=== PATIENT | male | born 1960 | race Caucasian/White ===

== ENCOUNTER 2020-10-09 00:42 | Emergency (ER) | payer OTHER, MEDICAID, SELFPAY ==
--- NOTE | 2020-10-09 00:43 | PC.NURSE ---
Pt to CT upon arrival
[2020-10-09 00:44] VITALS: BP 144/82; PULSE 107; RESP 24; TEMP 36.8; O2SAT 100
--- NOTE | 2020-10-09 00:44 | DI.CT.S_ITS ---
PROCEDURE: CT STROKE INDICATIONS: aphasia TECHNIQUE: Noncontrast 4.5 mm thick angled axial sections acquired from the foramen magnum to the vertex, with coronal reformats. For radiation dose reduction, the following was used: automated exposure control, adjustment of mA and/or kV according to patient size. COMPARISON: None. FINDINGS: Image quality: Excellent. CSF spaces: Basal cisterns are patent. No extra-axial fluid collections. The ventricles are symmetric in size and shape. Brain: No intracranial bleeds or masses. There is cerebral volume loss for age, with resultant ventricular and sulcal prominence. There are periventricular and deep white matter chronic small vessel ischemic changes. There is intracranial internal carotid artery atherosclerosis. Skull and face: Calvarium and visualized facial bones appear intact, without suspicious lesions. Sinuses: Mucosal thickening noted in the visualized maxillary sinuses. The mastoids are clear. IMPRESSION: No acute intracranial disease process. Findings telephoned to Dr. Shaikh on October 09, 2020 at 12:56 a.m.. This study fulfills neurological imaging criteria for inclusion or exclusion of acute stroke therapies based on available published neurological guidelines. Dictated by: Cata Hayward MD, PhD on 10/09/2020 at 0:54 Approved by: Cata Hayward MD, PhD on 10/09/2020 at 0:58
--- NOTE | 2020-10-09 00:45 | DI.CT.S_ITS ---
PROCEDURE: CT ANGIO HEAD AND NECK INDICATIONS: stroke TECHNIQUE: After the administration of intravenous contrast, 1 mm thick sections acquired from the aortic arch through the [place] of [place]. Post-contrast 4.5 mm thick sections then re-acquired from the foramen magnum to the vertex. 3-dimensional jrgzphx-ugdtwncmh-udmvdernhe (MIP) and/or volume rendering reformats were acquired of the central intracranial vasculature and neck separately. COMPARISON: None. FINDINGS: Image quality: Excellent. BRAIN: CSF spaces: Ventricles are normal in size and shape. Basal cisterns are patent. No extra-axial fluid collections. Brain: No midline shift. No intracranial bleeds or masses. Miranda-white matter interface appears intact. Skull and face: Calvarium and facial bones appear intact, without suspicious lesions. Orbits appear normal. Sinuses: Mucosal thickening noted in the maxillary sinuses bilaterally. The mastoids are clear. HEAD CT ANGIOGRAPHY: Anterior circulation: Intracranial internal carotid arteries are normal in size and flow. The flow within the paired anterior cerebral arteries is normal and symmetric. The flow within the middle cerebral arteries is normal and symmetric. The anterior communicating artery is seen. No aneurysms are seen. Posterior circulation: Normal flow noted in the right vertebral artery. Patient is right vertebral artery dominant. Atherosclerotic calcification noted in the proximal V4 segment of the right vertebral artery which causes mild narrowing of the vessel. Left vertebral artery is occluded distal to the origin left posterior inferior cerebral artery. Normal flow noted in the basilar artery. Flow within the posterior cerebral arteries is normal and symmetric. No aneurysms are seen. Dural sinuses demonstrate normal postcontrast enhancement. NECK CT ANGIOGRAPHY: Carotid system: The great vessels demonstrate a conventional anatomy as they arise from the aortic arch. The origins of the common carotid arteries appear patent. The common carotid arteries demonstrate normal caliber and courses. Atherosclerotic calcifications noted in the origins of the internal carotid arteries bilaterally which causes less than 50% stenosis of the vessels. Posterior circulation: Atherosclerotic calcification noted in the origin of the right vertebral artery which causes mild narrowing of the vessel. Patient is right vertebral artery dominant. Congenitally hypoplastic left vertebral artery noted. Origin left vertebral artery is fully patent. The more superior extracranial portions of both vertebral arteries also demonstrate normal courses and calibers. They join to form a normal appearing basilar artery. Soft tissues: Visualized neck soft tissues demonstrate no suspicious abnormalities. Bones: No suspicious bony lesions. Spine degenerative disc disease and facet arthropathy. Visualized cervical spine appears normally aligned. IMPRESSION: 1. No acute intracranial disease process. 2. Less than 50% stenosis of the origins of the internal carotid arteries. 3. Mild stenosis of the origin of the right vertebral artery in the V4 segment of the right vertebral artery. Patient is right vertebral artery dominant. 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 Any quantitative measurements of stenosis were performed using NASCET criteria. Dictated by: Cata Hayward MD, PhD on 10/09/2020 at 1:08 Approved by: Cata Hayward MD, PhD on 10/09/2020 at 1:16
[2020-10-09 00:56] VITALS: BP 146/91; PULSE 119; O2SAT 99
[2020-10-09 01:00] VITALS: BP 144/82; PULSE 110; RESP 16; O2SAT 100
--- NOTE | 2020-10-09 01:10 | ED.WEAKNESS ---
HPI - Weakness General Chief complaint: Neuro Symptoms/Deficit Stated complaint: Code stroke Time Seen by Provider: 10/09/20 00:44 Source: patient and EMS Mode of arrival: EMS Limitations: other (aphasia) History of Present Illness HPI Narrative: This is a 59-year-old male who comes emergency department with complaint of altered speech. Patient was last seen normal at 11:40 p.m. by staff at the motel that he is staying at he had normal speech at that time. Patient was then noted to not be able to really speak and was stuttering and unable to express himself. Patient is otherwise moving normally. His speech is so difficult it is very difficult to even get any history. 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 And that he was on clobetasol. Patient is unable to clearly enunciate or share if he is on any other medications. He states he had 2 alcoholic drinks tonight. He denies sounds like other drugs besides possibly THC. Related Data Previous Rx's Medication Instructions Recorded clobetasol 0.05 % topical ointment 1 applic TOPICAL BID PRN 14 Days 08/11/20 #60 g Allergies Allergy/AdvReac Type Severity Reaction Status Date / Time No Known Drug Allergies Allergy Unverified 06/29/20 13:37 Review of Systems Review of Systems ROS Unobtainable: Unobtainable due to medical condition Patient History Medical History Chicken pox (~1989) Partial blindness Psoriasis Family History (Updated 07/05/20 @ 14:04 by Cassie Orourke) Father Stroke Mother Cancer Brother Alcohol abuse Sister Murder Grandfather Stroke Grandmother Stroke Grandfather Stroke Grandmother Stroke Social History Smoking Status: Former smoker Smoking Status: Former smoker Exam Narrative Exam Narrative: GEN: well nourished, well appearing male, alert and oriented x 3, patient appears to be in moderate distress. HEENT: Atraumatic, pupils are equal round reactive to light, extraocular movements are intact, nares are clear, TMs are clear with no fluid, there is no conjunctival pallor. Throat is clear without any exudates, erythema, tonsillar enlargement or uvular deviation, no facial droop. HEART: Regular rate and rhythm without murmur, clicks, rubs. Pulses are equal in upper and lower extremities LUNGS:Lungs clear to auscultation, no wheezes, rales, crackles, chest moves symmetrically ABD:bowel sounds normal, soft, non-tender, no guarding, rebound, rigidity, no masses noted, no hepatosplenomegaly :No CVA tenderness MSCL: Non-tender, no muscle atrophy, muscles strength 5/5 upper and lower extremities, full range of motion NEURO:CN 2-12 intact, sensation normal, reflexes 2/4 upper and lower extremities. finger nose finger test normal, heel lombardi test normal, patient has significant expressive aphasia SKIN: No rash or skin changes. Initial Vital Signs Initial Vital Signs: Vital Signs Temperature 98.2 F 10/09/20 00:44 Pulse Rate 107 H 10/09/20 00:44 Respiratory Rate 24 10/09/20 00:44 Blood Pressure 144/82 H 10/09/20 00:44 Pulse Oximetry 100 10/09/20 00:44 Scores NIH Stroke Scale Level of Conciousness: Alert, keenly responsive Ask month/age: Answers one question correctly, intubated follow commands Open/close eyes, close hand: Performs both tasks correctly Best gaze horizontal: Normal Visual nguyen: No visual loss Facial palsy: Normal symetrical movement Left arm drift: No drift for full 10 sec Right arm drift: No drift for full 10 sec Left leg drift: No drift for full 5 sec Right leg drift: No drift for full 5 sec Limb ataxia: Absent Sensory on face/arms/legs: Normal, no sensory loss Best language: Severe aphasia, not much is understood, fragmented Dysarthria: Severe, unintelligible Extinction or inattention: No abnormality Total NIH Stroke scale score: 5 Course Orders Ordered: Discontinued Medications Aspirin (Aspirin 81 Mg Chew Tab) 324 mg PO NOW ONE Stop: 10/09/20 01:00 Last Admin: 10/09/20 01:48 Dose: Not Given Documented by: KADENOTEM Aspirin (Aspirin Supp 600 Mg Supp.Rect) 600 mg GA NOW ONE Stop: 10/09/20 01:25 Last Admin: 10/09/20 01:47 Dose: Not Given Documented by: KBROTEM Aspirin (Aspirin 300 Mg Supp) 300 mg GA NOW ONE Stop: 10/09/20 01:33 Last Admin: 10/09/20 01:47 Dose: Not Given Documented by: ASHLEY Aspirin (Aspirin 81 Mg Chew Tab) 324 mg PO NOW ONE Stop: 10/09/20 01:40 Last Admin: 10/09/20 01:46 Dose: 324 mg Documented by: ASHLEY Clopidogrel Bisulfate (Clopidogrel 75 Mg Tablet) 300 mg PO NOW ONE Stop: 10/09/20 01:40 Last Admin: 10/09/20 01:47 Dose: 300 mg Documented by: ASHLEY Sodium Chloride (Normal Saline 0.9%) 1,000 mls @ 150 mls/hr IV CONT COURTNEY Last Infusion: 10/09/20 02:23 Dose: 0 mls/hr Documented by: Admin: 10/09/20 01:29 Dose: 150 mls/hr Documented by: ASHLEY Reevaluation(s) Reevaluation #1: Patient has been quite insistent that he does not wish to stay. His mentation has significantly improved. He is able to hold a conversation he knows where he is. He does not recall exactly what happened today but no that he was unable to express himself adequately. Patient states that he is planning return tomorrow he has an appointment to be evaluated for hernia. He does not wish to miss this. He is aware that he has a low sodium level and that I am concerned about seizure or stroke I am concerned he could have recurrent episodes and potentially or have permanent brain damage. Patient states he was not eating for quite some time will he was fishing. He is happy to increases sodium level. He has seen Dr. Rivas in the past but does not claim him as his primary care. He is willing to get his sodium level rechecked. He is encouraged to return here at any time. He has also been having our director of social work reach out to him to contact him. He has a friend who is picking him up this evening his in the department and states that they are willing to stay with him tonight to keep an eye on him. Time: 02:01 Consultations Consultation #1: Telestroke, Dr. Arora. CT and CTA do not show clear cause. Patient was unable to give history does appear is a sodium of 124. We did discuss that may be seizure would be on the differential specially with his sort of expressive aphasia that is quite dense. He is willing to evaluate the patient with Telestroke video. By the time the neurologist was on the Telestroke within 20 minutes patient's speech had significantly improved he still is confused but he is able to speak with fairly clear speech and answer questions somewhat appropriately. They did evaluate the patient on video. They do request that we should give aspirin 324 mg as well as loading dose of 300 mg of Plavix get MRI in the morning. Discussed that this is potentially related hyponatremia, versus seizure versus stroke and continue workup. Vital Signs Vital signs: Vital Signs - 8 hr 10/09/20 00:44 10/09/20 00:56 10/09/20 01:00 Temperature 98.2 F Pulse Rate 107 H 119 H 110 H Respiratory Rate 24 16 Blood Pressure 144/82 H 146/91 H 144/82 H Pulse Oximetry 100 99 100 10/09/20 01:30 10/09/20 02:00 Temperature Pulse Rate 101 H 96 H Respiratory Rate 18 15 Blood Pressure 157/99 H 157/94 H Pulse Oximetry 99 100 MDM - Weakness Lab Data Result diagrams: 10/09/20 00:55 10/09/20 00:55 Labs: Lab Results 10/09/20 10/09/20 10/09/20 Range/Units 00:55 00:55 00:55 WBC 6.5 (4.5-11.0) X10^3/uL RBC 4.57 (4.5-5.9) X10^6/uL Hgb 13.9 (13.5-17.5) g/dL Hct 39.1 L (41-53) % MCV 85.5 (80-100) fL MCH 30.4 (26-34) PG MCHC 35.5 (30-36) % RDW 12.4 (11.6-14.8) % Plt Count 223 (150-400) X10^3/uL Neut % (Auto) 71.0 (50-75) % Lymph % (Auto) 11.1 L (25-40) % [place] % (Auto) 15.9 H (3-14) % Eos % (Auto) 1.4 L (2-4) % Baso % (Auto) 0.6 (0-2) % Neut # (Auto) 4600 (7430-6625) /uL Lymph # (Auto) 700 L (3893-0760) /uL [place] # (Auto) 1000 H (0-900) /uL Eos # (Auto) 100 (0-450) /uL Baso # (Auto) 0 (0-100) /uL PT 13.1 H (10.1-12.7) SECONDS INR 1.2 (0.9-1.3) APTT 28 (26.4-36.2) SECONDS Sodium 124 L (137-145) mmol/L Potassium 3.4 (3.4-5.1) mmol/L Chloride 86 L (98-107) mmol/L Carbon Dioxide 27 (22-32) mmol/L BUN 13 (9-20) mg/dL Creatinine 0.64 L (0.66-1.25) mg/dL Estimated GFR > 60.0 (>60) mL/min BUN/Creatinine Ratio 20.3 (6-22) Glucose 216 H (80-110) mg/dL Calcium 9.4 (8.4-10.2) mg/dL Total Creatine Kinase 32 L (55-170) U/L CK-MB (CK-2) TNP CK-MB (CK-2) Rel Index TNP Troponin I < 0.012 (0.01-0.034) ng/mL Ethyl Alcohol ( - 10) mg/dL 10/09/20 Range/Units 00:55 WBC (4.5-11.0) X10^3/uL RBC (4.5-5.9) X10^6/uL Hgb (13.5-17.5) g/dL Hct (41-53) % MCV (80-100) fL MCH (26-34) PG MCHC (30-36) % RDW (11.6-14.8) % Plt Count (150-400) X10^3/uL Neut % (Auto) (50-75) % Lymph % (Auto) (25-40) % [place] % (Auto) (3-14) % Eos % (Auto) (2-4) % Baso % (Auto) (0-2) % Neut # (Auto) (9665-6664) /uL Lymph # (Auto) (1019-0407) /uL [place] # (Auto) (0-900) /uL Eos # (Auto) (0-450) /uL Baso # (Auto) (0-100) /uL PT (10.1-12.7) SECONDS INR (0.9-1.3) APTT (26.4-36.2) SECONDS Sodium (137-145) mmol/L Potassium (3.4-5.1) mmol/L Chloride (98-107) mmol/L Carbon Dioxide (22-32) mmol/L BUN (9-20) mg/dL Creatinine (0.66-1.25) mg/dL Estimated GFR (>60) mL/min BUN/Creatinine Ratio (6-22) Glucose (80-110) mg/dL Calcium (8.4-10.2) mg/dL Total Creatine Kinase (55-170) U/L CK-MB (CK-2) CK-MB (CK-2) Rel Index Troponin I (0.01-0.034) ng/mL Ethyl Alcohol 12 H ( - 10) mg/dL Point of Care Testing Glucose POC [address] scan - head: Radiologist Impression: [address] [id number] Scan ReportSigned Patient: Leighton Shanks AMR#: [id number]: 9Acct:[id number]/Sex: 59 / MDate of Service: 10/09/20Loc: EDAccession Number: [id number] Procedure: CT Stroke Ordering Provider: Kenna Shaikh D.O. PROCEDURE: CT STROKE INDICATIONS: aphasia TECHNIQUE: Noncontrast 4.5 mm thick angled axial sections acquired from the foramen magnum to the vertex, with coronal reformats. For radiation dose reduction, the following was used: automated exposure control, adjustment of mA and/or kV according to patient size. COMPARISON: None. FINDINGS: Image quality: Excellent. CSF spaces: Basal cisterns are patent. No extra-axial fluid collections. The ventricles are symmetric in size and shape. Brain: No intracranial bleeds or masses. There is cerebral volume loss for age, with resultant ventricular and sulcal prominence. There are periventricular and deep white matter chronic small vessel ischemic changes. There is intracranial internal carotid artery atherosclerosis. Skull and face: Calvarium and visualized facial bones appear intact, without suspicious lesions. Sinuses: Mucosal thickening noted in the visualized maxillary sinuses. The mastoids are clear. IMPRESSION: No acute intracranial disease process. Findings telephoned to Dr. Shaikh on October 09, 2020 at 12:56 a.m.. This study fulfills neurological imaging criteria for inclusion or exclusion of acute stroke therapies based on available published neurological guidelines. Dictated by: Cata Hayward MD, PhD on 10/09/2020 at 0:54 Approved by: Cata Hayward MD, PhD on 10/09/2020 at 0:58 CTA - brain/neck: Radiologist Impression: [address] [id number] Scan ReportSigned Patient: Leighton Shanks AMR#: [id number]: [id number]:[id number]/Sex: 59 / MDate of Service: 10/09/20Loc: EDAccession Number: [id number] Procedure: CT angio head and neck Ordering Provider: Kenna Shaikh D.O. PROCEDURE: CT ANGIO HEAD AND NECK INDICATIONS: stroke TECHNIQUE: After the administration of intravenous contrast, 1 mm thick sections acquired from the aortic arch through the [place]. Post-contrast 4.5 mm thick sections then re-acquired from the foramen magnum to the vertex. 3-dimensional ogfgrod-kdyquunrl-uklmggltpq (MIP) and/or volume rendering reformats were acquired of the central intracranial vasculature and neck separately. COMPARISON: None. FINDINGS: Image quality: Excellent. BRAIN: CSF spaces: Ventricles are normal in size and shape. Basal cisterns are patent. No extra-axial fluid collections. Brain: No midline shift. No intracranial bleeds or masses. Miranda-white matter interface appears intact. Skull and face: Calvarium and facial bones appear intact, without suspicious lesions. Orbits appear normal. Sinuses: Mucosal thickening noted in the maxillary sinuses bilaterally. The mastoids are clear. HEAD CT ANGIOGRAPHY: Anterior circulation: Intracranial internal carotid arteries are normal in size and flow. The flow within the paired anterior cerebral arteries is normal and symmetric. The flow within the middle cerebral arteries is normal and symmetric. The anterior communicating artery is seen. No aneurysms are seen. Posterior circulation: Normal flow noted in the right vertebral artery. Patient is right vertebral artery dominant. Atherosclerotic calcification noted in the proximal V4 segment of the right vertebral artery which causes mild narrowing of the vessel. Left vertebral artery is occluded distal to the origin left posterior inferior cerebral artery. Normal flow noted in the basilar artery. Flow within the posterior cerebral arteries is normal and symmetric. No aneurysms are seen. Dural sinuses demonstrate normal postcontrast enhancement. NECK CT ANGIOGRAPHY: Carotid system: The great vessels demonstrate a conventional anatomy as they arise from the aortic arch. The origins of the common carotid arteries appear patent. The common carotid arteries demonstrate normal caliber and courses. Atherosclerotic calcifications noted in the origins of the internal carotid arteries bilaterally which causes less than 50% stenosis of the vessels. Posterior circulation: Atherosclerotic calcification noted in the origin of the right vertebral artery which causes mild narrowing of the vessel. Patient is right vertebral artery dominant. Congenitally hypoplastic left vertebral artery noted. Origin left vertebral artery is fully patent. The more superior extracranial portions of both vertebral arteries also demonstrate normal courses and calibers. They join to form a normal appearing basilar artery. Soft tissues: Visualized neck soft tissues demonstrate no suspicious abnormalities. Bones: No suspicious bony lesions. Spine degenerative disc disease and facet arthropathy. Visualized cervical spine appears normally aligned. IMPRESSION: 1. No acute intracranial disease process. 2. Less than 50% stenosis of the origins of the internal carotid arteries. 3. Mild stenosis of the origin of the right vertebral artery in the V4 segment of the right vertebral artery. Patient is right vertebral artery dominant. 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 Any quantitative measurements of stenosis were performed using NASCET criteria. Dictated by: Cata Hayward MD, PhD on 10/09/2020 at 1:08 Approved by: Cata Hayward MD, PhD on 10/09/2020 at 1:16 ECG Data Attestation: I personally reviewed and interpreted this ECG as follows: Interpretation: Sinus tachycardia rate of 112 GA 170 QRS 88 QTC of 458. No acute ST elevation depression noted. MDM Narrative Medical decision making narrative: This is a 59-year-old male who came with dense expressive aphasia. Patient had last been seen normal at 11:40 p.m. and had arrived within appropriate time to give tPA. Patient's head CT is negative, CT is pending, patient's tachycardia but only mildly hypertensive with a blood pressure in the 140s. Patient is able to follow commands and otherwise his NIH is positive because he had difficulty answering his age and patient changes to speech. Patient does have to be continually redirected back to the questions so unclear if this is truly a stroke versus possibly seizure or other cause. Glucose is an appropriate range. Sodium is noted to be 124 and hyponatremic and etoh is 12 without any other signs of alcohol withdrawal except for mild tachycardia. Patient is not restless, inappropriate, he does not have any tremor. Telestroke was consulted, they began video Telestroke and patient speech significantly improved by the time they were able to interview them. Patient has been somewhat confused but also cleared throughout his stay until he appears to be back at baseline. Patient is quite reluctant to stay. He is able to express that he understands the risks versus benefits that would very much like to keep him overnight get an MRI in the morning continue to watch his sodium that he has high potential for recurrent possible seizure or on negative outcome including . Patient is actually supposed to return this morning for follow-up office visit with general surgery he does not wish to miss this. He has a friend who has arrived and is also willing to help keep an eye on the patient. Patient was signed out Against Medical Advice after period of observation and he is found to be competent to do so at this time. Critical Care Time Critical Care Time Critical Care Time: Yes Total Critical Care Time: 45 Attestation: The high probability of a clinically significant, sudden or life threatening deterioration of the [neurologic] system(s) required my full and direct attention, intervention and personal management. The aggregate critical care time was [] minutes. This time is in addition to time spent performing reported procedures but includes the following: [x] Data Review and interpretation [x] Patient assessment and monitoring of vital signs [x] Documentation x[] Medication orders and management Discharge Plan Departure Patient Disposition: Left Against Medical Advice Clinical Impression: Hyponatremia Instructions: DI for Hyponatremia Activity Restrictions/Additional Instructions: Follow-up with Dr. Rivas to have your sodium rechecked. Here level today your sodium level is 124, this is quite low and could be causing your symptoms today. I would certainly recommend increasing your sodium level in your food. I am concerned the either had a seizure today or possibly a stroke. It is recommended that we keep you overnight for monitoring, evaluation and following her sodium as well as MRI in the morning. I would recommend that you have someone stay with you if there available tonight as we discussed. Your welcome to return at any time. I do not recommend that you leave tonight. Please return if you have headaches, he seemed altered, have difficulty with speech again, have seizure-like activity, loss of bowel or bladder control, new numbness, tingling or weakness or difficulty with movement or other new or concerning symptoms. Prescriptions: No Action clobetasol 0.05 % ointment 1 applic topical BID PRN (Reason: psoriasis) 14 Days Qty: 60 RF: 3 Referrals: Froilan Rivas MD [Primary Care Provider] - Stand Alone Forms: Against Medical Advice
[2020-10-09 01:15] LABS: Add Manual Diff / Slide Review NO; Basophils Absolute Auto 0 /uL (0-100); Basophils Percent Auto 0.6 % (0-2); Eosinophils Absolute Auto 100 /uL (0-450); Eosinophils Percent Auto 1.4 % (2-4); Hematocrit 39.1 % (41-53); Hemoglobin 13.9 g/dL (13.5-17.5); INR 1.2 (0.9-1.3); Lymphocytes Absolute Auto 700 /uL (1100-4500); Lymphocytes Percent Auto 11.1 % (25-40); Mean Corpuscular HGB Conc 35.5 % (30-36); Mean Corpuscular Hemoglobin 30.4 PG (26-34); Mean Corpuscular Volume 85.5 fL (80-100); Monocytes Absolute Auto 1000 /uL (0-900); Monocytes Percent Auto 15.9 % (3-14); Neutrophils Absolute Auto 4600 /uL (1500-7000); Platelet Count 223 X10^3/uL (150-400); Prothrombin Time 13.1 SECONDS (10.1-12.7); Red Blood Cell Count 4.57 X10^6/uL (4.5-5.9); Red Cell Distribution Width 12.4 % (11.6-14.8); White Blood Cell Count 6.5 X10^3/uL (4.5-11.0)
[2020-10-09 01:18] LABS: PTT Partial Thromboplastin Tim 28 SECONDS (26.4-36.2)
[2020-10-09 01:19] LABS: Ethanol (ETOH) 12 mg/dL
[2020-10-09 01:20] LABS: BUN Creatinine Ratio 20.3 (6-22); Blood Urea Nitrogen 13 mg/dL (9-20); Calcium 9.4 mg/dL (8.4-10.2); Carbon Dioxide 27 mmol/L (22-32); Chloride 86 mmol/L (98-107); Creatine Kinase 32 U/L (55-170); Estimated Glomerular Filt Rate > 60.0 mL/min (>60); Glucose 216 mg/dL (80-110); HEMOLYSIS < 15 (0-50); Potassium 3.4 mmol/L (3.4-5.1); Sodium 124 mmol/L (137-145)
[2020-10-09] MEDS: SODIUM CHLORIDE 0.9% 1,000 ML 150 ML IV (01:29)
[2020-10-09 01:30] VITALS: BP 157/99; PULSE 101; RESP 18; O2SAT 99
[2020-10-09 01:32] LABS: Troponin I < 0.012 ng/mL (0.01-0.034)
--- NOTE | 2020-10-09 01:41 | PC.NURSE ---
Pts sx improved,he still seems confused. he is no longer slurring his words.
[2020-10-09] MEDS: ASPIRIN 81 MG CHEW TAB 324 MG PO (01:46)
[2020-10-09] MEDS: CLOPIDOGREL 75 MG TABLET 300 MG PO (01:47)
[2020-10-09 02:00] VITALS: BP 157/94; PULSE 96; RESP 15; O2SAT 100
--- NOTE | 2020-10-09 12:50 | CM.SWNOTE ---
Addendum entered by Noelle Thomas 10/10/20 15:42: HOROLOGIST APPRENTICE Note HOROLOGIST APPRENTICE calls patient several times and is unable to leave VM. HOROLOGIST APPRENTICE receives calls from patient and patient is inaudiable and hangs up phone. HOROLOGIST APPRENTICE calls patient's person to notify, employer [employer]. [employer] endorses that patient is not in good health and things have escalated in the last 10 days and patient often becomes inaudiable. HOROLOGIST APPRENTICE informs [employer] of patient's PCP appt with Dr. Rivas at 8:15 AM on 10/20/20, Taco endorses he will inform patient. Taoc endorses that patient has upcoming hernia operation soon as well. HOROLOGIST APPRENTICE encourages [employer] to have patient return to the ER if symptoms increase and patient is in need of emergent medical attention. ADAM Lindsey Addendum entered by Noelle Thomas 10/09/20 13:31: HOROLOGIST APPRENTICE Follow Up Note HOROLOGIST APPRENTICE calls PCP Dr. Rivas office and schedules PCP ED f/u appt for patient on 10/20/20 at 8:30 AM with check in time of 8:15 AM HOROLOGIST APPRENTICE calls patient's number and it goes to but patient's VM box is full. HOROLOGIST APPRENTICE calls patient's person to notify [employer] (Ph. # [phone]) [employer] reports that he was just with patient 30 minutes ago and patient was doing fine (after HOROLOGIST APPRENTICE called 911). [employer] endorses that patient was not doing well when he came here from [place] and was struggling with GLFs and a hernia. Taco endorses that patient is staying at the [facility] in room 257. HOROLOGIST APPRENTICE calls [facility], to speak with patient and patient hangs up the phone. Plan: HOROLOGIST APPRENTICE will call patient tomorrow to inform patient of scheduled PCP appt and for f/u ADAM Lindsey Original Note: HOROLOGIST APPRENTICE Follow Up Note HOROLOGIST APPRENTICE receives consult for follow call to patient and for continuation of care. Patient is 59 y/o male who presented to this ED for concern of stroke. Patient left ED AMA and it is recommended that PCP f/u with PCP for further lab work. HOROLOGIST APPRENTICE calls patient, patient endorses he is feeling better, trying to calm him self and relax to avoid fits. Patient denies pain. Patient states that he has a friend that can drive him and he cannot legally drive until he has an eye appt. Patient endorses he has friends that can support him but all of his family has . Patient presents as somewhat coherent, circumstantial in his communication and asks if today is Friday. HOROLOGIST APPRENTICE endorses that HOROLOGIST APPRENTICE would like to call PCP Dr. Rivas's office for f/u PCP appt and for further lab work. Patient agrees to have HOROLOGIST APPRENTICE call PCP to schedule appt. Patient endorses he prefers prior to lunch appts. Patient asks for HOROLOGIST APPRENTICE's number and begins to studder, mumble and present as not coherent, alert or oriented. HOROLOGIST APPRENTICE has SQUIRT MACHINE OPERATOR listen to patient and reports possible concern for stroke. HOROLOGIST APPRENTICE calls 911 as patient is not responding to HOROLOGIST APPRENTICE and patient then hangs up the phone. Plan: HOROLOGIST APPRENTICE calls 911 for further EMS intervention at home. HOROLOGIST APPRENTICE to call patient back and schedule f/u PCP appt, HOROLOGIST APPRENTICE will wait to see if patient presents to ED. ADAM Lindsey
== END 2020-10-09 02:25 | disposition left against medical advice (07) ==
PROVIDERS: Emergency Provider Emergency Medicine; PCP Family Medicine
DX: E87.1 Hypo-osmolality and hyponatremia (principal); R00.0 Tachycardia, unspecified; R47.01 Aphasia
CPT/HCPCS: 36415; 70450; 70496; 70498; 80048; 80320; 82550; 82962; 84484; 85025; 85610; 85730; 93005; 96360; 99285; 99291; Q9967

== ENCOUNTER 2020-10-13 18:45 | Emergency (ER) | payer OTHER, MEDICAID, SELFPAY ==
[2020-10-13 18:49] VITALS: BP 117/74; PULSE 102; RESP 15; TEMP 36.3; O2SAT 97; BMI 17.6
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
[2020-10-13 19:19] LABS: Add Manual Diff / Slide Review NO; Basophils Absolute Auto 100 /uL (0-100); Basophils Percent Auto 0.8 % (0-2); Eosinophils Absolute Auto 100 /uL (0-450); Eosinophils Percent Auto 0.7 % (2-4); Hematocrit 41.4 % (41-53); Hemoglobin 14.4 g/dL (13.5-17.5); Lymphocytes Absolute Auto 1000 /uL (1100-4500); Lymphocytes Percent Auto 13.8 % (25-40); Mean Corpuscular HGB Conc 34.7 % (30-36); Mean Corpuscular Hemoglobin 29.9 PG (26-34); Mean Corpuscular Volume 86.1 fL (80-100); Monocytes Absolute Auto 1300 /uL (0-900); Neutrophils Absolute Auto 4800 /uL (1500-7000); Neutrophils Percent Auto 66.7 % (50-75); Platelet Count 240 X10^3/uL (150-400); Red Blood Cell Count 4.81 X10^6/uL (4.5-5.9); Red Cell Distribution Width 12.3 % (11.6-14.8); White Blood Cell Count 7.3 X10^3/uL (4.5-11.0)
[2020-10-13 19:40] LABS: Alanine Aminotransferase 48 IU/L (<50); Albumin 4.5 g/dL (3.5-5.0); Albumin Globulin Ratio 1.3 (1.0-2.8); Alkaline Phosphatase 128 U/L (38-126); Aspartate Aminotransferase 65 IU/L (17-59); BUN Creatinine Ratio 15.1 (6-22); Bilirubin Total 1.9 mg/dL (0.2-1.3); Blood Urea Nitrogen 11 mg/dL (9-20); Calcium 9.9 mg/dL (8.4-10.2); Carbon Dioxide 23 mmol/L (22-32); Chloride 87 mmol/L (98-107); Creatine Kinase 57 U/L (55-170); Estimated Glomerular Filt Rate > 60.0 mL/min (>60); Ethanol (ETOH) < 10 mg/dL; Globulin 3.6 g/dL (1.7-4.1); Glucose 204 mg/dL (80-110); HEMOLYSIS < 15 (0-50); Potassium 3.1 mmol/L (3.4-5.1); Sodium 125 mmol/L (137-145); Total Protein 8.1 g/dL (6.3-8.2)
[2020-10-13 19:51] LABS: Troponin I < 0.012 ng/mL (0.01-0.034)
[2020-10-13 21:18] LABS: Bacteria Urine None Seen; RBC Urine None Seen (0-5/HPF)
[2020-10-13 21:22] LABS: Ur Creatinine 20 (Normal); Ur Specific Gravity 1.025 (Normal); Urine Cocaine Negative (Negative); Urine Tetrahydrocannabinol Positive (Negative); Urine pH 5 (Normal)
[2020-10-13 21:23] LABS: UR Morphine/Opiate cutoff 300 Negative (Negative); Urine Amphetamines Positive (Negative); Urine Barbiturates Negative (Negative); Urine Benzodiazepines Positive (Negative); Urine MDMA Negative (Negative); Urine Methadone Negative (Negative); Urine Methamphetamines Positive (Negative); Urine Oxycodone Positive (Negative); Urine Phencyclidine Negative (Negative); Urine Tricyclic Antidepressant Negative (Negative)
[2020-10-13 21:26] LABS: Culture Indicated Urine Cult Not Indicated; Hyaline Casts Urine 0-1/LPF; WBC Urine 0-1/HPF (0-5/HPF)
[2020-10-13 22:42] VITALS: BP 126/75; PULSE 88; RESP 20; O2SAT 99
[2020-10-13] MEDS: ASPIRIN 81 MG CHEW TAB 324 MG PO (22:42)
== END 2020-10-13 22:43 | disposition home or self-care (01) ==
PROVIDERS: Emergency Provider Emergency Medicine; PCP Family Medicine
DX: E87.1 Hypo-osmolality and hyponatremia (principal); F19.10 Other psychoactive substance abuse, uncomplicated; R41.0 Disorientation, unspecified
CPT/HCPCS: 36415; 70450; 80053; 80305; 80320; 81003; 81015; 82550; 84146; 84484; 85025; 99284

== ENCOUNTER 2020-10-14 05:00 | Emergency (ER) | payer OTHER, MEDICAID, SELFPAY ==
[2020-10-14 05:05] VITALS: BP 133/84; PULSE 98; RESP 20; TEMP 36.6; O2SAT 100
--- NOTE | 2020-10-14 05:21 | PC.NURSE ---
He said he has no where to go,is tired from walking,is hungry and thirsty,denies pain.He has small abrasion on left knee.I cleaned it with soap and water.
--- NOTE | 2020-10-14 05:35 | ED.RECABL ---
HPI - Recheck/Abnormal Lab/Rx General Chief Complaint: Recheck/Abnormal Lab/Rx Stated Complaint: dizzy, short of breath Time Seen by Provider: 10/14/20 05:28 Source: patient Mode of arrival: Ambulatory History of Present Illness HPI narrative: Patient is a 59-year-old male who is a history of alcoholism and polysubstance of was presenting for the 2nd time this evening. He was released after being worked up for TIA and stroke, found to have hyponatremia which was improving. Patient's baseline mental status seems to wax and wane according to both my exam earlier this evening and no prior evaluation on october 09 2020. Patient states after his release from the emergency department he wondered around the street trying to find his friend's house. He thought she knew where she lived but unfortunately he he knocked on mini unknown doors and tried to go into someone else's house. He then tried to get into a hotel the all the hotels are booked, he tried sleeping in the lobby of 1 of them but was quickly kicked out. During all of this he did fall in has a left knee abrasion. Currently he seems much more with it than he did previously he does have a stutter. But he is moving all of his extremities. He basically states that he has nowhere to go so he return to the emergency department. Related Data Previous Rx's Medication Instructions Recorded clobetasol 0.05 % topical ointment 1 applic TOPICAL BID PRN 14 Days 08/11/20 #60 g Allergies Allergy/AdvReac Type Severity Reaction Status Date / Time No Known Drug Allergies Allergy Verified 10/13/20 18:49 Review of Systems Review of Systems Narrative: GENERAL: Denies chills, fatigue, malaise, fever, sweats, travel HEENT: Denies sinus pain, ear pain, sore throat, difficulty swallowing, neck pain RESPIRATORY: Denies dyspnea, cough, wheezing, hemoptysis, sputum. CARDIOVASCULAR: Denies chest pain, palpitations, orthopnea, edema GASTROINTESTINAL: Denies nausea, vomiting, abdominal pain, diarrhea, constipation, melena. : Denies dysuria, frequency, incontinence, hematuria, urinary retention, flank pain. MUSCULOSKELETAL: Denies weakness, joint pain, or bony pain SKIN: No rash, no erythema, no pruritus NEUROLOGIC: Denies weakness, dizziness, headache, numbness, change in speech, confusion PSYCHIATRIC: No concerning psychosocial issues. 12 point review of systems is negative except for those stated above and HPI Patient History Medical History Chicken pox (~1989) Partial blindness Psoriasis Family History (Updated 07/05/20 @ 14:04 by Cassie Orourke) Father Stroke Mother Cancer Brother Alcohol abuse Sister Murder Grandfather Stroke Grandmother Stroke Grandfather Stroke Grandmother Stroke Social History Smoking Status: Current every day smoker Smoking Status: Current every day smoker alcohol intake frequency: 3 or more drinks per day Substance Use Type: does not use Exam Initial Vital Signs Initial Vital Signs: Vital Signs Temperature 98 F 10/14/20 05:05 Pulse Rate 98 H 10/14/20 05:05 Respiratory Rate 20 10/14/20 05:05 Blood Pressure 133/84 10/14/20 05:05 Pulse Oximetry 100 10/14/20 05:05 GENERAL: Thin 59-year-old male very talkative this time HEENT: Head atraumatic,EOMI, pupils reactive, face symmetric, moist mucous membrane CARDIOVASCULAR: Regular rate and rhythm without murmurs, rubs or gallops. RESPIRATORY: Breath sounds equal bilaterally, no wheezes rales or rhonchi. ABDOMEN: Soft, nontender. Normoactive bowel sounds all 4 quadrants. No guarding or rebound. EXTREMITIES: Normal range of motion, no clubbing or edema. Neurovascularly intact NEUROLOGICAL: Alert and oriented x4.Normal gait and speech. He does have a stutter noted which remains unchanged SKIN: Warm, dry, no laceration, no petechiae, no rashes or lesions. Superficial left knee abrasion Course Vital Signs Vital signs: Vital Signs - 8 hr 10/14/20 05:05 10/14/20 06:26 Temperature 98 F Pulse Rate 98 H 80 Respiratory Rate 20 18 Blood Pressure 133/84 139/79 Pulse Oximetry 100 99 [facility] - Recheck/Abnormal Lab/Rx ECG Data Interpretation: Normal sinus rhythm rate 92 VT interval 162 QRS [address] changes or T-wave inversions [facility] Narrative Medical decision making narrative: EKG his was done because it was not done at his previous visit. Patient overall soon back to his baseline pain. Discussion of why he is here which really seems to be that he has nowhere else to go. At this time no indication to do any further testing. TONO was helping him dial phone to find his friend and her address and perhaps she could pick him up this time, TONO reports helping him and I will however as soon as it started ringing he dropped the phone and had no idea what was going on or why he was making a phone call. However he quickly recovers and is back to his baseline. He states that if he gets a ride in a taxi cab he will be able to direct him to the correct house. Discharge Plan Departure Patient Disposition: Home Clinical Impression: Abrasion of knee, left Qualifiers: Encounter type: initial encounter Qualified Code(s): S80.212A - Abrasion, left knee, initial encounter Instructions: DI for Minor Laceration Activity Restrictions/Additional Instructions: *You have been diagnosed with minor knee abrasion *Continue to take medications as directed *Follow up with your primary care provider in 2-3 days *Return to ER if you should have any new, worsening or concerning symptoms Prescriptions: No Action clobetasol 0.05 % ointment 1 applic topical BID PRN (Reason: psoriasis) 14 Days Qty: 60 RF: 3 Referrals: Froilan Rivas MD [Primary Care Provider] -
[2020-10-14 06:26] VITALS: BP 139/79; PULSE 80; RESP 18; O2SAT 99
--- NOTE | 2020-10-14 06:28 | PC.NURSE ---
dressing applied to left knee abrasion,telfa and 4by 4.
== END 2020-10-14 06:28 | disposition home or self-care (01) ==
PROVIDERS: Emergency Provider Emergency Medicine; PCP Family Medicine
DX: S80.212A Abrasion, left knee, initial encounter (principal); R41.82 Altered mental status, unspecified; R00.0 Tachycardia, unspecified; W19.XXXA Unspecified fall, initial encounter
CPT/HCPCS: 93005; 99282

== ENCOUNTER 2020-10-18 20:17 | Emergency (ER) | payer OTHER, MEDICAID, SELFPAY ==
[2020-10-18 20:25] VITALS: BP 142/89; PULSE 101; RESP 16; TEMP 36.8; O2SAT 98
[2020-10-18 21:07] LABS: BUN Creatinine Ratio 15.9 (6-22); Blood Urea Nitrogen 10 mg/dL (9-20); Calcium 9.3 mg/dL (8.4-10.2); Carbon Dioxide 24 mmol/L (22-32); Chloride 86 mmol/L (98-107); Estimated Glomerular Filt Rate > 60.0 mL/min (>60); Glucose 305 mg/dL (80-110); HEMOLYSIS < 15 (0-50); Sodium 125 mmol/L (137-145)
[2020-10-18 21:11] LABS: Potassium 2.7 mmol/L (3.4-5.1)
--- NOTE | 2020-10-18 21:16 | PC.NURSE ---
2114 informed pt of critical lab value, he now states he no longer wants to remain in the ED despite risks states I'll see a doctor in the morning and I'm fine now notified
== END 2020-10-18 21:30 | disposition left against medical advice (07) ==
PROVIDERS: Emergency Provider Emergency Medicine; PCP Family Medicine
DX: E87.6 Hypokalemia (principal)
CPT/HCPCS: 36415; 80048; 99281

== ENCOUNTER 2020-10-19 11:27 | Emergency (ER) | payer OTHER, MEDICAID, SELFPAY ==
[2020-10-19 11:30] VITALS: BP 153/105; PULSE 113; RESP 16; TEMP 36.9; O2SAT 97; BMI 16.9
--- NOTE | 2020-10-19 11:46 | PC.NURSE ---
EKG done and shows normal sinus tach
== END 2020-10-19 11:48 | disposition left against medical advice (07) ==
PROVIDERS: Emergency Provider Emergency Medicine; PCP Family Medicine
DX: R79.89 Other specified abnormal findings of blood chemistry (principal)
CPT/HCPCS: 93005; 93010; 99282

== ENCOUNTER 2020-10-24 08:13 | Emergency (ER) | payer OTHER, MEDICAID, SELFPAY ==
[2020-10-24 08:23] VITALS: BP 132/92; PULSE 100; RESP 18; TEMP 36.4; O2SAT 100; BMI 17.4
--- NOTE | 2020-10-24 08:26 | ED_ITS ---
HPI - General Adult General Chief complaint: Extremity Problem,Nontraumatic Stated complaint: 'aches from head to toe' Time Seen by Provider: 10/24/20 08:17 History of Present Illness HPI narrative: 59-year-old male who has been to the emergency department several times in the past week. Has been evaluated and also has left without being seen who arrives emergency department today with complaints of having aches from head to toe. He also states that he feels like he is on the verge of having a stroke. He states that his feet hurt although this is not new. He states he has not been eating although he does state that he has been having clam chowder for the past couple days. He has not seen his primary doctor recently. Unsure if he has an appointment with his primary doctor. Has multiple symptoms and is somewhat difficult to obtain a accurate HPI as to why he is here today other than having body aches. Related Data Previous Rx's Medication Instructions Recorded clobetasol 0.05 % topical ointment 1 applic TOPICAL BID PRN 14 Days 08/11/20 #60 g Allergies Allergy/AdvReac Type Severity Reaction Status Date / Time No Known Drug Allergies Allergy Verified 10/19/20 11:38 Review of Systems Constitutional Comments: Denies fever but does have fatigue and body aches Cardiovascular Comments: Denies chest pain Respiratory Comments: Denies shortness of breath Gastrointestinal Comments: Decreased appetite Musculoskeletal Comments: Feet pain Integumentary/Breasts Comments: No rashes Neurologic Comments: Feels like he is on the verge of having a stroke Hematologic/Lymphatic On Anticoagulants: No Patient History Medical History Chicken pox (~1989) Partial blindness Psoriasis Family History (Updated 07/05/20 @ 14:04 by Cassie Orourke) Father Stroke Mother Cancer Brother Alcohol abuse Sister Murder Grandfather Stroke Grandmother Stroke Grandfather Stroke Grandmother Stroke Social History Smoking Status: Current every day smoker Smoking Status: Current every day smoker alcohol intake frequency: 3 or more drinks per day Substance Use Type: does not use and methamphetamine Exam Initial Vital Signs Initial Vital Signs: Vital Signs Temperature 97.6 F 10/24/20 08:23 Pulse Rate 100 H 10/24/20 08:23 Respiratory Rate 18 10/24/20 08:23 Blood Pressure 132/92 H 10/24/20 08:23 Pulse Oximetry 100 10/24/20 08:23 Const General: cooperative and disheveled HENMT Head: normal to inspection and normocephalic Resp Effort & Inspection: normal respiratory effort Auscultation: clear to auscultation bilaterally Cardio Rate: regular rate Rhythm: regular rhythm Pulses: dorsalis pedis present bilaterally GI Inspection: normal to inspection Skin General: no rashes or lesions noted Neuro General: patient alert, patient awake and moves all extremities Extrem General: normal to inspection and capillary refill normal Other: Bilateral feet appears normal. Psych Appearance: grossly normal Course Orders Ordered: ED Orders 10/24/20 08:25 Basic Metabolic Panel Stat Complete Blood Count AUTO DIFF Stat Ethanol (ETOH) Stat 10/24/20 08:27 COVID19 -Nasal swab/Pre-Proc Stat Discontinued Medications Sodium Chloride (Normal Saline 0.9%) 1,000 mls @ 1,000 mls/hr IV BOLUS ONE Stop: 10/24/20 09:20 Last Infusion: 10/24/20 09:35 Dose: 0 mls/hr Documented by: Admin: 10/24/20 08:33 Dose: 1,000 mls/hr Documented by: URIEL Vital Signs Vital signs: Vital Signs - 8 hr 10/24/20 08:23 Temperature 97.6 F Pulse Rate 100 H Respiratory Rate 18 Blood Pressure 132/92 H Pulse Oximetry 100 Medical Decision Making Medical Records Medical records reviewed: Yes I reviewed the patient's medical records. Lab Data Lab results reviewed: Yes I reviewed the patient's lab results. Result diagrams: 10/24/20 08:25 10/24/20 08:25 Labs: Lab Results 10/24/20 10/24/20 10/24/20 Range/Units 08:25 08:25 08:27 WBC 7.2 (4.5-11.0) X10^3/uL RBC 5.48 (4.5-5.9) X10^6/uL Hgb 16.7 (13.5-17.5) g/dL Hct 47.9 (41-53) % MCV 87.4 (80-100) fL MCH 30.5 (26-34) PG MCHC 34.8 (30-36) % RDW 13.5 (11.6-14.8) % Plt Count 424 H (150-400) X10^3/uL Neut % (Auto) 69.6 (50-75) % Lymph % (Auto) 13.2 L (25-40) % [place] % (Auto) 15.5 H (3-14) % Eos % (Auto) 0.9 L (2-4) % Baso % (Auto) 0.8 (0-2) % Neut # (Auto) 5000 (1357-9658) /uL Lymph # (Auto) 1000 L (2515-5995) /uL [place] # (Auto) 1100 H (0-900) /uL Eos # (Auto) 100 (0-450) /uL Baso # (Auto) 100 (0-100) /uL Sodium 124 L (137-145) mmol/L Potassium 3.2 L (3.4-5.1) mmol/L Chloride 85 L (98-107) mmol/L Carbon Dioxide 25 (22-32) mmol/L BUN 6 L (9-20) mg/dL Creatinine 0.61 L (0.66-1.25) mg/dL Estimated GFR > 60.0 (>60) mL/min BUN/Creatinine Ratio 9.8 (6-22) Glucose 257 H (80-110) mg/dL Calcium 10.0 (8.4-10.2) mg/dL Ethyl Alcohol < 10 ( - 10) mg/dL SARS-CoV-2 (PCR) Negative (Negative) MDM Narrative Medical decision making narrative: Patient is hyponatremic that this is baseline for him. The rest of his labs are either baseline are unremarkable. He does feel better after IV fluids. No further workup needed in the emergency depa rtment. Informed him that he needed to contact his primary doctor for a follow- up. He expressed understanding and agreement. Discharge Plan Departure Patient Disposition: Home Clinical Impression: Fatigue, Foot pain, bilateral Instructions: DI for Fatigue Activity Restrictions/Additional Instructions: You do need to follow-up with your primary doctor. Your labs here in the emergency department or either baseline for you or are unremarkable. Continue all of your medications as directed. Prescriptions: No Action clobetasol 0.05 % ointment 1 applic topical BID PRN (Reason: psoriasis) 14 Days Qty: 60 RF: 3 Referrals: Froilan Rivas MD [Primary Care Provider] -
[2020-10-24] MEDS: SODIUM CHLORIDE 0.9% 1,000 ML 1000 ML IV (08:33)
[2020-10-24 08:34] LABS: Add Manual Diff / Slide Review NO; Basophils Absolute Auto 100 /uL (0-100); Basophils Percent Auto 0.8 % (0-2); Eosinophils Absolute Auto 100 /uL (0-450); Eosinophils Percent Auto 0.9 % (2-4); Hematocrit 47.9 % (41-53); Hemoglobin 16.7 g/dL (13.5-17.5); Lymphocytes Absolute Auto 1000 /uL (1100-4500); Lymphocytes Percent Auto 13.2 % (25-40); Mean Corpuscular HGB Conc 34.8 % (30-36); Mean Corpuscular Hemoglobin 30.5 PG (26-34); Mean Corpuscular Volume 87.4 fL (80-100); Monocytes Absolute Auto 1100 /uL (0-900); Monocytes Percent Auto 15.5 % (3-14); Neutrophils Absolute Auto 5000 /uL (1500-7000); Neutrophils Percent Auto 69.6 % (50-75); Platelet Count 424 X10^3/uL (150-400); Red Blood Cell Count 5.48 X10^6/uL (4.5-5.9); Red Cell Distribution Width 13.5 % (11.6-14.8); White Blood Cell Count 7.2 X10^3/uL (4.5-11.0)
[2020-10-24 09:04] LABS: BUN Creatinine Ratio 9.8 (6-22); Blood Urea Nitrogen 6 mg/dL (9-20); Carbon Dioxide 25 mmol/L (22-32); Chloride 85 mmol/L (98-107); Estimated Glomerular Filt Rate > 60.0 mL/min (>60); Ethanol (ETOH) < 10 mg/dL; Glucose 257 mg/dL (80-110); HEMOLYSIS < 15 (0-50); Potassium 3.2 mmol/L (3.4-5.1); Sodium 124 mmol/L (137-145)
[2020-10-24 09:31] LABS: COVID19 -Nasal RAPID Negative (Negative)
--- NOTE | 2020-10-24 09:40 | PC.NURSE ---
Pt states that his feet hurt very much after walking from [facility]. He continues to report that his whole body has been hurting and he has been weak and unable to take care of himself properly which includes eating a proper amount. He states that he has been eating clam chowder BID for the past few days.
[2020-10-24 09:43] VITALS: PULSE 87; O2SAT 95
[2020-10-24 10:03] VITALS: PULSE 26; O2SAT 81
[2020-10-24 10:07] VITALS: BP 145/100; PULSE 90; O2SAT 100
[2020-10-24 10:30] VITALS: BP 145/100; PULSE 87; O2SAT 100
== END 2020-10-24 10:31 | disposition home or self-care (01) ==
PROVIDERS: Emergency Provider Emergency Medicine; PCP Family Medicine
DX: R53.83 Other fatigue (principal); M79.672 Pain in left foot; M79.671 Pain in right foot; Z20.822 Contact with and (suspected) exposure to COVID-19
CPT/HCPCS: 36415; 80048; 80320; 85025; 87635; 96360; 99284; C9803

== ENCOUNTER 2020-10-26 06:29 | Inpatient (IN) | payer OTHER, MEDICAID, SELFPAY ==
[2020-10-26] VITALS (91 sets, daily range): BP systolic 72–171; BP diastolic 48–107; PULSE 82–143; RESP 5–20; TEMP 37–37.2; O2SAT 86–100; BMI 16.9
--- NOTE | 2020-10-26 06:29 | DI.CT.S_ITS ---
PROCEDURE: CT STROKE INDICATIONS: stroke TECHNIQUE: Noncontrast 4.5 mm thick angled axial sections acquired from the foramen magnum to the vertex, with coronal reformats. For radiation dose reduction, the following was used: automated exposure control, adjustment of mA and/or kV according to patient size. COMPARISON: [facility], CT, CT HEAD/BRAIN WO CON, 10/13/2020, 19:07. FINDINGS: Image quality: Excellent. CSF spaces: Basal cisterns are patent. No extra-axial fluid collections. The ventricles are symmetric in size and shape. Brain: No intracranial bleeds or masses. There is cerebral volume loss for age, with resultant ventricular and sulcal prominence. There are periventricular and deep white matter chronic small vessel ischemic changes. There is intracranial internal carotid artery and vertebral artery atherosclerosis. Skull and face: Calvarium and visualized facial bones appear intact, without suspicious lesions. Sinuses: Mild mucosal thickening noted in the maxillary sinuses. The mastoids are clear. IMPRESSION: No acute intracranial disease process. This study fulfills neurological imaging criteria for inclusion or exclusion of acute stroke therapies based on available published neurological guidelines. Dictated by: Cata Hayward MD, PhD on 10/26/2020 at 7:14 Approved by: Cata Hayward MD, PhD on 10/26/2020 at 7:16
--- NOTE | 2020-10-26 06:32 | DI.CT.S_ITS ---
PROCEDURE: CT ANGIO HEAD AND NECK INDICATIONS: stroke, unresponsive TECHNIQUE: After the administration of intravenous contrast, 1 mm thick sections acquired from the aortic arch through the [place] of [place]. Post-contrast 4.5 mm thick sections then re-acquired from the foramen magnum to the vertex. 3-dimensional [id number]-niwiacqpqx (MIP) and/or volume rendering reformats were acquired of the central intracranial vasculature and neck separately. COMPARISON: [facility], CT, CT HEAD/BRAIN WO CON, 10/13/2020, 19:07. [facility], CT, CT ANGIO HEAD AND NECK, 10/09/2020, 0:49. [facility], CT, CT STROKE, 10/26/2020, 6:31. FINDINGS: Image quality: Excellent. BRAIN: CSF spaces: Ventricles are normal in size and shape. Basal cisterns are patent. No extra-axial fluid collections. Brain: No midline shift. No intracranial bleeds or masses. Miranda-white matter interface appears intact. Skull and face: Calvarium and facial bones appear intact, without suspicious lesions. Orbits appear normal. Sinuses: Sinuses and mastoids are clear. HEAD CT ANGIOGRAPHY: Anterior circulation: Intracranial internal carotid arteries are normal in size and flow. The flow within the paired anterior cerebral arteries is normal and symmetric. The flow within the middle cerebral arteries is normal and symmetric. The anterior communicating artery is seen. No aneurysms are seen. Posterior circulation: Atherosclerotic calcification in the V4 segment of the right vertebral artery causes mild narrowing of the vessel. Left vertebral artery is occluded distal to the origin of the left posterior inferior cerebellar artery. Patient is right vertebral artery dominant. Normal flow noted in the basilar artery. Flow within the posterior cerebral arteries is normal and symmetric. No aneurysms are seen. Dural sinuses demonstrate normal postcontrast enhancement. NECK CT ANGIOGRAPHY: Carotid system: The great vessels demonstrate a conventional anatomy as they arise from the aortic arch. The origins of the common carotid arteries appear patent. The common carotid arteries demonstrate normal caliber and courses. Atherosclerotic calcifications noted in the origins of the internal carotid arteries bilaterally which causes less than 50% stenosis of the vessels. Posterior circulation: The origins of the vertebral arteries both appear widely patent. The more superior extracranial portions of both vertebral arteries also demonstrate normal courses and calibers. They join to form a normal appearing basilar artery. Soft tissues: Visualized neck soft tissues demonstrate no suspicious abnormalities. Bones: No suspicious bony lesions. Spine degenerative disc disease and facet arthropathy. Visualized cervical spine appears normally aligned. IMPRESSION: 1. No acute intracranial disease process. 2. No large vessel occlusion, hemodynamically significant vascular stenosis, vascular dissection or aneurysm. Any quantitative measurements of stenosis were performed using NASCET criteria. Dictated by: Cata Hayward MD, PhD on 10/26/2020 at 7:59 Approved by: Cata Hayward MD, PhD on 10/26/2020 at 8:06
[2020-10-26 06:39] LABS: Add Manual Diff / Slide Review NO; Basophils Absolute Auto 100 /uL (0-100); Basophils Percent Auto 0.8 % (0-2); Eosinophils Absolute Auto 100 /uL (0-450); Eosinophils Percent Auto 0.5 % (2-4); Hematocrit 45.1 % (41-53); Lymphocytes Absolute Auto 1400 /uL (1100-4500); Mean Corpuscular HGB Conc 33.3 % (30-36); Mean Corpuscular Hemoglobin 30.3 PG (26-34); Mean Corpuscular Volume 90.9 fL (80-100); Monocytes Absolute Auto 900 /uL (0-900); Neutrophils Absolute Auto 10400 /uL (1500-7000); Neutrophils Percent Auto 80.7 % (50-75); Platelet Count 480 X10^3/uL (150-400); Red Blood Cell Count 4.96 X10^6/uL (4.5-5.9); White Blood Cell Count 12.9 X10^3/uL (4.5-11.0)
[2020-10-26] MEDS: ETOMIDATE 2 MG/ML 10 ML VIAL 15 MG IV (06:45)
[2020-10-26] MEDS: SUCCINYLCHOLINE 200 MG/10 ML VIAL 75 MG IV (06:46)
--- NOTE | 2020-10-26 06:49 | DI.RAD.S_ITS ---
PROCEDURE: XR CHEST 1V INDICATIONS: intubation TECHNIQUE: One view of the chest was acquired. COMPARISON: None. FINDINGS: Surgical changes and devices: ETT tip is 2.6 cm above the дмитрий. Enteric tube tip is in the region of GE junction and should be advanced by 5-6 cm. Lungs and pleura: Lungs are clear. No pleural effusions or pneumothorax. Mediastinum: Mediastinal contours appear normal. Heart size is normal. Bones and chest wall: No suspicious bony lesions. Overlying soft tissues appear unremarkable. IMPRESSION: ET tube is in satisfactory position. Enteric tube tip is below the left hemidiaphragm and should be advanced by 5-6 cm. Dictated by: Jason De La Cruz M.D. on 10/26/2020 at 7:55 Approved by: Jason De La Cruz M.D. on 10/26/2020 at 7:56
[2020-10-26 06:50] LABS: Alanine Aminotransferase 72 IU/L (<50); Albumin 4.6 g/dL (3.5-5.0); Albumin Globulin Ratio 1.4 (1.0-2.8); Alkaline Phosphatase 179 U/L (38-126); Aspartate Aminotransferase 77 IU/L (17-59); BUN Creatinine Ratio 31.3 (6-22); Bilirubin Total 1.2 mg/dL (0.2-1.3); Blood Urea Nitrogen 20 mg/dL (9-20); Calcium 9.6 mg/dL (8.4-10.2); Carbon Dioxide 22 mmol/L (22-32); Chloride 91 mmol/L (98-107); Creatine Kinase 29 U/L (55-170); Estimated Glomerular Filt Rate > 60.0 mL/min (>60); Ethanol (ETOH) < 10 mg/dL; Globulin 3.4 g/dL (1.7-4.1); Glucose 439 mg/dL (80-110); HEMOLYSIS < 15 (0-50); Potassium 3.2 mmol/L (3.4-5.1); Sodium 128 mmol/L (137-145)
--- NOTE | 2020-10-26 06:56 | ED_ITS ---
HPI - Altered Mental Status <Lisa Kendall DO - Last Filed: 10/29/20 07:14> General Chief Complaint: Unresponsive Stated Complaint: Stroke - Unresponsive Time Seen by Provider: 10/26/20 06:32 History of Present Illness HPI narrative: Patient is a 59-year-old Male who is a known alcoholic with history of possible TIAs who presents unresponsive. [place] was [place] hotel courtyard. He has presented like this in the past with possible seizure activity electrolytes in the past have shown some hyponatremia. He then quickly returns to his baseline. However he is not returning to baseline. He is immediately brought to CT there is no intracranial hemorrhage found. Related Data Home Medications Medication Instructions Recorded Confirmed Unobtainable 10/26/20 10/26/20 Allergies Allergy/AdvReac Type Severity Reaction Status Date / Time No Known Drug Allergies Allergy Verified 10/19/20 11:38 Review of Systems <Lisa Kendall DO - Last Filed: 10/29/20 07:14> Review of Systems Narrative: Unresponsive Patient History <DO Chay Nguyễn Last Filed: 10/29/20 07:14> Medical History Chicken pox (~1989) Partial blindness Psoriasis Family History Father Stroke Mother Cancer Brother Alcohol abuse Sister Murder Grandfather Stroke Grandmother Stroke Grandfather Stroke Grandmother Stroke Social History household members: none Smoking Status: Current every day smoker Smoking Status: Current every day smoker alcohol intake frequency: 3 or more drinks per day Substance Use Type: does not use and methamphetamine Exam <DO Chay Nguyễn Last Filed: 10/29/20 07:14> Initial Vital Signs Initial Vital Signs: Vital Signs Temperature 98.9 F 10/26/20 06:35 Pulse Rate 112 H 10/26/20 06:35 Respiratory Rate 11 L 10/26/20 06:35 Blood Pressure 171/101 H 10/26/20 06:35 Pulse Oximetry 100 10/26/20 06:35 GENERAL: Unresponsive thin 59-year-old male HEENT: Head atraumatic,EOMI, pupils reactive, face symmetric, moist mucous membrane CARDIOVASCULAR: Regular rate and rhythm without murmurs, rubs or gallops. RESPIRATORY: Breath sounds equal bilaterally, no wheezes rales or rhonchi. ABDOMEN: Soft, nontender. Normoactive bowel sounds all 4 quadrants. No guarding or rebound. EXTREMITIES: Normal range of motion, no clubbing or edema. Neurovascularly intact NEUROLOGICAL: Random tremors no facial droop SKIN: Warm, dry, no laceration, no petechiae, no rashes or lesions. <Carlos Arce MD - Last Filed: 10/28/20 21:13> Initial Vital Signs Initial Vital Signs: Vital Signs Temperature 98.9 F 10/26/20 06:35 Pulse Rate 112 H 10/26/20 06:35 Respiratory Rate 11 L 10/26/20 06:35 Blood Pressure 171/101 H 10/26/20 06:35 Pulse Oximetry 100 10/26/20 06:35 Procedures <Lisa Kendall DO - Last Filed: 10/29/20 07:14> Intubation sedative: Etomidate Mg Given: 15 paralytic: Succinylcholine Mg Given: 60 Laryngoscope: other (Catron scope) ET Tube Size: 7.5 ET Tube Uncuffed: No Tube Secured Depth (cm): 28 Tube Secured Location: lips Tube Placement Confirmation: Visualized tube passing through cords, Equal breath sounds bilaterally, No breath sounds over epigastrium, Confirmation by capnometry and Chest Xray Patient Tolerated Procedure: Well Intubation Complications: none Course <Lisa Kendall DO - Last Filed: 10/29/20 07:14> Orders Ordered: Dextrose (Dextrose 50 % In Water 25 Gm/50 Ml Syringe) 25 gm IV PRN PRN PRN Reason: Hypoglycemia Enoxaparin Sodium (Enoxaparin 40 Mg/0.4 Ml Syringe) 40 mg SUBCUT DAILY [facility] Last Admin: 10/28/20 08:43 Dose: 40 mg Documented by: Admin: 10/27/20 08:25 Dose: 40 mg Documented by: BELLA Famotidine (Famotidine 20 Mg/2 Ml Vial) 20 mg IV BID [facility] Last Admin: 10/28/20 21:24 Dose: 20 mg Documented by: Admin: 10/28/20 08:43 Dose: 20 mg Documented by: Admin: 10/27/20 20:35 Dose: 20 mg Documented by: Admin: 10/27/20 08:28 Dose: 20 mg Documented by: Admin: 10/26/20 21:56 Dose: 20 mg Documented by: OLLIE Heparin Sodium (Porcine) (Heparin Flush (Cl/Picc/Mid-Line) 50 Unit/5 Ml Syringe) 50 unit IV BID [facility] Last Admin: 10/28/20 21:18 Dose: Not Given Documented by: Admin: 10/28/20 08:44 Dose: 50 unit Documented by: Admin: 10/27/20 20:37 Dose: Not Given Documented by: Admin: 10/27/20 08:54 Dose: 50 unit Documented by: Admin: 10/26/20 22:30 Dose: Not Given Documented by: OLLIE Levetiracetam 1,000 mg/ Sodium (Chloride) 110 mls @ 440 mls/hr IV Q12H [facility] Last Infusion: 10/28/20 21:25 Dose: 0 mls/hr Documented by: Admin: 10/28/20 19:44 Dose: 440 mls/hr Documented by: Infusion: 10/28/20 12:09 Dose: 0 mls/hr Documented by: Admin: 10/28/20 10:18 Dose: 440 mls/hr Documented by: Infusion: 10/27/20 23:32 Dose: 0 mls/hr Documented by: Admin: 10/27/20 20:17 Dose: 440 mls/hr Documented by: Infusion: 10/27/20 10:25 Dose: 0 mls/hr Documented by: Admin: 10/27/20 08:53 Dose: 440 mls/hr Documented by: Infusion: 10/26/20 21:57 Dose: 0 mls/hr Documented by: Admin: 10/26/20 21:21 Dose: 440 mls/hr Documented by: OLLIE Thiamine HCl 200 mg/ Sodium (Chloride) 102 mls @ 408 mls/hr IV DAILY [facility] Stop: 10/30/20 21:00 Last Infusion: 10/28/20 12:10 Dose: 0 mls/hr Documented by: Admin: 10/28/20 10:18 Dose: 408 mls/hr Documented by: Infusion: 10/27/20 13:22 Dose: 0 mls/hr Documented by: Admin: 10/27/20 10:22 Dose: 408 mls/hr Documented by: Infusion: 10/26/20 22:12 Dose: 0 mls/hr Documented by: Admin: 10/26/20 21:48 Dose: 408 mls/hr Documented by: OLLIE Sodium Chloride (Normal Saline 0.9%) 250 mls @ 21 mls/hr IV Q24H PRN PRN Reason: Flush Last Infusion: 10/29/20 04:00 Dose: 0 mls/hr Documented by: Admin: 10/28/20 08:46 Dose: 20 mls/hr Documented by: Infusion: 10/27/20 15:17 Dose: 0 mls/hr Documented by: Infusion: 10/27/20 13:22 Dose: 0 mls/hr Documented by: Admin: 10/26/20 21:21 Dose: 21 mls/hr Documented by: OLLIE Sodium Chloride (Normal Saline 0.9%) 1,000 mls @ 50 mls/hr IV CONT [facility] Last Infusion: 10/27/20 08:23 Dose: 50 mls/hr Documented by: Admin: 10/27/20 03:31 Dose: 150 mls/hr Documented by: JSELPH Piperacillin Sod/Tazobactam (Sod 3.375 gm/ Sodium Chloride) 100 mls @ 25 mls/hr IV Q8H [facility] Stop: 11/05/20 19:59 Last Infusion: 10/29/20 05:03 Dose: 0 mls/hr Documented by: Admin: 10/29/20 00:15 Dose: 25 mls/hr Documented by: Infusion: 10/28/20 20:48 Dose: 0 mls/hr Documented by: MSTEWSRINIVAS Admin: 10/28/20 16:29 Dose: 25 mls/hr Documented by: Infusion: 10/28/20 13:08 Dose: 0 mls/hr Documented by: Admin: 10/28/20 08:42 Dose: 25 mls/hr Documented by: Infusion: 10/28/20 05:31 Dose: 0 mls/hr Documented by: Admin: 10/28/20 00:34 Dose: 25 mls/hr Documented by: Infusion: 10/27/20 20:33 Dose: 0 mls/hr Documented by: Admin: 10/27/20 15:44 Dose: 25 mls/hr Documented by: Infusion: 10/27/20 12:41 Dose: 0 mls/hr Documented by: Admin: 10/27/20 08:26 Dose: 25 mls/hr Documented by: NCJOSE RAULIF Dexmedetomidine HCl 200 mcg/ (Sodium Chloride) 50 mls @ 3.15 mls/hr IV TITRATE [facility]; Protocol Last Admin: 10/29/20 05:21 Dose: 0.5 mcg/kg/hr, 7.875 mls/hr Documented by: Titration: 10/29/20 04:49 Dose: 0.6 mcg/kg/hr, 9.45 mls/hr Documented by: Titration: 10/29/20 03:45 Dose: 0.6 mcg/kg/hr, 9.45 mls/hr Documented by: Admin: 10/28/20 22:40 Dose: 0.5 mcg/kg/hr, 7.875 mls/hr Documented by: Titration: 10/28/20 22:40 Dose: 0.5 mcg/kg/hr, 7.875 mls/hr Documented by: Admin: 10/28/20 16:56 Dose: 0.5 mcg/kg/hr, 7.875 mls/hr Documented by: Titration: 10/28/20 16:56 Dose: 0.5 mcg/kg/hr, 7.875 mls/hr Documented by: Titration: 10/28/20 13:11 Dose: 0.5 mcg/kg/hr, 7.875 mls/hr Documented by: Admin: 10/28/20 10:21 Dose: 0.2 mcg/kg/hr, 3.15 mls/hr Documented by: TBLANTO Insulin Glargine (Insulin Glargine 100 Unit/Ml 3ml Pen) 12 unit SUBCUT BEDTIME [facility] Last Admin: 10/28/20 21:23 Dose: 12 unit Documented by: JORDAN Cosigned by: MILLY Insulin Human Lispro (Insulin Lispro 100 Unit/Ml 3ml Vial) 0 unit SUBCUT Q6H [facility]; Protocol Last Admin: 10/29/20 05:48 Dose: 1 unit Documented by: VEE Cosigned by: CARLOS Admin: 10/29/20 01:23 Dose: Not Given Documented by: Admin: 10/28/20 17:58 Dose: Not Given Documented by: Admin: 10/28/20 13:08 Dose: 1 unit Documented by: LORI Cosigned by: JONNATHAN Admin: 10/28/20 06:14 Dose: 1 unit Documented by: VEE Cosigned by: VAHID Admin: 10/28/20 00:34 Dose: Not Given Documented by: Admin: 10/27/20 18:29 Dose: 1 unit Documented by: OLLIE Cosigned by: MILLY Admin: 10/27/20 13:35 Dose: Not Given Documented by: Admin: 10/27/20 06:45 Dose: 1 unit Documented by: CHONG Cosigned by: AMISH Admin: 10/27/20 00:13 Dose: 5 unit Documented by: CHONG Cosigned by: AMISH Admin: 10/26/20 18:21 Dose: 1 unit Documented by: OLLIE Cosigned by: LVAZDENNIS Naloxone HCl (Naloxone 0.4 Mg/Ml Vial) 0.2 mg IV Q2MIN PRN PRN Reason: Opiate Reversal Sodium Chloride (Sodium Chloride 0.9% Flush) 10 ml IV PRN PRN PRN Reason: Flush Discontinued Medications Etomidate (Etomidate 2 Mg/Ml 10 Ml Vial) 15 mg IV NOW ONE Stop: 10/26/20 06:46 Last Admin: 10/26/20 06:45 Dose: 15 mg Documented by: GIACOMO Furosemide (Furosemide 20 Mg/2 Ml Vial) 20 mg IV NOW ONE Stop: 10/28/20 11:37 Last Admin: 10/28/20 12:20 Dose: 20 mg Documented by: TBLANTO Lorazepam 20 mg/ Sodium (Chloride) 100 mls @ 3 mls/hr IV TITRATE [facility]; Protocol Last Titration: 10/27/20 15:18 Dose: 0 mg/kg/hr, 0 mls/hr Documented by: Admin: 10/27/20 03:16 Dose: 0.1 mg/kg/hr, 30 mls/hr Documented by: Titration: 10/27/20 03:04 Dose: 0.1 mg/kg/hr, 30 mls/hr Documented by: Admin: 10/26/20 23:44 Dose: 0.1 mg/kg/hr, 30 mls/hr Documented by: Titration: 10/26/20 23:33 Dose: 0.09 mg/kg/hr, 26.8 mls/hr Documented by: Titration: 10/26/20 20:15 Dose: 0.09 mg/kg/hr, 26.8 mls/hr Documented by: Admin: 10/26/20 19:46 Dose: 0.08 mg/kg/hr, 24 mls/hr Documented by: Titration: 10/26/20 19:46 Dose: 0.08 mg/kg/hr, 24 mls/hr Documented by: Titration: 10/26/20 18:28 Dose: 0.08 mg/kg/hr, 24 mls/hr Documented by: Titration: 10/26/20 17:35 Dose: 0.03 mg/kg/hr, 9 mls/hr Documented by: Titration: 10/26/20 15:28 Dose: 0.01 mg/kg/hr, 2 mls/hr Documented by: Titration: 10/26/20 14:28 Dose: 0 mg/kg/hr, 1 mls/hr Documented by: Titration: 10/26/20 13:00 Dose: 0.01 mg/kg/hr, 3 mls/hr Documented by: Titration: 10/26/20 10:05 Dose: 0.02 mg/kg/hr, 6 mls/hr Documented by: Titration: 10/26/20 09:28 Dose: 0 mg/kg/hr, 0 mls/hr Documented by: Titration: 10/26/20 07:53 Dose: 0.02 mg/kg/hr, 6 mls/hr Documented by: Admin: 10/26/20 07:28 Dose: 0.01 mg/kg/hr, 3 mls/hr Documented by: GIACOMO Fentanyl 1,000 mcg/ Dextrose 250 mls @ 10.5 mls/hr IV TITRATE [facility]; Protocol Last Titration: 10/28/20 12:12 Dose: 0 mcg/kg/hr, 0 mls/hr Documented by: Titration: 10/28/20 10:27 Dose: 0 mcg/kg/hr, 0 mls/hr Documented by: Titration: 10/28/20 07:50 Dose: 0.5 mcg/kg/hr, 7.5 mls/hr Documented by: Titration: 10/28/20 05:32 Dose: 0.2 mcg/kg/hr, 3 mls/hr Documented by: Titration: 10/28/20 04:06 Dose: 0.3 mcg/kg/hr, 4.5 mls/hr Documented by: [email or web address] Titration: 10/27/20 15:17 Dose: 0.5 mcg/kg/hr, 7.5 mls/hr Documented by: Admin: 10/27/20 13:59 Dose: 0.4 mcg/kg/hr, 6 mls/hr Documented by: Titration: 10/27/20 13:23 Dose: 0.5 mcg/kg/hr, 7.5 mls/hr Documented by: Titration: 10/27/20 08:56 Dose: 0.4 mcg/kg/hr, 6 mls/hr Documented by: Titration: 10/26/20 15:27 Dose: 0.5 mcg/kg/hr, 7.5 mls/hr Documented by: Titration: 10/26/20 13:09 Dose: 0.67 mcg/kg/hr, 10 mls/hr Documented by: Titration: 10/26/20 13:00 Dose: 0.87 mcg/kg/hr, 13 mls/hr Documented by: Titration: 10/26/20 11:03 Dose: 1.2 mcg/kg/hr, 18 mls/hr Documented by: Titration: 10/26/20 10:05 Dose: 1 mcg/kg/hr, 15 mls/hr Documented by: Titration: 10/26/20 09:28 Dose: 0 mcg/kg/hr, 0 mls/hr Documented by: Titration: 10/26/20 07:50 Dose: 1 mcg/kg/hr, 15 mls/hr Documented by: Titration: 10/26/20 07:40 Dose: 0.87 mcg/kg/hr, 13 mls/hr Documented by: Admin: 10/26/20 07:27 Dose: 0.7 mcg/kg/hr, 10.5 mls/hr Documented by: GIACOMO Sodium Chloride (Normal Saline 0.9%) 1,000 mls @ 1,000 mls/hr IV BOLUS ONE Stop: 10/26/20 08:16 Last Infusion: 10/26/20 08:24 Dose: 0 mls/hr Documented by: Admin: 10/26/20 07:32 Dose: 1,000 mls/hr Documented by: GIACOMO Sodium Chloride (Normal Saline 0.9%) 1,000 mls @ 1,000 mls/hr IV BOLUS ONE Stop: 10/26/20 13:01 Last Infusion: 10/26/20 12:14 Dose: 0 mls/hr Documented by: Admin: 10/26/20 12:04 Dose: 1,000 mls/hr Documented by: URIEL Levetiracetam 1,000 mg/ Sodium (Chloride) 110 mls @ 440 mls/hr IV NOW ONE Stop: 10/26/20 13:45 Last Infusion: 10/26/20 15:29 Dose: 0 mls/hr Documented by: Admin: 10/26/20 14:22 Dose: 440 mls/hr Documented by: BELLA Sodium Chloride (Normal Saline 0.9%) 1,000 mls @ 100 mls/hr IV CONT [facility] Last Admin: 10/26/20 15:54 Dose: 100 mls/hr Documented by: Infusion: 10/26/20 15:54 Dose: 100 mls/hr Documented by: Admin: 10/26/20 14:23 Dose: 100 mls/hr Documented by: BELLA Sodium Chloride (Normal Saline 0.9%) 1,000 mls @ 1,000 mls/hr IV BOLUS ONE Stop: 10/26/20 15:35 Last Infusion: 10/26/20 20:45 Dose: 0 mls/hr Documented by: Admin: 10/26/20 15:00 Dose: 1,000 mls/hr Documented by: BELLA POTASSIUM CHLORIDE IN WATER (Potassium Cl 10 Meq/100 Ml Reva) 10 meq in 100 mls @ 100 mls/hr IV Q1H [facility] Stop: 10/26/20 21:44 Last Infusion: 10/26/20 22:08 Dose: 0 mls/hr Documented by: Admin: 10/26/20 20:45 Dose: 100 mls/hr Documented by: Infusion: 10/26/20 20:45 Dose: 100 mls/hr Documented by: Admin: 10/26/20 20:14 Dose: 100 mls/hr Documented by: Infusion: 10/26/20 20:14 Dose: 100 mls/hr Documented by: Admin: 10/26/20 19:24 Dose: 100 mls/hr Documented by: Infusion: 10/26/20 19:02 Dose: 100 mls/hr Documented by: Admin: 10/26/20 18:02 Dose: 100 mls/hr Documented by: OLLIE Magnesium Sulfate (Magnesium Sulfate) 4 gm in 100 mls @ 25 mls/hr IV NOW ONE Stop: 10/26/20 22:22 Last Infusion: 10/27/20 08:06 Dose: 0 mls/hr Documented by: BELLA Cosigned by: DAPHNEY Admin: 10/26/20 18:33 Dose: 25 mls/hr Documented by: OLLIE Cosigned by: FLORY Lactated Ringer's (Lactated Ringers) 1,000 mls @ 150 mls/hr IV CONT [facility] Last Admin: 10/26/20 20:44 Dose: 150 mls/hr Documented by: OLLIE Norepinephrine Bitartrate 4 mg (/ Dextrose) 254 mls @ 30.48 mls/hr IV TITRATE [facility]; Protocol Last Titration: 10/27/20 02:33 Dose: 0 mcg/min, 0 mls/hr Documented by: Titration: 10/27/20 00:23 Dose: 5 mcg/min, 19.05 mls/hr Documented by: Titration: 10/26/20 23:30 Dose: 10 mcg/min, 38.1 mls/hr Documented by: Titration: 10/26/20 22:33 Dose: 15 mcg/min, 57.15 mls/hr Documented by: Titration: 10/26/20 22:06 Dose: 20 mcg/min, 76.2 mls/hr Documented by: Admin: 10/26/20 21:33 Dose: 8 mcg/min, 30.48 mls/hr Documented by: OLLIE Vasopressin 40 unit/ Sodium (Chloride) 102 mls @ 4.5 mls/hr IV CONT [facility] Last Infusion: 10/27/20 08:56 Dose: 0 mls/hr Documented by: Admin: 10/26/20 23:31 Dose: 4.5 mls/hr Documented by: CHONG Lactated Ringer's (Lactated Ringers) 1,000 mls @ 1,000 mls/hr IV BOLUS ONE Stop: 10/26/20 23:28 Last Infusion: 10/26/20 23:28 Dose: 0 mls/hr Documented by: Admin: 10/26/20 22:43 Dose: 1,000 mls/hr Documented by: OLLIE Lactated Ringer's (Lactated Ringers) 1,000 mls @ 1,000 mls/hr IV BOLUS ONE Stop: 10/27/20 00:03 Last Infusion: 10/27/20 08:58 Dose: 0 mls/hr Documented by: Admin: 10/27/20 00:21 Dose: 1,000 mls/hr Documented by: CHONG Lactated Ringer's (Lactated Ringers) 1,000 mls @ 1,000 mls/hr IV BOLUS ONE Stop: 10/27/20 00:02 Last Infusion: 10/27/20 08:58 Dose: 0 mls/hr Documented by: Admin: 10/26/20 23:15 Dose: 1,000 mls/hr Documented by: CHONG Piperacillin Sod/Tazobactam (Sod 4.5 gm/ Sodium Chloride) 100 mls @ 200 mls/hr IV NOW ONE Stop: 10/27/20 01:22 Last Infusion: 10/27/20 04:28 Dose: 200 mls/hr Documented by: Admin: 10/27/20 03:29 Dose: 200 mls/hr Documented by: CHONG Azithromycin 500 mg/ Dextrose 250 mls @ 250 mls/hr IV Q24H [facility] Last Infusion: 10/28/20 03:58 Dose: 0 mls/hr Documented by: Admin: 10/28/20 01:43 Dose: 250 mls/hr Documented by: Infusion: 10/27/20 03:33 Dose: 0 mls/hr Documented by: Admin: 10/27/20 02:04 Dose: 250 mls/hr Documented by: CHONG Sodium Chloride (Normal Saline 0.9%) 1,000 mls @ 1,000 mls/hr IV BOLUS ONE Stop: 10/27/20 02:25 Last Infusion: 10/27/20 04:28 Dose: 1,000 mls/hr Documented by: Admin: 10/27/20 01:39 Dose: 1,000 mls/hr Documented by: CHONG POTASSIUM CHLORIDE IN WATER (Potassium Cl 10 Meq/100 Ml Reva) 10 meq in 100 mls @ 100 mls/hr IV Q1H [facility] Stop: 10/27/20 03:44 Last Infusion: 10/27/20 15:18 Dose: 0 mls/hr Documented by: Admin: 10/27/20 03:04 Dose: 100 mls/hr Documented by: Infusion: 10/27/20 03:00 Dose: 100 mls/hr Documented by: Admin: 10/27/20 02:00 Dose: 100 mls/hr Documented by: CHONG Midazolam HCl 50 mg/ Dextrose 260 mls @ 5.564 mls/hr IV TITRATE [facility]; Protocol Last Titration: 10/28/20 12:11 Dose: 0 mg/kg/hr, 0 mls/hr Documented by: Titration: 10/28/20 10:28 Dose: 0 mg/kg/hr, 0 mls/hr Documented by: Titration: 10/28/20 07:50 Dose: 0.05 mg/kg/hr, 13.91 mls/hr Documented by: Admin: 10/27/20 14:41 Dose: 0.04 mg/kg/hr, 11.128 mls/hr Documented by: Titration: 10/27/20 14:00 Dose: 0.08 mg/kg/hr, 22.256 mls/hr Documented by: Titration: 10/27/20 13:23 Dose: 0.04 mg/kg/hr, 11.128 mls/hr Documented by: Admin: 10/27/20 08:13 Dose: 0.02 mg/kg/hr, 5.564 mls/hr Documented by: BELLA POTASSIUM CHLORIDE IN WATER (Potassium Cl 10 Meq/100 Ml Reva) 10 meq in 100 mls @ 100 mls/hr IV Q1H [facility] Stop: 10/28/20 23:59 Last Infusion: 10/29/20 01:32 Dose: 0 mls/hr Documented by: Admin: 10/29/20 00:18 Dose: 100 mls/hr Documented by: Infusion: 10/29/20 00:18 Dose: 0 mls/hr Documented by: Admin: 10/28/20 22:42 Dose: 100 mls/hr Documented by: Infusion: 10/28/20 22:24 Dose: 100 mls/hr Documented by: Admin: 10/28/20 21:24 Dose: 100 mls/hr Documented by: Infusion: 10/28/20 21:24 Dose: 100 mls/hr Documented by: MELISSAEWSRINIVAS Admin: 10/28/20 20:30 Dose: 100 mls/hr Documented by: JORDAN Insulin Glargine (Insulin Glargine 100 Unit/Ml 3ml Pen) 10 unit SUBCUT DAILY [facility] Last Admin: 10/27/20 11:00 Dose: 10 unit Documented by: BELLA Cosigned by: DAPHNEY Insulin Glargine (Insulin Glargine 100 Unit/Ml 3ml Pen) 5 unit SUBCUT BEDTIME [facility] Last Admin: 10/27/20 21:11 Dose: 5 unit Documented by: OLLIE Cosigned by: DILEEP Insulin Human Lispro (Insulin Lispro 100 Unit/Ml 3ml Vial) 0 unit SUBCUT Q6H [facility]; Protocol Last Admin: 10/26/20 15:24 Dose: 3 unit Documented by: BELLA Cosigned by: DAPHNEY Pantoprazole Sodium (Pantoprazole 40 Mg Vial) 20 mg IV BID [facility] Last Admin: 10/27/20 08:34 Dose: 20 mg Documented by: Admin: 10/27/20 01:54 Dose: Not Given Documented by: CHONG Succinylcholine Chloride (Succinylcholine 200 Mg/10 Ml Vial) 75 mg IV NOW ONE Stop: 10/26/20 06:46 Last Admin: 10/26/20 06:46 Dose: 75 mg Documented by: GIACOMO Vital Signs Vital signs: Vital Signs - 8 hr 10/26/20 06:35 10/26/20 06:59 10/26/20 07:00 Temperature 98.9 F Pulse Rate 112 H 109 H 109 H Respiratory Rate 11 L 13 13 Blood Pressure 171/101 H 147/95 H 160/100 H Pulse Oximetry 100 100 97 10/26/20 07:10 10/26/20 07:20 10/26/20 07:30 Temperature Pulse Rate 109 H 107 H 104 H Respiratory Rate 12 12 12 Blood Pressure 161/103 H 160/106 H 157/107 H Pulse Oximetry 97 97 98 10/26/20 07:40 10/26/20 07:50 10/26/20 08:00 Temperature Pulse Rate 104 H 107 H 107 H Respiratory Rate 20 16 Blood Pressure 160/106 H 152/102 H 143/104 H Pulse Oximetry 96 98 98 10/26/20 08:10 10/26/20 08:20 10/26/20 08:30 Temperature Pulse Rate 111 H 110 H 109 H Respiratory Rate 16 16 16 Blood Pressure 147/103 H 146/98 H 153/99 H Pulse Oximetry 98 98 99 10/26/20 08:40 10/26/20 08:50 10/26/20 09:00 Temperature Pulse Rate 111 H 111 H 112 H Respiratory Rate 16 16 16 Blood Pressure 146/94 H 147/96 H 134/92 H Pulse Oximetry 99 99 99 10/26/20 09:10 10/26/20 09:20 10/26/20 09:57 Temperature Pulse Rate 110 H 113 H 121 H Respiratory Rate 16 16 Blood Pressure 137/94 H 140/95 H 133/88 Pulse Oximetry 99 99 97 10/26/20 10:00 10/26/20 10:01 10/26/20 10:18 Temperature Pulse Rate 120 H 120 H 82 Respiratory Rate 16 16 16 Blood Pressure 127/90 Pulse Oximetry 96 95 <Carlos Arce MD - Last Filed: 10/28/20 21:13> Course Course Narrative: 7:00 a.m.. Sign-out from Dr Kendall, awaiting results of imaging as well as laboratory studies. Patient has been intubated. May need transfer pending on results. Patient has been seen here in the past 3 weeks for variable complaints including fatigue hyponatremia knee abrasion. 9:21 a.m.. Spoke with director of operations for therapy regarding MRI being delayed, Ray. There are outpatient and inpatient MRs being done. I ordered the MRI at 7:30 a.m per request of tele stroke doctor [facility] Orders Ordered: Dextrose (Dextrose 50 % In Water 25 Gm/50 Ml Syringe) 25 gm IV PRN PRN PRN Reason: Hypoglycemia Enoxaparin Sodium (Enoxaparin 40 Mg/0.4 Ml Syringe) 40 mg SUBCUT DAILY [facility] Admin: 10/28/20 08:43 Dose: 40 mg Documented by: Admin: 10/27/20 08:25 Dose: 40 mg Documented by: BELLA Famotidine (Famotidine 20 Mg/2 Ml Vial) 20 mg IV BID [facility] Last Admin: 10/28/20 21:24 Dose: 20 mg Documented by: Admin: 10/28/20 08:43 Dose: 20 mg Documented by: Admin: 10/27/20 20:35 Dose: 20 mg Documented by: Admin: 10/27/20 08:28 Dose: 20 mg Documented by: Admin: 10/26/20 21:56 Dose: 20 mg Documented by: OLLIE Heparin Sodium (Porcine) (Heparin Flush (Cl/Picc/Mid-Line) 50 Unit/5 Ml Syringe) 50 unit IV BID [facility] Last Admin: 10/28/20 21:18 Dose: Not Given Documented by: Admin: 10/28/20 08:44 Dose: 50 unit Documented by: Admin: 10/27/20 20:37 Dose: Not Given Documented by: Admin: 10/27/20 08:54 Dose: 50 unit Documented by: Admin: 10/26/20 22:30 Dose: Not Given Documented by: OLLIE Levetiracetam 1,000 mg/ Sodium (Chloride) 110 mls @ 440 mls/hr IV Q12H [facility] Last Infusion: 10/28/20 21:25 Dose: 0 mls/hr Documented by: Admin: 10/28/20 19:44 Dose: 440 mls/hr Documented by: Infusion: 10/28/20 12:09 Dose: 0 mls/hr Documented by: Admin: 10/28/20 10:18 Dose: 440 mls/hr Documented by: Infusion: 10/27/20 23:32 Dose: 0 mls/hr Documented by: Admin: 10/27/20 20:17 Dose: 440 mls/hr Documented by: Infusion: 10/27/20 10:25 Dose: 0 mls/hr Documented by: Admin: 10/27/20 08:53 Dose: 440 mls/hr Documented by: Infusion: 10/26/20 21:57 Dose: 0 mls/hr Documented by: Admin: 10/26/20 21:21 Dose: 440 mls/hr Documented by: OLLIE Thiamine HCl 200 mg/ Sodium (Chloride) 102 mls @ 408 mls/hr IV DAILY [facility] Stop: 10/30/20 21:00 Last Infusion: 10/28/20 12:10 Dose: 0 mls/hr Documented by: Admin: 10/28/20 10:18 Dose: 408 mls/hr Documented by: Infusion: 10/27/20 13:22 Dose: 0 mls/hr Documented by: Admin: 10/27/20 10:22 Dose: 408 mls/hr Documented by: Infusion: 10/26/20 22:12 Dose: 0 mls/hr Documented by: Admin: 10/26/20 21:48 Dose: 408 mls/hr Documented by: CWHITE Sodium Chloride (Normal Saline 0.9%) 250 mls @ 21 mls/hr IV Q24H PRN PRN Reason: Flush Last Infusion: 10/29/20 04:00 Dose: 0 mls/hr Documented by: Admin: 10/28/20 08:46 Dose: 20 mls/hr Documented by: Infusion: 10/27/20 15:17 Dose: 0 mls/hr Documented by: NCJOSE RAULIF Infusion: 10/27/20 13:22 Dose: 0 mls/hr Documented by: NCJOSE RAULIF Admin: 10/26/20 21:21 Dose: 21 mls/hr Documented by: OLLIE Sodium Chloride (Normal Saline 0.9%) 1,000 mls @ 50 mls/hr IV CONT [facility]NEY Last Infusion: 10/27/20 08:23 Dose: 50 mls/hr Documented by: Admin: 10/27/20 03:31 Dose: 150 mls/hr Documented by: CHONG Piperacillin Sod/Tazobactam (Sod 3.375 gm/ Sodium Chloride) 100 mls @ 25 mls/hr IV Q8H [facility] Stop: 11/05/20 19:59 Last Infusion: 10/29/20 05:03 Dose: 0 mls/hr Documented by: Admin: 10/29/20 00:15 Dose: 25 mls/hr Documented by: Infusion: 10/28/20 20:48 Dose: 0 mls/hr Documented by: Admin: 10/28/20 16:29 Dose: 25 mls/hr Documented by: [email or web address] Infusion: 10/28/20 13:08 Dose: 0 mls/hr Documented by: Admin: 10/28/20 08:42 Dose: 25 mls/hr Documented by: Infusion: 10/28/20 05:31 Dose: 0 mls/hr Documented by: Admin: 10/28/20 00:34 Dose: 25 mls/hr Documented by: Infusion: 10/27/20 20:33 Dose: 0 mls/hr Documented by: Admin: 10/27/20 15:44 Dose: 25 mls/hr Documented by: Infusion: 10/27/20 12:41 Dose: 0 mls/hr Documented by: Admin: 10/27/20 08:26 Dose: 25 mls/hr Documented by: BELLA Dexmedetomidine HCl 200 mcg/ (Sodium Chloride) 50 mls @ 3.15 mls/hr IV TITRATE COURTNEY; Protocol Last Admin: 10/29/20 05:21 Dose: 0.5 mcg/kg/hr, 7.875 mls/hr Documented by: Titration: 10/29/20 04:49 Dose: 0.6 mcg/kg/hr, 9.45 mls/hr Documented by: Titration: 10/29/20 03:45 Dose: 0.6 mcg/kg/hr, 9.45 mls/hr Documented by: Admin: 10/28/20 22:40 Dose: 0.5 mcg/kg/hr, 7.875 mls/hr Documented by: Titration: 10/28/20 22:40 Dose: 0.5 mcg/kg/hr, 7.875 mls/hr Documented by: Admin: 10/28/20 16:56 Dose: 0.5 mcg/kg/hr, 7.875 mls/hr Documented by: Titration: 10/28/20 16:56 Dose: 0.5 mcg/kg/hr, 7.875 mls/hr Documented by: Titration: 10/28/20 13:11 Dose: 0.5 mcg/kg/hr, 7.875 mls/hr Documented by: Admin: 10/28/20 10:21 Dose: 0.2 mcg/kg/hr, 3.15 mls/hr Documented by: LORI Insulin Glargine (Insulin Glargine 100 Unit/Ml 3ml Pen) 12 unit SUBCUT BEDTIME [facility] Last Admin: 10/28/20 21:23 Dose: 12 unit Documented by: JORDAN Cosigned by: MILLY Insulin Human Lispro (Insulin Lispro 100 Unit/Ml 3ml Vial) 0 unit SUBCUT Q6H [facility]; Protocol Last Admin: 10/29/20 05:48 Dose: 1 unit Documented by: VEE Cosigned by: CARLOS Admin: 10/29/20 01:23 Dose: Not Given Documented by: Admin: 10/28/20 17:58 Dose: Not Given Documented by: Admin: 10/28/20 13:08 Dose: 1 unit Documented by: LORI Cosigned by: JONNATHAN Admin: 10/28/20 06:14 Dose: 1 unit Documented by: VEE Cosigned by: VAHID Admin: 10/28/20 00:34 Dose: Not Given Documented by: Admin: 10/27/20 18:29 Dose: 1 unit Documented by: OLLIE Cosigned by: MILLY Admin: 10/27/20 13:35 Dose: Not Given Documented by: Admin: 10/27/20 06:45 Dose: 1 unit Documented by: CHONG Cosigned by: AMISH Admin: 10/27/20 00:13 Dose: 5 unit Documented by: CHONG Cosigned by: AMISH Admin: 10/26/20 18:21 Dose: 1 unit Documented by: OLLIE Cosigned by: DILEEP Naloxone HCl (Naloxone 0.4 Mg/Ml Vial) 0.2 mg IV Q2MIN PRN PRN Reason: Opiate Reversal Sodium Chloride (Sodium Chloride 0.9% Flush) 10 ml IV PRN PRN PRN Reason: Flush Discontinued Medications Etomidate (Etomidate 2 Mg/Ml 10 Ml Vial) 15 mg IV NOW ONE Stop: 10/26/20 06:46 Last Admin: 10/26/20 06:45 Dose: 15 mg Documented by: HGAZEB Furosemide (Furosemide 20 Mg/2 Ml Vial) 20 mg IV NOW ONE Stop: 10/28/20 11:37 Last Admin: 10/28/20 12:20 Dose: 20 mg Documented by: LORI Lorazepam 20 mg/ Sodium (Chloride) 100 mls @ 3 mls/hr IV TITRATE [facility]; Protocol Last Titration: 10/27/20 15:18 Dose: 0 mg/kg/hr, 0 mls/hr Documented by: Admin: 10/27/20 03:16 Dose: 0.1 mg/kg/hr, 30 mls/hr Documented by: Titration: 10/27/20 03:04 Dose: 0.1 mg/kg/hr, 30 mls/hr Documented by: Admin: 10/26/20 23:44 Dose: 0.1 mg/kg/hr, 30 mls/hr Documented by: Titration: 10/26/20 23:33 Dose: 0.09 mg/kg/hr, 26.8 mls/hr Documented by: Titration: 10/26/20 20:15 Dose: 0.09 mg/kg/hr, 26.8 mls/hr Documented by: Admin: 10/26/20 19:46 Dose: 0.08 mg/kg/hr, 24 mls/hr Documented by: Titration: 10/26/20 19:46 Dose: 0.08 mg/kg/hr, 24 mls/hr Documented by: Titration: 10/26/20 18:28 Dose: 0.08 mg/kg/hr, 24 mls/hr Documented by: Titration: 10/26/20 17:35 Dose: 0.03 mg/kg/hr, 9 mls/hr Documented by: Titration: 10/26/20 15:28 Dose: 0.01 mg/kg/hr, 2 mls/hr Documented by: Titration: 10/26/20 14:28 Dose: 0 mg/kg/hr, 1 mls/hr Documented by: Titration: 10/26/20 13:00 Dose: 0.01 mg/kg/hr, 3 mls/hr Documented by: Titration: 10/26/20 10:05 Dose: 0.02 mg/kg/hr, 6 mls/hr Documented by: Titration: 10/26/20 09:28 Dose: 0 mg/kg/hr, 0 mls/hr Documented by: Titration: 10/26/20 07:53 Dose: 0.02 mg/kg/hr, 6 mls/hr Documented by: Admin: 10/26/20 07:28 Dose: 0.01 mg/kg/hr, 3 mls/hr Documented by: GIACOMO Fentanyl 1,000 mcg/ Dextrose 250 mls @ 10.5 mls/hr IV TITRATE [facility]; Protocol Last Titration: 10/28/20 12:12 Dose: 0 mcg/kg/hr, 0 mls/hr Documented by: Titration: 10/28/20 10:27 Dose: 0 mcg/kg/hr, 0 mls/hr Documented by: Titration: 10/28/20 07:50 Dose: 0.5 mcg/kg/hr, 7.5 mls/hr Documented by: Titration: 10/28/20 05:32 Dose: 0.2 mcg/kg/hr, 3 mls/hr Documented by: Titration: 10/28/20 04:06 Dose: 0.3 mcg/kg/hr, 4.5 mls/hr Documented by: [email or web address] Titration: 10/27/20 15:17 Dose: 0.5 mcg/kg/hr, 7.5 mls/hr Documented by: Admin: 10/27/20 13:59 Dose: 0.4 mcg/kg/hr, 6 mls/hr Documented by: Titration: 10/27/20 13:23 Dose: 0.5 mcg/kg/hr, 7.5 mls/hr Documented by: Titration: 10/27/20 08:56 Dose: 0.4 mcg/kg/hr, 6 mls/hr Documented by: Titration: 10/26/20 15:27 Dose: 0.5 mcg/kg/hr, 7.5 mls/hr Documented by: Titration: 10/26/20 13:09 Dose: 0.67 mcg/kg/hr, 10 mls/hr Documented by: Titration: 10/26/20 13:00 Dose: 0.87 mcg/kg/hr, 13 mls/hr Documented by: Titration: 10/26/20 11:03 Dose: 1.2 mcg/kg/hr, 18 mls/hr Documented by: Titration: 10/26/20 10:05 Dose: 1 mcg/kg/hr, 15 mls/hr Documented by: Titration: 10/26/20 09:28 Dose: 0 mcg/kg/hr, 0 mls/hr Documented by: Titration: 10/26/20 07:50 Dose: 1 mcg/kg/hr, 15 mls/hr Documented by: Titration: 10/26/20 07:40 Dose: 0.87 mcg/kg/hr, 13 mls/hr Documented by: Admin: 10/26/20 07:27 Dose: 0.7 mcg/kg/hr, 10.5 mls/hr Documented by: GIACOMO Sodium Chloride (Normal Saline 0.9%) 1,000 mls @ 1,000 mls/hr IV BOLUS ONE Stop: 10/26/20 08:16 Last Infusion: 10/26/20 08:24 Dose: 0 mls/hr Documented by: Admin: 10/26/20 07:32 Dose: 1,000 mls/hr Documented by: GIACOMO Sodium Chloride (Normal Saline 0.9%) 1,000 mls @ 1,000 mls/hr IV BOLUS ONE Stop: 10/26/20 13:01 Last Infusion: 10/26/20 12:14 Dose: 0 mls/hr Documented by: Admin: 10/26/20 12:04 Dose: 1,000 mls/hr Documented by: URIEL Levetiracetam 1,000 mg/ Sodium (Chloride) 110 mls @ 440 mls/hr IV NOW ONE Stop: 10/26/20 13:45 Last Infusion: 10/26/20 15:29 Dose: 0 mls/hr Documented by: Admin: 10/26/20 14:22 Dose: 440 mls/hr Documented by: BELLA Sodium Chloride (Normal Saline 0.9%) 1,000 mls @ 100 mls/hr IV CONT [facility] Last Admin: 10/26/20 15:54 Dose: 100 mls/hr Documented by: Infusion: 10/26/20 15:54 Dose: 100 mls/hr Documented by: Admin: 10/26/20 14:23 Dose: 100 mls/hr Documented by: BELLA Sodium Chloride (Normal Saline 0.9%) 1,000 mls @ 1,000 mls/hr IV BOLUS ONE Stop: 10/26/20 15:35 Last Infusion: 10/26/20 20:45 Dose: 0 mls/hr Documented by: Admin: 10/26/20 15:00 Dose: 1,000 mls/hr Documented by: BELLA POTASSIUM CHLORIDE IN WATER (Potassium Cl 10 Meq/100 Ml Reva) 10 meq in 100 mls @ 100 mls/hr IV Q1H [facility] Stop: 10/26/20 21:44 Last Infusion: 10/26/20 22:08 Dose: 0 mls/hr Documented by: Admin: 10/26/20 20:45 Dose: 100 mls/hr Documented by: Infusion: 10/26/20 20:45 Dose: 100 mls/hr Documented by: Admin: 10/26/20 20:14 Dose: 100 mls/hr Documented by: Infusion: 10/26/20 20:14 Dose: 100 mls/hr Documented by: Admin: 10/26/20 19:24 Dose: 100 mls/hr Documented by: Infusion: 10/26/20 19:02 Dose: 100 mls/hr Documented by: Admin: 10/26/20 18:02 Dose: 100 mls/hr Documented by: OLLIE Magnesium Sulfate (Magnesium Sulfate) 4 gm in 100 mls @ 25 mls/hr IV NOW ONE Stop: 10/26/20 22:22 Last Infusion: 10/27/20 08:06 Dose: 0 mls/hr Documented by: BELLA Cosigned by: DAPHENY Admin: 10/26/20 18:33 Dose: 25 mls/hr Documented by: OLLIE Cosigned by: FLORY Lactated Ringer's (Lactated Ringers) 1,000 mls @ 150 mls/hr IV CONT [facility] Last Admin: 10/26/20 20:44 Dose: 150 mls/hr Documented by: OLLIE Norepinephrine Bitartrate 4 mg (/ Dextrose) 254 mls @ 30.48 mls/hr IV TITRATE [facility]; Protocol Last Titration: 10/27/20 02:33 Dose: 0 mcg/min, 0 mls/hr Documented by: Titration: 10/27/20 00:23 Dose: 5 mcg/min, 19.05 mls/hr Documented by: Titration: 10/26/20 23:30 Dose: 10 mcg/min, 38.1 mls/hr Documented by: Titration: 10/26/20 22:33 Dose: 15 mcg/min, 57.15 mls/hr Documented by: Titration: 10/26/20 22:06 Dose: 20 mcg/min, 76.2 mls/hr Documented by: Admin: 10/26/20 21:33 Dose: 8 mcg/min, 30.48 mls/hr Documented by: OLLIE Vasopressin 40 unit/ Sodium (Chloride) 102 mls @ 4.5 mls/hr IV CONT [facility] Last Infusion: 10/27/20 08:56 Dose: 0 mls/hr Documented by: Admin: 10/26/20 23:31 Dose: 4.5 mls/hr Documented by: CHONG Lactated Ringer's (Lactated Ringers) 1,000 mls @ 1,000 mls/hr IV BOLUS ONE Stop: 10/26/20 23:28 Last Infusion: 10/26/20 23:28 Dose: 0 mls/hr Documented by: Admin: 10/26/20 22:43 Dose: 1,000 mls/hr Documented by: OLLIE Lactated Ringer's (Lactated Ringers) 1,000 mls @ 1,000 mls/hr IV BOLUS ONE Stop: 10/27/20 00:03 Last Infusion: 10/27/20 08:58 Dose: 0 mls/hr Documented by: Admin: 10/27/20 00:21 Dose: 1,000 mls/hr Documented by: CHONG Lactated Ringer's (Lactated Ringers) 1,000 mls @ 1,000 mls/hr IV BOLUS ONE Stop: 10/27/20 00:02 Last Infusion: 10/27/20 08:58 Dose: 0 mls/hr Documented by: Admin: 10/26/20 23:15 Dose: 1,000 mls/hr Documented by: CHONG Piperacillin Sod/Tazobactam (Sod 4.5 gm/ Sodium Chloride) 100 mls @ 200 mls/hr IV NOW ONE Stop: 10/27/20 01:22 Last Infusion: 10/27/20 04:28 Dose: 200 mls/hr Documented by: Admin: 10/27/20 03:29 Dose: 200 mls/hr Documented by: CHONG Azithromycin 500 mg/ Dextrose 250 mls @ 250 mls/hr IV Q24H [facility] Last Infusion: 10/28/20 03:58 Dose: 0 mls/hr Documented by: Admin: 10/28/20 01:43 Dose: 250 mls/hr Documented by: Infusion: 10/27/20 03:33 Dose: 0 mls/hr Documented by: Admin: 10/27/20 02:04 Dose: 250 mls/hr Documented by: CHONG Sodium Chloride (Normal Saline 0.9%) 1,000 mls @ 1,000 mls/hr IV BOLUS ONE Stop: 10/27/20 02:25 Last Infusion: 10/27/20 04:28 Dose: 1,000 mls/hr Documented by: Admin: 10/27/20 01:39 Dose: 1,000 mls/hr Documented by: CHONG POTASSIUM CHLORIDE IN WATER (Potassium Cl 10 Meq/100 Ml Reva) 10 meq in 100 mls @ 100 mls/hr IV Q1H [facility] Stop: 10/27/20 03:44 Last Infusion: 10/27/20 15:18 Dose: 0 mls/hr Documented by: Admin: 10/27/20 03:04 Dose: 100 mls/hr Documented by: Infusion: 10/27/20 03:00 Dose: 100 mls/hr Documented by: Admin: 10/27/20 02:00 Dose: 100 mls/hr Documented by: CHONG Midazolam HCl 50 mg/ Dextrose 260 mls @ 5.564 mls/hr IV TITRATE [facility]; Protocol Last Titration: 10/28/20 12:11 Dose: 0 mg/kg/hr, 0 mls/hr Documented by: Titration: 10/28/20 10:28 Dose: 0 mg/kg/hr, 0 mls/hr Documented by: Titration: 10/28/20 07:50 Dose: 0.05 mg/kg/hr, 13.91 mls/hr Documented by: Admin: 10/27/20 14:41 Dose: 0.04 mg/kg/hr, 11.128 mls/hr Documented by: Titration: 10/27/20 14:00 Dose: 0.08 mg/kg/hr, 22.256 mls/hr Documented by: Titration: 10/27/20 13:23 Dose: 0.04 mg/kg/hr, 11.128 mls/hr Documented by: Admin: 10/27/20 08:13 Dose: 0.02 mg/kg/hr, 5.564 mls/hr Documented by: BELLA POTASSIUM CHLORIDE IN WATER (Potassium Cl 10 Meq/100 Ml Reva) 10 meq in 100 mls @ 100 mls/hr IV Q1H [facility] Stop: 10/28/20 23:59 Last Infusion: 10/29/20 01:32 Dose: 0 mls/hr Documented by: Admin: 10/29/20 00:18 Dose: 100 mls/hr Documented by: Infusion: 10/29/20 00:18 Dose: 0 mls/hr Documented by: Admin: 10/28/20 22:42 Dose: 100 mls/hr Documented by: Infusion: 10/28/20 22:24 Dose: 100 mls/hr Documented by: Admin: 10/28/20 21:24 Dose: 100 mls/hr Documented by: Infusion: 10/28/20 21:24 Dose: 100 mls/hr Documented by: Admin: 10/28/20 20:30 Dose: 100 mls/hr Documented by: JORDAN Insulin Glargine (Insulin Glargine 100 Unit/Ml 3ml Pen) 10 unit SUBCUT DAILY [facility] Last Admin: 10/27/20 11:00 Dose: 10 unit Documented by: BELLA Cosigned by: DAPHNEY Insulin Glargine (Insulin Glargine 100 Unit/Ml 3ml Pen) 5 unit SUBCUT BEDTIME [facility] Last Admin: 10/27/20 21:11 Dose: 5 unit Documented by: OLLIE Cosigned by: DILEEP Insulin Human Lispro (Insulin Lispro 100 Unit/Ml 3ml Vial) 0 unit SUBCUT Q6H [facility]; Protocol Last Admin: 10/26/20 15:24 Dose: 3 unit Documented by: BELLA Cosigned by: DAPHNEY Pantoprazole Sodium (Pantoprazole 40 Mg Vial) 20 mg IV BID [facility] Last Admin: 10/27/20 08:34 Dose: 20 mg Documented by: Admin: 10/27/20 01:54 Dose: Not Given Documented by: CHONG Succinylcholine Chloride (Succinylcholine 200 Mg/10 Ml Vial) 75 mg IV NOW ONE Stop: 10/26/20 06:46 Last Admin: 10/26/20 06:46 Dose: 75 mg Documented by: GIACOMO Reevaluation(s) Reevaluation #1: No new issues regarding status of patient. I spoke with Nuvia, phone number [phone], she called us to give information about patient. Patient is known by her. He is staying at her hotel. She manages the hotel. She states another resident found him on the ground. Unknown down time. Patient has history of polysubstance abuse. Has been trying to wean off alcohol. Patient has had 50 lb weight loss in the last month due to depression, his father recently . Otherwise no SI or HI per Nuvia. No recent illness. Time: 09:00 Reevaluation #2: [id number] intervention. Patient requiring soft restraints for prevention of removal of ET tube and lines. Time: 10:23 Consultations Consultation #1: Spoke with stroke on-call, dr dunn, pt unknown down time, patient needs MRI now. He will review results of CT scan imaging and MRI as well. 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 It was seen on October 09, 2020 CT angiogram. Patient is not a candidate for tPA at this time. Consultation #2: Spoke with hospitalist, Dr. Cheek, will admit ICU Time: 10:50 Vital Signs Vital signs: Vital Signs - 8 hr 10/26/20 06:35 10/26/20 06:59 10/26/20 07:00 Temperature 98.9 F Pulse Rate 112 H 109 H 109 H Respiratory Rate 11 L 13 13 Blood Pressure 171/101 H 147/95 H 160/100 H Pulse Oximetry 100 100 97 10/26/20 07:10 10/26/20 07:20 10/26/20 07:30 Temperature Pulse Rate 109 H 107 H 104 H Respiratory Rate 12 12 12 Blood Pressure 161/103 H 160/106 H 157/107 H Pulse Oximetry 97 97 98 10/26/20 07:40 10/26/20 07:50 10/26/20 08:00 Temperature Pulse Rate 104 H 107 H 107 H Respiratory Rate 20 16 Blood Pressure 160/106 H 152/102 H 143/104 H Pulse Oximetry 96 98 98 10/26/20 08:10 10/26/20 08:20 10/26/20 08:30 Temperature Pulse Rate 111 H 110 H 109 H Respiratory Rate 16 16 16 Blood Pressure 147/103 H 146/98 H 153/99 H Pulse Oximetry 98 98 99 10/26/20 08:40 10/26/20 08:50 10/26/20 09:00 Temperature Pulse Rate 111 H 111 H 112 H Respiratory Rate 16 16 16 Blood Pressure 146/94 H 147/96 H 134/92 H Pulse Oximetry 99 99 99 10/26/20 09:10 10/26/20 09:20 10/26/20 09:57 Temperature Pulse Rate 110 H 113 H 121 H Respiratory Rate 16 16 Blood Pressure 137/94 H 140/95 H 133/88 Pulse Oximetry 99 99 97 10/26/20 10:00 10/26/20 10:01 10/26/20 10:18 Temperature Pulse Rate 120 H 120 H 82 Respiratory Rate 16 16 16 Blood Pressure 127/90 Pulse Oximetry 96 95 MDM - Altered Mental Status <Lisa Kendall, DO - Last Filed: 10/29/20 07:14> Lab Data Result diagrams: 10/29/20 05:48 10/29/20 05:48 Labs: Lab Results 10/26/20 10/26/20 10/26/20 Range/Units 06:20 06:20 06:20 WBC 12.9 H D (4.5-11.0) X10^3/uL RBC 4.96 (4.5-5.9) X10^6/uL Hgb 15.0 (13.5-17.5) g/dL Hct 45.1 (41-53) % MCV 90.9 D (80-100) fL MCH 30.3 (26-34) PG MCHC 33.3 (30-36) % RDW 13.0 (11.6-14.8) % Plt Count 480 H (150-400) X10^3/uL Neut % (Auto) 80.7 H (50-75) % Lymph % (Auto) 11.0 L (25-40) % Redwood % (Auto) 7.0 (3-14) % Eos % (Auto) 0.5 L (2-4) % Baso % (Auto) 0.8 (0-2) % Neut # (Auto) 93753 H (0013-8748) /uL Lymph # (Auto) 1400 (2826-9750) /uL Redwood # (Auto) 900 (0-900) /uL Eos # (Auto) 100 (0-450) /uL Baso # (Auto) 100 (0-100) /uL ABG pH (7.35-7.45) ABG pCO2 (35-45) mmHg ABG pO2 (80-100) mmHg ABG HCO3 (22-26) mmol/L ABG Total CO2 (21-31) mmol/L ABG O2 Saturation (95-100) % ABG Base Excess (-2-2) mmol/L FiO2 Sodium 128 L (137-145) mmol/L Potassium 3.2 L (3.4-5.1) mmol/L Chloride 91 L (98-107) mmol/L Carbon Dioxide 22 (22-32) mmol/L BUN 20 (9-20) mg/dL Creatinine 0.64 L (0.66-1.25) mg/dL Estimated GFR > 60.0 (>60) mL/min BUN/Creatinine Ratio 31.3 H (6-22) Glucose 439 H D (80-110) mg/dL Calcium 9.6 (8.4-10.2) mg/dL Total Bilirubin 1.2 (0.2-1.3) mg/dL AST 77 H (17-59) IU/L ALT 72 H (<50) IU/L Alkaline Phosphatase 179 H (38-126) U/L Total Creatine Kinase 29 L (55-170) U/L CK-MB (CK-2) TNP CK-MB (CK-2) Rel Index TNP Troponin I < 0.012 (0.01-0.034) ng/mL Total Protein 8.0 (6.3-8.2) g/dL Albumin 4.6 (3.5-5.0) g/dL Globulin 3.4 (1.7-4.1) g/dL Albumin/Globulin Ratio 1.4 (1.0-2.8) Procalcitonin (<0.5) ng/mL Prolactin (3.7-17.9) ng/mL U Opiates 300ng/mL cut (Negative) Ur Oxycodone Screen (Negative) Urine Methadone Screen (Negative) Ur Barbiturates Screen (Negative) U Tricyclic Antidepress (Negative) Ur Phencyclidine Scrn (Negative) Ur Amphetamines Screen (Negative) U Methamphetamines Scrn (Negative) Ur MDMA Scrn (Ecstasy) (Negative) U Benzodiazepines Scrn (Negative) Urine Cocaine Screen (Negative) U Marijuana (THC) Screen (Negative) Ethyl Alcohol < 10 ( - 10) mg/dL SARS-CoV-2 (PCR) (Negative) 10/26/20 10/26/20 10/26/20 Range/Units 06:35 07:05 07:26 WBC (4.5-11.0) X10^3/uL RBC (4.5-5.9) X10^6/uL Hgb (13.5-17.5) g/dL Hct (41-53) % MCV (80-100) fL MCH (26-34) PG MCHC (30-36) % RDW (11.6-14.8) % Plt Count (150-400) X10^3/uL Neut % (Auto) (50-75) % Lymph % (Auto) (25-40) % Redwood % (Auto) (3-14) % Eos % (Auto) (2-4) % Baso % (Auto) (0-2) % Neut # (Auto) (9480-6583) /uL Lymph # (Auto) (1157-0572) /uL Redwood # (Auto) (0-900) /uL Eos # (Auto) (0-450) /uL Baso # (Auto) (0-100) /uL ABG pH (7.35-7.45) ABG pCO2 (35-45) mmHg ABG pO2 (80-100) mmHg ABG HCO3 (22-26) mmol/L ABG Total CO2 (21-31) mmol/L ABG O2 Saturation (95-100) % ABG Base Excess (-2-2) mmol/L FiO2 Sodium (137-145) mmol/L Potassium (3.4-5.1) mmol/L Chloride (98-107) mmol/L Carbon Dioxide (22-32) mmol/L BUN (9-20) mg/dL Creatinine (0.66-1.25) mg/dL Estimated GFR (>60) mL/min BUN/Creatinine Ratio (6-22) Glucose (80-110) mg/dL Calcium (8.4-10.2) mg/dL Total Bilirubin (0.2-1.3) mg/dL AST (17-59) IU/L ALT (<50) IU/L Alkaline Phosphatase (38-126) U/L Total Creatine Kinase (55-170) U/L CK-MB (CK-2) CK-MB (CK-2) Rel Index Troponin I (0.01-0.034) ng/mL Total Protein (6.3-8.2) g/dL Albumin (3.5-5.0) g/dL Globulin (1.7-4.1) g/dL Albumin/Globulin Ratio (1.0-2.8) Procalcitonin 0.13 (<0.5) ng/mL Prolactin 16.8 (3.7-17.9) ng/mL U Opiates 300ng/mL cut Negative (Negative) Ur Oxycodone Screen Negative (Negative) Urine Methadone Screen Negative (Negative) Ur Barbiturates Screen Negative (Negative) U Tricyclic Antidepress Negative (Negative) Ur Phencyclidine Scrn Negative (Negative) Ur Amphetamines Screen Negative (Negative) U Methamphetamines Scrn Positive H (Negative) Ur MDMA Scrn (Ecstasy) Negative (Negative) U Benzodiazepines Scrn Positive H (Negative) Urine Cocaine Screen Negative (Negative) U Marijuana (THC) Screen Negative (Negative) Ethyl Alcohol ( - 10) mg/dL SARS-CoV-2 (PCR) Negative (Negative) 10/26/20 10/26/20 Range/Units 07:45 08:02 WBC (4.5-11.0) X10^3/uL RBC (4.5-5.9) X10^6/uL Hgb (13.5-17.5) g/dL Hct (41-53) % MCV (80-100) fL MCH (26-34) PG MCHC (30-36) % RDW (11.6-14.8) % Plt Count (150-400) X10^3/uL Neut % (Auto) (50-75) % Lymph % (Auto) (25-40) % Redwood % (Auto) (3-14) % Eos % (Auto) (2-4) % Baso % (Auto) (0-2) % Neut # (Auto) (0013-0443) /uL Lymph # (Auto) (3041-6692) /uL Redwood # (Auto) (0-900) /uL Eos # (Auto) (0-450) /uL Baso # (Auto) (0-100) /uL ABG pH 7.28 L* (7.35-7.45) ABG pCO2 57.0 H (35-45) mmHg ABG pO2 85 (80-100) mmHg ABG HCO3 27 H (22-26) mmol/L ABG Total CO2 29 (21-31) mmol/L ABG O2 Saturation 95 (95-100) % ABG Base Excess 1.0 (-2-2) mmol/L FiO2 50 Sodium (137-145) mmol/L Potassium (3.4-5.1) mmol/L Chloride (98-107) mmol/L Carbon Dioxide (22-32) mmol/L BUN (9-20) mg/dL Creatinine (0.66-1.25) mg/dL Estimated GFR (>60) mL/min BUN/Creatinine Ratio (6-22) Glucose (80-110) mg/dL Calcium (8.4-10.2) mg/dL Total Bilirubin (0.2-1.3) mg/dL AST (17-59) IU/L ALT (<50) IU/L Alkaline Phosphatase (38-126) U/L Total Creatine Kinase (55-170) U/L CK-MB (CK-2) CK-MB (CK-2) Rel Index Troponin I (0.01-0.034) ng/mL Total Protein (6.3-8.2) g/dL Albumin (3.5-5.0) g/dL Globulin (1.7-4.1) g/dL Albumin/Globulin Ratio (1.0-2.8) Procalcitonin (<0.5) ng/mL Prolactin (3.7-17.9) ng/mL U Opiates 300ng/mL cut (Negative) Ur Oxycodone Screen (Negative) Urine Methadone Screen (Negative) Ur Barbiturates Screen (Negative) U Tricyclic Antidepress (Negative) Ur Phencyclidine Scrn (Negative) Ur Amphetamines Screen (Negative) U Methamphetamines Scrn (Negative) Ur MDMA Scrn (Ecstasy) (Negative) U Benzodiazepines Scrn (Negative) Urine Cocaine Screen (Negative) U Marijuana (THC) Screen (Negative) Ethyl Alcohol ( - 10) mg/dL SARS-CoV-2 (PCR) Negative (Negative) Point of Care Testing Glucose POC 382 Urine Dip Bedside Urine Glucose 1000 mg/dl Bedside Urine Bilirubin - Negative Bedside Urine Ketone - Negative Urine Specific Pa[place] 1.010 Bedside Urine Occult Blood - Negative Bedside Urine pH 6 Bedside Urine Protein - Negative Bedside Urine Urobilinogen - Negative Bedside Urine Nitrite - Negative Bedside Urine Leukocytes - Negative Esterase Imaging Data CT scan - head: Radiologist's Impression: Focal area of small vessel ischemic change all versus small area indeterminate and to in right munoz radiata. Of eyes unremarkable study. MDM Narrative Medical decision making narrative: Patient came in unresponsive went straight to head CT no evidence of intracranial hemorrhage. He was quickly intubated for airway protection. He is sedated with Ativan and fentanyl drips with history of seizure and EMS reports possible shaking and seizure activity. Not a Tpa candidate unknown down time. Patient signed out to Dr. Arce for further management <Carlos Arce MD - Last Filed: 10/28/20 21:13> Differential Diagnosis Differential diagnosis: Likely alcoholic intoxication, altered mental status and subarachnoid hemorrhage Medical Records Medical records narrative: [address] [id number] Scan ReportSigned Patient: Leighton Shanks [facility]#: [id number]: 9Acct:[id number]/Sex: 59 / MDate of Service: 10/09/20Loc: EDAccession Number: [id number] Procedure: CT angio head and neck Ordering Provider: Kenna Shaikh D.O. PROCEDURE: CT ANGIO HEAD AND NECK INDICATIONS: stroke TECHNIQUE: After the administration of intravenous contrast, 1 mm thick sections acquired from the aortic arch through the [place] of [place]. Post-contrast 4.5 mm thick sections then re-acquired from the foramen magnum to the vertex. 3-dimensional hxvgjlh-jzptzowws-obmjkuohdy (MIP) and/or volume rendering reformats were acquired of the central intracranial vasculature and neck separately. COMPARISON: None. FINDINGS: Image quality: Excellent. BRAIN: CSF spaces: Ventricles are normal in size and shape. Basal cisterns are patent. No extra-axial fluid collections. Brain: No midline shift. No intracranial bleeds or masses. Miranda-white matter interface appears intact. Skull and face: Calvarium and facial bones appear intact, without suspicious lesions. Orbits appear normal. Sinuses: Mucosal thickening noted in the maxillary sinuses bilaterally. The mastoids are clear. HEAD CT ANGIOGRAPHY: Anterior circulation: Intracranial internal carotid arteries are normal in size and flow. The flow within the paired anterior cerebral arteries is normal and symmetric. The flow within the middle cerebral arteries is normal and symmetric. The anterior communicating artery is seen. No aneurysms are seen. Posterior circulation: Normal flow noted in the right vertebral artery. Patient is right vertebral artery dominant. Atherosclerotic calcification noted in the proximal V4 segment of the right vertebral artery which causes mild narrowing of the vessel. Left vertebral artery is occluded distal to the origin left posterior inferior cerebral artery. Normal flow noted in the basilar artery. Flow within the posterior cerebral arteries is normal and symmetric. No aneurysms are seen. Dural sinuses demonstrate normal postcontrast enhancement. NECK CT ANGIOGRAPHY: Carotid system: The great vessels demonstrate a conventional anatomy as they arise from the aortic arch. The origins of the common carotid arteries appear patent. The common carotid arteries demonstrate normal caliber and courses. Atherosclerotic calcifications noted in the origins of the internal carotid arteries bilaterally which causes less than 50% stenosis of the vessels. Posterior circulation: Atherosclerotic calcification noted in the origin of the right vertebral artery which causes mild narrowing of the vessel. Patient is right vertebral artery dominant. Congenitally hypoplastic left vertebral artery noted. Origin left vertebral artery is fully patent. The more superior extracranial portions of both vertebral arteries also demonstrate normal courses and calibers. They join to form a normal appearing basilar artery. Soft tissues: Visualized neck soft tissues demonstrate no suspicious abnormalities. Bones: No suspicious bony lesions. Spine degenerative disc disease and facet arthropathy. Visualized cervical spine appears normally aligned. IMPRESSION: 1. No acute intracranial disease process. 2. Less than 50% stenosis of the origins of the internal carotid arteries. 3. Mild stenosis of the origin of the right vertebral artery in the V4 segment of the right vertebral artery. Patient is right vertebral artery dominant. 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 Any quantitative measurements of stenosis were performed using NASCET criteria. Dictated by: Cata Hayward MD, PhD on 10/09/2020 at 1:08 Approved by: Cata Hayward MD, PhD on 10/09/2020 at 1:16 Lab Data Labs: Lab Results 10/26/20 10/26/20 10/26/20 Range/Units 06:20 06:20 06:20 WBC 12.9 H D (4.5-11.0) X10^3/uL RBC 4.96 (4.5-5.9) X10^6/uL Hgb 15.0 (13.5-17.5) g/dL Hct 45.1 (41-53) % MCV 90.9 D (80-100) fL MCH 30.3 (26-34) PG MCHC 33.3 (30-36) % RDW 13.0 (11.6-14.8) % Plt Count 480 H (150-400) X10^3/uL Neut % (Auto) 80.7 H (50-75) % Lymph % (Auto) 11.0 L (25-40) % Redwood % (Auto) 7.0 (3-14) % Eos % (Auto) 0.5 L (2-4) % Baso % (Auto) 0.8 (0-2) % Neut # (Auto) 17902 H (0006-7873) /uL Lymph # (Auto) 1400 (9861-0358) /uL Redwood # (Auto) 900 (0-900) /uL Eos # (Auto) 100 (0-450) /uL Baso # (Auto) 100 (0-100) /uL ABG pH (7.35-7.45) ABG pCO2 (35-45) mmHg ABG pO2 (80-100) mmHg ABG HCO3 (22-26) mmol/L ABG Total CO2 (21-31) mmol/L ABG O2 Saturation (95-100) % ABG Base Excess (-2-2) mmol/L FiO2 Sodium 128 L (137-145) mmol/L Potassium 3.2 L (3.4-5.1) mmol/L Chloride 91 L (98-107) mmol/L Carbon Dioxide 22 (22-32) mmol/L BUN 20 (9-20) mg/dL Creatinine 0.64 L (0.66-1.25) mg/dL Estimated GFR > 60.0 (>60) mL/min BUN/Creatinine Ratio 31.3 H (6-22) Glucose 439 H D (80-110) mg/dL Calcium 9.6 (8.4-10.2) mg/dL Total Bilirubin 1.2 (0.2-1.3) mg/dL AST 77 H (17-59) IU/L ALT 72 H (<50) IU/L Alkaline Phosphatase 179 H (38-126) U/L Total Creatine Kinase 29 L (55-170) U/L CK-MB (CK-2) TNP CK-MB (CK-2) Rel Index TNP Troponin I < 0.012 (0.01-0.034) ng/mL Total Protein 8.0 (6.3-8.2) g/dL Albumin 4.6 (3.5-5.0) g/dL Globulin 3.4 (1.7-4.1) g/dL Albumin/Globulin Ratio 1.4 (1.0-2.8) Procalcitonin (<0.5) ng/mL Prolactin (3.7-17.9) ng/mL U Opiates 300ng/mL cut (Negative) Ur Oxycodone Screen (Negative) Urine Methadone Screen (Negative) Ur Barbiturates Screen (Negative) U Tricyclic Antidepress (Negative) Ur Phencyclidine Scrn (Negative) Ur Amphetamines Screen (Negative) U Methamphetamines Scrn (Negative) Ur MDMA Scrn (Ecstasy) (Negative) U Benzodiazepines Scrn (Negative) Urine Cocaine Screen (Negative) U Marijuana (THC) Screen (Negative) Ethyl Alcohol < 10 ( - 10) mg/dL SARS-CoV-2 (PCR) (Negative) 10/26/20 10/26/20 10/26/20 Range/Units 06:35 07:05 07:26 WBC (4.5-11.0) X10^3/uL RBC (4.5-5.9) X10^6/uL Hgb (13.5-17.5) g/dL Hct (41-53) % MCV (80-100) fL MCH (26-34) PG MCHC (30-36) % RDW (11.6-14.8) % Plt Count (150-400) X10^3/uL Neut % (Auto) (50-75) % Lymph % (Auto) (25-40) % Redwood % (Auto) (3-14) % Eos % (Auto) (2-4) % Baso % (Auto) (0-2) % Neut # (Auto) (4183-0979) /uL Lymph # (Auto) (8216-3663) /uL Redwood # (Auto) (0-900) /uL Eos # (Auto) (0-450) /uL Baso # (Auto) (0-100) /uL ABG pH (7.35-7.45) ABG pCO2 (35-45) mmHg ABG pO2 (80-100) mmHg ABG HCO3 (22-26) mmol/L ABG Total CO2 (21-31) mmol/L ABG O2 Saturation (95-100) % ABG Base Excess (-2-2) mmol/L FiO2 Sodium (137-145) mmol/L Potassium (3.4-5.1) mmol/L Chloride (98-107) mmol/L Carbon Dioxide (22-32) mmol/L BUN (9-20) mg/dL Creatinine (0.66-1.25) mg/dL Estimated GFR (>60) mL/min BUN/Creatinine Ratio (6-22) Glucose (80-110) mg/dL Calcium (8.4-10.2) mg/dL Total Bilirubin (0.2-1.3) mg/dL AST (17-59) IU/L ALT (<50) IU/L Alkaline Phosphatase (38-126) U/L Total Creatine Kinase (55-170) U/L CK-MB (CK-2) CK-MB (CK-2) Rel Index Troponin I (0.01-0.034) ng/mL Total Protein (6.3-8.2) g/dL Albumin (3.5-5.0) g/dL Globulin (1.7-4.1) g/dL Albumin/Globulin Ratio (1.0-2.8) Procalcitonin 0.13 (<0.5) ng/mL Prolactin 16.8 (3.7-17.9) ng/mL U Opiates 300ng/mL cut Negative (Negative) Ur Oxycodone Screen Negative (Negative) Urine Methadone Screen Negative (Negative) Ur Barbiturates Screen Negative (Negative) U Tricyclic Antidepress Negative (Negative) Ur Phencyclidine Scrn Negative (Negative) Ur Amphetamines Screen Negative (Negative) U Methamphetamines Scrn Positive H (Negative) Ur MDMA Scrn (Ecstasy) Negative (Negative) U Benzodiazepines Scrn Positive H (Negative) Urine Cocaine Screen Negative (Negative) U Marijuana (THC) Screen Negative (Negative) Ethyl Alcohol ( - 10) mg/dL SARS-CoV-2 (PCR) Negative (Negative) 10/26/20 10/26/20 Range/Units 07:45 08:02 WBC (4.5-11.0) X10^3/uL RBC (4.5-5.9) X10^6/uL Hgb (13.5-17.5) g/dL Hct (41-53) % MCV (80-100) fL MCH (26-34) PG MCHC (30-36) % RDW (11.6-14.8) % Plt Count (150-400) X10^3/uL Neut % (Auto) (50-75) % Lymph % (Auto) (25-40) % Redwood % (Auto) (3-14) % Eos % (Auto) (2-4) % Baso % (Auto) (0-2) % Neut # (Auto) (0759-6039) /uL Lymph # (Auto) (5995-0418) /uL Redwood # (Auto) (0-900) /uL Eos # (Auto) (0-450) /uL Baso # (Auto) (0-100) /uL ABG pH 7.28 L* (7.35-7.45) ABG pCO2 57.0 H (35-45) mmHg ABG pO2 85 (80-100) mmHg ABG HCO3 27 H (22-26) mmol/L ABG Total CO2 29 (21-31) mmol/L ABG O2 Saturation 95 (95-100) % ABG Base Excess 1.0 (-2-2) mmol/L FiO2 50 Sodium (137-145) mmol/L Potassium (3.4-5.1) mmol/L Chloride (98-107) mmol/L Carbon Dioxide (22-32) mmol/L BUN (9-20) mg/dL Creatinine (0.66-1.25) mg/dL Estimated GFR (>60) mL/min BUN/Creatinine Ratio (6-22) Glucose (80-110) mg/dL Calcium (8.4-10.2) mg/dL Total Bilirubin (0.2-1.3) mg/dL AST (17-59) IU/L ALT (<50) IU/L Alkaline Phosphatase (38-126) U/L Total Creatine Kinase (55-170) U/L CK-MB (CK-2) CK-MB (CK-2) Rel Index Troponin I (0.01-0.034) ng/mL Total Protein (6.3-8.2) g/dL Albumin (3.5-5.0) g/dL Globulin (1.7-4.1) g/dL Albumin/Globulin Ratio (1.0-2.8) Procalcitonin (<0.5) ng/mL Prolactin (3.7-17.9) ng/mL U Opiates 300ng/mL cut (Negative) Ur Oxycodone Screen (Negative) Urine Methadone Screen (Negative) Ur Barbiturates Screen (Negative) U Tricyclic Antidepress (Negative) Ur Phencyclidine Scrn (Negative) Ur Amphetamines Screen (Negative) U Methamphetamines Scrn (Negative) Ur MDMA Scrn (Ecstasy) (Negative) U Benzodiazepines Scrn (Negative) Urine Cocaine Screen (Negative) U Marijuana (THC) Screen (Negative) Ethyl Alcohol ( - 10) mg/dL SARS-CoV-2 (PCR) Negative (Negative) Point of Care Testing Glucose POC 382 Urine Dip Bedside Urine Glucose 1000 mg/dl Bedside Urine Bilirubin - Negative Bedside Urine Ketone - Negative Urine Specific Paxton 1.010 Bedside Urine Occult Blood - Negative Bedside Urine pH 6 Bedside Urine Protein - Negative Bedside Urine Urobilinogen - Negative Bedside Urine Nitrite - Negative Bedside Urine Leukocytes - Negative Esterase Imaging Data CT scan - head: Radiologist's Impression: Focal area of small vessel ischemic change all versus small area indeterminate and to in right munoz radiata. Of eyes unremarkable study. [address] [id number] Scan ReportSigned Patient: Leighton Shanks AMR#: [id number]: 9Acct:[id number]/Sex: 59 / MDate of Service: 10/26/20Loc: EDAccession Number: [id number] Procedure: CT Stroke Ordering Provider: Lisa Kendall D.O. PROCEDURE: CT STROKE INDICATIONS: stroke TECHNIQUE: Noncontrast 4.5 mm thick angled axial sections acquired from the foramen magnum to the vertex, with coronal reformats. For radiation dose reduction, the following was used: automated exposure control, adjustment of mA and/or kV according to patient size. COMPARISON: [facility], CT, CT HEAD/BRAIN WO CON, 10/13/2020, 19:07. FINDINGS: Image quality: Excellent. CSF spaces: Basal cisterns are patent. No extra-axial fluid collections. The ventricles are symmetric in size and shape. Brain: No intracranial bleeds or masses. There is cerebral volume loss for age, with resultant ventricular and sulcal prominence. There are periventricular and deep white matter chronic small vessel ischemic changes. There is intracranial internal carotid artery and vertebral artery atherosclerosis. Skull and face: Calvarium and visualized facial bones appear intact, without suspicious lesions. Sinuses: Mild mucosal thickening noted in the maxillary sinuses. The mastoids are clear. IMPRESSION: No acute intracranial disease process. This study fulfills neurological imaging criteria for inclusion or exclusion of acute stroke therapies based on available published neurological guidelines. Dictated by: Cata Hayward MD, PhD on 10/26/2020 at 7:14 Approved by: Cata Hayward MD, PhD on 10/26/2020 at 7:16 CTA - brain/neck: Radiologist's Impression: CT angiogram head with contrast impression occlusion of the left vertebral artery. No significant stenosis or vascular occlusion the neck. [address] [id number] Scan ReportSigned Patient: Leighton Shanks [facility]#: [id number]: 9Acct:[id number]/Sex: 59 / MDate of Service: 10/26/20Loc: EDAccession Number: [id number] Procedure: CT angio head and neck Ordering Provider: Lisa Kendall D.O. PROCEDURE: CT ANGIO HEAD AND NECK INDICATIONS: stroke, unresponsive TECHNIQUE: After the administration of intravenous contrast, 1 mm thick sections acquired from the aortic arch through the [place] of [place]. Post-contrast 4.5 mm thick sections then re-acquired from the foramen magnum to the vertex. 3-dimensional tybldin-wtxsosivz-xlpkfdwwnb (MIP) and/or volume rendering reformats were acquired of the central intracranial vasculature and neck separately. COMPARISON: [facility], CT, CT HEAD/BRAIN WO CON, 10/13/2020, 19:07. [facility], CT, CT ANGIO HEAD AND NECK, 10/09/2020, 0:49. [facility], CT, CT STROKE, 10/26/2020, 6:31. FINDINGS: Image quality: Excellent. BRAIN: CSF spaces: Ventricles are normal in size and shape. Basal cisterns are patent. No extra-axial fluid collections. Brain: No midline shift. No intracranial bleeds or masses. Miranda-white matter interface appears intact. Skull and face: Calvarium and facial bones appear intact, without suspicious lesions. Orbits appear normal. Sinuses: Sinuses and mastoids are clear. HEAD CT ANGIOGRAPHY: Anterior circulation: Intracranial internal carotid arteries are normal in size and flow. The flow within the paired anterior cerebral arteries is normal and symmetric. The flow within the middle cerebral arteries is normal and symmetric. The anterior communicating artery is seen. No aneurysms are seen. Posterior circulation: Atherosclerotic calcification in the V4 segment of the right vertebral artery causes mild narrowing of the vessel. Left vertebral artery is occluded distal to the origin of the left posterior inferior cerebellar artery. Patient is right vertebral artery dominant. Normal flow noted in the basilar artery. Flow within the posterior cerebral arteries is normal and symmetric. No aneurysms are seen. Dural sinuses demonstrate normal postcontrast enhancement. NECK CT ANGIOGRAPHY: Carotid system: The great vessels demonstrate a conventional anatomy as they arise from the aortic arch. The origins of the common carotid arteries appear patent. The common carotid arteries demonstrate normal caliber and courses. Atherosclerotic calcifications noted in the origins of the internal carotid arteries bilaterally which causes less than 50% stenosis of the vessels. Posterior circulation: The origins of the vertebral arteries both appear widely patent. The more superior extracranial portions of both vertebral arteries also demonstrate normal courses and calibers. They join to form a normal appearing basilar artery. Soft tissues: Visualized neck soft tissues demonstrate no suspicious abnormalities. Bones: No suspicious bony lesions. Spine degenerative disc disease and facet arthropathy. Visualized cervical spine appears normally aligned. IMPRESSION: 1. No acute intracranial disease process. 2. No large vessel occlusion, hemodynamically significant vascular stenosis, vascular dissection or aneurysm. Any quantitative measurements of stenosis were performed using NASCET criteria. Dictated by: Cata Hayward MD, PhD on 10/26/2020 at 7:59 Approved by: Cata Hayward MD, PhD on 10/26/2020 at 8:06 Chest x-ray: Radiologist's Impression: [address] [id number] ReportSigned Patient: Leighton Shanks AMR#: [id number]: 1960cct:[id number]/Sex: 59 / MDate of Service: 10/26/20Lo: EDAccession Number: [id number] Procedure: XR chest 1V Ordering Provider: Lisa Kendall D.O. PROCEDURE: XR CHEST 1V INDICATIONS: intubation TECHNIQUE: One view of the chest was acquired. COMPARISON: None. FINDINGS: Surgical changes and devices: ETT tip is 2.6 cm above the дмитрий. Enteric tube tip is in the region of GE junction and should be advanced by 5-6 cm. Lungs and pleura: Lungs are clear. No pleural effusions or pneumothorax. Mediastinum: Mediastinal contours appear normal. Heart size is normal. Bones and chest wall: No suspicious bony lesions. Overlying soft tissues appear unremarkable. IMPRESSION: ET tube is in satisfactory position. Enteric tube tip is below the left hemidiaphragm and should be advanced by 5-6 cm. Dictated by: Jason De La Cruz M.D. on 10/26/2020 at 7:55 Approved by: Jason De La Cruz M.D. on 10/26/2020 at 7:56 MRI brain: Radiologist's Impression: [address] [id number] Resonance ReportSigned Patient: Leighton Shanks AMR#: [id number]: 1960cct:[id number]/Sex: 59 / MDate of Service: 10/26/20Loc: EDAccession Number: [id number] Procedure: MR head/brain wo con Ordering Provider: Carlos Arce MD PROCEDURE: MR HEAD/BRAIN WO CON INDICATIONS: Altered mental status TECHNIQUE: Non-contrast axial T1 spin echo, axial T2 fast spin echo, sagittal and axial FLAIR, coronal T2 fast spin echo, axial gradient echo, axial diffusion and ADC through the brain. COMPARISON: [facility], CT, CT ANGIO HEAD AND NECK, 10/26/2020, 6:35. [facility], CT, CT STROKE, 10/26/2020, 6:31. FINDINGS: Image quality: Excellent. CSF spaces: Ventricles appear symmetric in size and shape. Basal cisterns are patent. No extra-axial fluid collections. Brain: No intracranial bleeds or mass effects. There is mild cerebral volume loss for age. There are mild periventricular and deep white matter chronic small vessel ischemic changes. Brainstem appears normal. Diffusion-weighted images show no acute ischemic insults. No chronic ischemic insults. Normal intravascular flow voids are present. Skull and face: Calvarial bone marrow is normal in signal. Orbits are normal. Sinuses: Mild mucosal thickening noted in the maxillary sinuses bilaterally. The mastoids are clear. IMPRESSION: 1. No acute intracranial disease process. 2. No areas of acute or chronic infarction. 3. No abnormal intracranial mass or mass effect. 4. Mild, diffuse cerebral volume loss. 5. Mild periventricular and subcortical white matter chronic microvascular ischemic change. Dictated by: Cata Hayward MD, PhD on 10/26/2020 at 9:53 Approved by: Cata Hayward MD, PhD on 10/26/2020 at 9:59 X-ray abdomen: Radiologist's Impression: [address] [id number] ReportSigned Patient: Leighton Shanks AMR#: [id number]: 9Acct:[id number]/Sex: 59 / MDate of Service: 10/26/20Loc: EDAccession Number: [id number] Procedure: XR abdomen 1V Ordering Provider: Carlos Arce MD PROCEDURE: XR ABDOMEN 1V INDICATIONS: ngt placement TECHNIQUE: Two views of the abdomen acquired. COMPARISON: [facility], , XR CHEST 1V, 10/26/2020, 6:57. FINDINGS: Surgical changes and devices: NG tube tip is now below the left hemidiaphragm and is in lateral periphery of left upper quadrant . Bowel: Bowel gas pattern is normal. No gross free air. Soft tissues: No suspicious abdominal calcifications. Visualized solid organ contours appear normal in size. Bones: No suspicious bony lesions. IMPRESSION: NG tube is now in satisfactory position. No evidence of bowel obstruction or gross free air Dictated by: Jason De La Cruz M.D. on 10/26/2020 at 8:52 Approved by: Jason De La Cruz M.D. on 10/26/2020 at 8:53 ECG Data Interpretation: Sinus tachycardia with premature atrial complexes. Rate 108 <Carlos Arce MD - Last Filed: 10/28/20 21:13> Critical Care Time Attestation: Critical Care Time [35minutes: Critical care time is separate from other billable procedures. This critical care time includes consultation with family and other consulting doctors, review of records, and interpretation of data from labs, EKGs, imaging, etc. Discharge Plan Departure Patient Disposition: Admitted As Inpatient Clinical Impression: Acute alteration in mental status, Polysubstance abuse Admit Date/Time: 10/26/20 10:50 Admit Provider: Alex Bobby
[2020-10-26 07:00] LABS: Troponin I < 0.012 ng/mL (0.01-0.034)
[2020-10-26 07:07] LABS: Procalcitonin 0.13 ng/mL (<0.5); Prolactin 16.8 ng/mL (3.7-17.9)
--- NOTE | 2020-10-26 07:21 | RT ---
Pt intubated without incident, at bedside, ET secured 25 with a 7.5 tube at the teeth. Pt bagged with 100% FiO2 suction on at bedside, EtCo2 placed at 40, bilateral B/S. Pt placed on ventilator
[2020-10-26] MEDS: fentaNYL 1,000 MCG in DEXTROSE 5% IN WATER 230 ML 10.5 ML IV (07:27)
[2020-10-26] MEDS: LORazepam 20 MG in SODIUM CHLORIDE 0.9% 90 ML IV (07:28)
[2020-10-26 07:29] LABS: COVID19 -Nasal RAPID Negative (Negative)
[2020-10-26] MEDS: SODIUM CHLORIDE 0.9% 1,000 ML 1000 ML IV ×3 (07:32→15:00)
[2020-10-26 07:37] LABS: UR Morphine/Opiate cutoff 300 Negative (Negative); Ur Creatinine Normal (Normal); Ur Specific Gravity Normal (Normal); Urine Amphetamines Negative (Negative); Urine Barbiturates Negative (Negative); Urine Benzodiazepines Positive (Negative); Urine Cocaine Negative (Negative); Urine MDMA Negative (Negative); Urine Methadone Negative (Negative); Urine Methamphetamines Positive (Negative); Urine Oxycodone Negative (Negative); Urine Phencyclidine Negative (Negative); Urine Tetrahydrocannabinol Negative (Negative); Urine Tricyclic Antidepressant Negative (Negative); Urine pH Normal (Normal)
--- NOTE | 2020-10-26 07:49 | DI.MRI.S_ITS ---
PROCEDURE: MR HEAD/BRAIN WO CON INDICATIONS: Altered mental status TECHNIQUE: Non-contrast axial T1 spin echo, axial T2 fast spin echo, sagittal and axial FLAIR, coronal T2 fast spin echo, axial gradient echo, axial diffusion and ADC through the brain. COMPARISON: [facility], CT, CT ANGIO HEAD AND NECK, 10/26/2020, 6:35. [facility], CT, CT STROKE, 10/26/2020, 6:31. FINDINGS: Image quality: Excellent. CSF spaces: Ventricles appear symmetric in size and shape. Basal cisterns are patent. No extra-axial fluid collections. Brain: No intracranial bleeds or mass effects. There is mild cerebral volume loss for age. There are mild periventricular and deep white matter chronic small vessel ischemic changes. Brainstem appears normal. Diffusion-weighted images show no acute ischemic insults. No chronic ischemic insults. Normal intravascular flow voids are present. Skull and face: Calvarial bone marrow is normal in signal. Orbits are normal. Sinuses: Mild mucosal thickening noted in the maxillary sinuses bilaterally. The mastoids are clear. IMPRESSION: 1. No acute intracranial disease process. 2. No areas of acute or chronic infarction. 3. No abnormal intracranial mass or mass effect. 4. Mild, diffuse cerebral volume loss. 5. Mild periventricular and subcortical white matter chronic microvascular ischemic change. Dictated by: Cata Hayward MD, PhD on 10/26/2020 at 9:53 Approved by: Cata Hayward MD, PhD on 10/26/2020 at 9:59
--- NOTE | 2020-10-26 08:17 | DI.RAD.S_ITS ---
PROCEDURE: XR ABDOMEN 1V INDICATIONS: ngt placement TECHNIQUE: Two views of the abdomen acquired. COMPARISON: [facility], CR, XR CHEST 1V, 10/26/2020, 6:57. FINDINGS: Surgical changes and devices: NG tube tip is now below the left hemidiaphragm and is in lateral periphery of left upper quadrant . Bowel: Bowel gas pattern is normal. No gross free air. Soft tissues: No suspicious abdominal calcifications. Visualized solid organ contours appear normal in size. Bones: No suspicious bony lesions. IMPRESSION: NG tube is now in satisfactory position. No evidence of bowel obstruction or gross free air Dictated by: Jason De La Cruz M.D. on 10/26/2020 at 8:52 Approved by: Jason De La Cruz M.D. on 10/26/2020 at 8:53
[2020-10-26 08:18] LABS: Fractionated Inspired Oxygen 50; HCO3 ABG 27 mmol/L (22-26); Oxygen Saturation ABG 95 % (95-100); PO2 ABG 85 mmHg (80-100); TCO2 ABG 29 mmol/L (21-31)
[2020-10-26 08:41] LABS: COVID19 - ADMIT (NP swab/PCR) Negative (Negative)
[2020-10-26] MEDS: MIDAZOLAM 5 MG/ML VIAL 10 MG (09:32)
[2020-10-26] MEDS: fentaNYL 100 MCG/2 ML INJ 200 MCG (09:32)
--- NOTE | 2020-10-26 10:09 | PC.NURSE ---
Pt did well in MRI. All VS WNL when put back on the monitor and IV drips restarted. RT at bedside getting vent going again.
--- NOTE | 2020-10-26 10:20 | RT ---
Pt transported to MRI bagged at 100% ET tube secure throughout, tolerated well, RN at bedside. Pt transported back to room and placed on vent with current settings
[2020-10-26 11:20] LABS: Lactate (Lactic Acid) 1.3 mmol/L (0.7-2.1)
--- NOTE | 2020-10-26 11:46 | PC.NURSE ---
Pt's aunt and cousin are here at bedside. Cousin, Aby pearson: [phone]
--- NOTE | 2020-10-26 12:00 | PC.NURSE ---
Pt's baseline HR is gradually increasing. Temp is 98.6f rectally. ordered additional L of NS
--- NOTE | 2020-10-26 13:01 | PC.NURSE ---
Pts BP trending downward. Re titrated both drips. See MAR
--- NOTE | 2020-10-26 13:44 | P.HP_ITS ---
History of Present Illness History of Present Illness Date Patient Seen: 10/26/20 Time Patient Seen: 13:51 Chief complaint: Stroke - Unresponsive Narrative: 59 year old male with PMH of psoriasis, ? substance use, ? 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 History is largely obtained from the patient's chart and ER report as he is unable to participate in subjective exam. He presented to the emergency room unresponsive. He was found down in a local hotel courtyard. He has been in and out of the emergency room with vague neurological complaints but nothing had been found and he was sent home each time. In the emergency room today, the patient remained unresponsive and was intubated for airway protection. The ER was able to to contact the hotel supplies salesperson and he has been trying to cut down on alcohol and he also has been suffering from a 50 lb weight loss due to depression due to the recent his father. The ER provider spoke with the [facility] and recommended an MRI. 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 There was no intracranial hemorrhage. MRI was performed which also showed no acute abnormalities. Patient was admitted to Medicine in the ICU for further evaluation and management. Unable to further review patient's history other than documented chart given mental status. Patient History Medical History Chicken pox (~1989) Partial blindness Psoriasis Family & Social History Family History Father Stroke Mother Cancer Brother Alcohol abuse Sister Murder Grandfather Stroke Grandmother Stroke Grandfather Stroke Grandmother Stroke Tobacco & Substance use: Smoking Status Current every day smoker alcohol intake frequency 3 or more drinks per day Substance Use Type does not use,methamphetamine Meds Home Medications and Allergies Home Medications Medication Instructions Recorded Confirmed Type Unobtainable 10/26/20 10/26/20 History Allergies Allergy/AdvReac Type Severity Reaction Status Date / Time No Known Drug Allergies Allergy Verified 10/19/20 11:38 Review of Systems Review of Systems Narrative: Unable to obtain due to patient's sedation/intubation. Exam Vital Signs (past 8 hours): - 10/26/20 06:35 10/26/20 06:59 10/26/20 07:00 Temperature 98.9 F Pulse Rate 112 H 109 H 109 H Respiratory Rate 11 L 13 13 Blood Pressure 171/101 H 147/95 H 160/100 H Pulse Oximetry 100 100 97 10/26/20 07:10 10/26/20 07:20 10/26/20 07:30 Temperature Pulse Rate 109 H 107 H 104 H Respiratory Rate 12 12 12 Blood Pressure 161/103 H 160/106 H 157/107 H Pulse Oximetry 97 97 98 10/26/20 07:40 10/26/20 07:50 10/26/20 08:00 Temperature Pulse Rate 104 H 107 H 107 H Respiratory Rate 20 16 Blood Pressure 160/106 H 152/102 H 143/104 H Pulse Oximetry 96 98 98 10/26/20 08:10 10/26/20 08:20 10/26/20 08:30 Temperature Pulse Rate 111 H 110 H 109 H Respiratory Rate 16 16 16 Blood Pressure 147/103 H 146/98 H 153/99 H Pulse Oximetry 98 98 99 10/26/20 08:40 10/26/20 08:50 10/26/20 09:00 Temperature Pulse Rate 111 H 111 H 112 H Respiratory Rate 16 16 16 Blood Pressure 146/94 H 147/96 H 134/92 H Pulse Oximetry 99 99 99 10/26/20 09:10 10/26/20 09:20 10/26/20 09:57 Temperature Pulse Rate 110 H 113 H 121 H Respiratory Rate 16 16 Blood Pressure 137/94 H 140/95 H 133/88 Pulse Oximetry 99 99 97 10/26/20 10:00 10/26/20 10:01 10/26/20 10:10 Temperature Pulse Rate 120 H 120 H 118 H Respiratory Rate 16 16 16 Blood Pressure 127/90 128/89 Pulse Oximetry 96 95 94 10/26/20 10:18 10/26/20 10:20 10/26/20 10:30 Temperature Pulse Rate 82 117 H 117 H Respiratory Rate 16 16 16 Blood Pressure 131/87 124/85 Pulse Oximetry 94 93 10/26/20 10:40 10/26/20 10:50 10/26/20 11:00 Temperature Pulse Rate 118 H 121 H 121 H Respiratory Rate 13 11 L 16 Blood Pressure 127/86 115/83 147/89 H Pulse Oximetry 93 92 10/26/20 11:10 10/26/20 11:20 08/26/21 11:30 Temperature Pulse Rate 123 H 126 H 127 H Respiratory Rate 16 14 Blood Pressure 128/91 H 121/89 120/85 Pulse Oximetry 97 97 97 10/26/20 11:40 10/26/20 11:50 10/26/20 12:00 Temperature 98.6 F Pulse Rate 127 H 129 H 132 H Respiratory Rate 12 16 16 Blood Pressure 125/88 119/85 121/84 Pulse Oximetry 98 97 97 10/26/20 12:10 10/26/20 12:20 10/26/20 12:30 Temperature Pulse Rate 133 H 136 H 140 H Respiratory Rate 13 16 8 L Blood Pressure 124/84 118/80 111/75 Pulse Oximetry 97 97 97 10/26/20 12:40 10/26/20 12:51 Temperature Pulse Rate 141 H 143 H Respiratory Rate 16 14 Blood Pressure 101/71 97/66 Pulse Oximetry 97 96 Oxygen Delivery Method Mechanical Ventilation Oxygen Flow Rate 15 Narrative Exam Narrative: GENERAL APPEARANCE: Chronically ill-appearing, intubated male. Intermittently followed commands off of ativan. SKIN: Inspection of the skin shows bilateral livedo reticularis appearing purple rash in his lower extremities. His lower extremities are cool to touch. HEENT: Normocephalic atraumatic, extraocular muscles are intact, oropharynx is clear and mucous membranes are moist, neck is supple without adenopathy NECK: Supple and symmetric. There was no thyroid enlargement, and no tenderness, or masses were felt. CHEST: Normal AP diameter and normal contour without any kyphoscoliosis. LUNGS: Auscultation of the lungs revealed no wheezes, rhonchi, or rales. CARDIOVASCULAR: There was a regular rate and rhythm without any murmurs, gallops, rubs. Peripheral pulses were 2+ and symmetric. ABDOMEN: Soft and nontender with normal bowel sounds. No ascites was noted. MUSCULOSKELETAL: There was no tenderness or effusions noted. Muscle strength and tone were normal. EXTREMITIES: No cyanosis, clubbing or edema. Cool to touch but good capillary refill. NEUROLOGIC: intermittent nystagmus noted, head predominantly turned to the left. When off sedation was able to move toes bilaterally on command. Objective Labs Result Diagrams: 10/26/20 06:20 10/26/20 06:20 Labs: Laboratory Results - last 24 hr 08/10/26/20 10/26/20 06:20 06:20 06:20 WBC 12.9 H D RBC 4.96 Hgb 15.0 Hct 45.1 MCV 90.9 D MCH 30.3 MCHC 33.3 RDW 13.0 Plt Count 480 H Neut % (Auto) 80.7 H Lymph % (Auto) 11.0 L [place] % (Auto) 7.0 Eos % (Auto) 0.5 L Baso % (Auto) 0.8 Neut # (Auto) 03932 H Lymph # (Auto) 1400 [place] # (Auto) 900 Eos # (Auto) 100 Baso # (Auto) 100 ABG pH ABG pCO2 ABG pO2 ABG HCO3 ABG Total CO2 ABG O2 Saturation ABG Base Excess FiO2 Sodium 128 L Potassium 3.2 L Chloride 91 L Carbon Dioxide 22 BUN 20 Creatinine 0.64 L Estimated GFR > 60.0 BUN/Creatinine Ratio 31.3 H Glucose 439 H D Lactate Calcium 9.6 Total Bilirubin 1.2 AST 77 H ALT 72 H Alkaline Phosphatase 179 H Total Creatine Kinase 29 L CK-MB (CK-2) TNP CK-MB (CK-2) Rel Index TNP Troponin I < 0.012 Total Protein 8.0 Albumin 4.6 Globulin 3.4 Albumin/Globulin Ratio 1.4 Procalcitonin Prolactin U Opiates 300ng/mL cut Ur Oxycodone Screen Urine Methadone Screen Ur Barbiturates Screen U Tricyclic Antidepress Ur Phencyclidine Scrn Ur Amphetamines Screen U Methamphetamines Scrn Ur MDMA Scrn (Ecstasy) U Benzodiazepines Scrn Urine Cocaine Screen U Marijuana (THC) Screen Ethyl Alcohol < 10 SARS-CoV-2 (PCR) 10/26/20 10/26/20 10/26/20 06:35 07:05 07:26 WBC RBC Hgb Hct MCV MCH MCHC RDW Plt Count Neut % (Auto) Lymph % (Auto) [place] % (Auto) Eos % (Auto) Baso % (Auto) Neut # (Auto) Lymph # (Auto) [place] # (Auto) Eos # (Auto) Baso # (Auto) ABG pH ABG pCO2 ABG pO2 ABG HCO3 ABG Total CO2 ABG O2 Saturation ABG Base Excess FiO2 Sodium Potassium Chloride Carbon Dioxide BUN Creatinine Estimated GFR BUN/Creatinine Ratio Glucose Lactate Calcium Total Bilirubin AST ALT Alkaline Phosphatase Total Creatine Kinase CK-MB (CK-2) CK-MB (CK-2) Rel Index Troponin I Total Protein Albumin Globulin Albumin/Globulin Ratio Procalcitonin 0.13 Prolactin 16.8 U Opiates 300ng/mL cut Negative Ur Oxycodone Screen Negative Urine Methadone Screen Negative Ur Barbiturates Screen Negative U Tricyclic Antidepress Negative Ur Phencyclidine Scrn Negative Ur Amphetamines Screen Negative U Methamphetamines Scrn Positive H Ur MDMA Scrn (Ecstasy) Negative U Benzodiazepines Scrn Positive H Urine Cocaine Screen Negative U Marijuana (THC) Screen Negative Ethyl Alcohol SARS-CoV-2 (PCR) Negative 10/26/20 10/26/20 10/26/20 07:45 08:02 10:53 WBC RBC Hgb Hct MCV MCH MCHC RDW Plt Count Neut % (Auto) Lymph % (Auto) [place] % (Auto) Eos % (Auto) Baso % (Auto) Neut # (Auto) Lymph # (Auto) [place] # (Auto) Eos # (Auto) Baso # (Auto) ABG pH 7.28 L* ABG pCO2 57.0 H ABG pO2 85 ABG HCO3 27 H ABG Total CO2 29 ABG O2 Saturation 95 ABG Base Excess 1.0 FiO2 50 Sodium Potassium Chloride Carbon Dioxide BUN Creatinine Estimated GFR BUN/Creatinine Ratio Glucose Lactate 1.3 Calcium Total Bilirubin AST ALT Alkaline Phosphatase Total Creatine Kinase CK-MB (CK-2) CK-MB (CK-2) Rel Index Troponin I Total Protein Albumin Globulin Albumin/Globulin Ratio Procalcitonin Prolactin U Opiates 300ng/mL cut Ur Oxycodone Screen Urine Methadone Screen Ur Barbiturates Screen U Tricyclic Antidepress Ur Phencyclidine Scrn Ur Amphetamines Screen U Methamphetamines Scrn Ur MDMA Scrn (Ecstasy) U Benzodiazepines Scrn Urine Cocaine Screen U Marijuana (THC) Screen Ethyl Alcohol SARS-CoV-2 (PCR) Negative Assessment & Plan Assessment & Plan narrative: 59 year old male with PMH of psoriasis, ? substance use, ? seizure disorder. He was found down in a local hotel courtyard. In the emergency room today, the patient remained unresponsive and was intubated for airway protection. Patient was admitted to Medicine in the ICU for further evaluation and management. 1. possible toxic and/or metabolic encephalopathy, possible seizure - unclear if currently his mental status is due to a metabolic issue, though no apparent sepsis currently other than mild leukocytosis. UA is negative and CXR is clear. May represent alcohol withdrawal, AG only 15 but glucose of 400 on admission but DKA seems less likely as Glucose improved to 200 on [address] floor and ABG with respiratory acidosis. bicarb 27. May also be toxic in nature. - may also represent seizure activity, give 1g Keppra. consider neurology or transfer for EEG if no improvement. - continue fentanyl and ativan infusions. UDS positive for benzos and methamphetamines. Per outside history with recent weight loss. - ideally increase ativan for sedation preferentially as seizure activity may be related to possible alcohol withdrawal and to see if improvement in tachycard ia. - head imaging thus far has not revealed any acute infarcts or mass lesions to explain mental status. - PICC line placed given hypotension, though this is likely related to sedating medications. may need levophed. - initial troponin negative, will repeat to rule out acs though cardiac cause seems less likely other than cool extremities. Consider TTE. - keep intubated this evening, sedation vacation in AM. 2. alcohol use and probable withdrawal. - currently on ativan infusion, tachycardia likely related. - MOLD REPAIR TECHNICIAN consultation when appropriate. 3. elevated glucose, present on admission. - check an A1c, currently on sliding scale insulin. Depending on glucose trends consider long acting insulin. 4. hypokalemia - replete with IV 5. Hyponatremia, - mild with Na of 128 on admission. Continue NS and follow. Will repeat BMP this evening. Code: FULL, unable to discuss surrogate or confirm code status given mental status. DVT: Lovenox daily Dispo: Admit to ICU. I spent 50 minutes providing critical care management this patient. This excludes time spent in performing separately billed procedures I have utilized all available immediate resources to obtain, update, or review the patient's current medications. COVID-19 COVID-19 status: Negative Time Spent With Patient Time with patient: Greater than 35 minutes Quality MIPS - Admit I confirm the patient?s Advance Care Plan is present, Code status is documented, Surrogate decision maker is in patient?s record [If Yes, STOP here]: No The patient?s Advance Care plan is not present because I confirmed today that the patient does not wish or was not able to name a surrogate decision maker or provide an Advance Care Plan.: No The patient?s Advance Care plan is not present because Hospice care is currently being provided or has been provided this calendar year.: No The patient?s Advance Care plan is not present because I did NOT confirm today the presence of an Advance Care Plan or surrogate decision maker documented within the patient's medical record.: No
--- NOTE | 2020-10-26 14:07 | PC.ADMIT ---
Addendum entered by Anitha Hunter R.N. 10/26/20 15:48: Report given at bedside to Felisa for PM shift. Gtt's checked. Seizure pads placed. PIV x2, PICC line awaits placement . No purposeful movement when instructed. Moving all extremeties. Addendum entered by Anitha Hunter R.N. 10/26/20 14:45: Vent settings @ 70% Fio2 RR 16 TV 500ml and PEEP of 5. Update to Dr Bobby on continued low BP MAP @ 60 currently. 80/51. IV bolus started. Keppra infusing. Order for PICC line Angulo is patent. Patient has little response to stimuli, but movement to all 4 ext. Soft wrist restraints for tube safety. Bony prominences protected with allyvn. Pupils noted with rotary nystagmus, pupils are not appropriate to light reactivity. 2mm. 7.5 ETT 28 at teeth. NG tube to LIS with scant dark gastric contents. Angulo patent with good output. Original Note: homeless Admission Note: Patient arrived from Er vented and sedated, Fentanyl and Ativan gtt infusing. Pt with no purposeful movement. Able to tranfer via slideboard. Multiple abraisions to knees and hands. HR tachy 130's since arrival. Dr Bobby aware, Per report Pt with prior seizure Hx. Has been in the ER 3 x this week reporting that he was feeling like he was going to have a stroke with a negative exam in ER. Found down today in motel. Unsure how long he was down or when last normal was. PIV x2. Unable to comkplete admission d/t sedation, skin check completed with Bar[facility] HERNANDES. Patient's smoking status: Current every day smoker. Vital Signs - 8 hr 10/26/20 06:35 10/26/20 06:59 10/26/20 07:00 Temperature 98.9 F Pulse Rate 112 H 109 H 109 H Respiratory Rate 11 L 13 13 Blood Pressure 171/101 H 147/95 H 160/100 H Pulse Oximetry 100 100 97 10/26/20 07:10 10/26/20 07:20 10/26/20 07:30 Temperature Pulse Rate 109 H 107 H 104 H Respiratory Rate 12 12 12 Blood Pressure 161/103 H 160/106 H 157/107 H Pulse Oximetry 97 97 98 10/26/20 07:40 10/26/20 07:50 10/26/20 08:00 Temperature Pulse Rate 104 H 107 H 107 H Respiratory Rate 20 16 Blood Pressure 160/106 H 152/102 H 143/104 H Pulse Oximetry 96 98 98 10/26/20 08:10 10/26/20 08:20 10/26/20 08:30 Temperature Pulse Rate 111 H 110 H 109 H Respiratory Rate 16 16 16 Blood Pressure 147/103 H 146/98 H 153/99 H Pulse Oximetry 98 98 99 10/26/20 08:40 10/26/20 08:50 10/26/20 09:00 Temperature Pulse Rate 111 H 111 H 112 H Respiratory Rate 16 16 16 Blood Pressure 146/94 H 147/96 H 134/92 H Pulse Oximetry 99 99 99 10/26/20 09:10 10/26/20 09:20 10/26/20 09:57 Temperature Pulse Rate 110 H 113 H 121 H Respiratory Rate 16 16 Blood Pressure 137/94 H 140/95 H 133/88 Pulse Oximetry 99 99 97 10/26/20 10:00 10/26/20 10:01 10/26/20 10:10 Temperature Pulse Rate 120 H 120 H 118 H Respiratory Rate 16 16 16 Blood Pressure 127/90 128/89 Pulse Oximetry 96 95 94 10/26/20 10:18 10/26/20 10:20 10/26/20 10:30 Temperature Pulse Rate 82 117 H 117 H Respiratory Rate 16 16 16 Blood Pressure 131/87 124/85 Pulse Oximetry 94 93 10/26/20 10:40 10/26/20 10:50 10/26/20 11:00 Temperature Pulse Rate 118 H 121 H 121 H Respiratory Rate 13 11 L 16 Blood Pressure 127/86 115/83 147/89 H Pulse Oximetry 93 92 10/26/20 11:10 10/26/20 11:20 10/26/20 11:30 Temperature Pulse Rate 123 H 126 H 127 H Respiratory Rate 16 14 Blood Pressure 128/91 H 121/89 120/85 Pulse Oximetry 97 97 97 10/26/20 11:40 10/26/20 11:50 10/26/20 12:00 Temperature 98.6 F Pulse Rate 127 H 129 H 132 H Respiratory Rate 12 16 16 Blood Pressure 125/88 119/85 121/84 Pulse Oximetry 98 97 97 10/26/20 12:10 10/26/20 12:20 10/26/20 12:30 Temperature Pulse Rate 133 H 136 H 140 H Respiratory Rate 13 16 8 L Blood Pressure 124/84 118/80 111/75 Pulse Oximetry 97 97 97 10/26/20 12:40 10/26/20 12:51 Temperature Pulse Rate 141 H 143 H Respiratory Rate 16 14 Blood Pressure 101/71 97/66 Pulse Oximetry 97 96
[2020-10-26] MEDS: levETIRAcetam 1,000 MG in SODIUM CHLORIDE 0.9% 100 ML 440 ML IV ×2 (14:22→21:21)
[2020-10-26] MEDS: SODIUM CHLORIDE 0.9% 1,000 ML 100 ML IV ×2 (14:23→15:54)
[2020-10-26] MEDS: INSULIN LISPRO 100 UNIT/ML 3ML VIAL SUBCUT ×2 (15:24→18:21)
[2020-10-26 15:54] LABS: Bacteria Urine None Seen
[2020-10-26 15:55] LABS: Appearance Urine UA CLEAR; Bilirubin Urine UA 1+ (NEGATIVE); Color Urine UA YELLOW; Glucose Urine UA 2+ g/dL (Negative); Ketones Urine UA TRACE (NEGATIVE); Leukocyte Esterase Urine UA NEGATIVE (NEGATIVE); Nitrite Urine UA NEGATIVE (Negative); Occult Blood Urine UA NEGATIVE (Negative); Protein Urine UA TRACE (Negative); Specific Gravity Urine UA <=1.005 (1.000-1.035); Urobilinogen Urine UA 0.2 E.U./dL (0.2)
[2020-10-26 15:59] LABS: Ictotest Urine Negative (Negative)
[2020-10-26 16:01] LABS: Culture Indicated Urine Cult Not Indicated; RBC Urine 0-1/HPF (0-5/HPF); Squamous Epithelial Cell Urine 0-1 /HPF (0-5/HPF); WBC Urine 1-5/HPF (0-5/HPF)
--- NOTE | 2020-10-26 17:05 | DI.RAD.S_ITS ---
PROCEDURE: XR CHEST FOR PICC 1V INDICATIONS: line placement COMPARISON: Merged With [facility], CR, XR CHEST 1V, 10/26/2020, 6:57. FINDINGS: PICC was placed by the intravenous therapy team from the right side. Fluoroscopic spot film demonstrates the tip of PICC projecting to the area of mid superior vena cava. Endotracheal tube and nasogastric tube are in place. IMPRESSION: Tip of PICC projects to the area of mid superior vena cava. Dictated by: Geetha Nava M.D. on 10/26/2020 at 17:36 Approved by: Geetha Nava M.D. on 10/26/2020 at 17:38
[2020-10-26] MEDS: POTASSIUM CHLORIDE IN WATER 10 MEQ/100 ML PIGGYBACK 100 MEQ IV ×4 (18:02→20:45)
[2020-10-26 18:17] LABS: BUN Creatinine Ratio 33.9 (6-22); Blood Urea Nitrogen 19 mg/dL (9-20); Calcium 8.5 mg/dL (8.4-10.2); Carbon Dioxide 24 mmol/L (22-32); Chloride 101 mmol/L (98-107); Estimated Glomerular Filt Rate > 60.0 mL/min (>60); Glucose 174 mg/dL (80-110); HEMOLYSIS < 15 (0-50); Magnesium 1.3 mg/dL (1.6-2.3); Sodium 134 mmol/L (137-145)
[2020-10-26 18:29] LABS: Troponin I 0.065 ng/mL (0.01-0.034)
[2020-10-26] MEDS: MAGNESIUM SULFATE 4 GM/100 ML PIGGYBACK IV (18:33)
[2020-10-26] MEDS: LORazepam 20 MG in SODIUM CHLORIDE 0.9% 90 ML 24 ML IV (19:46)
--- NOTE | 2020-10-26 20:29 | P.TELICUIN_ITS ---
Teleintensivist Intervention Date/Time Was camera activated?: Yes Date Patient Seen: 10/26/20 Time Patient Seen: 20:10 Issue(s) Addressed Issue(s): Resp. Distress/Ventilator management Other:: Multidisciplinary Rounds Conducted. 59 y.o. male admitted during day shift with acute neuromuscular respiratory failure due to polysubstance abuse (EtOH, methamphetamine and benzodiazepines.) Patient had witnessed seizure activity and received Keppra 1 g IV; Keppra was not continued. Patient is sedated with lorazepam and fentanyl infusions. RN reports some fasciculations which I did appreciate during audiovisual assessment; these were transient. Labs are significant for mild hyponatremia which is improving on a NS infusion. RN reports oliguria. Despite being found down and having been so for an ind eterminate amount of time, CK and admission creatinine were normal. Head CT and brain MRI (-) for any acute pathology. INTERVENTIONS 1) Keppra 1 g IV q12 H reinitiated 2) Follow up Mg+2 and PO4- levels ordered (currently receiving or just received K+, Mg+2, PO4- repletion) 3) NS infusion changed to LR and rate increased to 150 mL/hr 4) Thiamine initiated Intervention(s) Plan discussed with: Nurse
[2020-10-26] MEDS: LACTATED RINGERS 1,000 ML 150 ML IV (20:44)
[2020-10-26] MEDS: SODIUM CHLORIDE 0.9% 250 ML 21 ML IV (21:21)
[2020-10-26] MEDS: NOREPINEPHRINE 4 MG in DEXTROSE 5% IN WATER 250 ML 30.48 ML IV (21:33)
[2020-10-26] MEDS: THIAMINE 200 MG in SODIUM CHLORIDE 0.9% 100 ML 408 ML IV (21:48)
[2020-10-26] MEDS: FAMOTIDINE 20 MG/2 ML VIAL IV (21:56)
[2020-10-26] MEDS: LACTATED RINGERS 1,000 ML 1000 ML IV ×2 (22:43→23:15)
[2020-10-26] MEDS: VASOPRESSIN 40 UNIT in SODIUM CHLORIDE 0.9% 100 ML IV (23:31)
[2020-10-26 23:44] LABS: Alanine Aminotransferase 37 IU/L (<50); Albumin 2.5 g/dL (3.5-5.0); Alkaline Phosphatase 95 U/L (38-126); Aspartate Aminotransferase 33 IU/L (17-59); BUN Creatinine Ratio 35.3 (6-22); Bilirubin Total 1.3 mg/dL (0.2-1.3); Blood Urea Nitrogen 18 mg/dL (9-20); Calcium 7.6 mg/dL (8.4-10.2); Carbon Dioxide 21 mmol/L (22-32); Chloride 99 mmol/L (98-107); Estimated Glomerular Filt Rate > 60.0 mL/min (>60); Globulin 2.5 g/dL (1.7-4.1); Glucose 326 mg/dL (80-110); HEMOLYSIS < 15 (0-50); Potassium 3.2 mmol/L (3.4-5.1); Sodium 126 mmol/L (137-145)
[2020-10-26] MEDS: LORazepam 20 MG in SODIUM CHLORIDE 0.9% 90 ML 30 ML IV (23:44)
[2020-10-26 23:45] LABS: Add Manual Diff / Slide Review YES; Hematocrit 36.4 % (41-53); Hemoglobin 12.2 g/dL (13.5-17.5); Mean Corpuscular HGB Conc 33.5 % (30-36); Mean Corpuscular Hemoglobin 30.1 PG (26-34); Mean Corpuscular Volume 89.9 fL (80-100); Platelet Count 317 X10^3/uL (150-400); Red Blood Cell Count 4.05 X10^6/uL (4.5-5.9); Red Cell Distribution Width 13.7 % (11.6-14.8); White Blood Cell Count 25.8 X10^3/uL (4.5-11.0)
[2020-10-26 23:55] LABS: Troponin I 0.051 ng/mL (0.01-0.034)
[2020-10-27] VITALS (95 sets, daily range): BP systolic 100–133; BP diastolic 66–89; PULSE 85–101; RESP 14–26; TEMP 36.2–36.7; O2SAT 86–100
[2020-10-27] MEDS: INSULIN LISPRO 100 UNIT/ML 3ML VIAL SUBCUT ×3 (00:13→18:29)
[2020-10-27] MEDS: LACTATED RINGERS 1,000 ML 1000 ML IV (00:21)
--- NOTE | 2020-10-27 00:41 | RT ---
An ABG was ordered stat and done at 2337. ABG showed a Po2 of 71 so it was discussed with the RN in regards to increasing the pt's FIO2 to 60%. RN advised me to turn up the FIO2 and she would inform Dr. Rg on her call with him.
--- NOTE | 2020-10-27 00:49 | PC.NURSE ---
Addendum entered by Nilda Portillo R.N. 10/27/20 06:22: 0620- Dr. Ascencio beamed in to check on ventilator settings and desaturations. Vent settings adjusted to Peep of 8 and Fi02 of 80%. Will decrease Fi02 if saturations hold with a goal of greater or equal to 90%. Respiratory Besty at bedside during this consultation. Will monitor. Addendum entered by Nilda Portillo R.N. 10/27/20 06:13: 0600- Patient desaturating to 88%. Respiratory suctioned for creamy secretions moderate amount. Gas obtained early P02 65% Fi02 increased to 80%. EMIR Amor informed no order rec. Addendum entered by Nilda Portillo R.N. 10/27/20 05:09: 0500- CXR result reviewed with EMIR Amor, Ett advanced per order by Astrid MENJIVAR. Patient remains a RASS -4, only responding to deep pain stimulation, no spontaneous movement appreciated and patient does not follow commands. Addendum entered by Nilda Portillo R.N. 10/27/20 03:35: 0300-CXR done, Levophed titrated to off, BP WNL now. RASS is -4. Cultures sent per order. ABX started per orders. Will monitor closely. Original Note: 0030- Discussed Lab results and orders rec. Updated gtts with EMIR Amor. Titrating pressors. Uop is improved. NGT appears to be kwadwo bloody output now. EMIR Amor aware. Some isolated movement to right foot, not following commands but did try to open his eyes. HR and Temp WNL. Will monitor closely.
--- NOTE | 2020-10-27 01:24 | DI.RAD.S_ITS ---
PROCEDURE: XR CHEST 1V INDICATIONS: possible aspiration TECHNIQUE: One view of the chest was acquired. COMPARISON: [facility], CR, XR CHEST 1V, 10/26/2020, 6:57. FINDINGS: Surgical changes and devices: ET tube is approximately 7.4 centimeters superior to the дмитрий. NG tube crosses the GE junction with side port projection of the proximal stomach and nonvisualization of the distal tip.. Lungs and pleura: Increased opacification noted in the left lower lobe compatible with pneumonia versus aspiration. No pleural effusions or pneumothorax. Mediastinum: Mediastinal contours appear normal. Heart size is normal. Bones and chest wall: No suspicious bony lesions. Overlying soft tissues appear unremarkable. IMPRESSION: Left lower lobe pneumonia versus aspiration. Dictated by: Cata Hayward MD, PhD on 10/27/2020 at 7:16 Approved by: Cata Hayward MD, PhD on 10/27/2020 at 7:18
[2020-10-27] MEDS: SODIUM CHLORIDE 0.9% 1,000 ML 1000 ML IV (01:39)
[2020-10-27 01:46] LABS: Magnesium 2.1 mg/dL (1.6-2.3)
[2020-10-27 01:47] LABS: Lactate (Lactic Acid) 3.4 mmol/L (0.7-2.1)
[2020-10-27] MEDS: POTASSIUM CHLORIDE IN WATER 10 MEQ/100 ML PIGGYBACK 100 MEQ IV ×2 (02:00→03:04)
[2020-10-27 02:04] LABS: Procalcitonin 5.67 ng/mL (<0.5)
[2020-10-27] MEDS: AZITHROMYCIN 500 MG in DEXTROSE 5% IN WATER 250 ML IV (02:04)
[2020-10-27 02:31] LABS: HIV 1 & 2 Ab/Ag 4th Gen Combo NEGATIVE (NEGATIVE)
[2020-10-27] MEDS: LORazepam 20 MG in SODIUM CHLORIDE 0.9% 90 ML 30 ML IV (03:16)
[2020-10-27 03:27] LABS: Reflexed Lactate in 2 Hours Y
[2020-10-27] MEDS: PIPERACILLIN/TAZO 4.5 GM in SODIUM CHLORIDE 0.9% 100 ML 200 ML IV (03:29)
[2020-10-27 03:31] LABS: Neutrophils Absolute Manual 24510 /uL (3000-5900); RBC Morphology Normal Morphology; Total Cells Counted 100
[2020-10-27] MEDS: SODIUM CHLORIDE 0.9% 1,000 ML 150 ML IV (03:31)
[2020-10-27 03:35] LABS: Urine N gonorrhoeae NOT DETECTED
[2020-10-27 03:37] LABS: Adenovirus Not Detected (Not Detect); Urine Chlamydia NOT DETECTED
[2020-10-27 03:38] LABS: B. parapertussis Not Detected (Not Detecte); Bordetella pertussis Not Detected (Not Detecte); Chlamydophila pneumoniae Not Detected (Not Detect); Coronavirus 229E Not Detected (Not Detect); Coronavirus HKU1 Not Detected (Not Detect); Coronavirus NL 63 Not Detected (Not Detect); Coronavirus OC43 Not Detected (Not Detect); Human Metapneumovirus Not Detected (Not Detect); Human Rhinovirus/Enterovirus Not Detected (Not Detect); Influenza A Not Detected (Not Detect); Influenza B Not Detected (Not Detect); Mycoplasma pneumoniae Not Detected (Not Detect); Parainfluenza Virus 1 Not Detected (Not Detect); Parainfluenza Virus 2 Not Detected (Not Detect); Parainfluenza Virus 3 Not Detected (Not Detect); Parainfluenza Virus 4 Not Detected (Not Detect); Respiratory Syncytial Virus Not Detected (Not Detect)
[2020-10-27 04:10] LABS: Add Manual Diff / Slide Review NO; Basophils Absolute Auto 0 /uL (0-100); Basophils Percent Auto 0.2 % (0-2); Eosinophils Absolute Auto 0 /uL (0-450); Hematocrit 32.7 % (41-53); Hemoglobin 11.2 g/dL (13.5-17.5); Lymphocytes Absolute Auto 400 /uL (1100-4500); Lymphocytes Percent Auto 2.1 % (25-40); Mean Corpuscular HGB Conc 34.2 % (30-36); Mean Corpuscular Hemoglobin 30.6 PG (26-34); Mean Corpuscular Volume 89.5 fL (80-100); Monocytes Absolute Auto 1400 /uL (0-900); Monocytes Percent Auto 7.9 % (3-14); Neutrophils Absolute Auto 16200 /uL (1500-7000); Neutrophils Percent Auto 89.8 % (50-75); Platelet Count 219 X10^3/uL (150-400); Red Blood Cell Count 3.66 X10^6/uL (4.5-5.9); Red Cell Distribution Width 14.1 % (11.6-14.8)
[2020-10-27 04:19] LABS: Magnesium 2.1 mg/dL (1.6-2.3); Phosphorous 2.6 mg/dL (2.3-3.7)
[2020-10-27 04:20] LABS: BUN Creatinine Ratio 36.2 (6-22); Blood Urea Nitrogen 17 mg/dL (9-20); Carbon Dioxide 22 mmol/L (22-32); Chloride 104 mmol/L (98-107); Estimated Glomerular Filt Rate > 60.0 mL/min (>60); Glucose 170 mg/dL (80-110); HEMOLYSIS < 15 (0-50); Sodium 131 mmol/L (137-145)
[2020-10-27 04:28] LABS: Hemoglobin A1C% w Est Avg Glu 9.6 % (4.0-6.0)
[2020-10-27 04:31] LABS: Troponin I 0.036 ng/mL (0.01-0.034)
[2020-10-27 05:13] LABS: Vitamin B12 Reflex MMA if <400 515 pg/mL (239-931)
[2020-10-27 07:03] LABS: Fractionated Inspired Oxygen 50; HCO3 ABG 21 mmol/L (22-26); Oxygen Saturation ABG 94 % (95-100); PCO2 ABG 35.5 mmHg (35-45); PO2 ABG 71 mmHg (80-100); TCO2 ABG 22 mmol/L (21-31); pH ABG 7.38 (7.35-7.45)
[2020-10-27 07:10] LABS: HCO3 ABG 21 mmol/L (22-26); PCO2 ABG 35.7 mmHg (35-45); PO2 ABG 65 mmHg (80-100); TCO2 ABG 22 mmol/L (21-31); pH ABG 7.38 (7.35-7.45)
[2020-10-27 07:11] LABS: Fractionated Inspired Oxygen 60; Oxygen Saturation ABG 92 % (95-100)
[2020-10-27] MEDS: MIDAZOLAM 50 MG in DEXTROSE 5% IN WATER 250 ML 5.564 ML IV (08:13)
[2020-10-27] MEDS: ENOXAPARIN 40 MG/0.4 ML SYRINGE SUBCUT (08:25)
[2020-10-27] MEDS: PIPERACILLIN/TAZO 3.375 GM in SODIUM CHLORIDE 0.9% 100 ML 25 ML IV ×2 (08:26→15:44)
[2020-10-27] MEDS: FAMOTIDINE 20 MG/2 ML VIAL IV ×2 (08:28→20:35)
[2020-10-27] MEDS: PANTOPRAZOLE 40 MG VIAL 20 MG IV (08:34)
[2020-10-27] MEDS: levETIRAcetam 1,000 MG in SODIUM CHLORIDE 0.9% 100 ML 440 ML IV ×2 (08:53→20:17)
--- NOTE | 2020-10-27 08:54 | RT ---
Vent checked, pt nick well. no distress noted and et tube moved to center with no breakdown and secure. Vent plugged into red outletwith peep valve on ambu bag.
--- NOTE | 2020-10-27 09:45 | PC.NURSE ---
Addendum entered by Anitha Hunter R.N. 10/27/20 15:05: Albert into visit patient. Lengthy discusion about POC and trial of sedation vacation tomorrow. NG to LIS and destaticizer feeder to be up shortly for recommendation about TF. NS @ 50mls/hr. Per Albert, patient had declined substantially over the last 6 months or so, since the passing of his father. Per albert, Nuvia and Albert and Shahida and Aunagnieszka are ok to get information about Pt. Per Nuvia, at [facility], Patient had also been receiving care of malt house supervisor at [facility], this was re:his cold turkey plan to quit drinking, and the RN did see Pt face to face on Friday, the day prior to his admission. Pt able to smile this afternoon when this RN noted his upcoming bday. Report to Felisa for Pm shift. Addendum entered by Anitha Hunter R.N. 10/27/20 14:30: Add Fentanyl infusing @ 0.5mcg/kg/hr with minimal titration required this shift. This afternoon, Pt is notably more alert and able to follow commands and attempt to hold a gaze with this RN. After talking with Nuvia, friend from [facility] o[facility] owner operator, and Albert Shanks, and able to put together that patoient was seen on video going outside of critical [facility] hospital ~5am, and was found down @ ~615 am. Arrived at ER by 0645. Pt had quit drinking vodka/hard alcohol on Friday this week, and was still consuming beer, likely up to 12 a day. Pt is showing no CIWA signs at this time, but continues on both gtts. Vent is down to 60% Fio2 by end of shift. Addendum entered by Anitha Hunter R.N. 10/27/20 10:48: Am shift Pt is tolerating vent at current settings, Fio2 80% PEEP 8, RR 16 and TV @ 500. Spo2 has been above 95% since start of shift, per RT taper down to 60% Fio2 if tolerated. Turning patient q2. Inline suction with milky secretions. Pt appears comfortable at this time. Ativan gtt switched over to Versed @ 0800. Started @ 0.02mg/kg/hr. Fentanyl currently infusing Original Note: Call from Aunt Aunagnieszka requesting update about patient, unclear about POA next of Kin, and caller may have some memory issues, as she is unable to repeat back to me the Next of kin or the other listed contact on the account. I Requested call from Shahida, regarding clarification on POA ect. Will attempt to call back for update
[2020-10-27] MEDS: THIAMINE 200 MG in SODIUM CHLORIDE 0.9% 100 ML 408 ML IV (10:22)
[2020-10-27] MEDS: INSULIN GLARGINE 100 UNIT/ML 3ML PEN 10 UNIT SUBCUT (11:00)
--- NOTE | 2020-10-27 11:06 | PM.PN.1 ---
Subjective Subjective Date Patient Seen: 10/27/20 Time Patient Seen: 11:06 Interval history: Remains intubated and sedated this morning. Overnight patient hypotensive requiring 2 pressors. Repeat CXR with L pneumonia. Started on zosyn. WBC increased but improved this AM. current vent settings 80%/PEEP 8, vasopressin on this AM now off, levophed now off as well. sedation changed to fentanyl and versed per tele-gas booster engineer recommendations. Will try and start tube feeds today. Decreased IVF to 50 given some upper extremity edema developing and improved BP this AM. Will stop fluids once tube feeds are in. Exam Vital Signs (past 8 hours): - 10/27/20 03:10 10/27/20 03:15 10/27/20 03:20 Temperature Pulse Rate 91 H 91 H 91 H Respiratory Rate 16 16 16 Blood Pressure 114/80 118/83 Pulse Oximetry 98 97 98 10/27/20 03:30 10/27/20 03:39 10/27/20 06:55 Temperature 97.2 F L Pulse Rate 91 H 87 Respiratory Rate 16 18 Blood Pressure 118/84 Pulse Oximetry 98 94 10/27/20 07:00 10/27/20 07:55 10/27/20 08:00 Temperature Pulse Rate 87 85 87 Respiratory Rate 16 17 16 Blood Pressure 118/81 118/85 Pulse Oximetry 93 98 97 10/27/20 08:55 10/27/20 08:59 10/27/20 09:00 Temperature Pulse Rate 87 87 87 Respiratory Rate 16 16 16 Blood Pressure 114/78 118/78 Pulse Oximetry 98 98 97 10/27/20 09:55 10/27/20 10:00 Temperature Pulse Rate 97 H Respiratory Rate 16 Blood Pressure 113/76 Pulse Oximetry 97 97 Oxygen Delivery Method Mechanical Ventilation Oxygen Flow Rate 15 Narrative Exam Narrative: GENERAL APPEARANCE: Chronically ill-appearing, intubated male. Intermittently followed commands off of ativan. SKIN: Inspection of the skin shows much improved bilateral livedo reticularis appearing purple rash in his lower extremities. HEENT: Normocephalic atraumatic, extraocular muscles are intact, oropharynx is clear and mucous membranes are moist, neck is supple without adenopathy NECK: Supple and symmetric. There was no thyroid enlargement, and no tenderness, or masses were felt. CHEST: Normal AP diameter and normal contour without any kyphoscoliosis. LUNGS: Auscultation of the lungs revealed no wheezes, rhonchi, or rales. CARDIOVASCULAR: There was a regular rate and rhythm without any murmurs, gallops, rubs. Peripheral pulses were 2+ and symmetric. ABDOMEN: Soft and nontender with normal bowel sounds. No ascites was noted. MUSCULOSKELETAL: There was no tenderness or effusions noted. Muscle strength and tone were normal. EXTREMITIES: No cyanosis, clubbing or edema. improved color today and warmer. NEUROLOGIC: intubated and sedated. does not follow commands this AM. Objective Labs Result Diagrams: 10/27/20 04:00 10/27/20 04:00 Labs: Laboratory Results - last 24 hr 10/26/20 10/26/20 10/26/20 10:53 14:09 15:45 WBC RBC Hgb Hct MCV MCH MCHC RDW Plt Count Neut % (Auto) Lymph % (Auto) [place] % (Auto) Eos % (Auto) Baso % (Auto) Neut # (Auto) Lymph # (Auto) [place] # (Auto) Eos # (Auto) Baso # (Auto) Total Counted Seg Neutrophils % Band Neutrophils % Monocytes % (Manual) Metamyelocytes % Neutrophils # (Manual) RBC Morphology ABG pH ABG pCO2 ABG pO2 ABG HCO3 ABG Total CO2 ABG O2 Saturation ABG Base Excess FiO2 Sodium Potassium Chloride Carbon Dioxide BUN Creatinine Estimated GFR BUN/Creatinine Ratio Glucose Hemoglobin A1c Lactate 1.3 Calcium Phosphorus Magnesium Total Bilirubin AST ALT Alkaline Phosphatase Troponin I Total Protein Albumin Globulin Albumin/Globulin Ratio Vitamin B12 Procalcitonin TSH Urine Color Yellow Urine Appearance Clear Urine pH 6.0 Ur Specific [place] <=1.005 Urine Protein Trace H Urine Glucose (UA) 2+ H Urine Ketones Trace H Urine Occult Blood Negative Urine Nitrate Negative Urine Bilirubin 1+ H Ur Bilirubin Confirm Negative Urine Urobilinogen 0.2 Ur Leukocyte Esterase Negative Urine RBC 0-1/hpf Urine WBC 1-5/hpf Ur Squamous Epith Cells 0-1 /hpf Urine Bacteria None seen Ur Culture Indicated? Cult not indicated Nasal Screen MRSA (PCR) Positive for mrsa H Chlamy pneumoniae PCR Adenovirus (PCR) B. pertussis DNA (PCR) B.parapertussis DNA PCR Ur Chlamydia DNA (PCR) Coronavirus OC43 (PCR) Coronavirus HKU1 (PCR) Coronavirus 229E (PCR) SARS-CoV-2 (PCR) Coronavirus NL63 (PCR) HIV 1&2 Ab/P24 Ag 4thGn Human Metapneumovir PCR Influenza Type A (PCR) Influenza Type B (PCR) M. pneumoniae (PCR) Parainfluenza 1 (PCR) Parainfluenza 2 (PCR) Parainfluenza 3 (PCR) Parainfluenza 4 (PCR) RSV (PCR) Entero/Rhino (PCR) N gonorrhoeae DNA (PCR) 10/26/20 10/26/20 10/26/20 17:55 17:55 23:15 WBC RBC Hgb Hct MCV MCH MCHC RDW Plt Count Neut % (Auto) Lymph % (Auto) [place] % (Auto) Eos % (Auto) Baso % (Auto) Neut # (Auto) Lymph # (Auto) [place] # (Auto) Eos # (Auto) Baso # (Auto) Total Counted Seg Neutrophils % Band Neutrophils % Monocytes % (Manual) Metamyelocytes % Neutrophils # (Manual) RBC Morphology ABG pH ABG pCO2 ABG pO2 ABG HCO3 ABG Total CO2 ABG O2 Saturation ABG Base Excess FiO2 Sodium 134 L Potassium 3.0 L Chloride 101 Carbon Dioxide 24 BUN 19 Creatinine 0.56 L Estimated GFR > 60.0 BUN/Creatinine Ratio 33.9 H Glucose 174 H D Hemoglobin A1c Lactate Calcium 8.5 Phosphorus Magnesium 1.3 L Total Bilirubin AST ALT Alkaline Phosphatase Troponin I 0.065 H 0.051 H Total Protein Albumin Globulin Albumin/Globulin Ratio Vitamin B12 Procalcitonin TSH Urine Color Urine Appearance Urine pH Ur Specific [place] Urine Protein Urine Glucose (UA) Urine Ketones Urine Occult Blood Urine Nitrate Urine Bilirubin Ur Bilirubin Confirm Urine Urobilinogen Ur Leukocyte Esterase Urine RBC Urine WBC Ur Squamous Epith Cells Urine Bacteria Ur Culture Indicated? Nasal Screen MRSA (PCR) Chlamy pneumoniae PCR Adenovirus (PCR) B. pertussis DNA (PCR) B.parapertussis DNA PCR Ur Chlamydia DNA (PCR) Coronavirus OC43 (PCR) Coronavirus HKU1 (PCR) Coronavirus 229E (PCR) SARS-CoV-2 (PCR) Coronavirus NL63 (PCR) HIV 1&2 Ab/P24 Ag 4thGn Human Metapneumovir PCR Influenza Type A (PCR) Influenza Type B (PCR) M. pneumoniae (PCR) Parainfluenza 1 (PCR) Parainfluenza 2 (PCR) Parainfluenza 3 (PCR) Parainfluenza 4 (PCR) RSV (PCR) Entero/Rhino (PCR) N gonorrhoeae DNA (PCR) 10/26/20 10/26/20 10/26/20 23:15 23:15 23:37 WBC 25.8 H D RBC 4.05 L Hgb 12.2 L Hct 36.4 L MCV 89.9 MCH 30.1 MCHC 33.5 RDW 13.7 Plt Count 317 Neut % (Auto) Not Reportable Lymph % (Auto) Not Reportable [place] % (Auto) Not Reportable Eos % (Auto) Not Reportable Baso % (Auto) Not Reportable Neut # (Auto) Lymph # (Auto) Not Reportable [place] # (Auto) Not Reportable Eos # (Auto) Baso # (Auto) Not Reportable Total Counted 100 Seg Neutrophils % 70.0 Band Neutrophils % 25.0 H Monocytes % (Manual) 4.0 Metamyelocytes % 1.0 H Neutrophils # (Manual) 45763 H RBC Morphology Normal morphology ABG pH 7.38 ABG pCO2 35.5 ABG pO2 71 L ABG HCO3 21 L ABG Total CO2 22 ABG O2 Saturation 94 L ABG Base Excess -4.0 L FiO2 50 Sodium 126 L Potassium 3.2 L Chloride 99 Carbon Dioxide 21 L BUN 18 Creatinine 0.51 L Estimated GFR > 60.0 BUN/Creatinine Ratio 35.3 H Glucose 326 H D Hemoglobin A1c Lactate Calcium 7.6 L Phosphorus Magnesium Total Bilirubin 1.3 AST 33 ALT 37 Alkaline Phosphatase 95 D Troponin I Total Protein 5.0 L Albumin 2.5 L Globulin 2.5 Albumin/Globulin Ratio 1.0 Vitamin B12 Procalcitonin TSH Urine Color Urine Appearance Urine pH Ur Specific [place] Urine Protein Urine Glucose (UA) Urine Ketones Urine Occult Blood Urine Nitrate Urine Bilirubin Ur Bilirubin Confirm Urine Urobilinogen Ur Leukocyte Esterase Urine RBC Urine WBC Ur Squamous Epith Cells Urine Bacteria Ur Culture Indicated? Nasal Screen MRSA (PCR) Chlamy pneumoniae PCR Adenovirus (PCR) B. pertussis DNA (PCR) B.parapertussis DNA PCR Ur Chlamydia DNA (PCR) Coronavirus OC43 (PCR) Coronavirus HKU1 (PCR) Coronavirus 229E (PCR) SARS-CoV-2 (PCR) Coronavirus NL63 (PCR) HIV 1&2 Ab/P24 Ag 4thGn Human Metapneumovir PCR Influenza Type A (PCR) Influenza Type B (PCR) M. pneumoniae (PCR) Parainfluenza 1 (PCR) Parainfluenza 2 (PCR) Parainfluenza 3 (PCR) Parainfluenza 4 (PCR) RSV (PCR) Entero/Rhino (PCR) N gonorrhoeae DNA (PCR) 10/27/20 10/27/20 10/27/20 01:25 01:25 01:25 WBC RBC Hgb Hct MCV MCH MCHC RDW Plt Count Neut % (Auto) Lymph % (Auto) [place] % (Auto) Eos % (Auto) Baso % (Auto) Neut # (Auto) Lymph # (Auto) [place] # (Auto) Eos # (Auto) Baso # (Auto) Total Counted Seg Neutrophils % Band Neutrophils % Monocytes % (Manual) Metamyelocytes % Neutrophils # (Manual) RBC Morphology ABG pH ABG pCO2 ABG pO2 ABG HCO3 ABG Total CO2 ABG O2 Saturation ABG Base Excess FiO2 Sodium Potassium Chloride Carbon Dioxide BUN Creatinine Estimated GFR BUN/Creatinine Ratio Glucose Hemoglobin A1c Lactate 3.4 H Calcium Phosphorus Magnesium 2.1 Total Bilirubin AST ALT Alkaline Phosphatase Troponin I Total Protein Albumin Globulin Albumin/Globulin Ratio Vitamin B12 Procalcitonin 5.67 H TSH Urine Color Urine Appearance Urine pH Ur Specific [place] Urine Protein Urine Glucose (UA) Urine Ketones Urine Occult Blood Urine Nitrate Urine Bilirubin Ur Bilirubin Confirm Urine Urobilinogen Ur Leukocyte Esterase Urine RBC Urine WBC Ur Squamous Epith Cells Urine Bacteria Ur Culture Indicated? Nasal Screen MRSA (PCR) Chlamy pneumoniae PCR Adenovirus (PCR) B. pertussis DNA (PCR) B.parapertussis DNA PCR Ur Chlamydia DNA (PCR) Coronavirus OC43 (PCR) Coronavirus HKU1 (PCR) Coronavirus 229E (PCR) SARS-CoV-2 (PCR) Coronavirus NL63 (PCR) HIV 1&2 Ab/P24 Ag 4thGn Human Metapneumovir PCR Influenza Type A (PCR) Influenza Type B (PCR) M. pneumoniae (PCR) Parainfluenza 1 (PCR) Parainfluenza 2 (PCR) Parainfluenza 3 (PCR) Parainfluenza 4 (PCR) RSV (PCR) Entero/Rhino (PCR) N gonorrhoeae DNA (PCR) 10/27/20 10/27/20 10/27/20 01:25 01:30 01:30 WBC RBC Hgb Hct MCV MCH MCHC RDW Plt Count Neut % (Auto) Lymph % (Auto) [place] % (Auto) Eos % (Auto) Baso % (Auto) Neut # (Auto) Lymph # (Auto) [place] # (Auto) Eos # (Auto) Baso # (Auto) Total Counted Seg Neutrophils % Band Neutrophils % Monocytes % (Manual) Metamyelocytes % Neutrophils # (Manual) RBC Morphology ABG pH ABG pCO2 ABG pO2 ABG HCO3 ABG Total CO2 ABG O2 Saturation ABG Base Excess FiO2 Sodium Potassium Chloride Carbon Dioxide BUN Creatinine Estimated GFR BUN/Creatinine Ratio Glucose Hemoglobin A1c Lactate Calcium Phosphorus Magnesium Total Bilirubin AST ALT Alkaline Phosphatase Troponin I Total Protein Albumin Globulin Albumin/Globulin Ratio Vitamin B12 Procalcitonin TSH Urine Color Urine Appearance Urine pH Ur Specific [place] Urine Protein Urine Glucose (UA) Urine Ketones Urine Occult Blood Urine Nitrate Urine Bilirubin Ur Bilirubin Confirm Urine Urobilinogen Ur Leukocyte Esterase Urine RBC Urine WBC Ur Squamous Epith Cells Urine Bacteria Ur Culture Indicated? Nasal Screen MRSA (PCR) Chlamy pneumoniae PCR Not detected Adenovirus (PCR) Not detected B. pertussis DNA (PCR) Not detected B.parapertussis DNA PCR Not detected Ur Chlamydia DNA (PCR) Not detected Coronavirus OC43 (PCR) Not detected Coronavirus HKU1 (PCR) Not detected Coronavirus 229E (PCR) Not detected SARS-CoV-2 (PCR) Not Reportable Coronavirus NL63 (PCR) Not detected HIV 1&2 Ab/P24 Ag 4thGn Negative Human Metapneumovir PCR Not detected Influenza Type A (PCR) Not detected Influenza Type B (PCR) Not detected M. pneumoniae (PCR) Not detected Parainfluenza 1 (PCR) Not detected Parainfluenza 2 (PCR) Not detected Parainfluenza 3 (PCR) Not detected Parainfluenza 4 (PCR) Not detected RSV (PCR) Not detected Entero/Rhino (PCR) Not detected N gonorrhoeae DNA (PCR) Not detected 10/27/20 10/27/20 10/27/20 04:00 04:00 04:00 WBC 18.0 H RBC 3.66 L Hgb 11.2 L Hct 32.7 L MCV 89.5 MCH 30.6 MCHC 34.2 RDW 14.1 Plt Count 219 Neut % (Auto) 89.8 H Lymph % (Auto) 2.1 L [place] % (Auto) 7.9 Eos % (Auto) 0.0 L Baso % (Auto) 0.2 Neut # (Auto) 81679 H Lymph # (Auto) 400 L [place] # (Auto) 1400 H Eos # (Auto) 0 Baso # (Auto) 0 Total Counted Seg Neutrophils % Band Neutrophils % Monocytes % (Manual) Metamyelocytes % Neutrophils # (Manual) RBC Morphology ABG pH ABG pCO2 ABG pO2 ABG HCO3 ABG Total CO2 ABG O2 Saturation ABG Base Excess FiO2 Sodium 131 L Potassium 4.0 Chloride 104 Carbon Dioxide 22 BUN 17 Creatinine 0.47 L Estimated GFR > 60.0 BUN/Creatinine Ratio 36.2 H Glucose 170 H D Hemoglobin A1c 9.6 H Lactate Calcium 7.0 L Phosphorus Magnesium Total Bilirubin AST ALT Alkaline Phosphatase Troponin I Total Protein Albumin Globulin Albumin/Globulin Ratio Vitamin B12 Procalcitonin TSH Urine Color Urine Appearance Urine pH Ur Specific [place] Urine Protein Urine Glucose (UA) Urine Ketones Urine Occult Blood Urine Nitrate Urine Bilirubin Ur Bilirubin Confirm Urine Urobilinogen Ur Leukocyte Esterase Urine RBC Urine WBC Ur Squamous Epith Cells Urine Bacteria Ur Culture Indicated? Nasal Screen MRSA (PCR) Chlamy pneumoniae PCR Adenovirus (PCR) B. pertussis DNA (PCR) B.parapertussis DNA PCR Ur Chlamydia DNA (PCR) Coronavirus OC43 (PCR) Coronavirus HKU1 (PCR) Coronavirus 229E (PCR) SARS-CoV-2 (PCR) Coronavirus NL63 (PCR) HIV 1&2 Ab/P24 Ag 4thGn Human Metapneumovir PCR Influenza Type A (PCR) Influenza Type B (PCR) M. pneumoniae (PCR) Parainfluenza 1 (PCR) Parainfluenza 2 (PCR) Parainfluenza 3 (PCR) Parainfluenza 4 (PCR) RSV (PCR) Entero/Rhino (PCR) N gonorrhoeae DNA (PCR) 10/27/20 10/27/20 10/27/20 04:00 04:00 04:00 WBC RBC Hgb Hct MCV MCH MCHC RDW Plt Count Neut % (Auto) Lymph % (Auto) [place] % (Auto) Eos % (Auto) Baso % (Auto) Neut # (Auto) Lymph # (Auto) [place] # (Auto) Eos # (Auto) Baso # (Auto) Total Counted Seg Neutrophils % Band Neutrophils % Monocytes % (Manual) Metamyelocytes % Neutrophils # (Manual) RBC Morphology ABG pH ABG pCO2 ABG pO2 ABG HCO3 ABG Total CO2 ABG O2 Saturation ABG Base Excess FiO2 Sodium Potassium Chloride Carbon Dioxide BUN Creatinine Estimated GFR BUN/Creatinine Ratio Glucose Hemoglobin A1c Lactate Calcium Phosphorus 2.6 Magnesium 2.1 Total Bilirubin AST ALT Alkaline Phosphatase Troponin I Total Protein Albumin Globulin Albumin/Globulin Ratio Vitamin B12 515 Procalcitonin TSH 2.10 Urine Color Urine Appearance Urine pH Ur Specific [place] Urine Protein Urine Glucose (UA) Urine Ketones Urine Occult Blood Urine Nitrate Urine Bilirubin Ur Bilirubin Confirm Urine Urobilinogen Ur Leukocyte Esterase Urine RBC Urine WBC Ur Squamous Epith Cells Urine Bacteria Ur Culture Indicated? Nasal Screen MRSA (PCR) Chlamy pneumoniae PCR Adenovirus (PCR) B. pertussis DNA (PCR) B.parapertussis DNA PCR Ur Chlamydia DNA (PCR) Coronavirus OC43 (PCR) Coronavirus HKU1 (PCR) Coronavirus 229E (PCR) SARS-CoV-2 (PCR) Coronavirus NL63 (PCR) HIV 1&2 Ab/P24 Ag 4thGn Human Metapneumovir PCR Influenza Type A (PCR) Influenza Type B (PCR) M. pneumoniae (PCR) Parainfluenza 1 (PCR) Parainfluenza 2 (PCR) Parainfluenza 3 (PCR) Parainfluenza 4 (PCR) RSV (PCR) Entero/Rhino (PCR) N gonorrhoeae DNA (PCR) 10/27/20 10/27/20 10/27/20 04:00 04:00 06:08 WBC RBC Hgb Hct MCV MCH MCHC RDW Plt Count Neut % (Auto) Lymph % (Auto) [place] % (Auto) Eos % (Auto) Baso % (Auto) Neut # (Auto) Lymph # (Auto) [place] # (Auto) Eos # (Auto) Baso # (Auto) Total Counted Seg Neutrophils % Band Neutrophils % Monocytes % (Manual) Metamyelocytes % Neutrophils # (Manual) RBC Morphology ABG pH 7.38 ABG pCO2 35.7 ABG pO2 65 L ABG HCO3 21 L ABG Total CO2 22 ABG O2 Saturation 92 L ABG Base Excess -4.0 L FiO2 60 Sodium Potassium Chloride Carbon Dioxide BUN Creatinine Estimated GFR BUN/Creatinine Ratio Glucose Hemoglobin A1c Lactate 2.0 Calcium Phosphorus Magnesium Total Bilirubin AST ALT Alkaline Phosphatase Troponin I 0.036 H Total Protein Albumin Globulin Albumin/Globulin Ratio Vitamin B12 Procalcitonin TSH Urine Color Urine Appearance Urine pH Ur Specific [place] Urine Protein Urine Glucose (UA) Urine Ketones Urine Occult Blood Urine Nitrate Urine Bilirubin Ur Bilirubin Confirm Urine Urobilinogen Ur Leukocyte Esterase Urine RBC Urine WBC Ur Squamous Epith Cells Urine Bacteria Ur Culture Indicated? Nasal Screen MRSA (PCR) Chlamy pneumoniae PCR Adenovirus (PCR) B. pertussis DNA (PCR) B.parapertussis DNA PCR Ur Chlamydia DNA (PCR) Coronavirus OC43 (PCR) Coronavirus HKU1 (PCR) Coronavirus 229E (PCR) SARS-CoV-2 (PCR) Coronavirus NL63 (PCR) HIV 1&2 Ab/P24 Ag 4thGn Human Metapneumovir PCR Influenza Type A (PCR) Influenza Type B (PCR) M. pneumoniae (PCR) Parainfluenza 1 (PCR) Parainfluenza 2 (PCR) Parainfluenza 3 (PCR) Parainfluenza 4 (PCR) RSV (PCR) Entero/Rhino (PCR) N gonorrhoeae DNA (PCR) PFSH Medical History Chicken pox (~1989) Partial blindness Psoriasis Family History Father Stroke Mother Cancer Brother Alcohol abuse Sister Murder Grandfather Stroke Grandmother Stroke Grandfather Stroke Grandmother Stroke Social History Smoking Status: Current every day smoker Assessment & Plan Assessment & Plan narrative: 59 year old male with PMH of psoriasis, ? substance use, ? seizure disorder. He was found down in a local hotel courtyard. In the emergency room today, the patient remained unresponsive and was intubated for airway protection. Patient was admitted to Medicine in the ICU for further evaluation and management. Overnight required 2 pressors, now improved, found to have new diagnosis of DM and antibiotics added for high WBC count likely due to aspiration pneumonia. 1. possible toxic and/or metabolic encephalopathy, possible seizure - unclear if presentation was due to EtOH withdrawal seizure, ingestion of unknown substance or may also represent non-alcoholic seizure activity, given 1g Keppra. Continue 1g BID, consider neurology or transfer for EEG if no improvement. - UDS positive for benzos and methamphetamines. Per outside history with recent weight loss. - ativan infusion initially provided, changed to versed and continue fentanyl today. Start sedation and breathing trials tomorrow if improved vent settings improved and leukocytosis improving. - head imaging thus far has not revealed any acute infarcts or mass lesions to explain mental status. - initial troponin negative, repeat to 0.065 then downtrended. Consider TTE. - keep intubated, sedation vacation in AM tomorrow if remains stable and off pressors still. 2. Septic shock secondary to aspiration pneumonia probably with some component of hypovolemic shock - Repeat CXR with LLL pneumonia. Likely due to either seizure or intubation. - continue to wean from pressor requirements, was on both levophed and vasopressin - UA negative. minimal secretions with suctioning thus far todaay. 3. alcohol use and probable withdrawal. - currently on versed infusion. Most probable etiology based on history remains alcohol withdrawal seizure. - DOCUMENT PROCESSOR consultation when appropriate. 4. Diabetes, presumed new diagnosis - A1c 10.6%, currently on sliding scale insulin. Intermittent hyperglycemia. Will start lantus 5 U tonight. Will need to continually adjust. - AM glucose 170. Presume this is the reason for patient's 50 lb weight loss recently per hotel staff, though will likely need outpatient age appropriate screening as well. 5. hypokalemia - replete with IV for now 6. Hyponatremia, - mild with Na of 128 on admission. Now to 131. Continue NS and follow. 7. Elevated troponin, improved - likely in the setting of sepsis. As above consider TTE. No known cardiac history at this time. No evidence of ischemia on EKGs. 8. acute respiratory failure with hypoxia secondary to presumed aspiration pneumonia - continue zosyn, wean vent settings as able. Code: FULL, unable to discuss surrogate or confirm code status given mental status. outside hotel staff reports patient's father recently. Niece and sister reportedly estranged though not confirmed. DVT: Lovenox daily Dispo: ICU. I spent 35 minutes providing critical care management this patient. This excludes time spent in performing separately billed procedures I have utilized all available immediate resources to obtain, update, or review the patient's current medications. COVID-19 COVID-19 status: Negative Time Spent With Patient Time with patient: Greater than 35 minutes Quality VTE Deep Vein Thrombosis/Pulmonary Embolism Present on Admission: No
--- NOTE | 2020-10-27 13:23 | CM.IDA ---
Initial Discharge Planning Note ADAM Drake reviews case with DCP ADAM Neves and conducts initial DCP assessment. Patient is 59 y/o male who presented to ED unresponsive and was found at his place of residence [facility] in the courtyard. Patient has hx of ETOH, polysubstance use, and hx of seizures. Patient has [place] and Medicaid insurance. It was reported that patient has resided at [facility] for a few years. wireless manager Nuvia (Ph. # [phone]) has been consistent in patient's life, it was reported that she referred patient to a caregiver, Daily (Ph. # [phone]). Patient is not currently established with PCP. LABOR OPERATOR scheduled PCP ED f/u appt for patient with Dr. Froilan Rivas for 10/20/20 but patient did not show to the appt. LABOR OPERATOR calls patient's caregiver Daily. It is reported that she saw patient on Friday10/25/20 before he went to the ED and he presented in good health and was A/Ox4. Daily endorses she is a retired PUBLIC INFORMATION SPECIALIST and she was hired to be patient's caregiver but she has only met with him once. Daily endorses she will be about of POC and d/c planning upon patient's d/c as she plans to care for patient's needs. Daily indicates that patient did not appear to have any limitations with ADLs. Daily reports concern for his substance use. It was reported that patient has lost a lot of weight recently. Daily indicates that she will ensure patient establishes care with PCP and ensures his attendance to any needed medical appts. Anitha HERNANDES reports that patient has a nephew Zakihernan Shanks (Ph. # [phone]) that lives locally and he plans to visit patient in the ICU. Plan: Patient is currently intubated and sedation trial will be conducted tomorrow, DCP to f/u with POC Discharge Planning/Care Management CM Discharge Assessment Start: 10/27/20 13:09 Freq: Status: Active Protocol: Document 10/27/20 13:09 LN (Rec: 10/27/20 13:23 LN [id number]) Discharge Planning Assessment Assigned Bath Attendant ADAM Lei / ADAM Lindsey DPOA/Assigned Designee Name Unknown Advance Directives? No History Provided By Family Member,Friend,Medical Record Has Patient been admitted in last 30 No days? Prior Living Arrangements Homeless Comment Patient resides at the [facility] Household Members none Type of transporation used prior to Relies on Others admit Independent with ADL's No Is patient alert and oriented? 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
[2020-10-27] MEDS: fentaNYL 1,000 MCG in DEXTROSE 5% IN WATER 230 ML 6 ML IV (13:59)
[2020-10-27] MEDS: MIDAZOLAM 50 MG in DEXTROSE 5% IN WATER 250 ML 11.128 ML IV (14:41)
--- NOTE | 2020-10-27 15:27 | DIET.CONS ---
Addendum entered by Kate German 10/27/20 16:32: Nutrition Diagnosis: Severe PCM r/t inadequate protein energy intake, possibly ETOH abuse aeb BMI 16.9 and records indicating significant weight loss over the last four months. Nutrition related altered lab value r/t DM diagnosis aeb HgA1c of 9.6% and POC glucose hyperglycemia. Original Note: Dietary Consultation Note Admission Date: 10/26/2020 10:50 Assessment: 59 y/o M admitted after presenting to ED unresponsive, was intubated. Possibly h/o ETOH abuse. Per EMR h/o 24% weight loss since June indicating severe protein calorie malnutrition. Low BMI of 16.9. HgA1c of 9.6% indicating diabetes diagnosis. Recent BG above target. Currently on Glargine 10u in am and 5 u HS. Lispro SSI. Ht: 177.8 cm Wt: 53.5 kg BMI: 16.9 MNA: Jenaro Score: 9 Diet: 10/26/20 06:29 NPO Diet Diet Modifications: NPO Type: Strict 10/27/20 Dinner Tube Feeding Diet Diet Modifications: Safety Tray needed?: No TF Supplement type: Glucerna 1.5 steven TF mode of delivery: Continuous Starting flow rate mL/hr: 10 Flow rate goal mL/hr: 45 Titration Schedule to reach Goal Rate: 10mL q6h as tolerated Max total daily volume in mL: 1,870 Free fluid: 175 Free Water Frequency: Q4H Comment: HOB elevated 30 degrees at all times. High risk for refeeding. Labs: Blood glucose (mg/dL) 170, 326, 174, 439 RBC 3.66 X10^6/uL (4.5-5.9) L 10/27/20 04:00 Hgb 11.2 g/dL (13.5-17.5) L 10/27/20 04:00 Hct 32.7 % (41-53) L 10/27/20 04:00 Creatinine 0.47 mg/dL (0.66-1.25) L 10/27/20 04:00 Hemoglobin A1c 9.6 % (4.0-6.0) H 10/27/20 04:00 Lactate 2.0 mmol/L (0.7-2.1) 10/27/20 04:00 Nutrition Diagnosis: Malnutrition r/t inadequate protein energy intake, possibly ETOH abuse aeb BMI 16.9 and records indicating significant weight loss over the last four months. Nutrition related altered lab value r/t DM diagnosis aeb HgA1c of 9.6% and POC glucose hyperglycemia. Interventions: 1. Recc NG feeding continuous Glucerna 1.5 starting at 10mL/h titrating up by 10mL q 6h as tolerated until reaching goal rate of 45mL/h. Recc 175mL free water flushes q 4h. Feed plus formula provides 90% kcals, 110% PRO, and 100% fluids 2. HOB elevated at least 30 degrees at all time to reduce risk of aspiration. 3. Daily weights 4. Pt at risk for refeeding, check refeeding labs BID EER: 1620 kcals, 90g protein, 1870 mL fluids Monitoring/Evaluations: TF tolerance, refeeding labs, weights, POC BG
[2020-10-27] MEDS: INSULIN GLARGINE 100 UNIT/ML 3ML PEN SUBCUT (21:11)
--- NOTE | 2020-10-27 21:18 | DI.RAD.S_ITS ---
PROCEDURE: XR CHEST 1V INDICATIONS: check position of ET tube TECHNIQUE: One view of the chest was acquired. COMPARISON: [facility], CR, XR CHEST 1V, 10/27/2020, 3:05. FINDINGS: Surgical changes and devices: ET tube approximately 4.5 centimeters superior to the дмитрий. PICC line projects to the mid SVC via a right-sided approach. NG tube projects across the GE junction with nonvisualization of the distal tip and side-port. Lungs and pleura: Patchy airspace opacity noted in the left lower lobe compatible with pneumonia. New airspace opacification in the medial aspect of the right lower lobe suspicious for pneumonia. No pleural effusions or pneumothorax. Mediastinum: Mediastinal contours appear normal. Heart size is normal. Bones and chest wall: No suspicious bony lesions. Overlying soft tissues appear unremarkable. IMPRESSION: ET tube 4.5 centimeters superior to the дмитрий. Dictated by: Cata Hayward MD, PhD on 10/27/2020 at 21:46 Approved by: Cata Hayward MD, PhD on 10/27/2020 at 21:47
--- NOTE | 2020-10-27 21:18 | PM.PN.EICU ---
Subjective Subjective :: This patient was seen via real time interactive two-way audiovisual telecommunication. Multidisciplinary rounds conducted. 59 y.o. male with acute hypoxic respiratory failure due to a LLL pneumonia (presumably aspiration), polysubstance abuse, and seizure. INTERIM EVENTS -Septic shock has resolved; off norepinephrine and vasopressin -Urine output improved -Ventilator requirements improved -Feeds initiated -Diagnosed w/ T2DM Current Medications Current Medications Medications: Home Medications Unobtainable 10/26/20 [History Confirmed 10/26/20] Visit Medications (administered) Generic Name Dose Route Start Last Admin Trade Name Freq PRN Reason Stop Dose Admin Enoxaparin Sodium 40 mg 10/27/20 09:00 10/27/20 08:25 Enoxaparin 40 Mg/0.4 Ml Syringe SUBCUT 40 mg DAILY COURTNEY Administration Famotidine 20 mg 10/26/20 21:00 10/27/20 20:35 Famotidine 20 Mg/2 Ml Vial IV 20 mg BID COURTNEY Administration Heparin Sodium (Porcine) 50 unit 10/26/20 21:00 10/27/20 20:37 Heparin Flush (Cl/Picc/Mid-Line) 50 Unit/5 Ml Syringe IV Not Given BID COURTNEY Fentanyl 1,000 mcg/ Dextrose 250 mls @ 10.5 mls/hr 10/26/20 07:00 10/27/20 15:17 IV 0.5 mcg/kg/hr TITRATE COURTNEY 7.5 mls/hr Titration Protocol 0.7 MCG/KG/HR Levetiracetam 1,000 mg/ Sodium 110 mls @ 440 mls/hr 10/26/20 20:30 10/27/20 20:17 Chloride IV 440 mls/hr Q12H COURTNEY Administration Thiamine HCl 200 mg/ Sodium 102 mls @ 408 mls/hr 10/26/20 20:20 10/27/20 13:22 Chloride IV 10/30/20 21:00 Infused DAILY COURTNEY Infusion Sodium Chloride 250 mls @ 21 mls/hr 10/26/20 20:53 10/27/20 15:17 Normal Saline 0.9% IV Infused Q24H PRN Infusion Flush Norepinephrine Bitartrate 4 mg 254 mls @ 30.48 mls/hr 10/26/20 21:30 10/27/20 02:33 / Dextrose IV 0 mcg/min TITRATE COURTNEY 0 mls/hr Titration Protocol 8 MCG/MIN Vasopressin 40 unit/ Sodium 102 mls @ 4.5 mls/hr 10/26/20 22:30 10/27/20 08:56 Chloride IV 0 mls/hr CONT COURTNEY Infusion Azithromycin 500 mg/ Dextrose 250 mls @ 250 mls/hr 10/27/20 01:30 10/27/20 03:33 IV Infused Q24H COURTNEY Infusion Sodium Chloride 1,000 mls @ 50 mls/hr 10/27/20 03:30 10/27/20 08:23 Normal Saline 0.9% IV 50 mls/hr CONT COURTNEY Infusion Piperacillin Sod/Tazobactam 100 mls @ 25 mls/hr 10/27/20 08:00 10/27/20 20:33 Sod 3.375 gm/ Sodium Chloride IV Infused Q8H COURTNEY Infusion Midazolam HCl 50 mg/ Dextrose 260 mls @ 5.564 mls/hr 10/27/20 07:30 10/27/20 14:41 IV 0.04 mg/kg/hr TITRATE COURTNEY 11.128 mls/hr Administration Protocol 0.02 MG/KG/HR Insulin Glargine 10 unit 10/27/20 09:00 10/27/20 11:00 Insulin Glargine 100 Unit/Ml 3ml Pen SUBCUT 10 unit DAILY COURTNEY Administration Insulin Glargine 5 unit 10/27/20 21:00 10/27/20 21:11 Insulin Glargine 100 Unit/Ml 3ml Pen SUBCUT 5 unit BEDTIME COURTNEY Administration Insulin Human Lispro 0 unit 10/26/20 18:16 10/27/20 18:29 Insulin Lispro 100 Unit/Ml 3ml Vial SUBCUT 1 unit Q6H COURTNEY Administration Protocol Objective Ventilator Parameters: Ventilator Settings FiO2 30 RT Vent Frequency 16 Ventilator Tidal Volume 500 Exhaled Positive End Expiratory 8 Pressure Inspiratory Phase Time 0.9 I:E Ratio 1:3.1 Patient Position HOB >= 30 degrees Labs Result Diagrams: 10/27/20 04:00 10/27/20 04:00 Labs: Laboratory Results - last 24 hr 10/26/20 10/26/20 10/26/20 23:15 23:15 23:15 WBC 25.8 H D RBC 4.05 L Hgb 12.2 L Hct 36.4 L MCV 89.9 MCH 30.1 MCHC 33.5 RDW 13.7 Plt Count 317 Neut % (Auto) Not Reportable Lymph % (Auto) Not Reportable [place] % (Auto) Not Reportable Eos % (Auto) Not Reportable Baso % (Auto) Not Reportable Neut # (Auto) Lymph # (Auto) Not Reportable [place] # (Auto) Not Reportable Eos # (Auto) Baso # (Auto) Not Reportable Total Counted 100 Seg Neutrophils % 70.0 Band Neutrophils % 25.0 H Monocytes % (Manual) 4.0 Metamyelocytes % 1.0 H Neutrophils # (Manual) 19278 H RBC Morphology Normal morphology ABG pH ABG pCO2 ABG pO2 ABG HCO3 ABG Total CO2 ABG O2 Saturation ABG Base Excess FiO2 Sodium 126 L Potassium 3.2 L Chloride 99 Carbon Dioxide 21 L BUN 18 Creatinine 0.51 L Estimated GFR > 60.0 BUN/Creatinine Ratio 35.3 H Glucose 326 H D Hemoglobin A1c Lactate Calcium 7.6 L Phosphorus Magnesium Total Bilirubin 1.3 AST 33 ALT 37 Alkaline Phosphatase 95 D Troponin I 0.051 H Total Protein 5.0 L Albumin 2.5 L Globulin 2.5 Albumin/Globulin Ratio 1.0 Vitamin B12 Procalcitonin TSH Chlamy pneumoniae PCR Adenovirus (PCR) B. pertussis DNA (PCR) B.parapertussis DNA PCR Ur Chlamydia DNA (PCR) Coronavirus OC43 (PCR) Coronavirus HKU1 (PCR) Coronavirus 229E (PCR) SARS-CoV-2 (PCR) Coronavirus NL63 (PCR) HIV 1&2 Ab/P24 Ag 4thGn Human Metapneumovir PCR Influenza Type A (PCR) Influenza Type B (PCR) M. pneumoniae (PCR) Parainfluenza 1 (PCR) Parainfluenza 2 (PCR) Parainfluenza 3 (PCR) Parainfluenza 4 (PCR) RSV (PCR) Entero/Rhino (PCR) N gonorrhoeae DNA (PCR) 10/26/20 10/27/20 10/27/20 23:37 01:25 01:25 WBC RBC Hgb Hct MCV MCH MCHC RDW Plt Count Neut % (Auto) Lymph % (Auto) [place] % (Auto) Eos % (Auto) Baso % (Auto) Neut # (Auto) Lymph # (Auto) [place] # (Auto) Eos # (Auto) Baso # (Auto) Total Counted Seg Neutrophils % Band Neutrophils % Monocytes % (Manual) Metamyelocytes % Neutrophils # (Manual) RBC Morphology ABG pH 7.38 ABG pCO2 35.5 ABG pO2 71 L ABG HCO3 21 L ABG Total CO2 22 ABG O2 Saturation 94 L ABG Base Excess -4.0 L FiO2 50 Sodium Potassium Chloride Carbon Dioxide BUN Creatinine Estimated GFR BUN/Creatinine Ratio Glucose Hemoglobin A1c Lactate 3.4 H Calcium Phosphorus Magnesium 2.1 Total Bilirubin AST ALT Alkaline Phosphatase Troponin I Total Protein Albumin Globulin Albumin/Globulin Ratio Vitamin B12 Procalcitonin TSH Chlamy pneumoniae PCR Adenovirus (PCR) B. pertussis DNA (PCR) B.parapertussis DNA PCR Ur Chlamydia DNA (PCR) Coronavirus OC43 (PCR) Coronavirus HKU1 (PCR) Coronavirus 229E (PCR) SARS-CoV-2 (PCR) Coronavirus NL63 (PCR) HIV 1&2 Ab/P24 Ag 4thGn Human Metapneumovir PCR Influenza Type A (PCR) Influenza Type B (PCR) M. pneumoniae (PCR) Parainfluenza 1 (PCR) Parainfluenza 2 (PCR) Parainfluenza 3 (PCR) Parainfluenza 4 (PCR) RSV (PCR) Entero/Rhino (PCR) N gonorrhoeae DNA (PCR) 10/27/20 10/27/20 10/27/20 01:25 01:25 01:30 WBC RBC Hgb Hct MCV MCH MCHC RDW Plt Count Neut % (Auto) Lymph % (Auto) [place] % (Auto) Eos % (Auto) Baso % (Auto) Neut # (Auto) Lymph # (Auto) [place] # (Auto) Eos # (Auto) Baso # (Auto) Total Counted Seg Neutrophils % Band Neutrophils % Monocytes % (Manual) Metamyelocytes % Neutrophils # (Manual) RBC Morphology ABG pH ABG pCO2 ABG pO2 ABG HCO3 ABG Total CO2 ABG O2 Saturation ABG Base Excess FiO2 Sodium Potassium Chloride Carbon Dioxide BUN Creatinine Estimated GFR BUN/Creatinine Ratio Glucose Hemoglobin A1c Lactate Calcium Phosphorus Magnesium Total Bilirubin AST ALT Alkaline Phosphatase Troponin I Total Protein Albumin Globulin Albumin/Globulin Ratio Vitamin B12 Procalcitonin 5.67 H TSH Chlamy pneumoniae PCR Not detected Adenovirus (PCR) Not detected B. pertussis DNA (PCR) Not detected B.parapertussis DNA PCR Not detected Ur Chlamydia DNA (PCR) Coronavirus OC43 (PCR) Not detected Coronavirus HKU1 (PCR) Not detected Coronavirus 229E (PCR) Not detected SARS-CoV-2 (PCR) Not Reportable Coronavirus NL63 (PCR) Not detected HIV 1&2 Ab/P24 Ag 4thGn Negative Human Metapneumovir PCR Not detected Influenza Type A (PCR) Not detected Influenza Type B (PCR) Not detected M. pneumoniae (PCR) Not detected Parainfluenza 1 (PCR) Not detected Parainfluenza 2 (PCR) Not detected Parainfluenza 3 (PCR) Not detected Parainfluenza 4 (PCR) Not detected RSV (PCR) Not detected Entero/Rhino (PCR) Not detected N gonorrhoeae DNA (PCR) 10/27/20 10/27/20 10/27/20 01:30 04:00 04:00 WBC 18.0 H RBC 3.66 L Hgb 11.2 L Hct 32.7 L MCV 89.5 MCH 30.6 MCHC 34.2 RDW 14.1 Plt Count 219 Neut % (Auto) 89.8 H Lymph % (Auto) 2.1 L [place] % (Auto) 7.9 Eos % (Auto) 0.0 L Baso % (Auto) 0.2 Neut # (Auto) 68878 H Lymph # (Auto) 400 L [place] # (Auto) 1400 H Eos # (Auto) 0 Baso # (Auto) 0 Total Counted Seg Neutrophils % Band Neutrophils % Monocytes % (Manual) Metamyelocytes % Neutrophils # (Manual) RBC Morphology ABG pH ABG pCO2 ABG pO2 ABG HCO3 ABG Total CO2 ABG O2 Saturation ABG Base Excess FiO2 Sodium 131 L Potassium 4.0 Chloride 104 Carbon Dioxide 22 BUN 17 Creatinine 0.47 L Estimated GFR > 60.0 BUN/Creatinine Ratio 36.2 H Glucose 170 H D Hemoglobin A1c Lactate Calcium 7.0 L Phosphorus Magnesium Total Bilirubin AST ALT Alkaline Phosphatase Troponin I Total Protein Albumin Globulin Albumin/Globulin Ratio Vitamin B12 Procalcitonin TSH Chlamy pneumoniae PCR Adenovirus (PCR) B. pertussis DNA (PCR) B.parapertussis DNA PCR Ur Chlamydia DNA (PCR) Not detected Coronavirus OC43 (PCR) Coronavirus HKU1 (PCR) Coronavirus 229E (PCR) SARS-CoV-2 (PCR) Coronavirus NL63 (PCR) HIV 1&2 Ab/P24 Ag 4thGn Human Metapneumovir PCR Influenza Type A (PCR) Influenza Type B (PCR) M. pneumoniae (PCR) Parainfluenza 1 (PCR) Parainfluenza 2 (PCR) Parainfluenza 3 (PCR) Parainfluenza 4 (PCR) RSV (PCR) Entero/Rhino (PCR) N gonorrhoeae DNA (PCR) Not detected 10/27/20 10/27/20 10/27/20 04:00 04:00 04:00 WBC RBC Hgb Hct MCV MCH MCHC RDW Plt Count Neut % (Auto) Lymph % (Auto) [place] % (Auto) Eos % (Auto) Baso % (Auto) Neut # (Auto) Lymph # (Auto) [place] # (Auto) Eos # (Auto) Baso # (Auto) Total Counted Seg Neutrophils % Band Neutrophils % Monocytes % (Manual) Metamyelocytes % Neutrophils # (Manual) RBC Morphology ABG pH ABG pCO2 ABG pO2 ABG HCO3 ABG Total CO2 ABG O2 Saturation ABG Base Excess FiO2 Sodium Potassium Chloride Carbon Dioxide BUN Creatinine Estimated GFR BUN/Creatinine Ratio Glucose Hemoglobin A1c 9.6 H Lactate Calcium Phosphorus Magnesium Total Bilirubin AST ALT Alkaline Phosphatase Troponin I Total Protein Albumin Globulin Albumin/Globulin Ratio Vitamin B12 515 Procalcitonin TSH 2.10 Chlamy pneumoniae PCR Adenovirus (PCR) B. pertussis DNA (PCR) B.parapertussis DNA PCR Ur Chlamydia DNA (PCR) Coronavirus OC43 (PCR) Coronavirus HKU1 (PCR) Coronavirus 229E (PCR) SARS-CoV-2 (PCR) Coronavirus NL63 (PCR) HIV 1&2 Ab/P24 Ag 4thGn Human Metapneumovir PCR Influenza Type A (PCR) Influenza Type B (PCR) M. pneumoniae (PCR) Parainfluenza 1 (PCR) Parainfluenza 2 (PCR) Parainfluenza 3 (PCR) Parainfluenza 4 (PCR) RSV (PCR) Entero/Rhino (PCR) N gonorrhoeae DNA (PCR) 10/27/20 10/27/20 10/27/20 04:00 04:00 04:00 WBC RBC Hgb Hct MCV MCH MCHC RDW Plt Count Neut % (Auto) Lymph % (Auto) [place] % (Auto) Eos % (Auto) Baso % (Auto) Neut # (Auto) Lymph # (Auto) [place] # (Auto) Eos # (Auto) Baso # (Auto) Total Counted Seg Neutrophils % Band Neutrophils % Monocytes % (Manual) Metamyelocytes % Neutrophils # (Manual) RBC Morphology ABG pH ABG pCO2 ABG pO2 ABG HCO3 ABG Total CO2 ABG O2 Saturation ABG Base Excess FiO2 Sodium Potassium Chloride Carbon Dioxide BUN Creatinine Estimated GFR BUN/Creatinine Ratio Glucose Hemoglobin A1c Lactate 2.0 Calcium Phosphorus 2.6 Magnesium 2.1 Total Bilirubin AST ALT Alkaline Phosphatase Troponin I 0.036 H Total Protein Albumin Globulin Albumin/Globulin Ratio Vitamin B12 Procalcitonin TSH Chlamy pneumoniae PCR Adenovirus (PCR) B. pertussis DNA (PCR) B.parapertussis DNA PCR Ur Chlamydia DNA (PCR) Coronavirus OC43 (PCR) Coronavirus HKU1 (PCR) Coronavirus 229E (PCR) SARS-CoV-2 (PCR) Coronavirus NL63 (PCR) HIV 1&2 Ab/P24 Ag 4thGn Human Metapneumovir PCR Influenza Type A (PCR) Influenza Type B (PCR) M. pneumoniae (PCR) Parainfluenza 1 (PCR) Parainfluenza 2 (PCR) Parainfluenza 3 (PCR) Parainfluenza 4 (PCR) RSV (PCR) Entero/Rhino (PCR) N gonorrhoeae DNA (PCR) 10/27/20 06:08 WBC RBC Hgb Hct MCV MCH MCHC RDW Plt Count Neut % (Auto) Lymph % (Auto) [place] % (Auto) Eos % (Auto) Baso % (Auto) Neut # (Auto) Lymph # (Auto) [place] # (Auto) Eos # (Auto) Baso # (Auto) Total Counted Seg Neutrophils % Band Neutrophils % Monocytes % (Manual) Metamyelocytes % Neutrophils # (Manual) RBC Morphology ABG pH 7.38 ABG pCO2 35.7 ABG pO2 65 L ABG HCO3 21 L ABG Total CO2 22 ABG O2 Saturation 92 L ABG Base Excess -4.0 L FiO2 60 Sodium Potassium Chloride Carbon Dioxide BUN Creatinine Estimated GFR BUN/Creatinine Ratio Glucose Hemoglobin A1c Lactate Calcium Phosphorus Magnesium Total Bilirubin AST ALT Alkaline Phosphatase Troponin I Total Protein Albumin Globulin Albumin/Globulin Ratio Vitamin B12 Procalcitonin TSH Chlamy pneumoniae PCR Adenovirus (PCR) B. pertussis DNA (PCR) B.parapertussis DNA PCR Ur Chlamydia DNA (PCR) Coronavirus OC43 (PCR) Coronavirus HKU1 (PCR) Coronavirus 229E (PCR) SARS-CoV-2 (PCR) Coronavirus NL63 (PCR) HIV 1&2 Ab/P24 Ag 4thGn Human Metapneumovir PCR Influenza Type A (PCR) Influenza Type B (PCR) M. pneumoniae (PCR) Parainfluenza 1 (PCR) Parainfluenza 2 (PCR) Parainfluenza 3 (PCR) Parainfluenza 4 (PCR) RSV (PCR) Entero/Rhino (PCR) N gonorrhoeae DNA (PCR) Exam Vital Signs (past 8 hours): - 10/27/20 13:55 10/27/20 14:00 10/27/20 14:15 Pulse Rate 92 H 93 H 93 H Respiratory Rate 16 16 16 Blood Pressure 128/87 Pulse Oximetry 99 99 99 10/27/20 14:30 10/27/20 14:45 10/27/20 15:00 Pulse Rate 91 H 92 H 93 H Respiratory Rate 16 16 16 Blood Pressure Pulse Oximetry 99 99 99 10/27/20 15:15 10/27/20 15:30 10/27/20 15:45 Pulse Rate 93 H 94 H 94 H Respiratory Rate 16 16 16 Blood Pressure Pulse Oximetry 99 99 99 10/27/20 16:00 10/27/20 16:15 10/27/20 16:30 Pulse Rate 96 H 97 H 100 H Respiratory Rate 16 16 16 Blood Pressure 125/83 Pulse Oximetry 98 96 97 10/27/20 16:45 10/27/20 17:00 10/27/20 17:15 Pulse Rate 100 H 101 H 100 H Respiratory Rate 16 16 16 Blood Pressure 118/83 Pulse Oximetry 97 97 96 10/27/20 17:30 10/27/20 17:45 10/27/20 18:00 Pulse Rate 100 H 99 H 98 H Respiratory Rate 14 16 16 Blood Pressure 122/85 Pulse Oximetry 98 95 95 10/27/20 18:15 10/27/20 18:30 10/27/20 18:45 Pulse Rate 98 H 96 H 97 H Respiratory Rate 14 16 16 Blood Pressure Pulse Oximetry 97 95 96 10/27/20 19:00 Pulse Rate 98 H Respiratory Rate 16 Blood Pressure 133/89 Pulse Oximetry 96 Oxygen Delivery Method Mechanical Ventilation Oxygen Flow Rate 15 Const General: other (intubated, sedated) Quality TeleICU VTE Deep Vein Thrombosis/Pulmonary Embolism Present on Admission: No Assessment & Plan Assessment and plan (1) Insulin dependent type 2 diabetes mellitus: Status: Acute Plan: -Continue SUBQ regimen (2) Acute hyponatremia: Status: Acute Plan: -Improving; follow (3) Polysubstance abuse: Problem details: EtOH/methamphetamine/benzodiazepines Status: Acute Plan: -Continue thiamine -Cessationn counseling when/if patient improved and/if patient amenable (4) Acute respiratory failure with hypoxia: Problem details: due to suspected LLL aspiration pneumonia Status: Acute Plan: -Daily SAT/SBT -Would change to fentanyl analgosedation strategy in AM. If additional analgosedation is necessary, fsvor Precedex first then propofol. Target RASS 0 to -1 (5) Left lower lobe pneumonia: Qualifiers: Pneumonia type: aspiration pneumonia Status: Acute Plan: -Contiinue Zosyn (6) Aspiration pneumonia: Status: Acute Plan: -see above (7) Seizure: Status: Acute Plan: -Continue Keppra Time Spent With Patient Critical Care time: I spent a total of 35 minutes of critical care time on this patient's care today; this time is exclusive of procedural time.
--- NOTE | 2020-10-27 21:33 | PC.NURSE ---
2100, pt desat down to the mid 80's after ET tube repositioned. Breath sounds ascultated bilaterally coarse crackles noted not present earlier. , FIO2 increased and stat CXR requested. ET suctioning done with minimal results. Hospitalist notified.
--- NOTE | 2020-10-27 21:52 | RT ---
Checked pt at 2053. Suctioned large amount of yellow, thick secretions with possible mucous plugs. Changed ETT albrecht due to concern of albrecht integrity. Pt had multiple desat episodes to 85%-87%, improved with suction and 100% FiO2 bolus momentarily and continued to desat. Pulled ETT back to 25 at the lip due to concern of possible R mainstem. Recommended CXR. Pending results. At 2123, increased FiO2 to 50% due to multiple desat episodes to 85%-87%. RN aware and [employer]IOLOG[employer] EQUIPMENT SERVICER [place] aware. At 2149, pt continued to have desat episodes despite recent vent changes. Increased PEEP to 10 cm H2O and FiO2 to 60%. RN aware.
--- NOTE | 2020-10-27 22:40 | PC.NURSE ---
Vent setting changed to 60% FIO2, Peep 10,rate 16 TV 500. Sats 95%.
[2020-10-28] VITALS (82 sets, daily range): BP systolic 100–156; BP diastolic 70–99; PULSE 71–97; RESP 14–24; TEMP 36.2–37; O2SAT 87–100
[2020-10-28] MEDS: PIPERACILLIN/TAZO 3.375 GM in SODIUM CHLORIDE 0.9% 100 ML 25 ML IV ×3 (00:34→16:29)
[2020-10-28] MEDS: AZITHROMYCIN 500 MG in DEXTROSE 5% IN WATER 250 ML IV (01:43)
--- NOTE | 2020-10-28 02:38 | PC.NURSE ---
Addendum entered by Rosa Sewell R.N. 10/28/20 05:20: Patient is now more responsive to stimuli, backing brief eye contact, is calm, moving head to simple yes no questions, nodded yes to understanding he is on breathing machine in hospital SpO2 have been 100% on FIO2 35%, RT decreased PEEP to 8. Addendum entered by Rosa Sewell R.N. 10/28/20 03:03: 0130-SpO2 has been 100%, RT decreased FIO2 to 35%, sats remaining > 92%. Zosyn and Azithromycin infusing per Emar. UOP 100ml clear yellow so far. Original Note: Airplane Electrician Notes-Initial assessment at 0000-Patient attempting to open eyes to voice, turns head, and has small purposeful movements to hands and feet, but not to command. RASS -3 with Fentanyl infusing at 0.2mcg/kg/hr and Versed at 0.02mg/kg/hr. Plan is to attempt sedation vacation in am. RR 16 with the vent, FIO2 60% TV 500 PEEP 10, SpO2 >92%, lung sounds exp wheezes throughout, L>R, small thick white sputum sx. SR rate 90s, BP stable, see vital trends. Tube feed residual 5ml, feed rate increased to 20ml/hr.
[2020-10-28 05:14] LABS: Add Manual Diff / Slide Review NO; Basophils Absolute Auto 100 /uL (0-100); Basophils Percent Auto 0.5 % (0-2); Eosinophils Absolute Auto 0 /uL (0-450); Eosinophils Percent Auto 0.2 % (2-4); Hematocrit 34.2 % (41-53); Hemoglobin 11.7 g/dL (13.5-17.5); Lymphocytes Absolute Auto 800 /uL (1100-4500); Lymphocytes Percent Auto 4.5 % (25-40); Mean Corpuscular HGB Conc 34.1 % (30-36); Mean Corpuscular Hemoglobin 30.5 PG (26-34); Mean Corpuscular Volume 89.5 fL (80-100); Monocytes Absolute Auto 1400 /uL (0-900); Monocytes Percent Auto 7.8 % (3-14); Neutrophils Absolute Auto 15600 /uL (1500-7000); Platelet Count 243 X10^3/uL (150-400); Red Blood Cell Count 3.82 X10^6/uL (4.5-5.9); Red Cell Distribution Width 14.1 % (11.6-14.8); White Blood Cell Count 17.9 X10^3/uL (4.5-11.0)
[2020-10-28 05:20] LABS: BUN Creatinine Ratio 32.7 (6-22); Blood Urea Nitrogen 17 mg/dL (9-20); Calcium 8.1 mg/dL (8.4-10.2); Carbon Dioxide 25 mmol/L (22-32); Chloride 103 mmol/L (98-107); Estimated Glomerular Filt Rate > 60.0 mL/min (>60); Glucose 142 mg/dL (80-110); HEMOLYSIS < 15 (0-50); Potassium 3.5 mmol/L (3.4-5.1); Sodium 131 mmol/L (137-145)
[2020-10-28] MEDS: INSULIN LISPRO 100 UNIT/ML 3ML VIAL SUBCUT ×2 (06:14→13:08)
--- NOTE | 2020-10-28 07:56 | PM.PN.1 ---
Subjective Subjective Date Patient Seen: 10/28/20 Interval history: He is seen today to follow-up his ventilator management, alcohol withdrawal, tube feeding, encephalopathy, septic shock, aspiration pneumonia and type 2 diabetes mellitus. He remains stable on the endotracheal tube ventilator with an FiO2 currently at 40%, now being titrated. He lives at the [facility] so is without a permanent domicile. He is on a fentanyl and Versed drip which will be changed to Precedex to account for the alcohol withdrawal component. Per the aquatics group fitness instructor recommendations last night he will be tapered on his sedation and will plan to extubate likely tomorrow instead of today. His white blood count has dropped from 25, down to 18 and then down to 17.9 today. The hemoglobin is 11.7 the platelets are 243. The sodium is 131 with a potassium of 3.5. The BUN and creatinine are normal. The glucose is high at 142. Exam Vital Signs (past 8 hours): - 10/28/20 00:00 10/28/20 00:15 10/28/20 00:30 Temperature 97.6 F Pulse Rate 95 H 94 H 94 H Respiratory Rate 16 16 16 Blood Pressure 127/91 H 100/70 Pulse Oximetry 97 100 100 10/28/20 00:45 10/28/20 01:00 10/28/20 01:15 Temperature Pulse Rate 96 H 92 H 94 H Respiratory Rate 19 16 16 Blood Pressure 125/81 125/81 Pulse Oximetry 99 98 97 10/28/20 01:30 10/28/20 01:45 10/28/20 02:00 Temperature Pulse Rate 92 H 92 H 93 H Respiratory Rate 16 16 16 Blood Pressure 124/82 Pulse Oximetry 94 95 95 10/28/20 02:15 10/28/20 02:30 10/28/20 02:45 Temperature Pulse Rate 92 H 92 H 89 Respiratory Rate 16 16 16 Blood Pressure 124/82 Pulse Oximetry 96 97 96 10/28/20 03:00 10/28/20 03:01 10/28/20 03:15 Temperature 97.6 F Pulse Rate 94 H 94 H 93 H Respiratory Rate 16 16 16 Blood Pressure 140/93 H 140/93 H Pulse Oximetry 96 98 98 10/28/20 03:30 10/28/20 03:45 10/28/20 04:00 Temperature Pulse Rate 93 H 93 H 92 H Respiratory Rate 16 16 16 Blood Pressure 139/91 H Pulse Oximetry 98 99 99 10/28/20 04:15 10/28/20 04:30 10/28/20 04:45 Temperature Pulse Rate 92 H 91 H 92 H Respiratory Rate 16 16 16 Blood Pressure 139/91 H Pulse Oximetry 99 99 98 10/28/20 05:00 10/28/20 05:15 10/28/20 05:30 Temperature Pulse Rate 93 H 93 H 92 H Respiratory Rate 19 16 16 Blood Pressure 130/82 Pulse Oximetry 98 100 100 10/28/20 05:45 10/28/20 06:00 10/28/20 06:15 Temperature Pulse Rate 91 H 89 88 Respiratory Rate 16 16 16 Blood Pressure 153/99 H Pulse Oximetry 100 100 100 Oxygen Delivery Method Mechanical Ventilation Oxygen Flow Rate 15 Narrative Exam Narrative: He remains sedated with fentanyl and Versed on the ventilator today. He is minimally responsive, especially when the drips are held briefly. Heart is regular rate and rhythm without murmur Lungs are clear to auscultation bilaterally Abdomen is soft, bowel sounds positive, nontender, no organomegaly Extremities have no ankle edema Objective Labs Result Diagrams: 10/28/20 04:45 10/28/20 04:45 Labs: Laboratory Results - last 24 hr 10/26/20 10/28/20 10/28/20 23:37 04:45 04:45 WBC 17.9 H RBC 3.82 L Hgb 11.7 L Hct 34.2 L MCV 89.5 MCH 30.5 MCHC 34.1 RDW 14.1 Plt Count 243 Neut % (Auto) 87.0 H Lymph % (Auto) 4.5 L [place] % (Auto) 7.8 Eos % (Auto) 0.2 L Baso % (Auto) 0.5 Neut # (Auto) 46340 H Lymph # (Auto) 800 L [place] # (Auto) 1400 H Eos # (Auto) 0 Baso # (Auto) 100 ABG pH 7.38 ABG pCO2 35.5 ABG pO2 71 L ABG HCO3 21 L ABG Total CO2 22 ABG O2 Saturation 94 L ABG Base Excess -4.0 L FiO2 50 Sodium 131 L Potassium 3.5 Chloride 103 Carbon Dioxide 25 BUN 17 Creatinine 0.52 L Estimated GFR > 60.0 BUN/Creatinine Ratio 32.7 H Glucose 142 H Calcium 8.1 L PFSH Medical History Chicken pox (~1989) Partial blindness Psoriasis Family History Father Stroke Mother Cancer Brother Alcohol abuse Sister Murder Grandfather Stroke Grandmother Stroke Grandfather Stroke Grandmother Stroke Social History household members: none Smoking Status: Current every day smoker Assessment & Plan Assessment & Plan narrative: This is a 59 year old male with a PMH of psoriasis, ? substance use, ? seizure disorder. He was found down in a local hotel courtyard. In the emergency room today, the patient remained unresponsive and was intubated for airway protection. Patient was admitted to Medicine in the ICU for further evaluation and management. On the first night he required 2 pressors, now improved, found to have a new diagnosis of DM and antibiotics were started for a high WBC and CXR showing aspiration pneumonia. 1. possible toxic and/or metabolic encephalopathy, possible seizure - unclear if presentation was due to EtOH withdrawal seizure, ingestion of unknown substance or may also represent non-alcoholic seizure activity, so was given 1g Keppra IV. Continue 1g BID, consider neurology or transfer for EEG if no improvement. - UDS positive for benzos and methamphetamines. Per outside history with recent weight loss. - ativan infusion initially provided, changed to versed and fentanyl and then will try on Precedex today. Start sedation and breathing trials tomorrow if vent settings improved and leukocytosis improving. - head imaging thus far has not revealed any acute infarcts or mass lesions to explain mental status. - initial troponin negative, repeat to 0.065 then downtrended. Consider TTE. - keep intubated, sedation vacation in AM tomorrow if remains stable and overnight aquatics group fitness instructor agrees 2. Septic shock secondary to aspiration pneumonia probably with some component of hypovolemic shock - CXR with LLL pneumonia. Likely due to either seizure or intubation. - Weaned pressor requirements, was on both levophed and vasopressin - UA negative. . 3. alcohol use and probable withdrawal. - currently on versed infusion and will try to change to Precedex. Most probable etiology based on history remains alcohol withdrawal seizure. - CORRECTIONAL MEDICINE PHYSICIAN consultation when appropriate. 4. Diabetes, presumed new diagnosis - A1c 10.6%, currently on sliding scale insulin. Intermittent hyperglycemia. Started on lantus 5 U HS. Will need to continually adjust. - AM glucose 142. Presume this is the reason for patient's 50 lb weight loss recently per hotel staff, though will likely need outpatient age appropriate screening as well. - Not in DKA 5. hypokalemia - replete with IV and follow - 3.5 on 10/28 6. Hyponatremia, - mild with Na of 128 on admission. Now to 131. Continue NS and follow. 7. Elevated troponin, improved - likely in the setting of sepsis. As above consider TTE. No known cardiac history at this time. No evidence of ischemia on EKGs. 8. acute respiratory failure with hypoxia secondary to presumed aspiration pneumonia - continue zosyn, wean vent settings as able. Code: FULL, unable to discuss surrogate or confirm code status given mental status. outside hotel staff reports patient's father recently. Niece and sister reportedly estranged though not confirmed. DVT: Lovenox daily Dispo: ICU. I spent 35 minutes providing critical care management this patient. This excludes time spent in performing separately billed procedures I have utilized all available immediate resources to obtain, update, or review the patient's current medications. COVID-19 COVID-19 status: Negative Time Spent With Patient Time with patient: Greater than 35 minutes Quality VTE Deep Vein Thrombosis/Pulmonary Embolism Present on Admission: No
[2020-10-28] MEDS: FAMOTIDINE 20 MG/2 ML VIAL IV ×2 (08:43→21:24)
[2020-10-28] MEDS: ENOXAPARIN 40 MG/0.4 ML SYRINGE SUBCUT (08:43)
[2020-10-28] MEDS: SODIUM CHLORIDE 0.9% 250 ML 20 ML IV (08:46)
[2020-10-28] MEDS: THIAMINE 200 MG in SODIUM CHLORIDE 0.9% 100 ML 408 ML IV (10:18)
[2020-10-28] MEDS: levETIRAcetam 1,000 MG in SODIUM CHLORIDE 0.9% 100 ML 440 ML IV ×2 (10:18→19:44)
[2020-10-28] MEDS: DEXMEDETOMIDINE HCL 200 MCG in SODIUM CHLORIDE 0.9% 48 ML IV (10:21)
--- NOTE | 2020-10-28 12:13 | CM.DPC ---
DCP Cont: Per MD, pt remains intubated but may attempt extubation today or tomorrow. Per RN, pt more alert and responsive today and have turned down pt's sedation and levels and pt still receiving tube feeding while vented and due to his ETOH he could begin more withdrawals today or tomorrow pending his progress. Pt has local nephew and atul BERNARDO CG Daily who plans to continue working with pt at d/c. D/C planning needs unclear at this time pending pt's progress. Plan: SW to follow closely once pt successfully extubated towards determining d/c planning needs and if reasonable for pt to d/c back to [facility] with Daily QUEVEDO involved. ADAM Garibay
[2020-10-28] MEDS: FUROSEMIDE 20 MG/2 ML VIAL IV (12:20)
[2020-10-28] MEDS: DEXMEDETOMIDINE HCL 200 MCG in SODIUM CHLORIDE 0.9% 48 ML 7.875 ML IV ×2 (16:56→22:40)
--- NOTE | 2020-10-28 17:46 | PC.NURSE ---
Addendum entered by Anais Terrell R.N. 10/28/20 22:49: FiO2 changed from 40%-35% SpO2 at 96%, End tidal CO2 monitoring d/c'd by provider due to equipment malfunction Addendum entered by Anais Terrell R.N. 10/28/20 19:29: FiO2 changed from 45%-40% SpO2 at 98% Original Note: Evening shift note: Pt is tolerating vent at current settings, Fio2 45% PEEP 8, RR 16 and TV @ 500. Spo2 has been above 95% since start of shift, but does have intermittent desaturations dropping as low as 86%, RT at bedside endotrachial suctioning completed. Turning patient q2. Inline suction performed with milky secretions. Pt appears comfortable at this time, rouses to voice, opens eyes and quickly falls back to sleep. Precedex currently infusing at 0.5 mcg/kg/hr per emar. Nephjerry Price came in for update, concerned that his Uncle is doing worse, updated on current pt status. Will continue to monitor closely.
[2020-10-28 19:01] LABS: BUN Creatinine Ratio 30.5 (6-22); Blood Urea Nitrogen 18 mg/dL (9-20); Calcium 8.3 mg/dL (8.4-10.2); Carbon Dioxide 26 mmol/L (22-32); Chloride 105 mmol/L (98-107); Estimated Glomerular Filt Rate > 60.0 mL/min (>60); Glucose 101 mg/dL (80-110); HEMOLYSIS < 15 (0-50); Potassium 3.4 mmol/L (3.4-5.1); Sodium 134 mmol/L (137-145)
[2020-10-28] MEDS: POTASSIUM CHLORIDE IN WATER 10 MEQ/100 ML PIGGYBACK 100 MEQ IV ×3 (20:30→22:42)
[2020-10-28] MEDS: INSULIN GLARGINE 100 UNIT/ML 3ML PEN 12 UNIT SUBCUT (21:23)
[2020-10-29] VITALS (73 sets, daily range): BP systolic 120–176; BP diastolic 59–112; PULSE 54–99; RESP 16–83; TEMP 36.3–36.9; O2SAT 91–100
[2020-10-29] MEDS: PIPERACILLIN/TAZO 3.375 GM in SODIUM CHLORIDE 0.9% 100 ML 25 ML IV ×3 (00:15→16:42)
[2020-10-29] MEDS: POTASSIUM CHLORIDE IN WATER 10 MEQ/100 ML PIGGYBACK 100 MEQ IV (00:18)
[2020-10-29] MEDS: DEXMEDETOMIDINE HCL 200 MCG in SODIUM CHLORIDE 0.9% 48 ML 7.875 ML IV (05:21)
[2020-10-29] MEDS: INSULIN LISPRO 100 UNIT/ML 3ML VIAL SUBCUT (05:48)
[2020-10-29 05:55] LABS: Add Manual Diff / Slide Review NO; Basophils Absolute Auto 100 /uL (0-100); Basophils Percent Auto 0.9 % (0-2); Eosinophils Absolute Auto 0 /uL (0-450); Eosinophils Percent Auto 0.3 % (2-4); Hematocrit 33.2 % (41-53); Hemoglobin 11.5 g/dL (13.5-17.5); Lymphocytes Absolute Auto 900 /uL (1100-4500); Lymphocytes Percent Auto 6.6 % (25-40); Mean Corpuscular HGB Conc 34.6 % (30-36); Mean Corpuscular Hemoglobin 31.2 PG (26-34); Mean Corpuscular Volume 90.2 fL (80-100); Monocytes Absolute Auto 1200 /uL (0-900); Monocytes Percent Auto 8.8 % (3-14); Neutrophils Absolute Auto 11700 /uL (1500-7000); Neutrophils Percent Auto 83.4 % (50-75); Platelet Count 251 X10^3/uL (150-400); Red Blood Cell Count 3.69 X10^6/uL (4.5-5.9); Red Cell Distribution Width 14.4 % (11.6-14.8); White Blood Cell Count 14.1 X10^3/uL (4.5-11.0)
[2020-10-29 06:05] LABS: BUN Creatinine Ratio 30.8 (6-22); Blood Urea Nitrogen 20 mg/dL (9-20); Calcium 8.3 mg/dL (8.4-10.2); Carbon Dioxide 26 mmol/L (22-32); Chloride 104 mmol/L (98-107); Estimated Glomerular Filt Rate > 60.0 mL/min (>60); Glucose 170 mg/dL (80-110); HEMOLYSIS < 15 (0-50); Sodium 134 mmol/L (137-145)
--- NOTE | 2020-10-29 06:09 | PC.NURSE ---
Headliner Installer Note-Patient remains on ventilator FIO2 .30 PEEP 8 TV 500 RR 16, patient is breathing with vent at 16, occasionally will override to 20, lung sounds are coarse, but clear some after coughing and suctioning. Sedated with Precedex at 0.5mcg/kg/hr, rouses with stimulation, sx, attempted to get OOB once, RASS -2 to -3, FLACC 1-4. HR SR to SB trending downward, BP 140s/90s to 170s/100s trending upward. Dr Solis notified via [facility] camera about about vital trends, stated it is a common side affect of Precedex, no new orders at this time. Will continue to monitor. Tolerating tube feeding at 45ml/hr, residuals 5-10ml, bowel sounds active.
[2020-10-29] MEDS: ENOXAPARIN 40 MG/0.4 ML SYRINGE SUBCUT (08:40)
[2020-10-29] MEDS: levETIRAcetam 1,000 MG in SODIUM CHLORIDE 0.9% 100 ML 440 ML IV ×2 (08:41→21:14)
[2020-10-29] MEDS: FAMOTIDINE 20 MG/2 ML VIAL IV (08:41)
--- NOTE | 2020-10-29 09:36 | PC.NURSE ---
Addendum entered by Marta Keller R.N. 10/29/20 13:55: pt extubated 1225; pt awake, following directions. O2 to 3L/NC, ET 20. pt having periods of unresponsiveness to sternal rub; RR 8, ET 18. Just prior to giving Narcan, pt woke up, RR [address] Durán notified. BP 136/86. restraints off. Bath done. Addendum entered by Marta Keller R.N. 10/29/20 11:25: Dr. Durán in to see pt after 2hrs of breathing trial. attempted to extubate but pt unresponsive to sternal rub. Precedex off; Dr. Durán notified. Original Note: BP 160-170's/110's whether pt resting or awake and restless. precedex at 0.5mcg/kg/hr. Tube feeding off for potential extubation. Dr. Durán notified of BP. Weaning trial in progress with precedex infusing per Dr. Durán; pt calm, restrained
[2020-10-29] MEDS: THIAMINE 200 MG in SODIUM CHLORIDE 0.9% 100 ML 408 ML IV (09:50)
[2020-10-29] MEDS: SODIUM CHLORIDE 0.9% 250 ML 50 ML IV (13:27)
[2020-10-29] MEDS: VANCOMYCIN 1,500 MG/300 ML PIGGYBACK 200 MG IV (14:27)
--- NOTE | 2020-10-29 16:14 | P.PN_ITS ---
Subjective Subjective Interval history: Patient was extubated today. He vaccillates between agitation and lethargy. He is awake and responsive now. Patient would like to have some Ice Tea. His voice is very soft and it is hard to understand what he is saying patient has a history of smoking, with likely COPD, he desaturates quickly Exam Vital Signs (past 8 hours): - 10/29/20 08:55 10/29/20 09:00 10/29/20 09:55 Temperature Pulse Rate 64 61 Respiratory Rate 21 18 Blood Pressure 172/106 H Pulse Oximetry 99 99 100 10/29/20 10:00 10/29/20 10:01 10/29/20 10:55 Temperature Pulse Rate 71 67 61 Respiratory Rate 24 Blood Pressure 161/106 H Pulse Oximetry 99 100 100 10/29/20 11:00 10/29/20 11:01 10/29/20 11:05 Temperature Pulse Rate 66 69 62 Respiratory Rate 24 27 H Blood Pressure 164/112 H 163/102 H Pulse Oximetry 99 99 99 10/29/20 11:55 10/29/20 12:00 10/29/20 12:30 Temperature 98.3 F Pulse Rate 66 66 Respiratory Rate 20 20 Blood Pressure 170/95 H Pulse Oximetry 98 98 92 10/29/20 12:55 10/29/20 13:00 10/29/20 13:55 Temperature Pulse Rate 64 63 57 L Respiratory Rate 26 H 22 18 Blood Pressure Pulse Oximetry 93 94 98 10/29/20 14:00 10/29/20 14:18 10/29/20 14:55 Temperature Pulse Rate 63 58 L 62 Respiratory Rate 22 Blood Pressure 166/107 H 136/86 Pulse Oximetry 98 95 10/29/20 15:00 10/29/20 16:00 10/29/20 16:01 Temperature 97.3 F L Pulse Rate 70 70 Respiratory Rate 21 22 Blood Pressure 157/95 H 154/97 H Pulse Oximetry 91 97 92 Fraction of Inspired Oxygen 35 Oxygen Delivery Method Humidification,Aerosol Mask Oxygen Flow Rate 10 Narrative Exam Narrative: Ill appearing male lying in bed Const Other: thick secretions noteded Resp Other: Decreased breath sounds Cardio Other: RRR [id number] GI Other: abdomen soft/ non tender/ non distended Extrem Other: hands puffy Objective Labs Result Diagrams: 10/29/20 05:48 10/29/20 05:48 Labs: Laboratory Results - last 24 hr 10/28/20 10/29/20 10/29/20 18:39 05:48 05:48 WBC 14.1 H RBC 3.69 L Hgb 11.5 L Hct 33.2 L MCV 90.2 MCH 31.2 MCHC 34.6 RDW 14.4 Plt Count 251 Neut % (Auto) 83.4 H Lymph % (Auto) 6.6 L [place] % (Auto) 8.8 Eos % (Auto) 0.3 L Baso % (Auto) 0.9 Neut # (Auto) 86570 H Lymph # (Auto) 900 L [place] # (Auto) 1200 H Eos # (Auto) 0 Baso # (Auto) 100 Sodium 134 L 134 L Potassium 3.4 4.0 Chloride 105 104 Carbon Dioxide 26 26 BUN 18 20 Creatinine 0.59 L 0.65 L Estimated GFR > 60.0 > 60.0 BUN/Creatinine Ratio 30.5 H 30.8 H Glucose 101 170 H Calcium 8.3 L 8.3 L PFSH Medical History Chicken pox (~1989) Partial blindness Psoriasis Family History Father Stroke Mother Cancer Brother Alcohol abuse Sister Murder Grandfather Stroke Grandmother Stroke Grandfather Stroke Grandmother Stroke Social History household members: none Smoking Status: Current every day smoker Assessment & Plan Assessment & Plan narrative: This is a 59 year old male with a PMH of psoriasis, ? substance use, ? seizure disorder. He was found down in a local hotel courtyard. In the emergency room today, the patient remained unresponsive and was intubated for airway protection. Patient was admitted to Medicine in the ICU for further evaluation and management. On the first night he required 2 pressors, now improved, found to have a new diagnosis of DM and antibiotics were started for a high WBC and CXR showing aspiration pneumonia. 1. possible toxic and/or metabolic encephalopathy, possible seizure - unclear if presentation was due to EtOH withdrawal seizure, ingestion of unknown substance or may also represent non-alcoholic seizure activity, so was given 1g Keppra IV. Continue 1g BID, consider neurology or transfer for EEG if no improvement. - UDS positive for benzos and methamphetamines. Per outside history with recent weight loss. - ativan infusion initially provided, changed to versed and fentanyl and then will try on Precedex today. Start sedation and breathing trials tomorrow if vent settings improved and leukocytosis improving. - head imaging thus far has not revealed any acute infarcts or mass lesions to explain mental status. - initial troponin negative, repeat to 0.065 then downtrended. Consider TTE. - extubated today -still hypoxic, suspect underlying COPD -Goal oxygen sat 88-92%, will start nebulizers 2. Septic shock secondary to aspiration pneumonia probably with some component of hypovolemic shock - CXR with LLL pneumonia. Likely due to either seizure or intubation. - Weaned pressor requirements, was on both levophed and vasopressin - UA negative. . -sputum growing MRSA -Vanco started today 3. alcohol use and probable withdrawal. - currently on versed infusion and will try to change to Precedex. Most probable etiology based on history remains alcohol withdrawal seizure. - SHIP PILOT DISPATCHER consultation when appropriate. -precedex off now 4. Diabetes, presumed new diagnosis - A1c 10.6%, currently on sliding scale insulin. Intermittent hyperglycemia. Started on lantus 5 U HS. Will need to continually adjust. - AM glucose 142. Presume this is the reason for patient's 50 lb weight loss recently per hotel staff, though will likely need outpatient age appropriate screening as well. - Not in DKA 5. hypokalemia - replete with IV and follow - 6. Hyponatremia, - mild with Na of 128 on admission. Now to 131. Continue NS and follow. 7. Elevated troponin, improved - likely in the setting of sepsis. As above consider TTE. No known cardiac history at this time. No evidence of ischemia on EKGs. 8. acute respiratory failure with hypoxia secondary to presumed aspiration pneumonia - continue zosyn, wean vent settings as able. 7. Probable Severe Protein Calorie Malnutrition -will start diet -may need speech evaluation PT/OT consult, D/C tess d/C IVF Code: FULL, unable to discuss surrogate or confirm code status given mental status. outside hotel staff reports patient's father recently. Niece and sister reportedly estranged though not confirmed. DVT: Lovenox daily I have utilized all available resources to review, update, and monitor his current medications Quality VTE Deep Vein Thrombosis/Pulmonary Embolism Present on Admission: No
[2020-10-29] MEDS: HALOPERIDOL 5 MG/ML VIAL 2 MG IV ×2 (16:41→18:50)
[2020-10-29 17:55] LABS: Fractionated Inspired Oxygen 28; HCO3 ABG 26 mmol/L (22-26); Oxygen Saturation ABG 88 % (95-100); PCO2 ABG 34.9 mmHg (35-45); PO2 ABG 50 mmHg (80-100); TCO2 ABG 27 mmol/L (21-31); pH ABG 7.47 (7.35-7.45)
[2020-10-29] MEDS: ALBUTEROL/IPRATROPIUM 3 ML AMPUL INH (18:12)
[2020-10-29] MEDS: LORazepam 2 MG/ML INJ IV ×3 (20:46→23:02)
[2020-10-29] MEDS: INSULIN GLARGINE 100 UNIT/ML 3ML PEN 12 UNIT SUBCUT (21:13)
--- NOTE | 2020-10-29 21:49 | PC.NURSE ---
Evening shift note: Pt was extubated at 1230 today, has had several episodes of becoming unresponsive for dayshift but only one time for this nurse, currently on 3L of O2, SpO2 sats are between 88-97%, pulido catheter removed pt has urinated, pt is incontinent of both urine and stool. Pt has had 6 loose stools in brief requiring 2 person changing. CIWA scores have been between 12-7. Beside swallow completed and pt passed, but needs to be fully awake, sitting up and needs cues. Bed low and locked, alarm on for safety, will continue to monitor.
[2020-10-30] VITALS (15 sets, daily range): BP systolic 130–176; BP diastolic 75–101; PULSE 56–79; RESP 17–29; TEMP 36.1–36.8; O2SAT 91–99
[2020-10-30] MEDS: DEXTROSE 50 % IN WATER 25 GM/50 ML SYRINGE IV (00:10)
[2020-10-30] MEDS: PIPERACILLIN/TAZO 3.375 GM in SODIUM CHLORIDE 0.9% 100 ML 25 ML IV ×4 (01:06→23:40)
[2020-10-30] MEDS: VANCOMYCIN 1,250 MG/250 ML PIGGYBACK 250 MG IV ×2 (01:36→14:30)
[2020-10-30] MEDS: LORazepam 2 MG/ML INJ IV (03:02)
[2020-10-30 04:22] LABS: Add Manual Diff / Slide Review NO; Basophils Absolute Auto 100 /uL (0-100); Basophils Percent Auto 1.3 % (0-2); Eosinophils Absolute Auto 100 /uL (0-450); Eosinophils Percent Auto 0.8 % (2-4); Hematocrit 32.6 % (41-53); Hemoglobin 11.2 g/dL (13.5-17.5); Lymphocytes Absolute Auto 1000 /uL (1100-4500); Lymphocytes Percent Auto 9.2 % (25-40); Mean Corpuscular HGB Conc 34.4 % (30-36); Mean Corpuscular Hemoglobin 30.7 PG (26-34); Mean Corpuscular Volume 89.1 fL (80-100); Monocytes Absolute Auto 1300 /uL (0-900); Monocytes Percent Auto 11.4 % (3-14); Neutrophils Absolute Auto 8600 /uL (1500-7000); Neutrophils Percent Auto 77.3 % (50-75); Platelet Count 269 X10^3/uL (150-400); Red Blood Cell Count 3.66 X10^6/uL (4.5-5.9); White Blood Cell Count 11.1 X10^3/uL (4.5-11.0)
[2020-10-30 04:26] LABS: Alanine Aminotransferase 29 IU/L (<50); Albumin 2.6 g/dL (3.5-5.0); Albumin Globulin Ratio 0.9 (1.0-2.8); Alkaline Phosphatase 116 U/L (38-126); Aspartate Aminotransferase 35 IU/L (17-59); BUN Creatinine Ratio 23.8 (6-22); Bilirubin Total 1.2 mg/dL (0.2-1.3); Blood Urea Nitrogen 10 mg/dL (9-20); Calcium 8.3 mg/dL (8.4-10.2); Carbon Dioxide 27 mmol/L (22-32); Chloride 103 mmol/L (98-107); Estimated Glomerular Filt Rate > 60.0 mL/min (>60); Globulin 2.8 g/dL (1.7-4.1); Glucose 60 mg/dL (80-110); HEMOLYSIS < 15 (0-50); Potassium 2.9 mmol/L (3.4-5.1); Sodium 134 mmol/L (137-145); Total Protein 5.4 g/dL (6.3-8.2)
[2020-10-30] MEDS: POTASSIUM CHLORIDE IN WATER 10 MEQ/100 ML PIGGYBACK 100 MEQ IV ×4 (05:11→08:06)
[2020-10-30] MEDS: ENOXAPARIN 40 MG/0.4 ML SYRINGE SUBCUT (08:05)
[2020-10-30] MEDS: levETIRAcetam 250 MG TABLET 1000 MG PO ×2 (08:06→20:12)
[2020-10-30] MEDS: FAMOTIDINE 20 MG TABLET PO ×2 (08:06→20:12)
[2020-10-30] MEDS: METOPROLOL ER 50 MG TABLET PO ×2 (08:06→20:12)
[2020-10-30] MEDS: MULTIVITAMIN 1 TABLET 1 TAB PO (08:08)
[2020-10-30] MEDS: THIAMINE 100 MG TABLET PO (08:08)
--- NOTE | 2020-10-30 08:35 | PM.PN.1 ---
Subjective Subjective Interval history: Patient was successfully extubated yesterday. He continues to be confused but is oxygenating well. He is now on room air. Exam Vital Signs (past 8 hours): - 10/30/20 03:28 10/30/20 04:00 10/30/20 07:25 Temperature 98.2 F 97.6 F Pulse Rate 72 66 56 L Respiratory Rate 28 H 24 18 Blood Pressure 136/75 159/93 H Pulse Oximetry 96 98 10/30/20 08:01 10/30/20 08:06 Temperature Pulse Rate 60 61 Respiratory Rate 20 Blood Pressure 176/94 H Pulse Oximetry 96 Fraction of Inspired Oxygen 35 Oxygen Delivery Method Room Air Oxygen Flow Rate 1 Narrative Exam Narrative: Ill appearing male lying in bed, very hoarse voice Resp Other: Decreased breath sounds with scattered crackles bilaterally Cardio Other: RRR nl Sl S2 GI Other: Abdomen soft/ non tender Extrem Other: hands puffy Psych Other: no hallucinations, slow to respond but awake and alert Objective Labs Result Diagrams: 10/30/20 04:10 10/30/20 04:10 Labs: Laboratory Results - last 24 hr 10/29/20 10/30/20 10/30/20 17:39 04:10 04:10 WBC 11.1 H RBC 3.66 L Hgb 11.2 L Hct 32.6 L MCV 89.1 MCH 30.7 MCHC 34.4 RDW 14.0 Plt Count 269 Neut % (Auto) 77.3 H Lymph % (Auto) 9.2 L [place] % (Auto) 11.4 Eos % (Auto) 0.8 L Baso % (Auto) 1.3 Neut # (Auto) 8600 H Lymph # (Auto) 1000 L [place] # (Auto) 1300 H Eos # (Auto) 100 Baso # (Auto) 100 ABG pH 7.47 H ABG pCO2 34.9 L ABG pO2 50 L ABG HCO3 26 ABG Total CO2 27 ABG O2 Saturation 88 L ABG Base Excess 2.0 FiO2 28 Sodium 134 L Potassium 2.9 L Chloride 103 Carbon Dioxide 27 BUN 10 Creatinine 0.42 L Estimated GFR > 60.0 BUN/Creatinine Ratio 23.8 H Glucose 60 L D Calcium 8.3 L Total Bilirubin 1.2 AST 35 ALT 29 Alkaline Phosphatase 116 Total Protein 5.4 L Albumin 2.6 L Globulin 2.8 Albumin/Globulin Ratio 0.9 L PFSH Medical History Chicken pox (~1989) Partial blindness Psoriasis Family History Father Stroke Mother Cancer Brother Alcohol abuse Sister Murder Grandfather Stroke Grandmother Stroke Grandfather Stroke Grandmother Stroke Social History household members: none Smoking Status: Current every day smoker Assessment & Plan Assessment & Plan narrative: This is a 59 year old male with a PMH of psoriasis, ? substance use, ? seizure disorder. He was found down in a local hotel courtyard. In the emergency room , the patient remained unresponsive and was intubated for airway protection. Patient was admitted to Medicine in the ICU for further evaluation and management. On the first night he required 2 pressors, now improved, found to have a new diagnosis of DM and antibiotics were started for a high WBC and CXR showing aspiration pneumonia. 1. Metabolic Encephalopathy- Etiology unclear Alcohol Related vs. Seizure. vs other Head CT negative Awake and alert today, but slow to respond ?Wernicke's vs. other 2. Septic shock secondary to aspiration pneumonia probably with some component of hypovolemic shock - CXR with LLL pneumonia. Likely due to either seizure or intubation. - -sputum growing MRSA -Vanco started today -continue Zosyn as well -Still with copious sputum, continue deep suctioning as needed 3. alcohol use and probable withdrawal. - No further evidence of withdrawal 4. Diabetes, presumed new diagnosis - A1c 10.6%, currently on sliding scale insulin. Intermittent hyperglycemia. Started on lantus 5 U HS. Will need to continually adjust. - AM glucose 142. Presume this is the reason for patient's 50 lb weight loss recently per hotel staff, though will likely need outpatient age appropriate screening as well. - Not in DKA -Start metformin as outpatient -insulin for now 5. hypokalemia - replete with IV and follow - 6. Hyponatremia, - mild with Na of 128 on admission. Now to 131. Continue NS and follow. 7. Elevated troponin, improved - likely in the setting of sepsis. As above consider TTE. No known cardiac history at this time. No evidence of ischemia on EKGs. 8. acute respiratory failure with hypoxia secondary to presumed aspiration pneumonia - continue zosyn, extubated, on room air 7. Probable Severe Protein Calorie Malnutrition -will start diet -may need speech evaluation PT/OT consult, D/C tess d/C IVF 8. Hypertension -will start norvasc today Transfer to Medical floor Quality VTE Deep Vein Thrombosis/Pulmonary Embolism Present on Admission: No
[2020-10-30] MEDS: lisinopriL 10 MG TABLET PO (10:05)
[2020-10-30] MEDS: POTASSIUM CHLORIDE 20 MEQ TAB 40 MEQ PO (10:07)
--- NOTE | 2020-10-30 12:43 | PT.IIE ---
Current Diagnoses Type 2 diabetes mellitus without complications (10/26/20) Hypo-osmolality and hyponatremia (10/26/20) Other psychoactive substance abuse, uncomplicated (10/26/20) Toxic encephalopathy (10/26/20) Pneumonia, unspecified organism (10/26/20) Pneumonitis due to inhalation of food and vomit (10/26/20) Acute respiratory failure with hypoxia (10/26/20) Unspecified convulsions (10/26/20) half-way (current) use of insulin (10/26/20) Medical History (Last Reviewed 10/26/20 @ 13:52 by Alex Bobby DO) Chicken pox (~1989) Partial blindness Psoriasis Physical Therapy Inpatient Evaluation/Re-Eval M1 PT/OT-IP Prior Functional Status Start: 10/30/20 08:56 Freq: NEEDED Status: Active Protocol: Document 10/30/20 12:43 AW (Rec: 10/30/20 13:29 AW [id number]) Medical Review Prior Functional Status Medical History Reviewed Yes Communication Unknown baseline communication . Mobility and Gait Unknown baseline mobility Activities of Daily Living and IADL's Pt has new [place] caregiver. Per DRY FINISHER notes, caregiver reports no limitation with ADL 's Prior Functional Level (Other details) Pt has history of polysubstance abuse and seizures per DRY FINISHER notes. Social History Household Members none Living Arrangements Homeless Additional Social History Comment Per DRY FINISHER notes, pt has resided at [facility] for a few years. access manager, Nuvia , is a source of support. He has a new [place] caregiver but she has only met the pt one time. M2 PT-IP Current Condition Start: 10/30/20 08:56 Freq: NEEDED Status: Active Protocol: Document 10/30/20 12:43 AW (Rec: 10/30/20 13:29 AW [id number]) Physical Therapy Current Condition Current Condition Evaluation Date 10/30/20 Treatment Diagnosis encephalopathy, seizures, impaired mobility and gait Onset Date 10/26/20 Precautions Other Precautions contact precautions, seizures, falls M3 PT-IP Subjective Start: 10/30/20 08:56 Freq: NEEDED Status: Active Protocol: Document 10/30/20 12:43 AW (Rec: 10/30/20 13:29 AW [id number]) Subjective Physical Therapy Visit Type Type Initial Evaluation Visit Start Time 12:21 Visit Stop Time 12:43 Total Visit Minutes 22 Notes Co-tx with OT Number of POWDER PRESS OPERATOR Visits 0 Physical Therapy Visit Comments Patient Comments Pt verbalizes consent to mobility. Speech is vaguely intelligible and pt speaks one -word responses. Therapy Pain Assessment Pain When Pain Assessed During Mobility Pain Present Pain Present Unable to Respond FLACC Pain Scale Face No particular expression Legs Uneasy, restless, tense Activity Arching, rigid, jerking Cry No cry (awake or asleep) Consolability Reassurable with touch FLACC Total 4 M4 PT-IP Mobility and Gait Start: 10/30/20 08:56 Freq: NEEDED Status: Active Protocol: Document 10/30/20 12:43 AW (Rec: 10/30/20 13:29 AW [id number]) PT-Bed Mobility Assessment Supine to Sit Supine to Sit Maximum Assistance,2 Person Assistance,Head of Bed Elevated Scooting Scooting to Edge of Bed Dependent PT-Transfer Assessment Equipment Transfer Assistive Device Gait Belt Orthotic/Prosthetic Devices or Brace: No Transfers Transfer Destination Chair Transfer Technique Squat Pivot Transfer Ability Level of Assist Maximum Assistance,2 Person Assistance,Use of Upper Extremities Comments Mobility Comments Pt was lying in bed as PT and OT arrived. BP was 140's/90's and SpO2 95% on room air. PT assisted with LE's toward right EOB as OT assisted from behind and pt completed max A x 2 supine to sit with HOB elevated. He needed [place] assist to place left hand on bed cane. Pt was instructed to pull forward with hand but he was unable. PT and OT used draw sheet to pull pt closer to EOB. Max to total assist was required for sitting as pt was unable to support himself . PT and OT provided max assist for squat pivot transfer. VS were stable. Pt was positioned on the chair with call light in reach. Curtain was left open for max visibility from nurse station. Gait Assessment Comments Gait Comments Unable at this time. PT-Balance Assessment Sitting Balance and Reactions Static Sitting Balance Ability Poor Dynamic Sitting Balance Ability Poor M5 PT-IP Objective Assessments Start: 10/30/20 08:56 Freq: NEEDED Status: Active Protocol: Document 10/30/20 12:43 AW (Rec: 10/30/20 13:29 AW [id number]) Orientation Orientation/Cognition Level of Alertness Lethargic Orientation Name Language Function Ability Garbled Speech Safety Awareness Decreased Safety Awareness Gross Range of Motion Lower Extremity ROM Assessment Within Functional Limits Strength Comments Strength Comments Unable to formally assess due to confusion, cognitive status . Pt unable to lift legs from the bed during bed mobility. Sensation Assessment Comments Sensation Comments Unable to assess M6 PT-IP Treatment Start: 10/30/20 08:56 Freq: NEEDED Status: Active Protocol: Document 10/30/20 12:43 AW (Rec: 10/30/20 13:29 AW [id number]) Physical Therapy Treatment Education Education Provided Safety M7 PT-IP Assessment and Plan Start: 10/30/20 08:56 Freq: NEEDED Status: Active Protocol: Document 10/30/20 12:43 AW (Rec: 10/30/20 13:29 AW [id number]) PT Summary Assessment and Plan Potential Rehabilitation Potential Fair Status of Condition at Evaluation Evolving Summary Impairments Pain,Strength,Balance, Cognition,Bed Mobility, Transfers,Gait,Activity Tolerance Assessment Summary Leighton is a 59 yo man with history of polysubstance abuse who was seen for PT evaluation four days after being found down in a motel courtyard. He was intubated initially and weaned yesterday . Per chart notes, pt has dealt with housing insecurity and has stayed at a local motel for ~2 years. He has a new [place] caregiver but it is unclear how many hours and what she will be able to do for him. Pt required max assist with bed mobility and transfers on evaluation. He would benefit from SNF rehab to improve strength and mobility independence. PT will continue to assess as pt progresses. Goals Bed Mobility Goal Standby Assistance Transfer Goal Standby Assistance,Front Wheeled Walker Gait Goal Standby Assistance,Front Wheel Walker Gait Distance 75 Other Goals LTG: Improve transfers and ambulation to SBA without AD Days to Meet Goals 10 Frequency of Treatment Frequency Of Treatment Once a Day Treatment Plan Physical Therapy Treatment Plan Bed Mobility Training,Transfer Training,Gait Training, Therapeutic Exercise,Balance Retraining,Discharge Planning, Neuromuscular Re-ed, Coordination Retraining Other Recommendations and Next Treatment bed mobility, transfers Focus Precautions Other Precautions contact precautions, seizures, falls Recommendations To Nursing Amount of Assist Needed Mechanical Lift Discharge Recommendations PT Discharge Recommendations SNF Rehab Transportation Needs at Discharge Wheelchair/Cabulance,Stretcher /Ambulance
--- NOTE | 2020-10-30 13:38 | OT.IP.EVAL ---
Current Diagnoses Type 2 diabetes mellitus without complications (10/26/20) Hypo-osmolality and hyponatremia (10/26/20) Other psychoactive substance abuse, uncomplicated (10/26/20) Toxic encephalopathy (10/26/20) Pneumonia, unspecified organism (10/26/20) Pneumonitis due to inhalation of food and vomit (10/26/20) Acute respiratory failure with hypoxia (10/26/20) Unspecified convulsions (10/26/20) alf (current) use of insulin (10/26/20) Past Medical History (Last Reviewed 10/26/20 @ 13:52 by Alex Bobby DO) Chicken pox (~1989) Partial blindness Psoriasis Occupational Therapy Inpatient Evaluation/Re-Eval M1 PT/OT-IP Prior Functional Status Start: 10/30/20 08:56 Freq: NEEDED Status: Active Protocol: Document 10/30/20 13:22 [facility] (Rec: 10/30/20 13:38 [facility] [id number]) Medical Review Prior Functional Status Communication Pt not able to say his history or prior status at this time. Social History Household Members none Living Arrangements Homeless M2 OT-IP Current Condition Start: 10/30/20 13:19 Freq: Status: Active Protocol: Document 10/30/20 13:22 [facility] (Rec: 10/30/20 13:38 [facility] [id number]) Occupational Therapy Current Condition Current Condition Evaluation Date 10/30/20 Treatment Diagnosis Metabolic encephalopathy, decreased mobility Diagnosis Onset Date 10/26/20 M3 OT- IP Subjective and Pain Start: 10/30/20 13:19 Freq: Status: Active Protocol: Document 10/30/20 13:22 [facility] (Rec: 10/30/20 13:38 [facility] [id number]) OT- Subjective Occupational Therapy Visit Type Type Initial Evaluation Visit Start Time 12:23 Visit Stop Time 12:45 Total Visit Minutes 22 Notes PT present during OT eval due to pt needing extensive assist for mobility needs. Occupational Therapy Visit Comments Patient Comments Pt agreed to get up to the recliner. OT Pain Assessment Pain When Pain Assessed At Rest Pain Present Pain Present Denied Pain M4 OT- IP ADL's Start: 10/30/20 13:19 Freq: Status: Active Protocol: Document 10/30/20 13:22 [facility] (Rec: 10/30/20 13:38 [facility] [id number]) OT [id number] Comments OT Self-Feeding Comments Not at meal time. OT ADL-Grooming Comments OT Grooming Comments Not performed. OT ADL-Oral Care Comments Oral Care Comments NOt performed. OT ADL-Dressing General Eval Lower Body Dressing Ability Total Assistance Areas Needing Assistance Socks OT ADL-Toileting Comments OT Toileting Comments NOt at this time. OT ADL-Bathing Comments OT Bathing Comments SPonge bath more appropriate at this time. M5 OT- IP IADL's Start: 10/30/20 13:19 Freq: Status: Active Protocol: Document 10/30/20 13:22 [facility] (Rec: 10/30/20 13:38 [facility] [id number]) OT-Instrumental Activities of Daily Living Deficits IADL Deficits Identified Deficits Home Safety Awareness Awareness of Need for Assistance at Home Decreased Awareness Home Safety Comments At this time pt only able to answer yes/no questions and follow simple concrete commands. M6 OT- IP Functional Cognition Start: 10/30/20 13:19 Freq: Status: Active Protocol: Document 10/30/20 13:22 [facility] (Rec: 10/30/20 13:38 [facility] [id number]) Cognitive Factors Limiting Selfcare Function Cognitive Ability Level of Alertness Alert,Drowsy Patient Orientation Name Ability to Follow Commands Able to Follow One Step Commands with Increased Time, Able to Follow One Step Commands with Repetition Cognitive Comments Cognitive Assessment Comments Unable to fully assess due to pt still not fully alert and awake. Pt able to respond to his name and answer yes/no questions at this time. OT- Vision and Hearing OT- Hearing Assessment OT- Hearing Assessment WFL OT- Vision Assessment Vision Assessment Comments Per medical chart states that pt is partially blind. M7 OT- IP Mobility and Balance Start: 10/30/20 13:19 Freq: Status: Active Protocol: Document 10/30/20 13:22 [facility] (Rec: 10/30/20 13:38 [facility] [id number]) OT- Bed Mobility Assessment Sit to Supine Sit to Supine Assist Maximum Assistance,2 Person Assistance Scooting Scooting to Edge of Bed Maximum Assistance,2 Person Assistance OT-Transfer Assessment Sit to and From Stand Sit to and from Stand Maximum Assistance,2 Person Assistance Transfers Transfer Ability Maximum Assistance,2 Person Assistance Technique Transfer Destination Bed,Chair Transfer Technique Squat Pivot Devices Transfer Assistive Devices None,Gait Belt Comments Mobility Comments Assist to get his legs to the edge of the bed and heavy use of green pad to get him to the edge of the bed. MAX AX2 to to squat pivot to the recliner and nursing there to assist with tubes and lines. OT- Gait Assessment Comments Gait Ability Comments Not at this time. OT- Balance Assessment Sitting Balance and Reactions Static Sitting Balance Ability Poor Dynamic Sitting Balance Ability Poor Standing Balance and Reactions Static Standing Balance Ability Poor Dynamic Standing Balance Ability Poor Comments Other Balance Tests/Deviations/Treatment MOD/MAX A x1 for sitting : balance at the edge of the bed , pt heavy posterior lean and lataral tilt to the left as well. M8 OT- IP Objective Assessments Start: 10/30/20 13:19 Freq: Status: Active Protocol: Document 10/30/20 13:22 [facility] (Rec: 10/30/20 13:38 [facility] [id number]) OT Gross Range of Motion Upper Extremity Range of Motion Assessment Bilaterally Impaired ROM Impairments Hard to assess, aspt having difficulty to follow commands. OT Strength Upper Extremity Strength Assessment Bilaterally Impaired OT Sensation Assessment Comments Summary Comments Pt states able to feel light touch when his arms were touched. M9 OT- IP Assessment and Plan Start: 10/30/20 13:19 Freq: Status: Active Protocol: Document 10/30/20 13:22 [facility] (Rec: 10/30/20 13:38 [facility] [id number]) OT Summary Assessment and Plan Potential Rehabilitation Potential Fair Analytic Complexity at Evaluation Moderate Summary OT Impairments Pain,Range of Motion,Strength, Balance,Coordination, Functional Cognition, Functional Mobility,Self- Feeding,Grooming,Dressing, Toileting,Bathing,Toilet Transfers,Shower Transfers, Activity Tolerance Progress Towards Goals Slow Progress due to Medical Issues,Slow Progress due to Activity Tolerance,Slow Progress due to Cognition Assessment Summary Pt MOD complexity and here due to metabolic encephalopathy and prior was MOD I for all needs and living in at [facility] and had a caregiver. At this time pt is MAX AX for all mobility needs and also extensive assist for ADl needs. Pending progress, pt may need to go to skilled rehab prior to going back home versus home with caregiver. Goals Self-Feeding Goal Independent Grooming Goal Independent Dressing Goal Independent Toileting Goal Independent Bathing Goal Independent Toilet Transfer Goal Independent Shower Transfer Goal Independent Patient/Caregiver Education Goal Caregiver Independent Assisting Patient Days to Meet Goals 25 Frequency of Treatment Frequency Of Treatment Once a Day Treatment Plan OT Treatment Plan ADL Training,Functional Cognition Training,Functional Mobility,Patient/Family Education,Discharge Planning Other Treatment Recommendations and Next Transfer [place] [facility] [place]WW MAX A Treatment Focus X2. Discharge Recommendations OT Discharge Recommendations SNF Rehab Transportation Needs at Discharge Wheelchair/Cabulance
--- NOTE | 2020-10-30 13:56 | DIET.PN1 ---
Dietary Progress Note RD Note: 59y M successfully extubated this morning and tolerating dysphagia diet consuming 100% with 1:1 assist [address] time[address] RD adjusted meal tray to follow CCD4 diet as pt is newly dx DM c A1c 9.6. RD unable to provide patient education secondary to pt still being a bit groggy. RD to attempt education tomorrow when pt more alert. Nutrition Dx: Severe Acute PCM r/t food insecurity, etoh use and undiagnosed DM2 aeb pt has 9% unintended weight loss in 4mo (severe), pt homeless living in hotel c hx etoh reliance, pt found down and unresponsive in parking lot, A1c 9.6 with no known prior hx of DM2.
[2020-10-30 15:07] LABS: Cholesterol 99 mg/dL (140-199); HDL Cholesterol 29 mg/dL (40-60); LDL Cholesterol Calculated 54 mg/dL (<100); Triglycerides 82 mg/dL (35-150)
[2020-10-30 15:08] LABS: Magnesium 1.4 mg/dL (1.6-2.3)
[2020-10-30] MEDS: MAGNESIUM CHLORIDE 64 MG TABLET 128 MG PO (16:40)
--- NOTE | 2020-10-30 18:27 | ST.IPCSEOM ---
Visit Care Team Role Provider Type Carlos Arce MD Emergency Provider Physician Referring Provider Specialty: Emergency Medicine Address: [address] [place] [address], [id number] Email: [email or web address] Alex Bobby DO Admit Provider Physician Attending Provider Specialty: Internal Medicine Address: [address] [place] [address], [id number] Email: [email or web address] Current Diagnoses Type 2 diabetes mellitus without complications (10/26/20) Hypo-osmolality and hyponatremia (10/26/20) Other psychoactive substance abuse, uncomplicated (10/26/20) Toxic encephalopathy (10/26/20) Pneumonia, unspecified organism (10/26/20) Pneumonitis due to inhalation of food and vomit (10/26/20) Acute respiratory failure with hypoxia (10/26/20) Unspecified convulsions (10/26/20) terminal gauger (current) use of insulin (10/26/20) Past Medical History (Last Reviewed 10/26/20 @ 13:52 by Alex Bobby DO) Chicken pox (Medical ~1989) Partial blindness (Medical) Psoriasis (Medical) Speech-Language Pathology Swallow Evaluation 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 Durán Reason for Referral Difficulty swallowing and low intelligibility Setting Assessment Location Acute Care Visit Type Note Type Initial evaluation Next Note Type Next Note Type Treatment Note Patient Information Identification Type Name,Date of ,Wristband History Leighton is a 59 year old male. He has a history of polysubstance abuse and seizures per medical chart. 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 Per past medical report, patient was down for 1 hour, reviewed video and appeared to have been given a pill of some sort. PMH of psoriasis, ? substance use, ? seizure disorder, partial blindness ( based on outpatient form). Once admitted, the patient remained unresponsive and was intubated for airway protection. 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 There was no intracranial hemorrhage. MRI was performed which also showed no acute abnormalities. Per results of chest x-ray, patient has patchy airspace opacity noted in the left lower lobe compatible with pneumonia. New airspace opacification in the medial aspect of the right lower lobe suspicious for pneumonia. No pleural effusions or pneumothorax. Subjective Observations Leighton was seated in a chair, alert and watching TV when the clinician arrived. He was soft-spoken with a flat affect . Leighton was unable to orient to place or time, but was able to orient to self (e.g., age, name, ). Responses to questions followed a somewhat coherent storyline, though were unrelated to the original question. Speech was characterized by reduced loudness, mild slurred speech, and voice was slightly hoarse . Reported by Patient Other Symptoms History of aspiration or pneumonia Current Diet Pureed,Thin liquids Baseline Feeding Method Dependent for feeding Patient Questionnaire No Objective Assessment Mental Status Alert,Responsive,Cooperative, Confused Dentition Missing teeth Lip Function Moderate impairment Observation of Lips at Rest Symmetrical Tongue Function Moderate impairment Observations of Tongue at Rest Within normal limits Tongue Protrusion Reduced range of motion, Reduced strength Tongue Lateralization Reduced range of motion, Reduced strength Observations of Jaw at Rest Within normal limits Phonation Hoarse,Reduced loudness Comment Unable to complete full oral mechanism exam due to confusion and limited ability to follow directions. Limited view of intraoral structures due to reduced ROM when asked to open mouth. Leighton presented with missing dentition (minimal lower teeth and no upper teeth), which did impact his ability to masticate. He was unable to pucker his lips, had reduced strength and ROM for tongue protrusion, elevation, and lateralization. Despite difficulty with strength and ROM of lips, Leighton maintained an oral seal when eating and had no anterior loss of bolus. He was able to maintain an oral seal around a straw, though effortful and slow sucking was observed. Food and Liquid Trials Position During Assessment Upright (90 degrees),In chair Liquids Trialed Ice chips,Thin Solids Trialed Puree,Dysphagia Mechanical Administration Type Tea spoon,Straw,Dependent feeding Oral Impairment Moderately impaired Oral Phase Comments Leighton presented with slow mastication, likely due to missing dentition, prolonged holding of food prior to swallowing, and difficulty using a straw. No anterior loss of bolus observed, though straw drinking appeared effortful and slow. Difficulty with straw drinking likely due to muscle weakness rather than coordination or cognition . When eating and drinking, Leighton required assistance to move food to his mouth and hold his cup while taking a drink. Difficulty with transporting food to his mouth likely due to reduced arm strength rather than cognitive difficulties or coordination. No oral residue or pocketing following swallow. Pharyngeal Impairment Within functional limits Pharyngeal Phase Comments Leighton presented with no signs/symptoms of aspiration ( e.g., coughing, choking, wet vocal quality) when eating, though a limited number of trials were completed. Palpation during trials indicate hyolaryngeal excursion and elevation within functional limits. Fatigue/Endurance Moderate fatigue Comment Leighton appeared to fatigue throughout the assessment. Completed 1 trial with ice chip, 3 sips of water through a straw, 2 trials of peaches ( single peach cube per trial), and 1 trial of pear (single pear cube). By the end of the trials, Leighton's eyes were beginning to close. Missing dentition may contribute to fatigue due to increased mastication time. Muscle weakness may contribute to fatigue due to effort required during straw drinking. Fatigue over limited trials is concerning as it may indicate decreased swallow safety due to fatigue over the course of a full meal. Strategies Attempted Chin tuck Response/Comments Patient naturally held head in chin tuck position throughout trials. Unable to assess if positioning aided in swallow safety as neutral position was not assessed. Findings Swallowing Function Oral phase dysphagia Severity of Swallow Impairment Mildly-moderately impaired Contributing Factors to Swallow Difficulty following Impairment directions,Reduced oral strength/coordination/ sensation,Mastication inefficiency,Delayed swallow initiation Prognosis Fair Based on Cognitive status,Age, Comorbidities Comment Leighton presents with mild- moderate oral phase dysphagia characterized by prolonged mastication and muscle weakness. Prolonged mastication likely due to poor dentition. Both poor dentition and muscle weakness contribute to increased fatigue when eating/drinking, even across limited trials, which may lead to reduced swallow safety over the course of a meal. Impact on Safety and Functioning Risk for inadequate nutrition/ hydration Recommendations Instrumental Assessment No Swallowing Treatment Yes Recommended Solids Dysphagia Mechanical Recommended Liquids Thin Other Recommendations Therapy is recommended at this time to increase Leighton's ability to increase swallow safety and maintain adequate nutrition and hydration while on a least restrictive diet and to continue assessments of his voice, cognition, and language during recovery. Safety Precautions/Swallowing Feed only when alert,Reduce Recommendations distractions,Remain upright ( 90 degrees) during all oral intake,Upright position at least 30 minutes after meals, Small bites and sips when eating,Slow rate; swallow between bites,1 to 1 feeding assistance,Strict oral care after intake Medication Recommendations Crushed in Carrier Discharge Recommendations residential facility Education Patient/Caregiver Education Patient requires further education/training Goals Short-term Goals 1. Leighton will engage in assessments of his voice, cognition, and language. 2. Leighton will complete oral motor exercises to increase strength and ROM of oral structures for the purposes of increasing swallow safety. Long-term Goals Leighton will show no overt signs or symptoms of aspiration and maintain adequate nutrition and hydration while on a least restrictive diet.
[2020-10-30] MEDS: INSULIN GLARGINE 100 UNIT/ML 3ML PEN 10 UNIT SUBCUT (21:12)
--- NOTE | 2020-10-30 21:57 | PC.NURSE ---
Incontinent of stool and urine X2; Allevyn drsg compromised X2; barrier cream to coccyx and open to air; repositioning; A&O X3; blaire lift from chair to bed; HOB at 30 degrees; bed alarm active
[2020-10-31] VITALS (12 sets, daily range): BP systolic 116–154; BP diastolic 70–98; PULSE 66–90; RESP 14–20; TEMP 36.1–36.9; O2SAT 92–98
[2020-10-31 02:35] LABS: Vancomycin Trough 8.9 ug/mL (10-20)
[2020-10-31] MEDS: VANCOMYCIN 1,250 MG/250 ML PIGGYBACK 250 MG IV (03:55)
[2020-10-31 06:38] LABS: Vancomycin Peak 23.1 ug/mL (20-40)
[2020-10-31] MEDS: PIPERACILLIN/TAZO 3.375 GM in SODIUM CHLORIDE 0.9% 100 ML 25 ML IV ×2 (08:08→16:23)
[2020-10-31] MEDS: lisinopriL 10 MG TABLET PO (08:10)
[2020-10-31] MEDS: MAGNESIUM CHLORIDE 64 MG TABLET 128 MG PO (08:10)
[2020-10-31] MEDS: FAMOTIDINE 20 MG TABLET PO ×2 (08:10→20:25)
[2020-10-31] MEDS: levETIRAcetam 250 MG TABLET 1000 MG PO ×2 (08:10→20:25)
[2020-10-31] MEDS: THIAMINE 100 MG TABLET PO (08:11)
[2020-10-31] MEDS: METOPROLOL ER 50 MG TABLET PO ×2 (08:11→20:25)
[2020-10-31] MEDS: MULTIVITAMIN 1 TABLET 1 TAB PO (08:11)
[2020-10-31] MEDS: ENOXAPARIN 40 MG/0.4 ML SYRINGE SUBCUT (08:21)
[2020-10-31] MEDS: INSULIN LISPRO 100 UNIT/ML 3ML VIAL SUBCUT ×3 (09:04→17:22)
--- NOTE | 2020-10-31 09:06 | RT ---
Addendum entered and electronically signed by Astrid Ribera, RT 10/31/20 09:24: CORRECTION- PEEP OF 8. Original Note: RN CALLED BECAUSE O2 SATS WERE DROPPING. O2 ON 60% FIO2 WERE 88-89%. RN INSTRUCTED ME TO INCREASE FIO2 TO 805. WHEN I QUESTIONED HAVING TO CHECK WITH TELE-DOC SHE STATED THAT SHE WOULD BE TALKING TO HIM AND WOULD INFORM HIM. I REMINDED HER THAT RT'S ARE BEING INSTRUCTED TO CALL TELE-DOC BEFORE MAKING ANY VENT CHANGES. WELL SHE ASKED ME TO DO THE ORDERED 0700 ABG EARLY AND THEN WE WOULD MAKE A CALL TO DR. HELMS. PT'S PO2 WAS 65 ON THE ABG DONE @ 0615. DR. STEWART WAS NOTIFIED AND VENT SETTING WERE DISCUSSED. DR. STEWART ORDERED THAT THE PEEP BE INCREASED TO 7 AND THE FIO3 BE DECREASED TO 70% WHEN THE PT'S SATS WERE 90% OR GREATER.
--- NOTE | 2020-10-31 10:15 | PC.NURSE ---
Addendum entered by Kirstin Land R.N. 10/31/20 10:34: Pt inquired about personal belongings, including wallet; Allie POWER spoke with nephew, Vahe who provided phone number for Nuvia, manager banking of [facility]. Nuvia confirmed that pt's belongings are locked up in his Airtime room. Original Note: A&O to self, birthday; pt is reoriented to place but not year; CIWA 1 for disorientation; 2-max assist with gait belt to chair; chair alarm active; feet floating on pillow 1+ edema to BL ankles and feet ; ls diminished to bll lobes; IV abx infusing; PICC patent
[2020-10-31] MEDS: VANCOMYCIN 1,000 MG/200 ML PIGGYBACK 200 MG IV ×2 (12:22→20:28)
--- NOTE | 2020-10-31 14:35 | PT.IPTN ---
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 (10/26/20) Physical Therapy Treatment Note M2 PT-IP Current Condition Start: 10/30/20 08:56 Freq: NEEDED Status: Active Protocol: Document 10/30/20 12:43 AW (Rec: 10/30/20 13:29 AW [id number]) Physical Therapy Current Condition Current Condition Evaluation Date 10/30/20 Treatment Diagnosis encephalopathy, seizures, impaired mobility and gait Onset Date 10/26/20 Precautions Other Precautions contact precautions, seizures, falls M3 PT-IP Subjective Start: 10/30/20 08:56 Freq: NEEDED Status: Active Protocol: Document 10/31/20 14:35 AB (Rec: 10/31/20 17:18 AB [id number]) Subjective Physical Therapy Visit Type Type Treatment Note Visit Start Time 14:35 Visit Stop Time 15:05 Total Visit Minutes 30 Number of TARP REPAIRER Visits 0 Physical Therapy Visit Comments Patient Comments pt with confusion but agreed to get up; pt seems to have microphonia requiring repetitions to understand pt's verbal responses M4 PT-IP Mobility and Gait Start: 10/30/20 08:56 Freq: NEEDED Status: Active Protocol: Document 10/31/20 14:35 AB (Rec: 10/31/20 17:18 AB [id number]) PT-Bed Mobility Assessment Supine to Sit Supine to Sit Maximum Assistance,1 Person Assistance Sit to Supine Sit to Supine Maximum Assistance,1 Person Assistance,2 Person Assistance PT-Transfer Assessment Sit to and From Stand Sit to and from Stand Maximum Assistance,1 Person Assistance,Use of Upper Extremities Equipment Transfer Assistive Device Gait Belt,Front Wheeled Walker Orthotic/Prosthetic Devices or Brace: No Comments Mobility Comments pt completed supine to sit max A and max cues. pt is with confusion and requires max cues with all tasks. completed sit to stand max A and cues and ambulated using FWW max A x 1 and max cues. pt with decrease safety awareness and was trying to get safety belt off while standing but has unsteady standing balance. pt required max Ax 1-2 to sit on EOB during standing due to LOB while pt was trying to get safety belt off and pt unable to follow directions and unable to be redirected back to ambulation task. pt completed sit to supine max A x 2 and max cues. positioned pt on bed. call light and table placed within reach. Gait Assessment Gait Gait Assistance Required: Maximum Assistance,1 Person Assist,2 Person Assist Distance (Feet) 10 Able to Maintain Weight Bearing Status Yes During Gait Assistive Devices Assistive Device Gait Belt,Front Wheeled Walker Orthotic/Prosthetic Devices or Brace: No Gait Deviations General Gait Pattern Antalgic,Decreased Stride Length,Decreased Feet Clearance,Festinating,Step-to Gait Factors Limiting Gait Function Factors Limiting Gait Function Decreased Activity Tolerance, Decreased Strength,Difficulty Following Directions,Poor Balance,Poor Safety Awareness Comments Gait Comments pls refer to mobility section for details M5 PT-IP Objective Assessments Start: 10/30/20 08:56 Freq: NEEDED Status: Active Protocol: Document 10/30/20 12:43 AW (Rec: 10/30/20 13:29 AW [id number]) Orientation Orientation/Cognition Level of Alertness Lethargic Orientation Name Language Function Ability Garbled Speech Safety Awareness Decreased Safety Awareness Gross Range of Motion Lower Extremity ROM Assessment Within Functional Limits Strength Comments Strength Comments Unable to formally assess due to confusion, cognitive status . Pt unable to lift legs from the bed during bed mobility. Sensation Assessment Comments Sensation Comments Unable to assess M6 PT-IP Treatment Start: 10/30/20 08:56 Freq: NEEDED Status: Active Protocol: Document 10/31/20 14:35 AB (Rec: 10/31/20 17:18 AB [id number]) Physical Therapy Treatment Education Education Provided Safety M7 PT-IP Assessment and Plan Start: 10/30/20 08:56 Freq: NEEDED Status: Active Protocol: Document 10/31/20 14:35 AB (Rec: 10/31/20 17:18 AB [id number]) PT Summary Assessment and Plan Potential Rehabilitation Potential Fair Summary Impairments Pain,ROM,Strength,Balance, Coordination,Sensation,Tone, Cognition,Bed Mobility, Transfers,Gait,Activity Tolerance Progress Towards Goals Slow Progress due to Medical Issues,Slow Progress - Other Assessment Summary pt requiring max A x 1-2 and max cues with all tasks. pt with cognitive issues affecting safety awareness and mobility independence. pt will require SNF rehab to improve strength and mobility. Goals Bed Mobility Goal Standby Assistance Transfer Goal Standby Assistance,Front Wheeled Walker Gait Goal Standby Assistance,Front Wheel Walker Gait Distance 75 Other Goals LTG: Improve transfers and ambulation to SBA without AD Days to Meet Goals 10 Frequency of Treatment Frequency Of Treatment Once a Day Treatment Plan Physical Therapy Treatment Plan Bed Mobility Training,Transfer Training,Gait Training, Therapeutic Exercise,Balance Retraining,Discharge Planning, Neuromuscular Re-ed, Coordination Retraining Precautions Other Precautions contact precautions, seizures, falls Recommendations To Nursing Amount of Assist Needed 2 Person Assist Discharge Recommendations PT Discharge Recommendations SNF Rehab Transportation Needs at Discharge Wheelchair/Cabulance,Stretcher /Ambulance
--- NOTE | 2020-10-31 16:09 | CM.DPC ---
DCP continued: CM attempted to meet with patient at the bedside. Patient is not oriented to Person, Place or time. CM attempted to contact patients [facility] primary care sales representative Daily at [phone] and left voice mail asking her to call department back. CM attempting to get a hold of [place] protective services case worker to get some information to do DC planning and left voice mail with main office trying to determine who the CM is . Nuvia is Application Systems Architect and long time friend [phone]. Patient has nephew Albert anthony phone number [phone]. Patient currently lives in [facility] and has Daily who provides CG services to him through [facility]. CM sent Referral to August at [facility] to review for possible admission for rehabilitation prior to return back to [facility] with primary care sales representative. DC planning continues... pending PT, OT evaluations and communication with [place] primary care sales representative and case manager to determine what services patient already receives. DC plan SNF VS home ( back to [facility]) with HH, [place] care givers with new assessment pending [facility] Inside Outside Sales Representative conversation and depending on cognition and recovery Fadia Jiménez RN
--- NOTE | 2020-10-31 16:13 | OT.IP.TRT ---
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 (10/26/20) Occupational Therapy Treatment Note M2 OT-IP Current Condition Start: 10/30/20 13:19 Freq: Status: Active Protocol: Document 10/30/20 13:22 [facility] (Rec: 10/30/20 13:38 [facility] [id number]) Occupational Therapy Current Condition Current Condition Evaluation Date 10/30/20 Treatment Diagnosis Metabolic encephalopathy, decreased mobility Diagnosis Onset Date 10/26/20 M3 OT- IP Subjective and Pain Start: 10/30/20 13:19 Freq: Status: Active Protocol: Document 10/31/20 16:16 [facility] (Rec: 10/31/20 16:25 [facility] [id number]) OT- Subjective Occupational Therapy Visit Type Type Treatment Note Visit Start Time 14:00 Visit Stop Time 14:13 Total Visit Minutes 13 Occupational Therapy Visit Comments Patient Comments Pt agreed to do grooming needs while in bed with HOB up. Patient/Caregiver Goals To have a beer. OT Pain Assessment Pain When Pain Assessed At Rest Pain Present Pain Present Pain Reported M4 OT- IP ADL's Start: 10/30/20 13:19 Freq: Status: Active Protocol: Document 10/31/20 16:16 [facility] (Rec: 10/31/20 16:25 [facility] [id number]) OT [id number]-Cilbkmo Comments OT Self-Feeding Comments Per SERVICE PROMOTER SALESPERSON pt is 1:1 feeder. OT ADL-Grooming General Evaluation Grooming Ability Minimal Assistance Areas Needing Assistance Retrieving/Set-up of Grooming Items Comments OT Grooming Comments TEDDY for completeness for his hair, pt having to use his left hand to to help hold up right arm to assist for grooming needs. OT ADL-Oral Care General Eval Oral Care Ability Moderate Assistance Comments Oral Care Comments Assist for pt to take in mouth wash so able to rinse his mouth out. OT held basin in place for pt to spit into. M5 OT- IP IADL's Start: 10/30/20 13:19 Freq: Status: Active Protocol: Document 10/30/20 13:22 [facility] (Rec: 10/30/20 13:38 [facility] [id number]) OT-Instrumental Activities of Daily Living Deficits IADL Deficits Identified Deficits Home Safety Awareness Awareness of Need for Assistance at Home Decreased Awareness Home Safety Comments At this time pt only able to answer yes/no questions and follow simple concrete commands. M6 OT- IP Functional Cognition Start: 10/30/20 13:19 Freq: Status: Active Protocol: Document 10/31/20 16:16 [facility] (Rec: 10/31/20 16:25 [facility] [id number]) Cognitive Factors Limiting Selfcare Function Cognitive Ability Level of Alertness Alert Patient Orientation Name Attention Span Ability Capable of Focused Attention, Capable of Sustained Attention Ability to Follow Commands Able to Follow One Step Commands with Increased Time, Able to Follow One Step Commands with Repetition Safety Awareness Underestimates Need for Assistance Problem Solving Ability Unable to Identify Errors, Needs Assist to Identify Solutions Cognitive Comments Cognitive Assessment Comments Pt able to follow commands for grooming needs and able to answer simple questions today. Pt focused on having a beer. Pt requested to have air compression for his legs to be turned off, nursing notified. OT- Vision and Hearing OT- Vision Assessment Vision Assessment Comments Pt states not able to see out of his left eye. M9 OT- IP Assessment and Plan Start: 10/30/20 13:19 Freq: Status: Active Protocol: Document 10/31/20 16:16 [facility] (Rec: 10/31/20 16:25 [facility] [id number]) OT Summary Assessment and Plan Potential Rehabilitation Potential Fair Analytic Complexity at Evaluation Moderate Summary OT Impairments Pain,Range of Motion,Strength, Balance,Coordination, Functional Cognition, Functional Mobility,Self- Feeding,Grooming,Dressing, Toileting,Bathing,Toilet Transfers,Shower Transfers, Activity Tolerance Progress Towards Goals Slow Progress due to Medical Issues,Slow Progress due to Activity Tolerance,Slow Progress due to Cognition Assessment Summary Pt able to participate in grooming needs today. Able to notify nursing of right swollen arm from elbow to distally to his right hand. Pt able to follow simple commands better today. Pending progress, pt to go to skilled rehab versus home with 24/7 assist. Goals Self-Feeding Goal Independent Grooming Goal Independent Dressing Goal Independent Toileting Goal Independent Bathing Goal Independent Toilet Transfer Goal Independent Shower Transfer Goal Independent Patient/Caregiver Education Goal Caregiver Independent Assisting Patient Days to Meet Goals 25 Frequency of Treatment Frequency Of Treatment Once a Day Treatment Plan OT Treatment Plan ADL Training,Functional Cognition Training,Functional Mobility,Patient/Family Education,Discharge Planning Other Treatment Recommendations and Next Transfer to [facility] with FWRosemary Desai Treatment Focus X2. Discharge Recommendations OT Discharge Recommendations SNF Rehab Transportation Needs at Discharge Wheelchair/Cabulance
--- NOTE | 2020-10-31 16:40 | ST.IPTN ---
Visit Care Team Role Provider Type Carlos Arce MD Emergency Provider Physician Referring Provider Address: [address] [place] [address], [id number] Alex Bobby DO Admit Provider Physician Attending Provider Address: [address] [place] [address], [id number] SOLID WASTE DIVISION SUPERVISOR Treatment Note SOL[employer] WASTE DIVISION SUPERVISOR Treatment Note Start: 10/31/20 13:15 Freq: Status: Active Protocol: Document 10/31/20 13:16 ZS (Rec: 10/31/20 13:25 ZS [id number]) Speech Pathology Treatment Note Session Time Visit Start Time 11:00 Visit Stop Time 11:15 Total Visit Minutes 15 Visit Information Visit Number 1 Setting Treatment Setting Acute Care Visit Type Note Type Treatment Note Next Note Type Next Note Type Treatment Note General Information General Information Leighton is a 59 year old male. He has a history of polysubstance abuse and seizures per medical chart. 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 Per past medical report, patient was down for 1 hour, reviewed video and appeared to have been given a pill of some sort. PMH of psoriasis, ? substance use, ? seizure disorder, partial blindness ( based on outpatient form). Once admitted, the patient remained unresponsive and was intubated for airway protection. 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 There was no intracranial hemorrhage . MRI was performed which also showed no acute abnormalities . Per results of chest x-ray, patient has patchy airspace opacity noted in the left lower lobe compatible with pneumonia. New airpsace opacification in the medial aspect of the right lower lobe suspicious for pneumonia. No pleural effusions or pneumothorax. Subjective Identification Type Name,ID Wristband Identification Reconciled With Medical Record,ID Bracelet Observations/Patient Presentation Leighton was seated in a chair, alert and watching TV when the clinician arrived. He was soft-spoken with a flat affect . Speech was characterized by reduced loudness, mild slurred speech, and voice was slightly hoarse. Chief Complaint(s) Speech,Swallowing,Cognitive Patient Knowledge/Awareness of SOLID WASTE DIVISION SUPERVISOR Role Fair in Treatment Objective Short Term Goals 1. Leighton will engage in assessments of his voice, cognition, and language. 2. Leighton will complete oral motor exercises to increase strength and ROM of oral structures for the purposes of increasing swallow safety. Wire Harness Design Engineer Goals Leighton will show no overt signs or symptoms of aspiration and maintain adequate nutrition and hydration while on a least restrictive diet. Treatment Activities Attempted SLUMS assessment with Leighton, but was unable to complete. Leighton correctly answered 1/3 orientation to self questions (i.e., name, not age or ) and was able to point to the ceiling, floor , and his nose when asked. He was oriented to location (e.g. , [facility]), though additional orientation regarding time resulted in confusion. Leighton referred to his bracelet for questions regarding the date and his , indicating awareness of his inability to recall information and where to find information he needed. When asked orientation questions yesterday, Leigthon was able to answer 3/3 orientation to self questions, indicating a decline in skills since previous session. Further testing with the SLUMS indicated Leighton had difficulty with immediate recall of items, generative list naming tasks, mental manipulation of numbers, and identifying objects. Did not complete clock drawing due to limited motor skills observed in other questions. Did not complete math problem or story problem due to Leighton's demonstrated difficulty with answering questions in general . Assessment Patient Response to Treatment Fair Rehab Potential Fair Impairments Identified Articulation,Cognitive- Linguistic Skills,Dysphagia, Oral Motor,Speech Intelligibility Assessment of Overall Progress Unchanged Reviewed with Patient Goals Patient/Caregiver Understanding Fair Plan Therapeutic Contents Cognitive-Linguistic Training, Compensatory Swallowing Training,Home Exercise Program ,Intelligibility,Oral Motor Training,Swallowing/Feeding Provided Patient/Caregiver Instruction Plan of Care,Questions/ Concerns Therapy Recommendations Continue with Current Program
--- NOTE | 2020-10-31 19:44 | PM.PN.1 ---
Subjective Subjective Interval history: 60 y/o male found down, felt to have severe alcohol withdrawal. Extubated 2 days ago. Patient still encephalopathic. No specific complaints. Confused and does not know where he is , his age, or year. Today is his birthday, he said he is 34 Exam Vital Signs (past 8 hours): - 10/31/20 12:00 10/31/20 15:50 10/31/20 19:03 Temperature 97.6 F 97.7 F Pulse Rate 76 72 66 Respiratory Rate 16 18 18 Blood Pressure 116/70 138/90 Pulse Oximetry 96 98 92 Fraction of Inspired Oxygen 35 Oxygen Delivery Method Room Air Oxygen Flow Rate 0 Narrative Exam Narrative: dishelved ill appearing male Resp Other: decreased breath sounds with scattered crackles Cardio Other: RRR nl Sl S2 GI Other: abd: soft/ non tender/ non distended Extrem Other: no Edema Psych Other: confused, disoriented to date, place, year Objective Labs Result Diagrams: 10/30/20 04:10 10/30/20 04:10 Labs: Laboratory Results - last 24 hr 10/31/20 10/31/20 01:58 06:05 Vancomycin Peak 23.1 Vancomycin Trough 8.9 L PFSH Medical History Chicken pox (~1989) Partial blindness Psoriasis Family History Father Stroke Mother Cancer Brother Alcohol abuse Sister Murder Grandfather Stroke Grandmother Stroke Grandfather Stroke Grandmother Stroke Social History household members: none Smoking Status: Current every day smoker Assessment & Plan Assessment & Plan narrative: Metabolic Encephalopathy- Etiology unclear Alcohol Related vs. Seizure. vs other Head CT negative Awake and alert today, but slow to respond ?Wernicke's vs. other -patient remains encephalopathyic 2. Septic shock secondary to aspiration pneumonia probably with some component of hypovolemic shock - CXR with LLL pneumonia. Likely due to either seizure or intubation. - -sputum growing MRSA -Vanco started today -continue Zosyn as well d/c Zosyn, start augmentin -Still with copious sputum, continue deep suctioning as needed 3. alcohol use and probable withdrawal. - No further evidence of withdrawal 4. Diabetes, presumed new diagnosis - A1c 10.6%, currently on sliding scale insulin. Intermittent hyperglycemia. Started on lantus 5 U HS. Will need to continually adjust. - AM glucose 142. Presume this is the reason for patient's 50 lb weight loss recently per hotel staff, though will likely need outpatient age appropriate screening as well. - Not in DKA -Start metformin -i 5. hypokalemia - replete with IV and follow -po potassium, repeat magnesium in am 6. Hyponatremia, - mild with Na of 128 on admission. Now to 131. Continue NS and follow. 7. Elevated troponin, improved - likely in the setting of sepsis. As above consider TTE. No known cardiac history at this time. No evidence of ischemia on EKGs. 8. acute respiratory failure with hypoxia secondary to presumed aspiration pneumonia - continue zosyn, extubated, on room air 7. Probable Severe Protein Calorie Malnutrition -will start diet -may need speech evaluation PT/OT consult, D/C pulido d/C IVF 8. Hypertension -will start norvasc today Placement will be an issue. Will ask BENCH LAY OUT TECHNICIAN to assist Quality VTE Deep Vein Thrombosis/Pulmonary Embolism Present on Admission: No
[2020-10-31] MEDS: AMOXICILLIN/CLAV 875/125 MG 1 TAB PO (20:25)
[2020-10-31] MEDS: INSULIN GLARGINE 100 UNIT/ML 3ML PEN SUBCUT (20:36)
[2020-11-01] VITALS (9 sets, daily range): BP systolic 130–149; BP diastolic 79–99; PULSE 66–89; RESP 14–18; TEMP 36.1–36.4; O2SAT 97–99
[2020-11-01] MEDS: VANCOMYCIN 1,000 MG/200 ML PIGGYBACK 200 MG IV ×2 (04:47→14:12)
[2020-11-01 06:32] LABS: BUN Creatinine Ratio 18.9 (6-22); Blood Urea Nitrogen 7 mg/dL (9-20); Carbon Dioxide 25 mmol/L (22-32); Chloride 99 mmol/L (98-107); Estimated Glomerular Filt Rate > 60.0 mL/min (>60); Glucose 188 mg/dL (80-110); HEMOLYSIS 15 (0-50); Magnesium 1.5 mg/dL (1.6-2.3); Potassium 3.2 mmol/L (3.4-5.1); Sodium 129 mmol/L (137-145)
[2020-11-01] MEDS: INSULIN LISPRO 100 UNIT/ML 3ML VIAL SUBCUT ×3 (08:04→17:08)
[2020-11-01] MEDS: POTASSIUM CHLORIDE 20 MEQ TAB 40 MEQ PO ×2 (08:06→17:10)
[2020-11-01] MEDS: METFORMIN HCL 500 MG TABLET PO ×2 (08:06→17:11)
[2020-11-01] MEDS: ENOXAPARIN 40 MG/0.4 ML SYRINGE SUBCUT (09:11)
[2020-11-01] MEDS: FAMOTIDINE 20 MG TABLET PO ×2 (09:12→20:23)
[2020-11-01] MEDS: MULTIVITAMIN 1 TABLET 1 TAB PO (09:12)
[2020-11-01] MEDS: lisinopriL 10 MG TABLET PO (09:12)
[2020-11-01] MEDS: METOPROLOL ER 50 MG TABLET PO ×2 (09:12→20:22)
[2020-11-01] MEDS: levETIRAcetam 250 MG TABLET 1000 MG PO ×2 (09:12→20:22)
[2020-11-01] MEDS: AMOXICILLIN/CLAV 875/125 MG 1 TAB PO (09:12)
[2020-11-01] MEDS: THIAMINE 100 MG TABLET PO (09:12)
[2020-11-01] MEDS: MAGNESIUM CHLORIDE 64 MG TABLET 128 MG PO (09:13)
--- NOTE | 2020-11-01 11:53 | PT.IPTN ---
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 (10/26/20) Physical Therapy Treatment Note M2 PT-IP Current Condition Start: 10/30/20 08:56 Freq: NEEDED Status: Active Protocol: Document 10/30/20 12:43 AW (Rec: 10/30/20 13:29 AW [id number]) Physical Therapy Current Condition Current Condition Evaluation Date 10/30/20 Treatment Diagnosis encephalopathy, seizures, impaired mobility and gait Onset Date 10/26/20 Precautions Other Precautions contact precautions, seizures, falls M3 PT-IP Subjective Start: 10/30/20 08:56 Freq: NEEDED Status: Active Protocol: Document 11/01/20 11:27 SP (Rec: 11/01/20 14:33 SP [id number]) Subjective Physical Therapy Visit Type Type Treatment Note Visit Start Time 11:27 Visit Stop Time 11:53 Total Visit Minutes 26 Notes Partial Co tx with OT for safety balance during standing activities to assess safety go home. Number of PUBLICATION EDITOR Visits 1 Physical Therapy Visit Comments Patient Comments Pt able to quietly verbalize needs and appropriate answers throughout tx. Therapy Pain Assessment Pain Present Pain Present Denied Pain M4 PT-IP Mobility and Gait Start: 10/30/20 08:56 Freq: NEEDED Status: Active Protocol: Document 11/01/20 11:27 SP (Rec: 11/01/20 14:33 SP [id number]) PT-Bed Mobility Assessment Supine to Sit Supine to Sit Contact Guard Assistance,1 Person Assistance,Head of Bed Elevated,Bedrails Scooting Scooting to Edge of Bed Contact Guard Assistance PT-Transfer Assessment Sit to and From Stand Sit to and from Stand Minimal Assistance,1 Person Assistance,Use of Upper Extremities Equipment Transfer Assistive Device None,Gait Belt,Front Wheeled Walker Orthotic/Prosthetic Devices or Brace: No Transfers Transfer Destination Chair,Toilet Transfer Technique Pt ambulated using FWW Transfer Ability Level of Assist Contact Guard Assistance, Minimal Assistance,1 Person Assistance,Use of Upper Extremities Comments Mobility Comments Pt completed 45 deg supine> sitting, scoot to EOB CGA while using bed rail and cues for body positioning. Pt able to sit unsupported at EOB, SBA . sit>Stand Min A with cues to push from bed. Pt ambulated to sink 5 ft using FWW CG-min A for trunk stability light contact BUE WB on FWW with cues for proper FWW forward positioning facing sink while centering due pt's report no vision on L. Pt CGA- 5%A for standing balance at sink for safety while performing ADL with OT, noted sways fwd/ bkwd /side to side especially when using BUE, then contact sink for self stability when needed . Pt ambulated to bathroom side stepping to clear sink then forward gait with more slight hover FWW on floor for stability, cued for obstacle mgt door frame and pivoting and step back to toilet spacial awareness. Pt completed own brief mgt, required redirection cues for not unfastening gait belt for safety during moblitiy. [place] for grab bar and BSC set at side for UE support, Min A slow descent to toilet. Pt able to sit on toilet unsupported SBA for safety provided. Pt able to void and moderate BM, self pericare and brief mgt education and assist from OT instructioning and support, CGA assist provided by PUBLICATION EDITOR for safety sitting balance. Sit>Stand Min A with redirection for hand placement on bars. Pt progressed walking further in room without AD CG- 10% A side sway stepping WBOS and cues for obstacle mgt on L toilet to door and back to chair 35 ft. Pt returned to chair,cued for reach back for chair arms with contact guidence, CGA- 5% A desecent into chair. Pt's BLEs elevated w/ pillows placed under low legs, noted decreased knee extension, comfortably supported. OT provided chair alarm and call light and all needs in reach before left. Gait Assessment Gait Gait Assistance Required: Contact Guard Assist,Minimum Assistance,1 Person Assist Distance (Feet) 35 Able to Maintain Weight Bearing Status Yes During Gait Assistive Devices Assistive Device None,Gait Belt,Front Wheeled Walker Orthotic/Prosthetic Devices or Brace: No Gait Deviations General Gait Pattern Antalgic,Decreased Stride Length,Decreased Feet Clearance,Lateral Trunk Lean, Wide Based Gait Factors Limiting Gait Function Factors Limiting Gait Function Decreased Activity Tolerance, Decreased Strength,Difficulty Following Directions,Poor Balance,Poor Safety Awareness Comments Gait Comments Please refer to mobility comments. PT-Balance Assessment Sitting Balance and Reactions Static Sitting Balance Ability Fair Dynamic Sitting Balance Ability Poor Standing Balance and Reactions Static Standing Balance Ability Fair Dynamic Standing Balance Ability Fair Device Used FWW, poor no AD M5 PT-IP Objective Assessments Start: 10/30/20 08:56 Freq: NEEDED Status: Active Protocol: Document 10/30/20 12:43 AW (Rec: 10/30/20 13:29 AW [id number]) Orientation Orientation/Cognition Level of Alertness Lethargic Orientation Name Language Function Ability Garbled Speech Safety Awareness Decreased Safety Awareness Gross Range of Motion Lower Extremity ROM Assessment Within Functional Limits Strength Comments Strength Comments Unable to formally assess due to confusion, cognitive status . Pt unable to lift legs from the bed during bed mobility. Sensation Assessment Comments Sensation Comments Unable to assess M6 PT-IP Treatment Start: 10/30/20 08:56 Freq: NEEDED Status: Active Protocol: Document 11/01/20 11:27 SP (Rec: 11/01/20 14:33 SP [id number]) Physical Therapy Treatment Education Education Provided Safety M7 PT-IP Assessment and Plan Start: 10/30/20 08:56 Freq: NEEDED Status: Active Protocol: Document 11/01/20 11:27 SP (Rec: 11/01/20 14:33 SP [id number]) PT Summary Assessment and Plan Potential Rehabilitation Potential Fair Status of Condition at Evaluation Evolving Summary Impairments Pain,ROM,Strength,Balance, Coordination,Sensation,Tone, Cognition,Bed Mobility, Transfers,Gait,Activity Tolerance Progress Towards Goals Progressing Toward Goals,Slow Progress due to Medical Issues ,Slow Progress due to Activity Tolerance,Slow Progress - Other Assessment Summary Pt required CG- Min A x1 during mobilty using fWW and no AD. Pt verbalized appropriate responses, requires cues for safety mobility and spacial awareness . pt improved but continues with cognitive issues affecting safety awareness and mobility independence. pt will require SNF rehab to improve strength and mobility. Goals Bed Mobility Goal Standby Assistance Transfer Goal Standby Assistance,Front Wheeled Walker Gait Goal Standby Assistance,Front Wheel Walker Gait Distance 75 Other Goals LTG: Improve transfers and ambulation to SBA without AD Days to Meet Goals 10 Frequency of Treatment Frequency Of Treatment Once a Day Treatment Plan Physical Therapy Treatment Plan Bed Mobility Training,Transfer Training,Gait Training, Therapeutic Exercise,Balance Retraining,Discharge Planning, Neuromuscular Re-ed, Coordination Retraining Other Recommendations and Next Treatment bed mobility, transfers, gait Focus further distance LRAD, balance assessment. Precautions Other Precautions contact precautions, seizures, falls Recommendations To Nursing Amount of Assist Needed 1 Person Assist Discharge Recommendations PT Discharge Recommendations SNF Rehab Transportation Needs at Discharge Wheelchair/Cabulance,Stretcher /Ambulance
--- NOTE | 2020-11-01 11:55 | OT.IP.TRT ---
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) Occupational Therapy Treatment Note M2 OT-IP Current Condition Start: 10/30/20 13:19 Freq: Status: Active Protocol: Document 10/30/20 13:22 [facility] (Rec: 10/30/20 13:38 [facility] [id number]) Occupational Therapy Current Condition Current Condition Evaluation Date 10/30/20 Treatment Diagnosis Metabolic encephalopathy, decreased mobility Diagnosis Onset Date 10/26/20 M3 OT- IP Subjective and Pain Start: 10/30/20 13:19 Freq: Status: Active Protocol: Document 11/01/20 12:27 [facility] (Rec: 11/01/20 12:44 [facility] [id number]) OT- Subjective Occupational Therapy Visit Type Type Treatment Note Visit Start Time 11:10 Visit Stop Time 11:55 Total Visit Minutes 45 Occupational Therapy Visit Comments Patient Comments Pt seen with SPRING COILER for part of the session due to safety. Patient/Caregiver Goals To go home. OT Pain Assessment Pain When Pain Assessed At Rest Pain Present Pain Present Denied Pain M4 OT- IP ADL's Start: 10/30/20 13:19 Freq: Status: Active Protocol: Document 11/01/20 12:27 [facility] (Rec: 11/01/20 12:44 [facility] [id number]) OT [id number] Comments OT Self-Feeding Comments Per TITLE CLERK , pt able to feed himself after set-up today. OT ADL-Grooming General Evaluation Grooming Ability Standby Assistance Areas Needing Assistance Retrieving/Set-up of Grooming Items Comments OT Grooming Comments SBA for grooming needs, cues for orientation of items and vc for completeness. OT ADL-Oral Care General Eval Oral Care Ability Minimal Assistance Comments Oral Care Comments TEDDY to assist right hand to lift up cup high enough to get water to rinse his mouth on the first attempt. Pt able to do on his own second time with cues. OT ADL-Dressing General Eval Lower Body Dressing Ability Maximum Assistance Areas Needing Assistance Underpants/Brief Comments OT Dressing Comments Pt able to assist to pull down brief and needing assist to doff and autumn over his feet. Pt needing use of left arm on the FWW and SPRING COILER to how FWW for balance . OT ADL-Toileting General Evaluation Toileting Ability Moderate Assistance Areas Needing Assistance Manage Clothing Comments OT Toileting Comments Pt able to wipe and vc for completeness and assist for brief management needs. OT ADL-Bathing Comments OT Bathing Comments Not at this time, to attempt tomorrow. M5 OT- IP IADL's Start: 10/30/20 13:19 Freq: Status: Active Protocol: Document 10/30/20 13:22 [facility] (Rec: 10/30/20 13:38 [facility] [id number]) OT-Instrumental Activities of Daily Living Deficits IADL Deficits Identified Deficits Home Safety Awareness Awareness of Need for Assistance at Home Decreased Awareness Home Safety Comments At this time pt only able to answer yes/no questions and follow simple concrete commands. M6 OT- IP Functional Cognition Start: 10/30/20 13:19 Freq: Status: Active Protocol: Document 11/01/20 12:27 [facility] (Rec: 11/01/20 12:44 [facility] [id number]) Cognitive Factors Limiting Selfcare Function Cognitive Ability Level of Alertness Alert Patient Orientation Name Attention Span Ability Capable of Focused Attention, Capable of Sustained Attention Ability to Follow Commands Able to Follow One Step Commands with Increased Time, Able to Follow One Step Commands with Repetition Safety Awareness Underestimates Need for Assistance Problem Solving Ability Unable to Identify Errors, Needs Assist to Identify Solutions Cognitive Tests SLUMS Pt scored 5/30 on tne SLUMS and only able to state the day of the week, states we live in and able to recall 5 animals in one minute but would repeat the same animals when trying to think of more. Pt however able to recall 3/5 objects after time passed. Pt when asked questions after a paragraph read would perserverate on prior answers from questions before. Cognitive Comments Cognitive Assessment Comments MOD to MAX vc for orientation of items in front of him for grooming and toileting needs. Also continuous cues for safety and assist to help sequence through task for ADl' s. pt realizes that he is not thinking well. M7 OT- IP Mobility and Balance Start: 10/30/20 13:19 Freq: Status: Active Protocol: Document 11/01/20 12:27 [facility] (Rec: 11/01/20 12:44 [facility] [id number]) OT-Transfer Assessment Transfers Transfer Ability Minimal Assistance,1 Person Assistance Technique Transfer Destination Bed,Chair,Toilet Transfer Technique Stand Step Pivot Devices Transfer Assistive Devices None,Gait Belt,Front Wheeled Walker Comments Mobility Comments Pt tends to hold the FWW at times and moves better without the FWW at this time. To attempt to try 4ww tomorrow. Pt still needing TEDDY to hold to gait belt for safety. Pt is a bit impulsive and cues to slow down. OT- Gait Assessment Comments Gait Ability Comments TEDDY with fww or without. OT- Balance Assessment Sitting Balance and Reactions Static Sitting Balance Ability Fair Dynamic Sitting Balance Ability Poor Standing Balance and Reactions Static Standing Balance Ability Poor Comments Other Balance Tests/Deviations/Treatment Pt;s balance improving but : still needs surface to hold for balance. M8 OT- IP Objective Assessments Start: 10/30/20 13:19 Freq: Status: Active Protocol: Document 10/30/20 13:22 [facility] (Rec: 10/30/20 13:38 [facility] [id number]) OT Gross Range of Motion Upper Extremity Range of Motion Assessment Bilaterally Impaired ROM Impairments Hard to assess, aspt having difficulty to follow commands. OT Strength Upper Extremity Strength Assessment Bilaterally Impaired OT Sensation Assessment Comments Summary Comments Pt states able to feel light touch when his arms were touched. M9 OT- IP Assessment and Plan Start: 10/30/20 13:19 Freq: Status: Active Protocol: Document 11/01/20 12:27 [facility] (Rec: 11/01/20 12:44 [facility] [id number]) OT Summary Assessment and Plan Potential Rehabilitation Potential Fair Analytic Complexity at Evaluation Moderate Summary OT Impairments Pain,Range of Motion,Strength, Balance,Coordination, Functional Cognition, Functional Mobility,Self- Feeding,Grooming,Dressing, Toileting,Bathing,Toilet Transfers,Shower Transfers, Activity Tolerance Progress Towards Goals Progressing Toward Goals,Slow Progress due to Cognition Assessment Summary Pt now able to mobilize with one person assist. Pt now able to self feed himself and do most of his grooming after set -up and cues. Pt scored 5/30 on the SLUMS which implies dementia. To retest again as pt clears to see if he has any improvement or that this is his new cognitive baseline. Pt would benefit from skilled rehab versus home with 23/09 assist. Goals Self-Feeding Goal Independent Grooming Goal Independent Dressing Goal Independent Toileting Goal Independent Bathing Goal Independent Toilet Transfer Goal Independent Shower Transfer Goal Independent Patient/Caregiver Education Goal Caregiver Independent Assisting Patient Days to Meet Goals 24 Frequency of Treatment Frequency Of Treatment Once a Day Treatment Plan OT Treatment Plan ADL Training,Functional Cognition Training,Functional Mobility,Patient/Family Education,Discharge Planning Other Treatment Recommendations and Next shower with MODA Treatment Focus Discharge Recommendations OT Discharge Recommendations SNF Rehab Transportation Needs at Discharge Wheelchair/Cabulance
[2020-11-01] MEDS: VANCOMYCIN TROUGH 1 REQUEST MISC (12:12)
--- NOTE | 2020-11-01 13:03 | ST.IPDYTX ---
Visit Care Team Role Provider Type Carlos Arce MD Emergency Provider Physician Referring Provider Specialty: Emergency Medicine Address: [address] [place] [address], [id number] Email: [email or web address] Admit Provider Physician Attending Provider Specialty: Internal Medicine Address: [address] [place] [address], [id number] Email: [email or web address] [email or web address] MACHINE Dysphagia Treatment FOLDER MACHINE Dysphagia Treatment Start: 11/01/20 12:36 Freq: Status: Active Protocol: Document 11/01/20 12:36 [facility] (Rec: 11/01/20 13:03 [facility] [id number]) Dysphagia Treatment Session Time Visit Start Time 12:00 Visit Stop Time 12:30 Total Visit Minutes 30 Setting Assessment Location Acute Care Visit Type Note Type Treatment Note Next Note Type Next Note Type Treatment Note Patient Information Identification Type Name,ID Wristband Subjective Observations Pt was seen in bedside chair eating his lunch. Pt appeared to be much more alert, sitting upright and feeding himself. Nursing reports that pt is more aware today. OT administered SLUMS with a score of 5/30, indicating significant cognitive dysfunction. Pt was more alert , knew he was in [place], the day (Friday), his date of and that he came to the hospital because of juan j meth. He reported that he lives at [facility]. He also stated the year at 1961 and was unable to state today 's date immediately after correctly providing his date of . Treatment Liquids Trialed Thin Solids Trialed Dysphagia Mechanical Administration Type Straw,Self-Feeding Oral Strategies Upright at 90 degrees, Controlled Bite/Sip Size Pharyngeal Strategies Sitting Upright (90 deg),Small Bites and Sips Additional Dysphagia Treatment swallow before taking a new Strategies bite. Treatment Activities Observed pt with his meal. Pt self-feeding, which is a big improvement from yesterday. He was eating baby carrots whole (the carrots were appropriately soft), but not swallowing before eating another one. Carrots were cut into smaller pieces. Pt was continuing to add more food before the prior mouthful was emptied. Cues to swallow first and to slow down when eating were repeated several times and followed inconsistently. Srategies written for pat and put on bedside table for reference. Pt not a candidate for diet advancement at this time. Safely tolerating thin liquids with a straw. Assessment Patient Response to Treatment Fair Rehab Potential Fair Assessment of Improvement Pt's level of alertness improved. Better able to participate in conversation. Orientation improving to situation. Safely tolerating PO diet and improved ability to feed himself. Inconsistently following directions to slow down and swallow between bites. Because of rate of eating and difficulty with following directions, an upgrade in diet is not recommended at this time. A diet upgrade would increase the pt's aspiration risk. Diet Recommendations Recommendations Continue Current Diet Liquids Order Thin Diet Order Dysphagia Mechanical Medication Recommendations Crushed,Crushed in Carrier Additional Dietary Needs Encourage to Self-Feed, Reminders to Use Strategies Aspiration Precautions Recommended Precautions Upright at 90 Degrees,Small Bites/Sips Treatment Plan Placement Recommendation after Discharge [facility] Facility,Shelter Care Facility Appropriate for Continued Therapy Yes Therapy Recommendations 1) continue to monitor pt's safety with PO intake, ability to follow directions for safe swallow strategies and safe advancement/tolerance of PO diet texture. 2) Continue treatment targeting improved cognition for following directions, and increased awareness of safety risks. Dysphagia Goals 1. Leighton will engage in assessments of his voice, cognition, and language. 2. Leighton will complete oral motor exercises to increase strength and ROM of oral structures for the purposes of increasing swallow safety. Leighton will show no overt signs or symptoms of aspiration and maintain adequate nutrition and hydration while on a least restrictive diet.
[2020-11-01 13:22] LABS: Vancomycin Trough 12.7 ug/mL (10-20)
--- NOTE | 2020-11-01 14:33 | DIET.PN1 ---
Dietary Progress Note Pt diet advancing per SLT, tolerating CCD diet dysphagia mech soft. Pt remains inappropriate for DM education. Ht: 177.8 cm Wt: 60.7 kg BMI: 16.9 Last BM: 11/01/20 (11/01/20 07:15) Jenaro Score: 18 Diet: 10/29/20 Dinner Dysphagia Diet Diet Modifications: CCD 4 Liquid consistency: Normal/Thin Food texture: Dysphagia Mechanical Soft Percent of last meal consumed (last 48h) Percent Meal Consumed 100% 11/01/20 13:33 Percent Meal Consumed 100% 11/01/20 09:15 Percent Meal Consumed tolerated 2 applesauce, spooned 11/01/20 04:00 to self Percent Meal Consumed 45% 10/31/20 18:57 Percent Meal Consumed 100% 10/31/20 09:09 Percent Meal Consumed 75% 10/30/20 19:36 Percent Meal Consumed 90 10/30/20 17:28 Labs: RBC 3.66 X10^6/uL (4.5-5.9) L 10/30/20 04:10 Hgb 11.2 g/dL (13.5-17.5) L 10/30/20 04:10 Hct 32.6 % (41-53) L 10/30/20 04:10 Creatinine 0.37 mg/dL (0.66-1.25) L 11/01/20 04:05 Hemoglobin A1c 9.6 % (4.0-6.0) H 10/27/20 04:00 Lactate 2.0 mmol/L (0.7-2.1) 10/27/20 04:00 Nutrition Dx: Severe Acute PCM r/t food insecurity, etoh use and undiagnosed DM2 aeb pt has 9% unintended weight loss in 4mo (severe), pt homeless living in hotel c hx etoh reliance, pt found down and unresponsive in parking lot, A1c 9.6 with no known prior hx of DM2. Monitoring/Evaluations: POs
--- NOTE | 2020-11-01 14:42 | PC.NURSE ---
Pt is more alert and responsive, asking questions, self-feeding, ate 100% lunch; A&O to self and place, pt states year is 1980. PICC drsg changed; HOB >30 degrees; call light within reach
[2020-11-01] MEDS: MAGNESIUM SULFATE 4 GM/100 ML PIGGYBACK IV (15:45)
[2020-11-01] MEDS: VANCOMYCIN PEAK 1 REQUEST MISC (16:30)
--- NOTE | 2020-11-01 17:14 | CM.DPC ---
DCP/continued: Reviewed chart. Per provider and therapy in AM rounds patient will need some type of placement vs. continuos caregiving upon discharge. BOAT HOIST OPERATOR unable to have meaningful discussion with patient about planning. Patient currently is not alert and oriented. Anticipate A.P.S. will need to be involved. BOAT HOIST OPERATOR received message from [facility] staff that patient's friend Nuvia trying to reach us. BOAT HOIST OPERATOR left message with Nuvia at [phone] requesting return phone call. At this time unclear on who would be patient's primary decision maker. BOAT HOIST OPERATOR will need to closely follow for plan. P: Pending. MAGGI
--- NOTE | 2020-11-01 18:54 | PM.PN.1 ---
Subjective Subjective Interval history: 60-year-old male found down at home, admitted after intubation, significant history of alcohol withdrawal, significant encephalopathy which persists. Patient has aspiration pneumonia, sputum cultures growing MRSA, patient appears more alert and appropriate today. He does know how old he is and his date, however the patient informed me that Gian Shanks is his 1st cousin. Exam Vital Signs (past 8 hours): - 11/01/20 12:00 11/01/20 12:12 11/01/20 15:25 Temperature 97.0 F L 97.6 F Pulse Rate 69 71 Respiratory Rate 18 18 Blood Pressure 134/79 132/81 131/85 Pulse Oximetry 97 98 Fraction of Inspired Oxygen 35 Oxygen Delivery Method Room Air Oxygen Flow Rate 0 Narrative Exam Narrative: Ill-appearing gentleman lying in bed Resp Other: Lungs coarse breath sounds bilaterally Cardio Other: Cardiac exam regular rate and rhythm normal S1-S2 GI Other: Abdomen: Soft nontender nondistended Extrem Other: Extremity 1+ edema bilaterally Objective Labs Result Diagrams: 10/30/20 04:10 11/01/20 04:05 Labs: Laboratory Results - last 24 hr 11/01/20 11/01/20 11/01/20 04:05 12:05 16:27 Sodium 129 L Potassium 3.2 L Chloride 99 Carbon Dioxide 25 BUN 7 L Creatinine 0.37 L Estimated GFR > 60.0 BUN/Creatinine Ratio 18.9 Glucose 188 H D Calcium 8.0 L Magnesium 1.5 L Vancomycin Peak 23.0 Vancomycin Trough 12.7 PFSH Medical History Chicken pox (~1989) Partial blindness Psoriasis Family History Father Stroke Mother Cancer Brother Alcohol abuse Sister Murder Grandfather Stroke Grandmother Stroke Grandfather Stroke Grandmother Stroke Social History household members: none Smoking Status: Current every day smoker Assessment & Plan Assessment & Plan narrative: Metabolic Encephalopathy- Etiology unclear Alcohol Related vs. Seizure. vs other Head CT negative Awake and alert today, but slow to respond ?Wernicke's vs. other -patient remains encephalopathic - slow but steady improvement -slums 07/30 - very compromised mentally 2. Septic shock secondary to aspiration pneumonia probably with some component of hypovolemic shock ?- CXR with LLL pneumonia. Likely due to either seizure or intubation. ?-? -sputum growing MRSA -Vanco started today -continue Zosyn as well d/c Zosyn, start augmentin -Still with copious sputum, continue deep suctioning as needed -vanco discontinued, on doxycycline which MRSA sensitive 3. alcohol use and probable withdrawal. ?- No further evidence of withdrawal 4. Diabetes, presumed new diagnosis ?- A1c 10.6%, currently on sliding scale insulin. Intermittent hyperglycemia. Started on lantus 5 U HS. Will need to continually adjust. ?- AM glucose 142. Presume this is the reason for patient's 50 lb weight loss recently per hotel staff, though will likely need outpatient age appropriate screening as well. ?- Not in DKA -Start metformin 5. hypokalemia ?- replete with IV and follow -po potassium, repeat magnesium in am - 4 grams Mag given today 6. Hyponatremia, ?- mild with Na of 128 on admission. Now to 131. Hold IVF 7. Elevated troponin, improved ?- likely in the setting of sepsis. As above consider TTE. No known cardiac history at this time. No evidence of ischemia on EKGs. 8. acute respiratory failure with hypoxia secondary to presumed aspiration pneumonia ?- continue zosyn, extubated, on room air 7. Probable Severe Protein Calorie Malnutrition -will start diet -may need speech evaluation PT/OT consult, D/C pulido d/C IVF 8. Hypertension -will start norvasc today Placement will be an issue. Will ask HUMAN RESOURCES BENEFITS COORDINATOR to assist Time Spent With Patient Critical Care time: I spent a total of [] minutes of critical care time on this patient's care today; this time is exclusive of procedural time. Quality VTE Deep Vein Thrombosis/Pulmonary Embolism Present on Admission: No
[2020-11-01] MEDS: DOXYCYCLINE HYCLATE 100 MG TABLET PO (20:22)
[2020-11-01] MEDS: POTASSIUM CHLORIDE IN WATER 10 MEQ/100 ML PIGGYBACK 100 MEQ IV ×4 (20:23→23:45)
[2020-11-01] MEDS: INSULIN GLARGINE 100 UNIT/ML 3ML PEN SUBCUT (20:36)
[2020-11-02] VITALS (9 sets, daily range): BP systolic 126–154; BP diastolic 77–92; PULSE 60–69; RESP 16–60; TEMP 36.2–36.6; O2SAT 94–100
[2020-11-02 05:06] LABS: BUN Creatinine Ratio 16.2 (6-22); Blood Urea Nitrogen 6 mg/dL (9-20); Calcium 8.1 mg/dL (8.4-10.2); Carbon Dioxide 23 mmol/L (22-32); Chloride 102 mmol/L (98-107); Estimated Glomerular Filt Rate > 60.0 mL/min (>60); Glucose 137 mg/dL (80-110); HEMOLYSIS < 15 (0-50); Potassium 4.1 mmol/L (3.4-5.1); Sodium 129 mmol/L (137-145)
[2020-11-02] MEDS: METFORMIN HCL 500 MG TABLET PO ×2 (08:18→16:48)
[2020-11-02] MEDS: POTASSIUM CHLORIDE 20 MEQ TAB 40 MEQ PO ×2 (08:19→16:48)
[2020-11-02] MEDS: INSULIN LISPRO 100 UNIT/ML 3ML VIAL SUBCUT ×3 (08:20→16:50)
--- NOTE | 2020-11-02 08:42 | CM.DPNOTE ---
DCP Note Reviewed chart. Placed call to jorge Shanks phone number [phone], according to our call: Patient has no children, spouse or living parents. Albert says it's just me and him. Explained to Albert that he would be this team's point of contact for DC planning efforts unless patient had designated an alternative contact? Albert has no record of assigned DPOA and accepts role as primary contact, gives this team permission to contact friend Nuvia and cg Daily as needed and gives permission to continue DCP efforts; SNF vs Home w/outpatient resources. PT recommending SNF. CHARLOTTE Haas, has kindly faxed referral to swing beds for review. Placed call to [facility] P#[phone], they did not have this patient in their system. [facility] P#[phone], according to Internal Controls Analyst Charline, patient is currently active in food benefits and medical bill assist, not currently receiving any senior living care benefits. According to Charline, patient does not require a new application for senior living care benefits. Referral sent by Charline, internally, for a request for social science professor to get assigned to this client w/expedited review (d/t inpatient in the hospital) for in home cg need. SHAYLA
[2020-11-02] MEDS: ENOXAPARIN 40 MG/0.4 ML SYRINGE SUBCUT (09:25)
[2020-11-02] MEDS: DOXYCYCLINE HYCLATE 100 MG TABLET PO ×2 (09:25→21:34)
[2020-11-02] MEDS: FAMOTIDINE 20 MG TABLET PO ×2 (09:25→21:35)
[2020-11-02] MEDS: levETIRAcetam 250 MG TABLET 1000 MG PO ×2 (09:25→21:35)
[2020-11-02] MEDS: lisinopriL 10 MG TABLET PO (09:25)
[2020-11-02] MEDS: MULTIVITAMIN 1 TABLET 1 TAB PO (09:26)
[2020-11-02] MEDS: THIAMINE 100 MG TABLET PO (09:26)
[2020-11-02] MEDS: METOPROLOL ER 50 MG TABLET PO ×2 (09:26→21:35)
--- NOTE | 2020-11-02 10:37 | CM.DPNOTE ---
Addendum entered by Samina Wayne 11/02/20 15:14: Also faxed to SNFs: [facility]; [facility], [facility], [facility], [facility], [facility] , [facility], [facility]. Samina Wayne CM Asst. Addendum entered by Samina Wayne 11/02/20 11:30: Both [facility] & [facility] are not able to take pt. [facility] does not take [place] ins. [facility] does not have any Medicaid available beds. Samina Wayne CM Asst. Original Note: Faxed referral packet to Swing Beds Units at [facility], [facility] & [facility]. Received fax conf. Samina Wayne CM Asst.
--- NOTE | 2020-11-02 11:20 | PT.IPTN ---
Current Diagnoses Type 2 diabetes mellitus without complications (10/26/20) Hypo-osmolality and hyponatremia (10/26/20) Other psychoactive substance abuse, uncomplicated (10/26/20) Toxic encephalopathy (10/26/20) Pneumonia, unspecified organism (10/26/20) Pneumonitis due to inhalation of food and vomit (10/26/20) Acute respiratory failure with hypoxia (10/26/20) Unspecified convulsions (10/26/20) medical terminologist (current) use of insulin (10/26/20) Physical Therapy Treatment Note M2 PT-IP Current Condition Start: 10/30/20 08:56 Freq: NEEDED Status: Active Protocol: Document 10/30/20 12:43 AW (Rec: 10/30/20 13:29 AW [id number]) Physical Therapy Current Condition Current Condition Evaluation Date 10/30/20 Treatment Diagnosis encephalopathy, seizures, impaired mobility and gait Onset Date 10/26/20 Precautions Other Precautions contact precautions, seizures, falls M3 PT-IP Subjective Start: 10/30/20 08:56 Freq: NEEDED Status: Active Protocol: Document 11/02/20 11:02 SP (Rec: 11/02/20 11:53 SP [id number]) Subjective Physical Therapy Visit Type Type Treatment Note Visit Start Time 11:02 Visit Stop Time 11:20 Total Visit Minutes 18 Number of TEAM LEADER Visits 2 Physical Therapy Visit Comments Patient Comments Pt able to quietly verbalize needs and appropriate answers throughout tx to situation and task performing. Patient Goals I want to get better at walking. Therapy Pain Assessment Pain Present Pain Present Denied Pain M4 PT-IP Mobility and Gait Start: 10/30/20 08:56 Freq: NEEDED Status: Active Protocol: Document 11/02/20 11:02 SP (Rec: 11/02/20 11:53 SP [id number]) PT-Bed Mobility Assessment Rolling Type of Rolling Log Rolling,Bilateral Level of Assist Minimal Assistance,1 Person Assistance Sit to Supine Sit to Supine Moderate Assistance,1 Person Assistance,Bedrails PT-Transfer Assessment Sit to and From Stand Sit to and from Stand Minimal Assistance,1 Person Assistance,Use of Upper Extremities Equipment Transfer Assistive Device None,Gait Belt Orthotic/Prosthetic Devices or Brace: No Transfers Transfer Destination Bed Transfer Technique ambulated w/ gait belt PUBLIC WORKS DIRECTOR as needed Transfer Ability Level of Assist Contact Guard Assistance, Minimal Assistance,1 Person Assistance,Use of Upper Extremities Comments Mobility Comments Pt reclined in chair when arrived. Pt required assist talk off blankets. He requires Min A for lowering leg rests. Cued for scoot to EOChair CGA , sit>stand Min-Mod A x1 cued for wt shift over LEs, CG- Min A for standing balance and cued wt shifting assess balance before walking. Pt ambulated 4 laps across room to door and back to bench with stand>sit Min for descend, CG - Min A to stand after each 2 laps. Cued for backing up fully to feel bench behind LEs and hip hinge forward slow descent on to bench. Assessed static balance at bench: NBOS CGA with head turns, stagger CGA- Min A with cuing forward wt shift, EC 3 sec in each foot position CG-Min NBOS, Min - Mod A stagger stance 4 between BLE to assist retro lean and cues for forward recovery. Pt requested to return to bed due to tiring. Cues for spacial awareness around obstacles (end of bed and side stepping EOB) due to report of no vision on R field CGA- Miriam, trunk sways but cues for recovery. Cued for hip hinge and reach back slow descent sit on bed Min A. Sit> supine Mod A for each LE assist on to bed with cuing for motor planning while supporting trunk self on bed and R bed rail pt able to center self in bed with cues for directioning. Pt had waffle cushion under pelvis for skin integrity support ( placed while in supine rolling R and L using bed rails Min A ) and pillow under legs and warm blankets given. Bed alarm and call light in place with verbalized and pointing use of red button for help. Pt comfort elevated supine when left. Gait Assessment Gait Gait Assistance Required: Contact Guard Assist,Minimum Assistance,Moderate Assistance ,1 Person Assist Distance (Feet) 60 Able to Maintain Weight Bearing Status Yes During Gait Assistive Devices Assistive Device None,Gait Belt Orthotic/Prosthetic Devices or Brace: No Gait Deviations General Gait Pattern Antalgic,Decreased Stride Length,Decreased Feet Clearance,Lateral Trunk Lean, Wide Based Gait Factors Limiting Gait Function Factors Limiting Gait Function Decreased Activity Tolerance, Decreased Strength,Difficulty Following Directions,Poor Balance,Poor Safety Awareness Comments Gait Comments Receiprocal gait, CG- Mod A with noted trunk sway and contact end bed for support as needed. Cued for slow turning to decrease retro sway and need for assist recovery. Cued obstacle mgt on R due to poor vision. PT-Balance Assessment Sitting Balance and Reactions Static Sitting Balance Ability Good Dynamic Sitting Balance Ability Fair Standing Balance and Reactions Static Standing Balance Ability Fair Dynamic Standing Balance Ability Poor Device Used no AD Comments Other Balance Tests/Deviations/Treatment see mobility details. : Functional Assessments Other Functional Tests Performed see mobility details. M5 PT-IP Objective Assessments Start: 10/30/20 08:56 Freq: NEEDED Status: Active Protocol: Document 10/30/20 12:43 AW (Rec: 10/30/20 13:29 AW [id number]) Orientation Orientation/Cognition Level of Alertness Lethargic Orientation Name Language Function Ability Garbled Speech Safety Awareness Decreased Safety Awareness Gross Range of Motion Lower Extremity ROM Assessment Within Functional Limits Strength Comments Strength Comments Unable to formally assess due to confusion, cognitive status . Pt unable to lift legs from the bed during bed mobility. Sensation Assessment Comments Sensation Comments Unable to assess M6 PT-IP Treatment Start: 10/30/20 08:56 Freq: NEEDED Status: Active Protocol: Document 11/02/20 11:02 SP (Rec: 11/02/20 11:53 SP [id number]) Physical Therapy Treatment Education Education Provided Safety M7 PT-IP Assessment and Plan Start: 10/30/20 08:56 Freq: NEEDED Status: Active Protocol: Document 11/02/20 11:02 SP (Rec: 11/02/20 11:53 SP [id number]) PT Summary Assessment and Plan Potential Rehabilitation Potential Fair Status of Condition at Evaluation Evolving Summary Impairments Pain,ROM,Strength,Balance, Coordination,Sensation,Tone, Cognition,Bed Mobility, Transfers,Gait,Activity Tolerance Progress Towards Goals Progressing Toward Goals,Slow Progress due to Medical Issues ,Slow Progress due to Activity Tolerance,Slow Progress - Other Assessment Summary Pt required CG- Mod Ax1 during mobilty no AD. Pt verbalized appropriate responses, requires cues for safety mobility and spacial awareness especially on R due to poor- no visual perception on R. pt improved but continues with cognitive issues affecting safety awareness and mobility independence, required cuing for motor planning side stepping at EOB and centering self in bed. pt will require SNF rehab to improve strength and mobility. Pt is motived with encouragement. Goals Bed Mobility Goal Standby Assistance Transfer Goal Standby Assistance,Front Wheeled Walker Gait Goal Standby Assistance,Front Wheel Walker Gait Distance 75 Other Goals LTG: Improve transfers and ambulation to SBA without AD Days to Meet Goals 10 Frequency of Treatment Frequency Of Treatment Once a Day Treatment Plan Physical Therapy Treatment Plan Bed Mobility Training,Transfer Training,Gait Training, Therapeutic Exercise,Balance Retraining,Discharge Planning, Neuromuscular Re-ed, Coordination Retraining Other Recommendations and Next Treatment bed mob, transfers, balance Focus activities, gait further distance LRAD. Precautions Other Precautions contact precautions, seizures, falls Recommendations To Nursing Amount of Assist Needed 1 Person Assist Discharge Recommendations PT Discharge Recommendations SNF Rehab Transportation Needs at Discharge Wheelchair/Cabulance,Stretcher /Ambulance
--- NOTE | 2020-11-02 11:59 | ST.IPDYTX ---
Visit Care Team Role Provider Type Carlos Arce MD Emergency Provider Physician Referring Provider Specialty: Emergency Medicine Address: [address] [place] [address], [address] Email: [email or web address] Admit Provider Physician Attending Provider Specialty: Internal Medicine Address: [address] [place] [address], [id number] Email: [email or web address] PRICER BAGGER Dysphagia Treatment PRICER BAGGER Dysphagia Treatment Start: 11/01/20 12:36 Freq: Status: Active Protocol: Document 11/02/20 11:50 LNK (Rec: 11/02/20 11:59 LNK [id number]) Dysphagia Treatment Session Time Visit Start Time 09:20 Visit Stop Time 09:35 Total Visit Minutes 15 Setting Assessment Location Acute Care Visit Type Note Type Treatment Note Next Note Type Next Note Type Treatment Note Patient Information Identification Type Name,Date of Subjective Observations pt was upright in his bed following breakfast meal. Pt' s voice totally aphonic today. Pt stated he is unable to use his voice. Pt safely tolerating current diet. He remains impulsive with self feeding, not swallowing before taking another bite. Minimal dentition also a factor in current diet (edentulous upper ; a few lower teeth in poor hygiene). Pt Treatment Treatment Activities Pt safely tolerating current diet. He remains impulsive with self feeding, not swallowing before taking another bite. Minimal dentition also a factor in current diet (edentulous upper ; a few lower teeth in poor hygiene). Pt was able to say he was in [facility] in [place]. He was unable to tell the time, although he did look at the clock. He was unable to remember questions asked, requesting to repetition of the question. Increased processing time for orientation questions. Assessment Patient Response to Treatment Good Rehab Potential Fair Assessment of Improvement Imroved orientation and awareness. Still cognitive abilities remain significantly impaired Diet Recommendations Recommendations Continue Current Diet Medication Recommendations As Tolerated,Whole in Carrier, Crushed in Carrier Additional Dietary Needs Encourage to Self-Feed Aspiration Precautions Recommended Precautions Upright at 90 Degrees,Frequent Rest Periods,Small Bites/Sips ,Liquids from Cup Treatment Plan Placement Recommendation after Discharge Snf Facility Appropriate for Continued Therapy Yes Therapy Recommendations Pt's level of alertness improved. Better able to participate in conversation. Orientation improving to situation. Safely tolerating PO diet and improved ability to feed himself. Inconsistently following directions to slow down and swallow between bites. Because of rate of eating and difficulty with following directions, an upgrade in diet is not recommended at this time. A diet upgrade would increase the pt's aspiration risk. Dysphagia Goals 1. Leighton will engage in assessments of his voice, cognition, and language. 2. Leighton will complete oral motor exercises to increase strength and ROM of oral structures for the purposes of increasing swallow safety. Leighton will show no overt signs or symptoms of aspiration and maintain adequate nutrition
[2020-11-02 12:07] LABS: Clostridium Difficile Tox PCR Negative for C. diff (Negative)
--- NOTE | 2020-11-02 12:55 | PC.NURSE ---
A & O to self, place, and situation; pt states that he had been using crystal meth and that he was found face down, and stated, I will never use drugs again @ 1300 pt requests water; TELETYPESETTER OPERATOR informs pt he has already consumed 500 mL Pt repositioned Q2; Barbie drsg to coccyx changed and c/d/i; 1-asst with gait belt to bsc
--- NOTE | 2020-11-02 13:55 | OT.IP.TRT ---
Current Diagnoses Type 2 diabetes mellitus without complications (10/26/20) Hypo-osmolality and hyponatremia (10/26/20) Other psychoactive substance abuse, uncomplicated (10/26/20) Toxic encephalopathy (10/26/20) Pneumonia, unspecified organism (10/26/20) Pneumonitis due to inhalation of food and vomit (10/26/20) Acute respiratory failure with hypoxia (10/26/20) Unspecified convulsions (10/26/20) emt intermediate (current) use of insulin (10/26/20) Occupational Therapy Treatment Note M2 OT-IP Current Condition Start: 10/30/20 13:19 Freq: Status: Active Protocol: Document 10/30/20 13:22 [facility] (Rec: 10/30/20 13:38 [facility] [id number]) Occupational Therapy Current Condition Current Condition Evaluation Date 10/30/20 Treatment Diagnosis Metabolic encephalopathy, decreased mobility Diagnosis Onset Date 10/26/20 M3 OT- IP Subjective and Pain Start: 10/30/20 13:19 Freq: Status: Active Protocol: Document 11/02/20 13:58 [facility] (Rec: 11/02/20 14:10 [facility] [id number]) OT- Subjective Occupational Therapy Visit Type Type Treatment Note Visit Start Time 13:25 Visit Stop Time 13:55 Total Visit Minutes 30 Occupational Therapy Visit Comments Patient Comments Pt agreed to work with OT. Patient/Caregiver Goals To go home. OT Pain Assessment Pain When Pain Assessed At Rest Pain Present Pain Present Denied Pain M4 OT- IP ADL's Start: 10/30/20 13:19 Freq: Status: Active Protocol: Document 11/02/20 13:58 [facility] (Rec: 11/02/20 14:10 [facility] [id number]) OT ADL-Grooming Comments OT Grooming Comments Had pt use toothbrush with soapy water to clean his nails . Initially pt having time to see and keep pushing on his left eye. Therefore OT covered his left eye and pt able to focus and see better. M6 OT- IP Functional Cognition Start: 10/30/20 13:19 Freq: Status: Active Protocol: Document 11/02/20 13:58 [facility] (Rec: 11/02/20 14:10 [facility] [id number]) Cognitive Factors Limiting Selfcare Function Cognitive Ability Level of Alertness Alert,Confusional State Patient Orientation Name Attention Span Ability Capable of Focused Attention, Capable of Sustained Attention Ability to Follow Commands Able to Follow One Step Commands with Increased Time, Able to Follow One Step Commands with Repetition Safety Awareness Underestimates Need for Assistance Problem Solving Ability Unable to Identify Errors, Needs Assist to Identify Solutions Cognitive Comments Cognitive Assessment Comments Pt tends to perserverate on stories. Pt states was suppose to have eye surgery long time ago but did not and has been having trouble with blurry vision. At time pt points at his right eye and then at his left eye. OT- Vision and Hearing OT- Vision Assessment Vision Assessment Comments Attempted to occlude vision with pt's left eye and able to read better and see more clearly when only able to see out of right eye. To touch base with nursing and hospitalist to see if obtaining an eye patch may be helpful for the pt . M9 OT- IP Assessment and Plan Start: 10/30/20 13:19 Freq: Status: Active Protocol: Document 11/02/20 13:58 [facility] (Rec: 11/02/20 14:10 [facility] [id number]) OT Summary Assessment and Plan Potential Rehabilitation Potential Fair Analytic Complexity at Evaluation Moderate Summary OT Impairments Pain,Range of Motion,Strength, Balance,Coordination, Functional Cognition, Functional Mobility,Self- Feeding,Grooming,Dressing, Toileting,Bathing,Toilet Transfers,Shower Transfers, Activity Tolerance Progress Towards Goals Progressing Toward Goals,Slow Progress due to Cognition Assessment Summary Pt complaining of blurry vision and able to determine that his left eye causes him to have blurry vision. When trial on occluding his left eye, pt was able to see better and read most of the letter written by his friend. Pt still needing assist for all needs due to decreased cognitive status and mobility needs. Goals Self-Feeding Goal Independent Grooming Goal Independent Dressing Goal Independent Toileting Goal Independent Bathing Goal Independent Toilet Transfer Goal Independent Shower Transfer Goal Independent Patient/Caregiver Education Goal Caregiver Independent Assisting Patient Days to Meet Goals 24 Frequency of Treatment Frequency Of Treatment Once a Day Treatment Plan OT Treatment Plan ADL Training,Functional Cognition Training,Functional Mobility,Patient/Family Education,Discharge Planning Other Treatment Recommendations and Next shower with MODA Treatment Focus Discharge Recommendations OT Discharge Recommendations SNF Rehab Transportation Needs at Discharge Wheelchair/Cabulance
[2020-11-02] MEDS: ACETAMINOPHEN 325 MG TABLET 975 MG PO (16:48)
[2020-11-02] MEDS: LORazepam 0.5 MG TABLET PO (16:48)
--- NOTE | 2020-11-02 19:39 | PM.PN.1 ---
Subjective Subjective Date Patient Seen: 11/02/20 Time Patient Seen: 19:39 Interval history: ?60-year-old male found down at home, admitted after intubation, significant history of alcohol withdrawal, significant encephalopathy which persists.? 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 Was wretching due to this anxiety. Exam Vital Signs (past 8 hours): - 11/02/20 15:57 Temperature 97.1 F L Pulse Rate 66 Respiratory Rate 19 Blood Pressure 138/91 H Pulse Oximetry 97 Fraction of Inspired Oxygen 35 Oxygen Delivery Method Room Air Oxygen Flow Rate 0 Narrative Exam Narrative: GEN Ill-appearing gentleman lying in bed Resp Other:?Lungs coarse breath sounds bilaterally Cardio Other:?Cardiac exam regular rate and rhythm normal S1-S2 GI Other:?Abdomen:? Soft nontender nondistended Extrem Other:?Extremity 1+ edema bilaterally Objective Labs Result Diagrams: 10/30/20 04:10 11/02/20 04:30 Labs: Laboratory Results - last 24 hr 11/02/20 11/02/20 04:30 11:00 Sodium 129 L Potassium 4.1 Chloride 102 Carbon Dioxide 23 BUN 6 L Creatinine 0.37 L Estimated GFR > 60.0 BUN/Creatinine Ratio 16.2 Glucose 137 H Calcium 8.1 L Magnesium 2.0 C. difficile Tox (PCR) Negative for c. diff [facility] Medical History Chicken pox (~1989) Partial blindness Psoriasis Family History Father Stroke Mother Cancer Brother Alcohol abuse Sister Murder Grandfather Stroke Grandmother Stroke Grandfather Stroke Grandmother Stroke Social History household members: none Smoking Status: Current every day smoker Assessment & Plan Assessment & Plan narrative: 1. Metabolic Encephalopathy- Etiology not entirely clear. Alcohol Related vs. Seizure. vs other Head CT negative Awake and alert today, but slow to respond ?Wernicke's vs. other. patient remains encephalopathic but with slow but steady improvement. Continue PO thiamine replacement. -slums 07/30 - very compromised mentally 2. Septic shock secondary to aspiration pneumonia probably with some component of hypovolemic shock ?- CXR with LLL pneumonia. Likely due to either seizure or intubation. ?-? -sputum growing MRSA -vanco discontinued, on doxycycline which MRSA sensitive 3. alcohol use and probable withdrawal. ?- No further evidence of withdrawal 4. Diabetes, presumed new diagnosis ?- A1c 10.6%, currently on sliding scale insulin. Intermittent hyperglycemia. Started on lantus 5 U HS. Will need to continually adjust. ?- AM glucose 142. Presume this is the reason for patient's 50 lb weight loss recently per hotel staff, though will likely need outpatient age appropriate screening as well. ?- Not in DKA -Started metformin 5. hypokalemia 6. Hyponatremia, ?- mild with Na of 128 on admission. stable. 7. Elevated troponin, improved ?- likely in the setting of sepsis. As above consider TTE. No known cardiac history at this time. No evidence of ischemia on EKGs. 8. acute respiratory failure with hypoxia secondary to presumed aspiration pneumonia, resolved ?- continue zosyn, extubated, on room air 9. Probable Severe Protein Calorie Malnutrition 10. Anxiety - continue PO ativan as needed. started sertraline given severe anxiety today and near panic attack. PT/OT consult, D/C pulido d/C IVF 8. Hypertension -will start norvasc today Placement will be an issue. Will ask METALLOGRAPHY TEACHER to assist Time Spent With Patient Critical Care time: I spent a total of [] minutes of critical care time on this patient's care today; this time is exclusive of procedural time. Quality VTE Deep Vein Thrombosis/Pulmonary Embolism Present on Admission: No
[2020-11-02] MEDS: SERTRALINE 50 MG TABLET 25 MG PO (21:35)
[2020-11-02] MEDS: INSULIN GLARGINE 100 UNIT/ML 3ML PEN SUBCUT (21:38)
[2020-11-03] MEDS: ACETAMINOPHEN 325 MG TABLET 975 MG PO (00:05)
[2020-11-03] MEDS: LORazepam 0.5 MG TABLET PO ×4 (00:05→23:37)
[2020-11-03 03:25] VITALS: BP 146/89; PULSE 60; RESP 16; TEMP 36.4; O2SAT 99
--- NOTE | 2020-11-03 03:50 | PC.NURSE ---
COURT OFFICER note: patient was trying to get out of bed. Asked if I could help him. Patient told me I need to pee. Held the urinal in place. As he was voiding he told me do your fucking job and take me fishing. I told him I don't like being cussed at. Patient repeated take me fishing. Told CECILIO Katz
[2020-11-03 08:04] VITALS: BP 138/76; PULSE 60; RESP 17; TEMP 36.7; O2SAT 99
[2020-11-03] MEDS: INSULIN LISPRO 100 UNIT/ML 3ML VIAL SUBCUT ×2 (08:20→12:18)
[2020-11-03] MEDS: FAMOTIDINE 20 MG TABLET PO ×2 (08:22→20:57)
[2020-11-03] MEDS: METOPROLOL ER 50 MG TABLET PO ×2 (08:22→20:57)
[2020-11-03] MEDS: lisinopriL 10 MG TABLET PO (08:22)
[2020-11-03] MEDS: THIAMINE 100 MG TABLET PO (08:22)
[2020-11-03] MEDS: MULTIVITAMIN 1 TABLET 1 TAB PO (08:22)
[2020-11-03] MEDS: levETIRAcetam 250 MG TABLET 1000 MG PO ×2 (08:22→20:57)
[2020-11-03] MEDS: ENOXAPARIN 40 MG/0.4 ML SYRINGE SUBCUT (08:22)
[2020-11-03] MEDS: SODIUM CHLORIDE 0.9% FLUSH 10 ML IV (08:23)
[2020-11-03] MEDS: METFORMIN HCL 500 MG TABLET PO ×2 (08:25→17:42)
[2020-11-03] MEDS: POTASSIUM CHLORIDE 20 MEQ TAB 40 MEQ PO ×2 (08:25→17:42)
--- NOTE | 2020-11-03 09:36 | CM.DPNOTE ---
[facility] not able to accept patient. Samina Wayne CM Asst.
--- NOTE | 2020-11-03 10:45 | ST.IPDYTX ---
Visit Care Team Role Provider Type Carlos Arce MD Emergency Provider Physician Referring Provider Specialty: Emergency Medicine Address: [address] [place] [address], [id number] Email: [email or web address] Admit Provider Physician Attending Provider Specialty: Internal Medicine Address: [address] [place] [address], [id number] Email: [email or web address] Dysphagia Treatment PUMP ASSEMBLER Dysphagia Treatment Start: 11/01/20 12:36 Freq: Status: Active Protocol: Document 11/03/20 10:22 LNK (Rec: 11/03/20 10:45 LNK [id number]) Dysphagia Treatment Session Time Visit Start Time 08:40 Visit Stop Time 09:00 Total Visit Minutes 20 Setting Assessment Location Acute Care Visit Type Note Type Treatment Note Patient Information Identification Type Name,Date of Subjective Observations pt was upright in his bed eating breakfast meal. Pt's voice better today. Minimal dentition also a factor in current diet (edentulous upper ; a few lower teeth in poor hygiene). Pt Treatment Liquids Trialed Thin Solids Trialed Dysphagia Mechanical Administration Type Straw,Self-Feeding Oral Strategies Upright at 90 degrees, Controlled Bite/Sip Size Pharyngeal Strategies Sitting Upright (90 deg),Small Bites and Sips Additional Dysphagia Treatment swallow before taking a new Strategies bite. Treatment Activities Minimal dentition also a factor in current diet ( edentulous upper; a few lower teeth in poor hygiene). Pt was more confused today, hallucinating about the white board: turn that TV off. I can;t take anymore of that movie. He was also confused as to where he is: on [employer] we have to eat fast. Asked where he is, he stated in [place]. He was unable to tell the time, although he did find the wall clock. He was unable to follow directions, was mumbling something to himself, and he asked for his root beer shake. Very hard to redirect him today. His voice was more audible though. Assessment Patient Response to Treatment Good Rehab Potential Fair Assessment of Improvement Pt is safely tolerating diet and self-feeding his breakfast with minimal assist needed. Pt remains impulsive with self feeding, not swallowing before taking another bite. Not following directions to slow down when eating. No overt s/sx aspiration observed . Safe at current diet. Due to poor dentition, current diet is meeting pt's needs. Cognitive abilities remain significantly impaired. Will D/C from ST at this time. Diet Recommendations Recommendations Continue Current Diet Liquids Order Thin Diet Order Dysphagia Mechanical Medication Recommendations As Tolerated,Whole in Carrier, Crushed in Carrier Additional Dietary Needs Encourage to Self-Feed Aspiration Precautions Recommended Precautions Upright at 90 Degrees,Frequent Rest Periods,Small Bites/Sips ,Liquids from Cup Treatment Plan Placement Recommendation after Discharge [facility] Facility Appropriate for Continued Therapy No Therapy Recommendations Inconsistently following directions to slow down and swallow between bites. Because of rate of eating and difficulty with following directions, an upgrade in diet is not recommended. Follow Up Plan Discharge
--- NOTE | 2020-11-03 10:57 | PM.PN.1 ---
Subjective Subjective Date Patient Seen: 11/03/20 Time Patient Seen: 10:57 Interval history: 60-year-old male found down at home, admitted after intubation, significant history of alcohol withdrawal, significant encephalopathy which persists.? Patient has aspiration pneumonia, sputum cultures growing MRSA, patient appears more alert and appropriate today.?Feels better today, statements to staff indicate possible hallucinations. Denies pain today. Exam Vital Signs (past 8 hours): - 11/03/20 03:25 11/03/20 08:04 Temperature 97.6 F 98.0 F Pulse Rate 60 60 Respiratory Rate 16 17 Blood Pressure 146/89 H 138/76 Pulse Oximetry 99 99 Fraction of Inspired Oxygen 35 Oxygen Delivery Method Room Air Oxygen Flow Rate 0 Narrative Exam Narrative: GENERAL APPEARANCE: Chronically ill-appearing thin male, no acute distress SKIN: No rash HEENT: Normocephalic atraumatic, extraocular muscles are intact, oropharynx is clear and mucous membranes are moist NECK: Supple and symmetric. CHEST: Normal AP diameter and normal contour without any kyphoscoliosis. LUNGS: Auscultation of the lungs revealed no wheezes, rhonchi, or rales. CARDIOVASCULAR: There was a regular rate and rhythm without any murmurs, gallops, rubs. Peripheral pulses were 2+ and symmetric. ABDOMEN: Soft, nontender, and nondistended MUSCULOSKELETAL: There was no tenderness or effusions noted. Muscle strength and tone were normal. EXTREMITIES: No cyanosis, clubbing or edema. Objective Labs Result Diagrams: 10/30/20 04:10 11/02/20 04:30 Labs: Laboratory Results - last 24 hr 11/02/20 11:00 C. difficile Tox (PCR) Negative for c. diff [facility] Medical History Chicken pox (~1989) Partial blindness Psoriasis Family History Father Stroke Mother Cancer Brother Alcohol abuse Sister Murder Grandfather Stroke Grandmother Stroke Grandfather Stroke Grandmother Stroke Social History household members: none Smoking Status: Current every day smoker Assessment & Plan Assessment & Plan narrative: 1. Metabolic Encephalopathy- Etiology not entirely clear. Alcohol Related vs. Seizure. vs other Head CT negative Awake an alert today, but slow to respond ?Wernicke's vs. other. patient remains encephalopathic but with slow but steady improvement. Continue PO thiamine replacement. -slums 07/30 - very compromised mentally 2. Septic shock secondary to aspiration pneumonia probably with some component of hypovolemic shock ?- CXR with LLL pneumonia. Likely due to either seizure or intubation. ?-? -sputum growing MRSA -vanco discontinued, on doxycycline which MRSA sensitive. To finish antibiotic course on 11/05/20. 3. alcohol use and probable withdrawal. ?- No further evidence of withdrawal 4. Diabetes, presumed new diagnosis ?- A1c 10.6%, currently on sliding scale insulin. Intermittent hyperglycemia. Started on lantus 5 U HS. Will need to continually adjust. ?- Presume this is the reason for patient's 50 lb weight loss recently per hotel staff, though will likely need outpatient age appropriate screening as well. ?- Not in DKA on admission. - Started metformin 5. hypokalemia - repleted during hospital stay, continue to follow. 6. Hyponatremia, ?- mild with Na of 128 on admission. stable. 7. Elevated troponin, improved ?- likely in the setting of sepsis. As above consider TTE. No known cardiac history at this time. No evidence of ischemia on EKGs. 8. acute respiratory failure with hypoxia secondary to presumed aspiration pneumonia, resolved ?- continue zosyn, extubated, on room air 9. Severe Protein Calorie Malnutrition - appreciate dietary recommendations. 10. Anxiety ?- continue PO ativan as needed. started sertraline given anxiety and near panic attack on 11/02/20. 11. Hypertension - continue lisinopril code: Full dispo: pending placement, Time Spent With Patient Critical Care time: I spent a total of [] minutes of critical care time on this patient's care today; this time is exclusive of procedural time. Quality VTE Deep Vein Thrombosis/Pulmonary Embolism Present on Admission: No
--- NOTE | 2020-11-03 11:19 | OT.IP.TRT ---
Current Diagnoses Type 2 diabetes mellitus without complications (10/26/20) Hypo-osmolality and hyponatremia (10/26/20) Other psychoactive substance abuse, uncomplicated (10/26/20) Toxic encephalopathy (10/26/20) Pneumonia, unspecified organism (10/26/20) Pneumonitis due to inhalation of food and vomit (10/26/20) Acute respiratory failure with hypoxia (10/26/20) Unspecified convulsions (10/26/20) rn long term care (current) use of insulin (10/26/20) Occupational Therapy Treatment Note M2 OT-IP Current Condition Start: 10/30/20 13:19 Freq: Status: Active Protocol: Document 10/30/20 13:22 [facility] (Rec: 10/30/20 13:38 [facility] [id number]) Occupational Therapy Current Condition Current Condition Evaluation Date 10/30/20 Treatment Diagnosis Metabolic encephalopathy, decreased mobility Diagnosis Onset Date 10/26/20 M3 OT- IP Subjective and Pain Start: 10/30/20 13:19 Freq: Status: Active Protocol: Document 11/03/20 11:43 [facility] (Rec: 11/03/20 11:55 [facility] [id number]) OT- Subjective Occupational Therapy Visit Type Type Treatment Note Visit Start Time 09:25 Visit Stop Time 11:19 Total Visit Minutes 25 Notes Saw pt from [id number] and 1114- 1119. Occupational Therapy Visit Comments Patient Comments Pt initially wanting to shower , but when asking him after breakfast , pt refused and just wanting to rest. Patient/Caregiver Goals TO go home. M4 OT- IP ADL's Start: 10/30/20 13:19 Freq: Status: Active Protocol: Document 11/03/20 11:43 [facility] (Rec: 11/03/20 11:55 [facility] [id number]) OT [id number] General Evaluation Self-Feeding Ability Standby Assistance Comments OT Self-Feeding Comments Pt able to self feed after set -up. M6 OT- IP Functional Cognition Start: 10/30/20 13:19 Freq: Status: Active Protocol: Document 11/03/20 11:43 [facility] (Rec: 11/03/20 11:55 [facility] [id number]) Cognitive Factors Limiting Selfcare Function Cognitive Ability Level of Alertness Alert,Confusional State Patient Orientation Name Attention Span Ability Capable of Focused Attention, Unable to Sustain Attention Ability to Follow Commands Able to Follow One Step Commands with Increased Time, Able to Follow One Step Commands with Repetition Memory Description Short Term Impaired,Working Impaired Safety Awareness Underestimates Need for Assistance Problem Solving Ability Unable to Identify Errors, Needs Assist to Identify Solutions Cognitive Comments Cognitive Assessment Comments Pt just orientated to name today and insisting that he will get up to go to his boat and also get up to cook breakfast. OT- Vision and Hearing OT- Vision Assessment Vision Assessment Comments Pt states does not have glasses, but bluried vision for left eye. Best for pt to go see an eye doctor. HOwever in the mean time when him left eye is occluded, pt able to read. Able to make a band for pt to cover his left eye when trying to read. Pt too confused and not knowing how to put theleft eye cover on and needing cues and assist. Educated pt's nurse for use of covering for left eye if pt wanting to read. M9 OT- IP Assessment and Plan Start: 10/30/20 13:19 Freq: Status: Active Protocol: Document 11/03/20 11:43 [facility] (Rec: 11/03/20 11:55 [facility] [id number]) OT Summary Assessment and Plan Potential Rehabilitation Potential Fair Analytic Complexity at Evaluation Moderate Summary OT Impairments Pain,Range of Motion,Strength, Balance,Coordination, Functional Cognition, Functional Mobility,Self- Feeding,Grooming,Dressing, Toileting,Bathing,Toilet Transfers,Shower Transfers, Activity Tolerance Progress Towards Goals Slow Progress due to Cognition Assessment Summary Pt needing continuous cues for orientation and safety and would benefit from 24/7 asisst at this time. Pt would still benefit from skilled rehab to help maximize his ADl and mobility needs prior to going home. Goals Self-Feeding Goal Independent Grooming Goal Independent Toileting Goal Independent Bathing Goal Independent Toilet Transfer Goal Independent Shower Transfer Goal Independent Patient/Caregiver Education Goal Caregiver Independent Assisting Patient Days to Meet Goals 24 Frequency of Treatment Frequency Of Treatment Once a Day Treatment Plan OT Treatment Plan ADL Training,Functional Cognition Training,Functional Mobility,Patient/Family Education,Discharge Planning Other Treatment Recommendations and Next shower with MODA Treatment Focus Discharge Recommendations OT Discharge Recommendations Home with 24/7 Assist Available,Home Health,SNF Rehab Transportation Needs at Discharge Wheelchair/Cabulance
[2020-11-03] MEDS: DOXYCYCLINE HYCLATE 100 MG TABLET PO ×2 (12:18→20:57)
[2020-11-03 12:20] VITALS: BP 129/71; PULSE 65; RESP 20; TEMP 36.7; O2SAT 98
--- NOTE | 2020-11-03 12:49 | PC.NURSE ---
Assess- Patient is alert to self only. He has been making statements this shift that do not make sense, He is also hallucinating at times. Two days ago patients mentation was better, although he was still confused. Patient is unsteady on his feet, impulsive, but cooperative. He gets mildly agitated but given ativan and he is sleeping now. Patient has been wearing a l.eye patch that occupational therapist made as she states that he can read better with this. He has been having a hard time seeing. Patient has multiple skin issues, that can be seen under physical assessment. He also has a stage 2 ulcer to his coccyx that is open to air. Dressing taken off as he was having bowel movements. Patient is comfortable at this time and he does cooperate and can sometimes reorient.
--- NOTE | 2020-11-03 14:21 | CM.DPC ---
CONSUMER SAFETY INSPECTOR Note CONSUMER SAFETY INSPECTOR enters room to meet with patient at bedside. Patient presents with blanket on his head. Patient presents as drowsy and not alert or oriented to person, place or time. Patient endorses his request for steak and corn. Patient endorses he is open to returning home to [facility] with support from caregiver Daily or SNF rehab where he will be cared for. CONSUMER SAFETY INSPECTOR speaks with patient's RN Dulce who endorses that patient has been hallucinating today and not making sense. Dulce indicates that patient was more alert 2 days ago. CONSUMER SAFETY INSPECTOR calls [facility] Admissions, they request further therapy, nurse and progress notes and reports. CONSUMER SAFETY INSPECTOR faxes updated referral packet. CONSUMER SAFETY INSPECTOR [facility] and leaves requesting return call. CONSUMER SAFETY INSPECTOR [facility], it is reported that there will be no beds at facility until mid next week. CONSUMER SAFETY INSPECTOR calls [facility] admissions, it is reported that patient cannot be accepted due to not being able to d/c patient to [facility]. CONSUMER SAFETY INSPECTOR explains that [facility] is patient's permanent place of residence and patient is declined. CONSUMER SAFETY INSPECTOR calls [facility] and leaves VM requesting return call. CONSUMER SAFETY INSPECTOR calls [facility] and leaves VM requesting return call. CONSUMER SAFETY INSPECTOR calls [facility] and leaves VM requesting return call. CONSUMER SAFETY INSPECTOR calls [facility] and admissions requests fax and endorses they did not receive referral packet. CONSUMER SAFETY INSPECTOR faxes referral packet. CONSUMER SAFETY INSPECTOR calls [facility] and leaves VM requesting return call. CONSUMER SAFETY INSPECTOR calls [facility], it is reported that there will be no admissions until Friday. Plan: continue to f/u with SNF rehab facilities for potential admission and f/u with [facility]. Noelle Thomas MSW
--- NOTE | 2020-11-03 14:50 | PT-IP ANOTE ---
Pt sound asleep in bed when arrived, per nursing request place on hold for pm tx and allow pt to sleep due to just given Adivan for active mobile agitation with hallucinations on going since last night. For safety, BOTTLE PACKER did not see pt for therapy this afternoon. Will assess progress tomorrow.
[2020-11-03 16:10] VITALS: BP 145/76; PULSE 66; RESP 17; TEMP 36; O2SAT 99
[2020-11-03] MEDS: SERTRALINE 50 MG TABLET 25 MG PO (20:57)
[2020-11-03] MEDS: INSULIN GLARGINE 100 UNIT/ML 3ML PEN SUBCUT (20:59)
[2020-11-03 21:50] VITALS: BP 142/88; PULSE 68; RESP 18; TEMP 36.3; O2SAT 96
[2020-11-03] MEDS: HALOPERIDOL 5 MG/ML VIAL 2 MG IV (23:39)
[2020-11-03 23:50] VITALS: BP 130/75; PULSE 71; RESP 16; TEMP 36.8; O2SAT 98
[2020-11-04] VITALS (10 sets, daily range): BP systolic 101–146; BP diastolic 62–91; PULSE 58–77; RESP 14–20; TEMP 35.8–36.4; O2SAT 93–98
--- NOTE | 2020-11-04 01:20 | PC.NURSE ---
At shift change patient became agitated and delusional believing that staff was not allowing him to sleep in his own bed and stating that the bed in his room was terrible and lumpy. Pt forcefully attempted to leave room and security was called as a standby. Pt was medicated with 0.5 mg po Ativan and 2 mg IVP haldol which eventually was helpful. 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 Pt believed his water was vodka. LS clear but course in the bases, S1 S2. Pt is currently sleeping.
[2020-11-04] MEDS: lisinopriL 10 MG TABLET PO (08:55)
[2020-11-04] MEDS: DOXYCYCLINE HYCLATE 100 MG TABLET PO ×2 (08:55→21:18)
[2020-11-04] MEDS: POTASSIUM CHLORIDE 20 MEQ TAB 40 MEQ PO ×2 (08:57→17:35)
[2020-11-04] MEDS: METOPROLOL ER 50 MG TABLET PO ×2 (08:57→21:18)
[2020-11-04] MEDS: METFORMIN HCL 500 MG TABLET PO ×2 (08:58→17:35)
[2020-11-04] MEDS: MULTIVITAMIN 1 TABLET 1 TAB PO (08:58)
[2020-11-04] MEDS: INSULIN LISPRO 100 UNIT/ML 3ML VIAL SUBCUT (08:58)
[2020-11-04] MEDS: ENOXAPARIN 40 MG/0.4 ML SYRINGE SUBCUT (08:58)
[2020-11-04] MEDS: FAMOTIDINE 20 MG TABLET PO ×2 (08:58→21:18)
[2020-11-04] MEDS: THIAMINE 100 MG TABLET PO (08:58)
[2020-11-04] MEDS: levETIRAcetam 250 MG TABLET 1000 MG PO ×2 (09:14→21:18)
--- NOTE | 2020-11-04 10:11 | OT.IPNOTE ---
Attempted to see pt for OT services. Pt declined all activity at this time. Pt is pleasant but states that he is very tired and just wants to sleep. States discomfort to whole body.
--- NOTE | 2020-11-04 10:51 | PM.PN.1 ---
Subjective Subjective Date Patient Seen: 11/04/20 Time Patient Seen: 10:52 Interval history: 60-year-old male found down at home, admitted after intubation, significant history of alcohol withdrawal, significant encephalopathy which persists.? Patient has aspiration pneumonia, sputum cultures growing MRSA, patient appears more alert and appropriate today.?Feels better today, statements to staff indicate possible hallucinations. He admits he occasionally sees and hears people not there, reports brother yesterday in his room of which he is aware. Denies pain today but states bilateral feet are tingly. Exam Vital Signs (past 8 hours): - 11/04/20 04:38 11/04/20 07:23 11/04/20 08:00 Temperature 96.5 F L 96.5 F L Pulse Rate 76 77 Respiratory Rate 15 14 Blood Pressure 101/62 133/88 Pulse Oximetry 93 93 98 11/04/20 08:55 11/04/20 08:57 Temperature Pulse Rate 77 77 Respiratory Rate Blood Pressure 133/88 133/88 Pulse Oximetry Fraction of Inspired Oxygen 35 Oxygen Delivery Method Room Air Oxygen Flow Rate 0 Narrative Exam Narrative: GENERAL APPEARANCE:? Chronically ill-appearing thin male, no acute distress SKIN:? No rash HEENT:? Normocephalic atraumatic, extraocular muscles are intact, oropharynx is clear and mucous membranes are moist NECK: Supple and symmetric. CHEST: Normal AP diameter and normal contour without any kyphoscoliosis. LUNGS: Auscultation of the lungs revealed no wheezes, rhonchi, or rales. CARDIOVASCULAR: There was a regular rate and rhythm without any murmurs, gallops, rubs. Peripheral pulses were 2+ and symmetric. ABDOMEN: Soft, nontender, and nondistended MUSCULOSKELETAL: There was no tenderness or effusions noted. Muscle strength and tone were normal. EXTREMITIES: No cyanosis, clubbing or edema. Objective Labs Result Diagrams: 10/30/20 04:10 11/02/20 04:30 [facility] Medical History Chicken pox (~1989) Partial blindness Psoriasis Family History Father Stroke Mother Cancer Brother Alcohol abuse Sister Murder Grandfather Stroke Grandmother Stroke Grandfather Stroke Grandmother Stroke Social History household members: none Smoking Status: Current every day smoker Assessment & Plan Assessment & Plan narrative: 1. Metabolic Encephalopathy - etiology not entirely clear. Likely multifactorial including derlium tremens from etoh withdrawal, malnutrition, septic shock. Slowly improving but SLUMS of 5. - continue PT / OT. - given hallucinations, consider psychiatry consultation after the long weekend. 2. Septic shock secondary to aspiration pneumonia probably with some component of hypovolemic shock ?- CXR with LLL pneumonia. Likely due to either seizure or intubation. ?-? -sputum growing MRSA -vanco discontinued, on doxycycline which MRSA sensitive. To finish antibiotic course on 11/05/20. 3. alcohol withdrawal with possible DTs. ?- No further evidence of withdrawal currently. 4. Diabetes, presumed new diagnosis ?- A1c 10.6%, currently on sliding scale insulin. Intermittent hyperglycemia. Started on lantus 5 U HS initially but will stop tonight given well controlled sugars on metformin and minimal lantus. ?- Presume this is the reason for patient's 50 lb weight loss recently per hotel staff, though will likely need outpatient age appropriate screening as well. ?- Not in DKA on admission. 5. hypokalemia ?- repleted during hospital stay, continue to follow. 6. Hyponatremia, ?- mild with Na of 128 on admission. stable. 7. Elevated troponin, improved ?- likely in the setting of sepsis. As above consider TTE. No known cardiac history at this time. No evidence of ischemia on EKGs. 8. acute respiratory failure with hypoxia secondary to presumed aspiration pneumonia, resolved ?- continue zosyn, extubated, on room air 9. Severe Protein Calorie Malnutrition ?- appreciate dietary recommendations. 10. Anxiety ?- continue PO ativan as needed. started sertraline given anxiety and near panic attack on 11/02/20. 11. Hypertension ?- continue lisinopril code: Full dispo: pending placement Time Spent With Patient Critical Care time: I spent a total of [] minutes of critical care time on this patient's care today; this time is exclusive of procedural time. Quality VTE Deep Vein Thrombosis/Pulmonary Embolism Present on Admission: No
--- NOTE | 2020-11-04 12:02 | PT-IP ANOTE ---
1202: Pt refused PT stating he wants to stay in bed and watch tv. He is waiting for his nephew Albert to come visit and wants a shower. States he will do PT tomorrow. Will check back with pt. RN aware of pt refusal.
--- NOTE | 2020-11-04 12:17 | CM.DPNOTE ---
Addendum entered by Nuvia Hedrick, COMBINATION WELDER 11/05/20 10:24: 9.5.21: Patient's cognition continues to wax and wane, patient actively hallucinating. Dr Bobby does not think patient is safe to return home at this time and would like to consult psychiatry when they return after this holiday weekend. Original Note: DCP Note According to CECILIO Kaba, patient is doing well cognitively this morning so now would be a good time to speak with him re: DC planning efforts. Met w/patient, according to our conversation: Patient told this COMBINATION WELDER he lives at [facility] and that his sister in law, Nuvia, manages the mot. Patient intends to return home to [place] soon, states his nephew Albert is coming this afternoon and patient wants to talk with him about taking him home. This COMBINATION WELDER suggests patient stay at for a little longer for continued medical management, as cognition improves, patient states okay then does say I just want to sleep in my own bed. Patient states when almost all of his local family , he began drinking heavily. Patient denies poly substance abuse today. Patient admits to drinking upwards of 1/2 Gallon of hard liquor daily. Patient would like to stay sober stating this stuff is killing me but not able to commit to a recovery program or counseling services at this time. Discussed DCP and patient intends to return to his motel room w/assist from his friends DailyNuvia and Geetha (?) Spoke w/CEICLIO Kaba, updated that patient is wanting to return home to his motel room. Patient not attempting to leave AMA, however, this COMBINATION WELDER plans to follow closely as patient's mobility improves, and hopefully cognition as well, so can coordinate cg support and outpatient resources, if patient agreeable JW
--- NOTE | 2020-11-04 13:08 | PT-IP ANOTE ---
checked back with pt this afternoon but pt continues to refuse PT stating Albert is coming to visit and he is going to have a shower with nursing soon. Will attempt to see pt tomorrow.
[2020-11-04] MEDS: LORazepam 0.5 MG TABLET PO ×2 (15:34→21:18)
--- NOTE | 2020-11-04 15:52 | PC.NURSE ---
Patient agitated and believes he is being poisened. Believes all his teeth and hair have fallen out ovenight. Lorazepam 0.5g given, minimally effective. Notified Dr. Bobby.
[2020-11-04] MEDS: LORazepam 2 MG/ML INJ IM (16:22)
[2020-11-04] MEDS: SERTRALINE 50 MG TABLET 25 MG PO (21:18)
--- NOTE | 2020-11-04 21:19 | PC.NURSE ---
Patient agitated and believes all his hair and teeth fell out overnight stating he is being poisoned. He is very upset looking in the mirror and at his dentures and his hair. Lorazepam 0.5mg PO given with little effect. Dr Bobby ordered Lorazepam 2mg IM, given in left deltoid with effective results. Will continue to monitor.
--- NOTE | 2020-11-05 04:15 | PC.NURSE ---
Pt is A and O to self only. Strongly desirous to get out of here. Pt states he only came in here to get a haircut. Now you won't let me leave. Pt becomes argumentative with redirection. Pt able to sleep and ambulates to BR to void, but als incontinent of bladder. PICC line removed 11/04/20 at 1313, behavioral meds changed to IM. Patient declines food and beverage. Diet consult made.
--- NOTE | 2020-11-05 06:25 | PC.NURSE ---
Pt found in shower actively bathing. No falls. BA had not gone off. Patient had been incontinent or bladder. When discussing the BA in the room, the patient stated that he turned it off. He said I don't like the noise. Coordinator aware.
[2020-11-05 07:00] VITALS: BP 145/85; PULSE 67; RESP 20; TEMP 35.9; O2SAT 98
[2020-11-05 07:16] LABS: Hemoglobin 12.1 g/dL (13.5-17.5); Mean Corpuscular HGB Conc 35.6 % (30-36); Mean Corpuscular Hemoglobin 31.9 PG (26-34); Mean Corpuscular Volume 89.7 fL (80-100); Platelet Count 425 X10^3/uL (150-400); Red Blood Cell Count 3.79 X10^6/uL (4.5-5.9); Red Cell Distribution Width 14.5 % (11.6-14.8); White Blood Cell Count 10.5 X10^3/uL (4.5-11.0)
[2020-11-05 07:19] LABS: Add Manual Diff / Slide Review YES
[2020-11-05 07:26] LABS: Alanine Aminotransferase 28 IU/L (<50); Albumin 3.4 g/dL (3.5-5.0); Albumin Globulin Ratio 1.1 (1.0-2.8); Alkaline Phosphatase 91 U/L (38-126); Aspartate Aminotransferase 35 IU/L (17-59); BUN Creatinine Ratio 14.3 (6-22); Bilirubin Total 0.9 mg/dL (0.2-1.3); Blood Urea Nitrogen 7 mg/dL (9-20); Calcium 8.6 mg/dL (8.4-10.2); Carbon Dioxide 22 mmol/L (22-32); Chloride 95 mmol/L (98-107); Estimated Glomerular Filt Rate > 60.0 mL/min (>60); Globulin 3.1 g/dL (1.7-4.1); Glucose 167 mg/dL (80-110); HEMOLYSIS < 15 (0-50); Potassium 4.5 mmol/L (3.4-5.1); Sodium 125 mmol/L (137-145); Total Protein 6.5 g/dL (6.3-8.2)
[2020-11-05 07:43] LABS: Neutrophils Absolute Manual 8925 /uL (3000-5900); RBC Morphology Normal Morphology; Total Cells Counted 100
[2020-11-05] MEDS: INSULIN LISPRO 100 UNIT/ML 3ML VIAL SUBCUT (07:58)
[2020-11-05] MEDS: ENOXAPARIN 40 MG/0.4 ML SYRINGE SUBCUT (08:00)
[2020-11-05] MEDS: METOPROLOL ER 50 MG TABLET PO ×2 (08:00→22:06)
[2020-11-05] MEDS: MULTIVITAMIN 1 TABLET 1 TAB PO (08:00)
[2020-11-05] MEDS: THIAMINE 100 MG TABLET PO (08:00)
[2020-11-05] MEDS: levETIRAcetam 250 MG TABLET 1000 MG PO (08:00)
[2020-11-05] MEDS: ACETAMINOPHEN 325 MG TABLET 975 MG PO (08:00)
[2020-11-05] MEDS: lisinopriL 10 MG TABLET PO (08:00)
[2020-11-05] MEDS: DOXYCYCLINE HYCLATE 100 MG TABLET PO (08:00)
[2020-11-05] MEDS: METFORMIN HCL 500 MG TABLET PO ×2 (08:00→16:58)
[2020-11-05] MEDS: FAMOTIDINE 20 MG TABLET PO ×2 (08:00→22:07)
[2020-11-05] MEDS: POTASSIUM CHLORIDE 20 MEQ TAB 40 MEQ PO ×2 (08:00→16:58)
[2020-11-05 08:15] LABS: Vitamin B12 Reflex MMA if <400 811 pg/mL (239-931)
--- NOTE | 2020-11-05 09:53 | PC.NURSE ---
Addendum entered by Dulce Bullock R.N. 11/05/20 14:19: Patient is a bit more clear, he is actually holding a conversation. He has been pleasant this shift and cooperative with care. Resting comfortably. Original Note: Assess- Patient is alert but confused x2. He is lucid at times, and confused with agitations sometimes.. Patient has been turning his bed alarm off, per threat analyst RN patient got himself in the shower by himself. He is not steady on his feet. He sometimes asks for a rum and coke, and a 6 pack of beer. He has not made these statements this morning. He does frequently state that he wants to bbq a steak. Per vacation planner Amber patient was more clear yesterday and able to have a conversation. He has been appropriate this morning and did eat about 40% of his breakfast. Sets off his bed alarm when he needs to use the bathroom, he is also incontinent of urine. Patient has multiple skin issues and a stage 2 ulcers to his coccyx between his bottom cheeks. Area is looking better, we are applying cream to area's after each incontinence. Resting supine at this time. He has some po ativan if needed, also im haldol and ativan. If patient becomes agitated will start off by giving him oral ativan.
[2020-11-05 11:00] VITALS: PULSE 58; RESP 19; TEMP 36; O2SAT 94
--- NOTE | 2020-11-05 11:23 | PM.PN.1 ---
Subjective Subjective Date Patient Seen: 11/05/20 Time Patient Seen: 11:24 Interval history: 60-year-old male found down at home, admitted after intubation, significant history of alcohol withdrawal, significant encephalopathy which persists but is improving. He has been more alert during the day, but pulled out midline and occasionally wants to leave the hospital and becomes agitated. Denies complaints today. Exam Vital Signs (past 8 hours): - 11/05/20 07:00 Temperature 96.7 F L Pulse Rate 67 Respiratory Rate 20 Blood Pressure 145/85 H Pulse Oximetry 98 Fraction of Inspired Oxygen 35 Oxygen Delivery Method Room Air Oxygen Flow Rate 0 Narrative Exam Narrative: ENERAL APPEARANCE:? Chronically ill-appearing thin male, no acute distress SKIN:? No rash HEENT:? Normocephalic atraumatic, extraocular muscles are intact, oropharynx is clear and mucous membranes are moist NECK: Supple and symmetric. CHEST: Normal AP diameter and normal contour without any kyphoscoliosis. LUNGS: Auscultation of the lungs revealed no wheezes, rhonchi, or rales. CARDIOVASCULAR: There was a regular rate and rhythm without any murmurs, gallops, rubs. Peripheral pulses were 2+ and symmetric. ABDOMEN: Soft, nontender, and nondistended MUSCULOSKELETAL: There was no tenderness or effusions noted. Muscle strength and tone were normal. EXTREMITIES: No cyanosis, clubbing or edema. Objective Labs Result Diagrams: 11/05/20 07:07 11/05/20 07:07 Labs: Laboratory Results - last 24 hr 11/05/20 11/05/20 11/05/20 07:07 07:07 07:07 WBC 10.5 RBC 3.79 L Hgb 12.1 L Hct 34.0 L MCV 89.7 MCH 31.9 MCHC 35.6 RDW 14.5 Plt Count 425 H Neut % (Auto) Not Reportable Lymph % (Auto) Not Reportable [place] % (Auto) Not Reportable Eos % (Auto) Not Reportable Baso % (Auto) Not Reportable Lymph # (Auto) Not Reportable [place] # (Auto) Not Reportable Baso # (Auto) Not Reportable Total Counted 100 Seg Neutrophils % 59.0 Band Neutrophils % 26.0 H Lymphocytes % (Manual) 8.0 L Monocytes % (Manual) 5.0 Metamyelocytes % 2.0 H Neutrophils # (Manual) 8925 H RBC Morphology Normal morphology Sodium 125 L Potassium 4.5 Chloride 95 L Carbon Dioxide 22 BUN 7 L Creatinine 0.49 L Estimated GFR > 60.0 BUN/Creatinine Ratio 14.3 Glucose 167 H Calcium 8.6 Total Bilirubin 0.9 AST 35 ALT 28 Alkaline Phosphatase 91 Total Protein 6.5 Albumin 3.4 L Globulin 3.1 Albumin/Globulin Ratio 1.1 Vitamin B12 TSH 3.30 D 11/05/20 07:07 WBC RBC Hgb Hct MCV MCH MCHC RDW Plt Count Neut % (Auto) Lymph % (Auto) [place] % (Auto) Eos % (Auto) Baso % (Auto) Lymph # (Auto) [place] # (Auto) Baso # (Auto) Total Counted Seg Neutrophils % Band Neutrophils % Lymphocytes % (Manual) Monocytes % (Manual) Metamyelocytes % Neutrophils # (Manual) RBC Morphology Sodium Potassium Chloride Carbon Dioxide BUN Creatinine Estimated GFR BUN/Creatinine Ratio Glucose Calcium Total Bilirubin AST ALT Alkaline Phosphatase Total Protein Albumin Globulin Albumin/Globulin Ratio Vitamin B12 811 TSH [facility] Medical History Chicken pox (~1989) Partial blindness Psoriasis Family History Father Stroke Mother Cancer Brother Alcohol abuse Sister Murder Grandfather Stroke Grandmother Stroke Grandfather Stroke Grandmother Stroke Social History household members: none Smoking Status: Current every day smoker Assessment & Plan Assessment & Plan narrative: 1. Metabolic Encephalopathy ?- etiology not entirely clear. Likely multifactorial including derlium tremens from etoh withdrawal, malnutrition, septic shock. Slowly improving but SLUMS of 5. Will try to repeat as he appears to be less confused over the past few days. ?- continue PT / OT. ?- given intermittent hallucinations, consider psychiatry consultation after the long weekend. 2. Septic shock secondary to aspiration pneumonia probably with some component of hypovolemic shock ?- CXR with LLL pneumonia. Likely due to either seizure or intubation. ?-? -sputum growing MRSA -vanco discontinued, on doxycycline which MRSA sensitive. To finish antibiotic course on 11/05/20. 3. alcohol withdrawal with possible DTs. ?- No further evidence of withdrawal currently. - suspect seizure from alcohol withdrawal, will stop keppra today and monitor. 4. Diabetes, presumed new diagnosis ?- A1c 10.6%, currently on sliding scale insulin. Intermittent hyperglycemia. Started on lantus 5 U HS initially but will stop given well controlled sugars on metformin and minimal lantus. ?- Presume this is the reason for patient's 50 lb weight loss recently per hotel staff, though will likely need outpatient age appropriate screening as well. ?- Not in DKA on admission. - continue metformin for now. 5. hypokalemia ?- repleted during hospital stay, continue to follow. 6. Hyponatremia, ?- mild with Na of 128 on admission. stable but slightly worsened today to 125. Will check urine studies, UA and urine na and osm. Stopped SSRI and keppra today. 7. Elevated troponin, improved ?- likely in the setting of sepsis. As above consider TTE. No known cardiac history at this time. No evidence of ischemia on EKGs. 8. acute respiratory failure with hypoxia secondary to presumed aspiration pneumonia, resolved ?- continue zosyn, extubated, on room air 9. Severe Protein Calorie Malnutrition ?- appreciate dietary recommendations. 10. Anxiety ?- continue PO ativan as needed. started sertraline given anxiety and near panic attack on 11/02/20. however some behavioral issues have arisen after initiation and will stop for now. 11. Hypertension ?- continue lisinopril code: Full dispo: pending placement Time Spent With Patient Critical Care time: I spent a total of [] minutes of critical care time on this patient's care today; this time is exclusive of procedural time. Quality VTE Deep Vein Thrombosis/Pulmonary Embolism Present on Admission: No
[2020-11-05 12:08] LABS: Bacteria Urine None Seen
[2020-11-05 12:21] LABS: Sodium Urine Random 128 mmol/L (30-90)
[2020-11-05 12:23] LABS: Appearance Urine UA SL CLOUDY; Bilirubin Urine UA NEGATIVE (NEGATIVE); Color Urine UA YELLOW; Glucose Urine UA NEGATIVE (Negative); Ketones Urine UA TRACE (NEGATIVE); Leukocyte Esterase Urine UA NEGATIVE (NEGATIVE); Nitrite Urine UA NEGATIVE (Negative); Occult Blood Urine UA NEGATIVE (Negative); Protein Urine UA NEGATIVE (Negative); Specific Gravity Urine UA 1.015 (1.000-1.035); Urobilinogen Urine UA 0.2 E.U./dL (0.2)
[2020-11-05 12:26] LABS: RBC Urine 0-1/HPF (0-5/HPF); WBC Urine 0-1/HPF (0-5/HPF)
[2020-11-05 12:27] LABS: Culture Indicated Urine Cult Not Indicated; Mucus Urine 1+ (Negative)
--- NOTE | 2020-11-05 14:23 | PT-IP ANOTE ---
Pt very pleasantly but very firmly refused PT intervention twice today. Spent time educating pt on benefits of mobility and attempted to frame PT as aligned with his goal of returning to the motel but pt continued to refuse, stating he was just too tired to participate today. Will follow up Friday.
[2020-11-05 15:15] VITALS: BP 132/67; PULSE 65; RESP 20; TEMP 36.5; O2SAT 94
[2020-11-05 20:00] VITALS: BP 148/91; PULSE 64; RESP 20; TEMP 36.6
[2020-11-06] VITALS (13 sets, daily range): BP systolic 96–152; BP diastolic 60–89; PULSE 60–86; RESP 15–20; TEMP 35.8–36.6; O2SAT 92–100
[2020-11-06 06:37] LABS: Hemoglobin 12.7 g/dL (13.5-17.5); Mean Corpuscular HGB Conc 35.1 % (30-36); Mean Corpuscular Hemoglobin 31.6 PG (26-34); Platelet Count 455 X10^3/uL (150-400); Red Cell Distribution Width 14.9 % (11.6-14.8); White Blood Cell Count 8.5 X10^3/uL (4.5-11.0)
[2020-11-06 06:38] LABS: Alanine Aminotransferase 28 IU/L (<50); Albumin 3.6 g/dL (3.5-5.0); Albumin Globulin Ratio 1.2 (1.0-2.8); Alkaline Phosphatase 90 U/L (38-126); Aspartate Aminotransferase 35 IU/L (17-59); BUN Creatinine Ratio 15.9 (6-22); Bilirubin Total 0.7 mg/dL (0.2-1.3); Blood Urea Nitrogen 7 mg/dL (9-20); Calcium 8.7 mg/dL (8.4-10.2); Carbon Dioxide 23 mmol/L (22-32); Chloride 92 mmol/L (98-107); Estimated Glomerular Filt Rate > 60.0 mL/min (>60); Globulin 3.1 g/dL (1.7-4.1); Glucose 177 mg/dL (80-110); HEMOLYSIS < 15 (0-50); Potassium 4.3 mmol/L (3.4-5.1); Sodium 121 mmol/L (137-145); Total Protein 6.7 g/dL (6.3-8.2)
[2020-11-06 06:40] LABS: Add Manual Diff / Slide Review YES
[2020-11-06 06:55] LABS: Neutrophils Absolute Manual 7225 /uL (3000-5900); Total Cells Counted 100
[2020-11-06 06:56] LABS: RBC Morphology Normal Morphology
--- NOTE | 2020-11-06 08:55 | PT-IP ANOTE ---
Pt refused PT, stating he wanted to sleep. Pt with 1:1 in room, she stated pt didn't sleep well and just took something to sleep.
--- NOTE | 2020-11-06 09:13 | PM.PN.1 ---
Subjective Subjective Date Patient Seen: 11/06/20 Time Patient Seen: 09:15 Interval history: 60-year-old male found down at home, admitted after intubation, significant history of alcohol withdrawal, significant encephalopathy which persists but is improving generally but today he was urinating into his water cup instead of urinal. Denies complaints today. Na dropped to 121 this AM, likely SIADH from medications. Exam Vital Signs (past 8 hours): - 11/06/20 01:30 11/06/20 02:17 11/06/20 05:55 Temperature 97.6 F 97.8 F Pulse Rate 66 66 60 Respiratory Rate 18 18 Blood Pressure 109/60 109/60 140/83 Pulse Oximetry 99 95 11/06/20 08:00 Temperature 96.5 F L Pulse Rate 73 Respiratory Rate 20 Blood Pressure 121/76 Pulse Oximetry 95 Fraction of Inspired Oxygen 35 Oxygen Delivery Method Room Air Oxygen Flow Rate 0 Narrative Exam Narrative: GENERAL APPEARANCE:? Chronically ill-appearing thin male, no acute distress SKIN:? No rash HEENT:? Normocephalic atraumatic, extraocular muscles are intact, oropharynx is clear and mucous membranes are moist NECK: Supple and symmetric. CHEST: Normal AP diameter and normal contour without any kyphoscoliosis. LUNGS: Auscultation of the lungs revealed no wheezes, rhonchi, or rales. CARDIOVASCULAR: There was a regular rate and rhythm without any murmurs, gallops, rubs. Peripheral pulses were 2+ and symmetric. ABDOMEN: Soft, nontender, and nondistended MUSCULOSKELETAL: There was no tenderness or effusions noted. Muscle strength and tone were normal. EXTREMITIES: No cyanosis, clubbing or edema. Objective Labs Result Diagrams: 11/06/20 06:07 11/06/20 06:07 Labs: Laboratory Results - last 24 hr 11/05/20 11/05/20 11/06/20 12:06 12:06 06:07 WBC 8.5 RBC 4.00 L Hgb 12.7 L Hct 36.0 L MCV 90.0 MCH 31.6 MCHC 35.1 RDW 14.9 H Plt Count 455 H Neut % (Auto) Not Reportable Lymph % (Auto) Not Reportable [place] % (Auto) Not Reportable Eos % (Auto) Not Reportable Baso % (Auto) Not Reportable Lymph # (Auto) Not Reportable [place] # (Auto) Not Reportable Baso # (Auto) Not Reportable Total Counted 100 Seg Neutrophils % 81.0 H Band Neutrophils % 4.0 Lymphocytes % (Manual) 8.0 L Monocytes % (Manual) 5.0 Eosinophils % (Manual) 1.0 L Metamyelocytes % 1.0 H Neutrophils # (Manual) 7225 H RBC Morphology Normal morphology Sodium Potassium Chloride Carbon Dioxide BUN Creatinine Estimated GFR BUN/Creatinine Ratio Glucose Calcium Total Bilirubin AST ALT Alkaline Phosphatase Total Protein Albumin Globulin Albumin/Globulin Ratio Urine Color Yellow Urine Appearance Sl cloudy Urine pH 7.0 Ur Specific [place] 1.015 Urine Protein Negative Urine Glucose (UA) Negative Urine Ketones Trace H Urine Occult Blood Negative Urine Nitrate Negative Urine Bilirubin Negative Urine Urobilinogen 0.2 Ur Leukocyte Esterase Negative Urine RBC 0-1/hpf Urine WBC 0-1/hpf Other Crystals 2+ amorphous Urine Bacteria None seen Urine Mucus 1+ H Ur Culture Indicated? Cult not indicated Ur Random Sodium 128 H 11/06/20 06:07 WBC RBC Hgb Hct MCV MCH MCHC RDW Plt Count Neut % (Auto) Lymph % (Auto) [place] % (Auto) Eos % (Auto) Baso % (Auto) Lymph # (Auto) [place] # (Auto) Baso # (Auto) Total Counted Seg Neutrophils % Band Neutrophils % Lymphocytes % (Manual) Monocytes % (Manual) Eosinophils % (Manual) Metamyelocytes % Neutrophils # (Manual) RBC Morphology Sodium 121 L Potassium 4.3 Chloride 92 L Carbon Dioxide 23 BUN 7 L Creatinine 0.44 L Estimated GFR > 60.0 BUN/Creatinine Ratio 15.9 Glucose 177 H Calcium 8.7 Total Bilirubin 0.7 AST 35 ALT 28 Alkaline Phosphatase 90 Total Protein 6.7 Albumin 3.6 Globulin 3.1 Albumin/Globulin Ratio 1.2 Urine Color Urine Appearance Urine pH Ur Specific [place] Urine Protein Urine Glucose (UA) Urine Ketones Urine Occult Blood Urine Nitrate Urine Bilirubin Urine Urobilinogen Ur Leukocyte Esterase Urine RBC Urine WBC Other Crystals Urine Bacteria Urine Mucus Ur Culture Indicated? Ur Random Sodium [facility] Medical History Chicken pox (~1989) Partial blindness Psoriasis Family History Father Stroke Mother Cancer Brother Alcohol abuse Sister Murder Grandfather Stroke Grandmother Stroke Grandfather Stroke Grandmother Stroke Social History household members: none Smoking Status: Current every day smoker Assessment & Plan Assessment & Plan narrative: ?1. Metabolic Encephalopathy ?- etiology not entirely clear. Likely multifactorial including derlium tremens from etoh withdrawal, malnutrition, septic shock. Slowly improving but SLUMS of 5. Will try to repeat as he appears to be less confused over the past few days. ?- continue PT / OT. ?- given intermittent hallucinations, consider psychiatry consultation after the long weekend. 2. Septic shock secondary to aspiration pneumonia probably with some component of hypovolemic shock ?- CXR with LLL pneumonia. Likely due to either seizure or intubation. ?-? -sputum growing MRSA -vanco discontinued, on doxycycline which MRSA sensitive. completed antibiotics on 11/05/20. 3. alcohol withdrawal with possible DTs. ?- No further evidence of withdrawal currently. ?- suspect seizure from alcohol withdrawal, will stop keppra today and monitor. 4. Diabetes, presumed new diagnosis ?- A1c 10.6%, currently on sliding scale insulin. Intermittent hyperglycemia. Started on lantus 5 U HS initially but will stop? given well controlled sugars on metformin and minimal lantus. ?- Presume this is the reason for patient's 50 lb weight loss recently per hotel staff, though will likely need outpatient age appropriate screening as well. ?- Not in DKA on admission. ?- continue metformin for now. 5. hypokalemia ?- repleted during hospital stay, continue to follow. 6. Hyponatremia, acute, now with SIADH ?- mild with Na of 128 on admission. had been stable but dropping down to 121 today. Stopped SSRI and keppra on 11/05. Urine Na 120, urine osm pending. - consider more restrictive fluid restriction, started salt tabs 1000 mg TID 11/06. Will repeat labs throughout the day. consider 3% bolus if <120. 7. Elevated troponin, improved ?- likely in the setting of sepsis. As above consider TTE. No known cardiac history at this time. No evidence of ischemia on EKGs. 8. acute respiratory failure with hypoxia secondary to presumed aspiration pneumonia, resolved ?- continue zosyn, extubated, on room air 9. Severe Protein Calorie Malnutrition ?- appreciate dietary recommendations. 10. Anxiety ?- continue PO ativan as needed. started sertraline given anxiety and near panic attack on 11/02/20. however some behavioral issues have arisen after initiation and will stop for now. 11. Hypertension ?- continue lisinopril code: Full dispo: pending placement Time Spent With Patient Critical Care time: I spent a total of [] minutes of critical care time on this patient's care today; this time is exclusive of procedural time. Quality VTE Deep Vein Thrombosis/Pulmonary Embolism Present on Admission: No
[2020-11-06] MEDS: ENOXAPARIN 40 MG/0.4 ML SYRINGE SUBCUT (09:26)
[2020-11-06] MEDS: POTASSIUM CHLORIDE 20 MEQ TAB 40 MEQ PO (09:26)
[2020-11-06] MEDS: FAMOTIDINE 20 MG TABLET PO ×2 (09:27→20:01)
[2020-11-06] MEDS: MULTIVITAMIN 1 TABLET 1 TAB PO (09:27)
[2020-11-06] MEDS: lisinopriL 10 MG TABLET PO (09:27)
[2020-11-06] MEDS: METOPROLOL ER 50 MG TABLET PO ×2 (09:28→20:01)
[2020-11-06] MEDS: METFORMIN HCL 500 MG TABLET PO ×2 (09:30→18:18)
[2020-11-06] MEDS: SODIUM CHLORIDE 1,000 MG TABLET 1000 MG PO ×2 (09:31→15:20)
[2020-11-06] MEDS: THIAMINE 100 MG TABLET PO (09:32)
[2020-11-06] MEDS: INSULIN LISPRO 100 UNIT/ML 3ML VIAL SUBCUT ×2 (09:32→12:43)
[2020-11-06] MEDS: ACETAMINOPHEN 325 MG TABLET 975 MG PO (09:35)
--- NOTE | 2020-11-06 10:21 | OT.IPNOTE ---
Attempted to see pt for OT services. Per pt, too fatigued to participate. 1:1 now present in room who states that pt had a difficult night. Will hold and continue to follow.
--- NOTE | 2020-11-06 10:31 | DIET.PN1 ---
Dietary Progress Note Assessment: Per hospitalist pt not appropriate for nutrition education at this time. Pt can have assistance from automobile service station attendant or nursing for meal ordering. Pt on appropriate CCD. RD to send ONS Glucerna c dinner for evening snack. Ht: 177.8 cm Wt: 60.1 kg BMI: 19
--- NOTE | 2020-11-06 11:00 | PT-IP ANOTE ---
Pt unavailable as he is in shower. Will check back with pt tomorrow.
[2020-11-06 14:29] LABS: Blood Urea Nitrogen 8 mg/dL (9-20); Carbon Dioxide 22 mmol/L (22-32); Chloride 92 mmol/L (98-107); Estimated Glomerular Filt Rate > 60.0 mL/min (>60); Glucose 106 mg/dL (80-110); HEMOLYSIS 20 (0-50); Potassium 5.2 mmol/L (3.4-5.1); Sodium 120 mmol/L (137-145)
[2020-11-06] MEDS: SODIUM CHLORIDE 1,000 MG TABLET 2000 MG PO (20:02)
--- NOTE | 2020-11-06 23:59 | PC.NURSE ---
Addendum entered by Judy Matthew R.N. 11/07/20 06:52: Weight, today, after rezeroing bed is 51.5kg which is down 8.6kg from yesterday but only 2kg from admission on 10/26 Addendum entered by Judy Matthew R.N. 11/07/20 06:40: Episode this morning where patient having difficulty forming words. Able to follow some directions but not consistently. Vitals were stable. After approximately 5 minutes patient again able to form words but remains very disoriented and again talking about going camping. Original Note: Patient is alert but oriented only to self, birthdate and age. States he is in [employer] and is here because he had a heart attack. Keeps stating someone is going to be picking him up at noon which he indicates is only an hour away (2329 at time of assessment). Talks excessively and rambles. Breath sounds diminished but CTA with RA sat of 100%. HRR. BP has been labile and was 152/89 at time of assessment. Denies nausea. BT present and abdomen is soft. Denies dysuria, frequency or urgency with urination. Is able to move himself in bed. Up to bathroom with SBA + walker and has shuffling gait. Allevyn dressings to left buttock/coccyx area and below left knee both CDI. Scattered abrasions on bilateral LE. States feet feel as though he has pins and needles. Currently has 1:1 staff at bedside but is being cooperative. Seizure pads in place on bed. On contact isolation for MRSA in nares/sputum. Fall risk score is high and bed alarm is activated.
[2020-11-07] VITALS (14 sets, daily range): BP systolic 114–159; BP diastolic 68–87; PULSE 66–101; RESP 16–18; TEMP 36.3–37.1; O2SAT 98–100
--- NOTE | 2020-11-07 00:20 | PC.NURSE ---
Addendum entered by Shaniqua Ingram CNA 11/07/20 05:50: Pt is convinced that he will be leaving to go camping in the morning and this MEDICAL MALPRACTICE PARALEGAL will be going with him. Pt attempted to get up and leave room to pack a bag but RN and this MEDICAL MALPRACTICE PARALEGAL were able to reorient and get him back to bed. Pt is awake and alert but not oriented and expects for family or friends to be by to leave for camping trip. Addendum entered by Shaniqua Ingram CNA 11/07/20 03:19: Pt woke up and requested to use restroom. Baby powder removed and placed on top of cabinet above gloves. Pt fixated on going camping and purchasing alcohol and movies. Pt repeated thoughts on loop referencing friend names Jono. Original Note: Pt stated need to use restroom. Pt voided independently on toilet and requested new brief. Pt removed old brief and began to cover entire head, face and body with baby powder stating he needed to get ready to go and it made him smell good. Pt then returned to bed and promptly fell asleep. Pt is pleasant and cooperative but confused.
[2020-11-07 06:31] LABS: Hemoglobin 13.1 g/dL (13.5-17.5); Mean Corpuscular HGB Conc 34.4 % (30-36); Mean Corpuscular Hemoglobin 30.8 PG (26-34); Mean Corpuscular Volume 89.4 fL (80-100); Platelet Count 525 X10^3/uL (150-400); Red Blood Cell Count 4.25 X10^6/uL (4.5-5.9); Red Cell Distribution Width 15.4 % (11.6-14.8); White Blood Cell Count 6.8 X10^3/uL (4.5-11.0)
[2020-11-07 06:34] LABS: Add Manual Diff / Slide Review YES; Alanine Aminotransferase 31 IU/L (<50); Albumin 3.9 g/dL (3.5-5.0); Albumin Globulin Ratio 1.1 (1.0-2.8); Alkaline Phosphatase 98 U/L (38-126); Aspartate Aminotransferase 41 IU/L (17-59); BUN Creatinine Ratio 12.5 (6-22); Bilirubin Total 0.9 mg/dL (0.2-1.3); Blood Urea Nitrogen 6 mg/dL (9-20); Calcium 9.1 mg/dL (8.4-10.2); Carbon Dioxide 22 mmol/L (22-32); Chloride 90 mmol/L (98-107); Estimated Glomerular Filt Rate > 60.0 mL/min (>60); Globulin 3.4 g/dL (1.7-4.1); Glucose 137 mg/dL (80-110); HEMOLYSIS < 15 (0-50); Potassium 4.3 mmol/L (3.4-5.1); Sodium 121 mmol/L (137-145); Total Protein 7.3 g/dL (6.3-8.2)
[2020-11-07 06:58] LABS: Neutrophils Absolute Manual 4964 /uL (3000-5900); RBC Morphology Normal Morphology; Total Cells Counted 100
[2020-11-07] MEDS: ENOXAPARIN 40 MG/0.4 ML SYRINGE SUBCUT (08:37)
[2020-11-07] MEDS: MULTIVITAMIN 1 TABLET 1 TAB PO (08:41)
[2020-11-07] MEDS: THIAMINE 100 MG TABLET PO (08:41)
[2020-11-07] MEDS: FAMOTIDINE 20 MG TABLET PO ×2 (08:41→21:26)
[2020-11-07] MEDS: lisinopriL 10 MG TABLET PO (08:42)
[2020-11-07] MEDS: METOPROLOL ER 50 MG TABLET PO ×2 (08:44→21:26)
[2020-11-07] MEDS: SODIUM CHLORIDE 1,000 MG TABLET 2000 MG PO ×3 (08:45→22:02)
[2020-11-07] MEDS: METFORMIN HCL 500 MG TABLET PO ×2 (08:49→16:52)
[2020-11-07] MEDS: INSULIN LISPRO 100 UNIT/ML 3ML VIAL SUBCUT ×2 (08:51→12:39)
--- NOTE | 2020-11-07 11:27 | OT.IPNOTE ---
Pt is 1:1 now for nursing and not appropriate for OT services at this time, able to talk hospitalist to for discharge pt from OT services.
--- NOTE | 2020-11-07 11:55 | PT-IP ANOTE ---
Pt now has 1:1 care with TOOL DESIGN DRAFTER. He has been refusing all PT interventions. Spoke with hospitalist who agreed with decision to discharge PT orders at this time.
--- NOTE | 2020-11-07 13:42 | PC.NURSE ---
Pt is keep talking about going out camping today,pt stated his father Bal will pick him up. Pt is having difficulty forming a words,talks very fast,rambles and has episode of chocking on his own saliva. Pt asks me if I can get him alcohol(vodka) also pt mentioned he cannot wait till five days because of his friends will commit suicide.
[2020-11-07 15:10] LABS: BUN Creatinine Ratio 14.8 (6-22); Blood Urea Nitrogen 8 mg/dL (9-20); Calcium 9.1 mg/dL (8.4-10.2); Carbon Dioxide 24 mmol/L (22-32); Chloride 90 mmol/L (98-107); Estimated Glomerular Filt Rate > 60.0 mL/min (>60); Glucose 103 mg/dL (80-110); HEMOLYSIS < 15 (0-50); Potassium 4.1 mmol/L (3.4-5.1); Sodium 122 mmol/L (137-145)
--- NOTE | 2020-11-07 15:12 | P.PN_ITS ---
Subjective Subjective Date Patient Seen: 11/07/20 Time Patient Seen: 13:00 Interval history: Today he is energetic and cheerful. He is quite clearly confused and confabulating. He knows the month is november, says year is 1920, and says he is in a hospital, but misnames the hospital. However, he also is confabulating stories of the various staff that have walked in the room, he says he and the nurse are and have children and have plans for the future for travel. He also confabulates stories of special education case manager who walks in. Exam Vital Signs (past 8 hours): - 11/07/20 08:42 11/07/20 08:44 11/07/20 10:19 Temperature 97.6 F Pulse Rate 75 75 66 Respiratory Rate 18 Blood Pressure 137/68 137/68 123/82 Pulse Oximetry 99 11/07/20 11:16 11/07/20 11:46 Temperature Pulse Rate 73 73 Respiratory Rate 18 Blood Pressure 130/69 130/69 Pulse Oximetry 98 Fraction of Inspired Oxygen 35 Oxygen Delivery Method Room Air Oxygen Flow Rate 0 Narrative Exam Narrative: GENERAL APPEARANCE: Chronically ill-appearing thin male, no acute distress SKIN: No rash HEENT: Normocephalic atraumatic, extraocular muscles are intact, oropharynx is clear and mucous membranes are moist NECK: Supple and symmetric. CHEST: Normal AP diameter and normal contour without any kyphoscoliosis. LUNGS: Auscultation of the lungs revealed no wheezes, rhonchi, or rales. CARDIOVASCULAR: There was a regular rate and rhythm without any murmurs, gallops, rubs. Peripheral pulses were 2+ and symmetric. ABDOMEN: Soft, nontender, and nondistended MUSCULOSKELETAL: There was no tenderness or effusions noted. Muscle strength and tone were normal. EXTREMITIES: No cyanosis, clubbing or edema. PSYCH: energized, confused, confabulating stories Objective Labs Result Diagrams: 11/07/20 05:56 11/07/20 14:49 Labs: Laboratory Results - last 24 hr 11/07/20 11/07/20 11/07/20 05:56 05:56 14:49 WBC 6.8 RBC 4.25 L Hgb 13.1 L Hct 38.0 L MCV 89.4 MCH 30.8 MCHC 34.4 RDW 15.4 H Plt Count 525 H Neut % (Auto) Not Reportable Lymph % (Auto) Not Reportable Caroline % (Auto) Not Reportable Eos % (Auto) Not Reportable Baso % (Auto) Not Reportable Lymph # (Auto) Not Reportable Caroline # (Auto) Not Reportable Baso # (Auto) Not Reportable Total Counted 100 Seg Neutrophils % 67.0 Band Neutrophils % 6.0 Lymphocytes % (Manual) 11.0 L Monocytes % (Manual) 13.0 H Eosinophils % (Manual) 1.0 L Metamyelocytes % 2.0 H Neutrophils # (Manual) 4964 RBC Morphology Normal morphology Sodium 121 L 122 L Potassium 4.3 4.1 Chloride 90 L 90 L Carbon Dioxide 22 24 BUN 6 L 8 L Creatinine 0.48 L 0.54 L Estimated GFR > 60.0 > 60.0 BUN/Creatinine Ratio 12.5 14.8 Glucose 137 H 103 Calcium 9.1 9.1 Total Bilirubin 0.9 AST 41 ALT 31 Alkaline Phosphatase 98 Total Protein 7.3 Albumin 3.9 Globulin 3.4 Albumin/Globulin Ratio 1.1 [facility] Medical History Chicken pox (~1989) Partial blindness Psoriasis Family History Father Stroke Mother Cancer Brother Alcohol abuse Sister Murder Grandfather Stroke Grandmother Stroke Grandfather Stroke Grandmother Stroke Social History household members: none Smoking Status: Current every day smoker Assessment & Plan Assessment & Plan narrative: 1. Metabolic Encephalopathy - etiology likely with a baseline of wernicke's/korsakoff secondary to significant etoh abuse, currently is confabulating significantly - other possibility is that mental status is worsened in setting of hyponatremia - per other providers he has also been hallucinating - has been getting thiamine since admission - if no improvement in mental status with improvement of sodium, will consider psych consult 2. Septic shock secondary to aspiration pneumonia probably with some component of hypovolemic shock, resolved - CXR with LLL pneumonia. Likely due to either seizure or intubation. - -sputum growing MRSA -vanco discontinued, on doxycycline which MRSA sensitive. completed antibiotics on 11/05/20. 3. alcohol withdrawal with possible DTs, resolved - No further evidence of withdrawal currently. - suspect seizure from alcohol withdrawal, keppra stopped and monitor. 4. Diabetes, presumed new diagnosis - A1c 10.6%, currently on sliding scale insulin. Intermittent hyperglycemia. Started on lantus 5 U HS initially but will stop given well controlled sugars on metformin and minimal lantus. - Presume this is the reason for patient's 50 lb weight loss recently per hotel staff, though will likely need outpatient age appropriate screening as well. - Not in DKA on admission. - continue metformin for now. 5. hypokalemia - repleted during hospital stay, continue to follow. 6. Hyponatremia, acute, now with SIADH - mild with Na of 128 on admission. had been stable but dropping down to 121 today. Stopped SSRI and keppra on 11/05. Urine Na 120, urine osm pending. - consider more restrictive fluid restriction, started salt tabs 1000 mg TID 11/06. Will repeat labs throughout the day. consider 3% bolus if <120. 7. Elevated troponin, improved - likely in the setting of sepsis. No known cardiac history at this time. No evidence of ischemia on EKGs. 8. acute respiratory failure with hypoxia secondary to presumed aspiration pneumonia, resolved 9. Severe Protein Calorie Malnutrition - appreciate dietary recommendations. 10. Anxiety - continue PO ativan as needed. started sertraline given anxiety and near panic attack on 11/02/20. however some behavioral issues have arisen after initiation and will stop for now. 11. Hypertension - continue lisinopril Time Spent With Patient Critical Care time: I spent a total of [] minutes of critical care time on this patient's care today; this time is exclusive of procedural time. Quality VTE Deep Vein Thrombosis/Pulmonary Embolism Present on Admission: No
[2020-11-07] MEDS: ACETAMINOPHEN 325 MG TABLET 975 MG PO (15:38)
[2020-11-07 15:44] LABS: Osmolality Urine 509 mOsmol/kg (.)
[2020-11-07] MEDS: LORazepam 0.5 MG TABLET 1 MG PO (21:37)
--- NOTE | 2020-11-07 23:29 | PC.NURSE ---
Addendum entered by Jen Alfred CNA 11/08/20 01:06: TONO note: patient eating a turkey sandwich. It's okay, it's not a burger. Will order a burger for his lunch? Patient hasn't stopped talking since I got here at 2300, even while eating. Patient is talking about everything from camping to food to people in the community. Patient doesn't believe he is in the hospital saying I've been in this town since this hospital wasn't even around. This isn't the hospital. I attempt to orient patient and remind him it's late at night and time for sleep. Original Note: TONO note: patient is discussing food. Patient would like me to order him a pizza from [employer] and you can do it, you're my friend. Explained to him it's almost 11:30pm, that he needs to get some sleep, and maybe we will get something good to eat in the morning. Patient wants to go fishing in the morning. Patient continues to talk about food and how he wants some bbq and asks if I could get some right now. Or maybe burgers? I kept trying to reorient him to you're at the hospital. I can order you breakfast from the hospital in the morning. Bed alarm on, patient in bed with call light, has cnn playing.
[2020-11-08] VITALS (7 sets, daily range): BP systolic 106–147; BP diastolic 70–94; PULSE 66–74; RESP 17–18; TEMP 36.1–36.3; O2SAT 98–100
--- NOTE | 2020-11-08 03:38 | PC.NURSE ---
Patient oriented tonight except to day of week and situation but continues to talk almost constantly and rambles from topic to topic; very animated in speech. Breath sounds diminished but CTA with RA sat of 100%. HRR. Denies nausea. BT present and abdomen is soft/flat. Denies dysuria, frequency or urgency with urination. Able to turn himself in bed. Out of bed with walker and SBA; weak. Allevyn dressing to left buttock/coccyx is CDI. Denies pain. Seizure pads on bed. 1:1 staff observation and bed alarm is activated.
[2020-11-08 07:20] LABS: Hematocrit 35.3 % (41-53); Hemoglobin 12.2 g/dL (13.5-17.5); Mean Corpuscular HGB Conc 34.7 % (30-36); Mean Corpuscular Volume 89.5 fL (80-100); Platelet Count 501 X10^3/uL (150-400); Red Blood Cell Count 3.95 X10^6/uL (4.5-5.9); Red Cell Distribution Width 15.4 % (11.6-14.8); White Blood Cell Count 5.6 X10^3/uL (4.5-11.0)
[2020-11-08 07:35] LABS: BUN Creatinine Ratio 18.4 (6-22); Blood Urea Nitrogen 9 mg/dL (9-20); Calcium 8.6 mg/dL (8.4-10.2); Carbon Dioxide 23 mmol/L (22-32); Chloride 95 mmol/L (98-107); Estimated Glomerular Filt Rate > 60.0 mL/min (>60); Glucose 138 mg/dL (80-110); HEMOLYSIS < 15 (0-50); Potassium 3.7 mmol/L (3.4-5.1); Sodium 125 mmol/L (137-145)
[2020-11-08] MEDS: LORazepam 0.5 MG TABLET 1 MG PO ×2 (09:26→18:09)
[2020-11-08] MEDS: ENOXAPARIN 40 MG/0.4 ML SYRINGE SUBCUT (09:26)
[2020-11-08] MEDS: SODIUM CHLORIDE 1,000 MG TABLET 2000 MG PO ×3 (09:27→20:28)
[2020-11-08] MEDS: lisinopriL 10 MG TABLET PO (09:36)
[2020-11-08] MEDS: METFORMIN HCL 500 MG TABLET PO ×2 (09:36→16:48)
[2020-11-08] MEDS: FAMOTIDINE 20 MG TABLET PO ×2 (09:36→20:28)
[2020-11-08] MEDS: METOPROLOL ER 50 MG TABLET PO ×2 (09:36→20:28)
[2020-11-08] MEDS: MULTIVITAMIN 1 TABLET 1 TAB PO (09:36)
[2020-11-08] MEDS: THIAMINE 100 MG TABLET PO (09:36)
[2020-11-08] MEDS: QUETIAPINE 25 MG TABLET PO ×2 (10:06→20:28)
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
[2020-11-08] MEDS: INSULIN LISPRO 100 UNIT/ML 3ML VIAL SUBCUT ×2 (11:58→16:48)
--- NOTE | 2020-11-08 13:54 | PC.NURSE ---
Over the past two hours, while the patient has been eating his lunch, he has been in an ongoing conversation with himself and looking off and possibly at someone else he thinks is in the room. Topics have included Black [place], Crabbing/Fishing in [place].
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
--- NOTE | 2020-11-08 16:37 | CM.DPC ---
DCP/continued: Reviewed chart. CM team has been reviewing EMR daily. Patient has not been medically stable for discharge this week. Provider reports that sodium level remains low. In addition, patient has had increased agitation, paranoia, and visual hallucinations. LICENSED OCCUPATIONAL THERAPY ASSISTANT recommended psychiatry consult to assist with behaviors? P: LICENSED OCCUPATIONAL THERAPY ASSISTANT/CM team to continue to follow closely for d/c planning needs. MAGGI
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
[2020-11-08 21:07] LABS: Bacteria Urine None Seen; RBC Urine None Seen (0-5/HPF); WBC Urine None Seen (0-5/HPF)
[2020-11-08 21:08] LABS: Appearance Urine UA CLEAR; Bilirubin Urine UA NEGATIVE (NEGATIVE); Color Urine UA YELLOW; Glucose Urine UA NEGATIVE (Negative); Ketones Urine UA NEGATIVE (NEGATIVE); Leukocyte Esterase Urine UA NEGATIVE (NEGATIVE); Nitrite Urine UA NEGATIVE (Negative); Occult Blood Urine UA NEGATIVE (Negative); Protein Urine UA NEGATIVE (Negative); Specific Gravity Urine UA 1.015 (1.000-1.035); Urobilinogen Urine UA 0.2 E.U./dL (0.2)
[2020-11-08 21:14] LABS: Culture Indicated Urine Cult Not Indicated; Urine Comments Microscopic Normal
[2020-11-09] VITALS (9 sets, daily range): BP systolic 130–150; BP diastolic 75–98; PULSE 65–85; RESP 16–22; TEMP 36–36.9; O2SAT 93–100
[2020-11-09 08:09] LABS: BUN Creatinine Ratio 20.4 (6-22); Blood Urea Nitrogen 11 mg/dL (9-20); Calcium 9.3 mg/dL (8.4-10.2); Carbon Dioxide 24 mmol/L (22-32); Chloride 99 mmol/L (98-107); Estimated Glomerular Filt Rate > 60.0 mL/min (>60); Glucose 180 mg/dL (80-110); HEMOLYSIS < 15 (0-50); Potassium 4.7 mmol/L (3.4-5.1); Sodium 130 mmol/L (137-145)
[2020-11-09] MEDS: ENOXAPARIN 40 MG/0.4 ML SYRINGE SUBCUT (08:51)
[2020-11-09] MEDS: INSULIN LISPRO 100 UNIT/ML 3ML VIAL SUBCUT ×2 (08:51→12:46)
[2020-11-09] MEDS: FAMOTIDINE 20 MG TABLET PO ×2 (08:52→20:01)
[2020-11-09] MEDS: THIAMINE 100 MG TABLET PO (08:52)
[2020-11-09] MEDS: METFORMIN HCL 500 MG TABLET PO ×2 (08:52→16:43)
[2020-11-09] MEDS: METOPROLOL ER 50 MG TABLET PO ×2 (08:52→20:00)
[2020-11-09] MEDS: lisinopriL 10 MG TABLET PO (08:52)
[2020-11-09] MEDS: MULTIVITAMIN 1 TABLET 1 TAB PO (08:52)
[2020-11-09] MEDS: SODIUM CHLORIDE 1,000 MG TABLET 2000 MG PO ×2 (08:52→14:51)
[2020-11-09] MEDS: QUETIAPINE 25 MG TABLET PO ×2 (08:52→20:00)
--- NOTE | 2020-11-09 13:15 | PT.IIE ---
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 Mobility and Gait Pt insists that he walks with a cane at home. Activities of Daily Living and IADL's Pt states prior able to care for himself. Social History Household Members none Living Arrangements Homeless Number of Stairs To Enter/Railing? Pt livs in a motel. M2 PT-IP Current Condition Start: 10/30/20 08:56 Freq: NEEDED Status: Active Protocol: Document 11/09/20 13:15 AB (Rec: 11/09/20 17:01 [email or web address]) Physical Therapy Current Condition Current Condition Evaluation Date 11/09/20 Treatment Diagnosis metabolic encephalopathy; difficulty in walking Onset Date 10/26/20 Precautions Other Precautions falls M3 PT-IP Subjective Start: 10/30/20 08:56 Freq: NEEDED Status: Active Protocol: Document 11/09/20 13:15 AB (Rec: 11/09/20 17:01 [email or web address]) Subjective Physical Therapy Visit Type Type Initial Evaluation Visit Start Time 13:15 Visit Stop Time 13:50 Total Visit Minutes 35 Number of PRODUCTION TECHNOLOGIST Visits 0 Physical Therapy Visit Comments Patient Comments agreed to do PT M4 PT-IP Mobility and Gait Start: 10/30/20 08:56 Freq: NEEDED Status: Active Protocol: Document 11/09/20 13:15 AB (Rec: 11/09/20 17:01 [email or web address]) PT-Bed Mobility Assessment Supine to Sit Supine to Sit Standby Assistance Sit to Supine Sit to Supine Standby Assistance PT-Transfer Assessment Sit to and From Stand Sit to and from Stand Standby Assistance Equipment Transfer Assistive Device None,Gait Belt Orthotic/Prosthetic Devices or Brace: No Transfers Transfer Destination Toilet Transfer Technique ambulated Transfer Ability Level of Assist Standby Assistance,1 Person Assistance,Use of Upper Extremities Comments Mobility Comments pt completed supine to sit SBA . pt is impulsive and requires cues for safety. ambulated in room ~ 75 ft without AD SBA. occasional LOB but able to recover without assistance. pt stated that he will buy a cane for him to use at home. pt requested to use the toilet and ambulated to the toilet using SPC SBA. completed sit to stand from the toilet SBA and ambualted to the sink SBA without AD and was able to maintain standing SBA while completing handwashing. pt ambulated using SPC in room SBA. attempted single leg stand but unable to complete without assistance. pt with confusion and has cognitive issues affecting safety awareness and following directions. pt ambulated back to the bed and completed sit to supine SBA. positioned in bed. call light and table place within reach. heavy equipment sales manager informed PT to call pt's caregiver for training. Called pt's caregiver Daily to inform that caregiver training is not necessary as pt is only SBA with mobility and is more of his safety awareness affecting independence. Daily stated that she is a retired PRACTICE CLINICIAN and has her own business and wants pt to go home with a safety belt. informed Daily that PT will inform nurses. informed FREDDIE dominick and understood. Gait Assessment Gait Gait Assistance Required: Standby Assistance Distance (Feet) 75 Able to Maintain Weight Bearing Status Yes During Gait Assistive Devices Assistive Device None,Gait Belt,Straight Cane Orthotic/Prosthetic Devices or Brace: No Gait Deviations General Gait Pattern Ataxic Factors Limiting Gait Function Factors Limiting Gait Function Decreased Activity Tolerance, Decreased Strength,Difficulty Following Directions,Poor Balance,Poor Safety Awareness PT-Balance Assessment Sitting Balance and Reactions Static Sitting Balance Ability Good Dynamic Sitting Balance Ability Good Standing Balance and Reactions Static Standing Balance Ability Good Dynamic Standing Balance Ability Fair Device Used without AD M5 PT-IP Objective Assessments Start: 10/30/20 08:56 Freq: NEEDED Status: Active Protocol: Document 11/09/20 13:15 AB (Rec: 11/09/20 17:01 AB [id number]) Orientation Orientation/Cognition Level of Alertness Confusional State Orientation Name,Place,Situation Language Function Ability Hard of Hearing Safety Awareness Decreased Safety Awareness Memory Description Short Term Impaired Gross Range of Motion Lower Extremity ROM Assessment Within Functional Limits Strength Lower Extremity Strength Hip 4-/5 Knee 4-/5 Muscle Tone Muscle Tone WNL Yes M6 PT-IP Treatment Start: 10/30/20 08:56 Freq: NEEDED Status: Active Protocol: Document 11/09/20 13:15 AB (Rec: 11/09/20 17:01 AB [email or web address]) Physical Therapy Treatment Education Education Provided Safety M7 PT-IP Assessment and Plan Start: 10/30/20 08:56 Freq: NEEDED Status: Active Protocol: Document 11/09/20 13:15 AB (Rec: 11/09/20 17:01 AB [email or web address]) PT Summary Assessment and Plan Potential Rehabilitation Potential Fair Status of Condition at Evaluation Stable Summary Impairments Pain,ROM,Strength,Balance, Coordination,Sensation,Tone, Cognition,Bed Mobility, Transfers,Gait,Activity Tolerance Assessment Summary Pt requiring SBA with mobility without AD/SPC but has cognitive issues affecting safety awareness and mobility independence. pt plans to go home with caregivers to assist him. pt may go home with assist at home. Goals Bed Mobility Goal Independent Transfer Goal Independent Gait Goal Independent Gait Distance 200 Days to Meet Goals 5 Frequency of Treatment Frequency Of Treatment Once a Day Treatment Plan Physical Therapy Treatment Plan Bed Mobility Training,Transfer Training,Gait Training, Therapeutic Exercise,Balance Retraining,Discharge Planning, Hot or Cold Pack,Neuromuscular Re-ed,Coordination Retraining Precautions Other Precautions falls Recommendations To Nursing Amount of Assist Needed Standby Assistance Discharge Recommendations PT Discharge Recommendations Home with Assistance Transportation Needs at Discharge Private Vehicle
--- NOTE | 2020-11-09 13:49 | DIET.PN1 ---
Dietary Progress Note RD Note: Pt having increased hallucinations, remains inappropriate for DM education. Pt on [facility] soft diet c fluid restriction consuming nearly 100% meals. Kitchen to send up double protein portions for this pt to help replete nutrition secondary to severe PCM and BMI 16.1. Ht: 177.8 cm Wt: 50.8 kg BMI: 16.9 : Last BM: 11/09/20 (11/09/20 10:00) MNA: Jenaro Score: 20 10/29/20 Dinner Dysphagia Diet Diet Modifications: CCD 4, double protein portions Liquid consistency: Normal/Thin Food texture: Dysphagia Mechanical Soft 11/05/20 Lunch Diet Per Dietitian 11/05/20 Dinner Fluid Restriction Diet Diet Modifications: Total fluid amount: 800 Amount allotted to patient trays: 600 7a-3p amount: 350 3p-11p amount: 350 11p-7a amount: 100 Percent of last meal consumed (last 48h) Percent Meal Consumed 100% 11/09/20 12:30 Percent Meal Consumed 100% 11/09/20 08:20 Percent Meal Consumed 50% 11/08/20 17:49 Percent Meal Consumed 100% 11/08/20 09:15 Percent Meal Consumed 25% 11/07/20 18:30 Labs: RBC 3.95 X10^6/uL (4.5-5.9) L 11/08/20 06:55 Hgb 12.2 g/dL (13.5-17.5) L 11/08/20 06:55 Hct 35.3 % (41-53) L 11/08/20 06:55 Creatinine 0.54 mg/dL (0.66-1.25) L 11/09/20 07:04 Hemoglobin A1c 9.6 % (4.0-6.0) H 10/27/20 04:00 Lactate 2.0 mmol/L (0.7-2.1) 10/27/20 04:00
--- NOTE | 2020-11-09 14:00 | OT.IPRE ---
Current Diagnoses Type 2 diabetes mellitus without complications (10/26/20) Hypo-osmolality and hyponatremia (10/26/20) Other psychoactive substance abuse, uncomplicated (10/26/20) Toxic encephalopathy (10/26/20) Pneumonia, unspecified organism (10/26/20) Pneumonitis due to inhalation of food and vomit (10/26/20) Acute respiratory failure with hypoxia (10/26/20) Unspecified convulsions (10/26/20) residential (current) use of insulin (10/26/20) Past Medical History (Last Reviewed 10/26/20 @ 13:52 by Alex Bobby DO) Chicken pox (~1989) Partial blindness Psoriasis Occupational Therapy Inpatient Evaluation/Re-Eval M1 PT/OT-IP Prior Functional Status Start: 10/30/20 08:56 Freq: NEEDED Status: Active Protocol: Document 11/09/20 14:46 [facility] (Rec: 11/09/20 15:01 [facility] [id number]) Medical Review Prior Functional Status Communication Independent to state his needs . Mobility and Gait Pt insists that he walks with a cane at home. Activities of Daily Living and IADL's Pt states prior able to care for himself. Social History Household Members none Living Arrangements Homeless Number of Stairs To Enter/Railing? Pt lives in a motel. M2 OT-IP Current Condition Start: 10/30/20 13:19 Freq: Status: Active Protocol: Document 11/09/20 14:46 [facility] (Rec: 11/09/20 15:01 [facility] [id number]) Occupational Therapy Current Condition Current Condition Evaluation Date 11/09/20 Treatment Diagnosis Metabolic encephalapathy Diagnosis Onset Date 10/26/20 M3 OT- IP Subjective and Pain Start: 10/30/20 13:19 Freq: Status: Active Protocol: Document 11/09/20 14:46 [facility] (Rec: 11/09/20 15:01 [facility] [id number]) OT- Subjective Occupational Therapy Visit Type Type Re-Evaluation Visit Start Time 13:50 Visit Stop Time 14:00 Notes Hospitalist/case management requesting to re-eval pt to see if pt appropriate to go home. Occupational Therapy Visit Comments Patient Comments Pt agreed to get up for OT. Patient/Caregiver Goals TO go home. OT Pain Assessment Pain When Pain Assessed At Rest Pain Present Pain Present Denied Pain M4 OT- IP ADL's Start: 10/30/20 13:19 Freq: Status: Active Protocol: Document 11/09/20 14:46 [facility] (Rec: 11/09/20 15:01 [facility] [id number]) OT [id number] Comments OT Self-Feeding Comments Pt able to eat after set-up. OT ADL-Grooming Comments OT Grooming Comments Per nursing aid , pt able to do grooming needs after set-up . OT ADL-Dressing General Eval Lower Body Dressing Ability Standby Assistance Comments OT Dressing Comments Pt able to autumn/doff socks while supine in bed. Per nursing aid PT worked with pt in the bathroom and was able to do his brief management needs. OT ADL-Toileting Comments OT Toileting Comments Pt needing SBA for completeness. OT ADL-Bathing Comments OT Bathing Comments Per nursing aid assist pt to shower and pt needing cues and assist for completeness for his hair and pericare needs. M5 OT- IP IADL's Start: 10/30/20 13:19 Freq: Status: Active Protocol: Document 10/30/20 13:22 [facility] (Rec: 10/30/20 13:38 [facility] [id number]) OT-Instrumental Activities of Daily Living Deficits IADL Deficits Identified Deficits Home Safety Awareness Awareness of Need for Assistance at Home Decreased Awareness Home Safety Comments At this time pt only able to answer yes/no questions and follow simple concrete commands. M6 OT- IP Functional Cognition Start: 10/30/20 13:19 Freq: Status: Active Protocol: Document 11/09/20 14:46 [facility] (Rec: 11/09/20 15:01 [facility] [id number]) Cognitive Factors Limiting Selfcare Function Cognitive Ability Level of Alertness Alert,Confusional State Patient Orientation Name Attention Span Ability Capable of Focused Attention, Capable of Sustained Attention Ability to Follow Commands Able to Follow One Step Commands with Increased Time, Able to Follow One Step Commands with Repetition Memory Description Short Term Impaired Cognitive Comments Cognitive Assessment Comments Pt mainly just orientated to his name. Pt thinks he is at the motel. At times pt tends to perseverate on ideas, items , and needs to be redirected. OT- Vision and Hearing OT- Hearing Assessment OT- Hearing Assessment WFL OT- Vision Assessment Vision Assessment Comments Per pt left eye blindness. Pt would benefit from an eye appointment. Pt states years ago was looking into getting eye surgery. Pt tends to be able to read better when left eye is occluded. M7 OT- IP Mobility and Balance Start: 10/30/20 13:19 Freq: Status: Active Protocol: Document 11/09/20 14:46 [facility] (Rec: 11/09/20 15:01 [facility] [id number]) OT- Bed Mobility Assessment Supine to Sit Supine to Sit Assist Independent Sit to Supine Sit to Supine Assist Independent Scooting Scooting to Edge of Bed Independent Scooting Up and Down in Bed Independent OT-Transfer Assessment Sit to and From Stand Sit to and from Stand Standby Assistance Transfers Transfer Ability Standby Assistance Technique Transfer Destination Bed Devices Transfer Assistive Devices Gait Belt,Front Wheeled Walker Comments Mobility Comments SBA with use of FWW in the room. Pt is independent for bed mobility needs. OT- Balance Assessment Sitting Balance and Reactions Static Sitting Balance Ability Normal Dynamic Sitting Balance Ability Normal Standing Balance and Reactions Static Standing Balance Ability Good M8 OT- IP Objective Assessments Start: 10/30/20 13:19 Freq: Status: Active Protocol: Document 11/09/20 14:46 [facility] (Rec: 11/09/20 15:01 [facility] [id number]) OT Gross Range of Motion Upper Extremity Range of Motion Assessment Within Functional Limits OT Strength Upper Extremity Strength Assessment Within Functional Limits OT-Muscle Tone Assessment Muscle Tone WNL Yes M9 OT- IP Assessment and Plan Start: 10/30/20 13:19 Freq: Status: Active Protocol: Document 11/09/20 14:46 [facility] (Rec: 11/09/20 15:01 [facility] [id number]) OT Summary Assessment and Plan Potential Rehabilitation Potential Poor Analytic Complexity at Evaluation Moderate Summary OT Impairments Balance,Functional Cognition, Functional Mobility,Dressing, Toileting,Bathing,Shower Transfers Progress Towards Goals Progressing Toward Goals,Slow Progress due to Cognition Assessment Summary Pt MOD complexity due to metabolic encephalapathy and main barrier is his decreased functional cognition, however uncertain if this maybe his new baseline. Pt would benefit from 24/7 assist for safety, and completeness for ADl needs . Pt has daily caregivers in the morning to check on him and also from 3:30 pm to bedtime. Per case manegment, wind farm operations manager also check up on the pt as needed. Discharge pt for OT services as pt will need 24/7 supervision for his needs due to decreased safety and functional cognition. Goals Self-Feeding Goal Standby Assistance Grooming Goal Standby Assistance Dressing Goal Standby Assistance Toileting Goal Standby Assistance Bathing Goal Minimal Assistance Toilet Transfer Goal Standby Assistance Shower Transfer Goal Standby Assistance Days to Meet Goals 1 Frequency of Treatment Frequency Of Treatment Discharge Treatment Plan OT Treatment Plan Patient/Family Education, Discharge Planning Discharge Recommendations OT Discharge Recommendations Home with 23/09 Assist Available Home Equipment Needs FWW, shower chair Transportation Needs at Discharge Private Vehicle
--- NOTE | 2020-11-09 15:10 | OT.IP.EVAL ---
Current Diagnoses Type 2 diabetes mellitus without complications (10/26/20) Hypo-osmolality and hyponatremia (10/26/20) Other psychoactive substance abuse, uncomplicated (10/26/20) Toxic encephalopathy (10/26/20) Pneumonia, unspecified organism (10/26/20) Pneumonitis due to inhalation of food and vomit (10/26/20) Acute respiratory failure with hypoxia (10/26/20) Unspecified convulsions (10/26/20) jail (current) use of insulin (10/26/20) Past Medical History (Last Reviewed 10/26/20 @ 13:52 by Alex Bobby DO) Chicken pox (~1989) Partial blindness Psoriasis Occupational Therapy Inpatient Evaluation/Re-Eval M1 PT/OT-IP Prior Functional Status Start: 10/30/20 08:56 Freq: NEEDED Status: Active Protocol: Document 11/09/20 14:46 [facility] (Rec: 11/09/20 15:01 [facility] [id number]) Medical Review Prior Functional Status Communication Independent to state his needs . Mobility and Gait Pt insists that he walks with a cane at home. Activities of Daily Living and IADL's Pt states prior able to care for himself. Social History Household Members none Living Arrangements Homeless Number of Stairs To Enter/Railing? Pt lives in a motel. M2 OT-IP Current Condition Start: 10/30/20 13:19 Freq: Status: Active Protocol: Document 11/09/20 14:46 [facility] (Rec: 11/09/20 15:01 [facility] [id number]) Occupational Therapy Current Condition Current Condition Evaluation Date 11/09/20 Treatment Diagnosis Metabolic encephalapathy Diagnosis Onset Date 10/26/20 M3 OT- IP Subjective and Pain Start: 10/30/20 13:19 Freq: Status: Active Protocol: Document 11/09/20 14:46 [facility] (Rec: 11/09/20 15:01 [facility] [id number]) OT- Subjective Occupational Therapy Visit Type Type Re-Evaluation Visit Start Time 13:50 Visit Stop Time 14:00 Notes Hospitalist/case management requesting to re-eval pt to see if pt appropriate to go home. Occupational Therapy Visit Comments Patient Comments Pt agreed to get up for OT. Patient/Caregiver Goals TO go home. OT Pain Assessment Pain When Pain Assessed At Rest Pain Present Pain Present Denied Pain M4 OT- IP ADL's Start: 10/30/20 13:19 Freq: Status: Active Protocol: Document 11/09/20 14:46 [facility] (Rec: 11/09/20 15:01 [facility] [id number]) OT [id number] Comments OT Self-Feeding Comments Pt able to eat after set-up. OT ADL-Grooming Comments OT Grooming Comments Per nursing aid , pt able to do grooming needs after set-up . OT ADL-Dressing General Eval Lower Body Dressing Ability Standby Assistance Comments OT Dressing Comments Pt able to autumn/doff socks while supine in bed. Per nursing aid PT worked with pt in the bathroom and was able to do his brief management needs. OT ADL-Toileting Comments OT Toileting Comments Pt needing SBA for completeness. OT ADL-Bathing Comments OT Bathing Comments Per nursing aid assist pt to shower and pt needing cues and assist for completeness for his hair and pericare needs. M5 OT- IP IADL's Start: 10/30/20 13:19 Freq: Status: Active Protocol: Document 10/30/20 13:22 [facility] (Rec: 10/30/20 13:38 [facility] [id number]) OT-Instrumental Activities of Daily Living Deficits IADL Deficits Identified Deficits Home Safety Awareness Awareness of Need for Assistance at Home Decreased Awareness Home Safety Comments At this time pt only able to answer yes/no questions and follow simple concrete commands. M6 OT- IP Functional Cognition Start: 10/30/20 13:19 Freq: Status: Active Protocol: Document 11/09/20 14:46 [facility] (Rec: 11/09/20 15:01 [facility] [id number]) Cognitive Factors Limiting Selfcare Function Cognitive Ability Level of Alertness Alert,Confusional State Patient Orientation Name Attention Span Ability Capable of Focused Attention, Capable of Sustained Attention Ability to Follow Commands Able to Follow One Step Commands with Increased Time, Able to Follow One Step Commands with Repetition Memory Description Short Term Impaired Cognitive Comments Cognitive Assessment Comments Pt mainly just orientated to his name. Pt thinks he is at the motel. At times pt tends to perseverate on ideas, items , and needs to be redirected. OT- Vision and Hearing OT- Hearing Assessment OT- Hearing Assessment WFL OT- Vision Assessment Vision Assessment Comments Per pt left eye blindness. Pt would benefit from an eye appointment. Pt states years ago was looking into getting eye surgery. Pt tends to be able to read better when left eye is occluded. M7 OT- IP Mobility and Balance Start: 10/30/20 13:19 Freq: Status: Active Protocol: Document 11/09/20 14:46 [facility] (Rec: 11/09/20 15:01 [facility] [id number]) OT- Bed Mobility Assessment Supine to Sit Supine to Sit Assist Independent Sit to Supine Sit to Supine Assist Independent Scooting Scooting to Edge of Bed Independent Scooting Up and Down in Bed Independent OT-Transfer Assessment Sit to and From Stand Sit to and from Stand Standby Assistance Transfers Transfer Ability Standby Assistance Technique Transfer Destination Bed Devices Transfer Assistive Devices Gait Belt,Front Wheeled Walker Comments Mobility Comments SBA with use of FWW in the room. Pt is independent for bed mobility needs. OT- Balance Assessment Sitting Balance and Reactions Static Sitting Balance Ability Normal Dynamic Sitting Balance Ability Normal Standing Balance and Reactions Static Standing Balance Ability Good M8 OT- IP Objective Assessments Start: 10/30/20 13:19 Freq: Status: Active Protocol: Document 11/09/20 14:46 [facility] (Rec: 11/09/20 15:01 [facility] [id number]) OT Gross Range of Motion Upper Extremity Range of Motion Assessment Within Functional Limits OT Strength Upper Extremity Strength Assessment Within Functional Limits OT-Muscle Tone Assessment Muscle Tone WNL Yes M9 OT- IP Assessment and Plan Start: 10/30/20 13:19 Freq: Status: Active Protocol: Document 11/09/20 14:46 [facility] (Rec: 11/09/20 15:01 [facility] [id number]) OT Summary Assessment and Plan Potential Rehabilitation Potential Poor Analytic Complexity at Evaluation Moderate Summary OT Impairments Balance,Functional Cognition, Functional Mobility,Dressing, Toileting,Bathing,Shower Transfers Progress Towards Goals Progressing Toward Goals,Slow Progress due to Cognition Assessment Summary Pt MOD complexity due to metabolic encephalapathy and main barrier is his decreased functional cognition, however uncertain if this maybe his baseline. Pt would benefit from 24/7 assist for safety, and completeness for ADl needs . Pt has daily caregivers in the morning to check on him and also from 3:30 pm to bedtime. Per case manegment, hotel breakfast attendant also check up on the pt as needed. Goals Self-Feeding Goal Standby Assistance Grooming Goal Standby Assistance Dressing Goal Standby Assistance Toileting Goal Standby Assistance Bathing Goal Minimal Assistance Toilet Transfer Goal Standby Assistance Shower Transfer Goal Standby Assistance Days to Meet Goals 1 Frequency of Treatment Frequency Of Treatment once Treatment Plan OT Treatment Plan Patient/Family Education, Discharge Planning Discharge Recommendations OT Discharge Recommendations Home with 23/09 Assist Available Home Equipment Needs FWW, shower chair Transportation Needs at Discharge Private Vehicle
--- NOTE | 2020-11-09 15:38 | PM.PN.1 ---
Subjective Subjective Date Patient Seen: 11/09/20 Time Patient Seen: 08:00 Interval history: Today he has no complaints. Last night he was irritable and agitated and he was given seroquel and has improved quite significantly and is quite calm now. He is eager to go home. Exam Vital Signs (past 8 hours): - 11/09/20 11:35 Temperature 98.4 F Pulse Rate 70 Respiratory Rate 16 Blood Pressure 130/83 Pulse Oximetry 100 Fraction of Inspired Oxygen 35 Oxygen Delivery Method Room Air Oxygen Flow Rate 0 Narrative Exam Narrative: GEN: Chronically ill-appearing thin male, no acute distress SKIN:? No rash LUNGS: Auscultation of the lungs revealed no wheezes, rhonchi, or rales. CARDIOVASCULAR: There was a regular rate and rhythm without any murmurs, gallops, rubs. Peripheral pulses were 2+ and symmetric. ABDOMEN: Soft, nontender, and nondistended MUSCULOSKELETAL: There was no tenderness or effusions noted. Muscle strength and tone were normal. EXTREMITIES: No cyanosis, clubbing or edema. PSYCH: pleasant, cooperative, confused Objective Labs Result Diagrams: 11/08/20 06:55 11/09/20 07:04 Labs: Laboratory Results - last 24 hr 11/08/20 11/09/20 20:50 07:04 Sodium 130 L Potassium 4.7 Chloride 99 Carbon Dioxide 24 BUN 11 Creatinine 0.54 L Estimated GFR > 60.0 BUN/Creatinine Ratio 20.4 Glucose 180 H Calcium 9.3 Urine Color Yellow Urine Appearance Clear Urine pH 6.0 Ur Specific [place] 1.015 Urine Protein Negative Urine Glucose (UA) Negative Urine Ketones Negative Urine Occult Blood Negative Urine Nitrate Negative Urine Bilirubin Negative Urine Urobilinogen 0.2 Ur Leukocyte Esterase Negative Urine RBC None seen Urine WBC None seen Urine Bacteria None seen Ur Culture Indicated? Cult not indicated Micro UA Comment Microscopic normal PFSH Medical History Chicken pox (~1989) Partial blindness Psoriasis Family History Father Stroke Mother Cancer Brother Alcohol abuse Sister Murder Grandfather Stroke Grandmother Stroke Grandfather Stroke Grandmother Stroke Social History household members: none Smoking Status: Current every day smoker Assessment & Plan Assessment & Plan narrative: Mr. Shanks came in to the hospital alerted, had alcohol withdrawal, aspiration pneumonia and septic shock, hyponatremia. These have all resolved and he appears much improved. 1. Metabolic Encephalopathy - etiology possibly wernicke's/korsakoff secondary to significant etoh abuse, currently is confabulating significantly - today is much more agitated despite improving hyponatremia, suspect low sodium not main culprit - will request psych consult to help in diagnosis and management of patient - per other providers he has also been hallucinating - has been getting thiamine since admission 2. Septic shock secondary to aspiration pneumonia probably with some component of hypovolemic shock, resolved - CXR with LLL pneumonia. Likely due to either seizure or intubation. -?sputum growing MRSA - vanco discontinued, on doxycycline which MRSA sensitive. completed antibiotics on 11/05/20. 3. alcohol withdrawal with possible DTs, resolved ?- No further evidence of withdrawal currently. ?- suspect seizure from alcohol withdrawal, keppra stopped and monitor. 4. Diabetes, presumed new diagnosis ?- A1c 10.6%, currently on sliding scale insulin. Intermittent hyperglycemia. Started on lantus 5 U HS initially but will stop? given well controlled sugars on metformin and minimal lantus. ?- Presume this is the reason for patient's 50 lb weight loss recently per hotel staff, though will likely need outpatient age appropriate screening as well. ?- Not in DKA on admission. ?- continue metformin for now. 5. hypokalemia ?- repleted during hospital stay, continue to follow. 6. Hyponatremia, acute, now with SIADH ?- mild with Na of 128 on admission. had been stable but dropping down to 121 today. Stopped SSRI and keppra on 11/05. Urine Na 120, urine osm pending. ?- on salt tabs and fluid restriction, sodium improved to 130 7. Elevated troponin, improved ?- likely in the setting of sepsis. No known cardiac history at this time. No evidence of ischemia on EKGs. 8. acute respiratory failure with hypoxia secondary to presumed aspiration pneumonia, resolved 9. Severe Protein Calorie Malnutrition ?- appreciate dietary recommendations. 10. Anxiety ?- continue PO ativan as needed. started sertraline given anxiety and near panic attack on 11/02/20. however some behavioral issues have arisen after initiation and will stop for now. 11. Hypertension ?- continue lisinopril Patient is medically stable and placement is being worked on for patient. Time Spent With Patient Critical Care time: I spent a total of [] minutes of critical care time on this patient's care today; this time is exclusive of procedural time. Quality VTE Deep Vein Thrombosis/Pulmonary Embolism Present on Admission: No
[2020-11-09] MEDS: ACETAMINOPHEN 325 MG TABLET 975 MG PO (17:21)
--- NOTE | 2020-11-09 17:28 | CM.DPC ---
DCP/continued: Reviewed chart. Per provider in AM rounds patient has improved medically and most likely will be medically stable for discharge within the next 24-48hrs. Provider requesting CM team secure d/c plan. HOLLOW TILE PARTITION ERECTOR placed call to Nuvia whom is patient's friend and manages the motel he is currently staying at. Nuvia reports that patient is more than welcome to return to his room at [facility]. Nuvia reports that she cannot be with him around the clock she can check on him several times throughout the day and night. Nuvia does report that patient will owe rent at [facility] in a few weeks. Nuvia unclear on how patient will pay for housing. Nuvia does indicate that she can get some assistance for patient at local [employer] and [employer]. Prior to admit, Nuvia reports that patient was paying rent with unemployment checks? In addition to calling patient's friend Nuvia, HOLLOW TILE PARTITION ERECTOR also called caregiver/Daily # [phone] she reports that she is a privately paid caregiver for patient. Daily believes that she was being paid by patient through his unemployment checks as well. Daily in agreement to resume care giving for patient. Daily reports that she can do morning checks Friday-Friday and stay from 3:30pm-bedtime. Daily does not do weekends. Daily aware that patient's finances are unclear at this time. Per Nuvia it is anticipated that patient will no longer be receiving unemployment checks. Nuvia requesting assistance with state services for patient. After reviewing previous HOLLOW TILE PARTITION ERECTOR notes placed call to [facility] spoke with Charline she reports that referral was sent for long-term services client ID# [id number]. Charline suggested CM team call intake bit and shank department supervisor for long-term state assistance (Mar) at [phone]. Placed call to Mar and she reports that they need expedited [facility] form completed and faxed to initiate long-term services. HOLLOW TILE PARTITION ERECTOR completed form and requested state assessment LISA. Mar made aware that patient discharging soon and that they will need to follow up with patient in the community. Nuvia updated and her name/number put on application for state to follow up. Provider updated on above. P: D/C soon. MAGGI
--- NOTE | 2020-11-09 18:59 | PC.NURSE ---
Pt. asked when are we going to go, and stated how he is dressed like a faggot. Pt wants to leave, I reoriented him and played country music, that is my favorite music. Pt. is resting and quiet.
--- NOTE | 2020-11-10 01:30 | PC.NURSE ---
Since start of shift @2300 pt has remained restless, but pleasant. Pt wished to go for a walk, granted it was outside for a cigarette, but settled for 3 separate walks before bedtime with brief rests in between. Pt stable on his feet for short distances (within the room) and utilizes FWW for long distances (rm 207 to ICU and back). He continues to loop his conversation and expresses strong desire to return home, tonight asking this MEDICAL OFFICER PSYCHIATRY to unplug the phone so we can go along with other nonsensical speech. Pt occasionally talks to himself (answering his own questions) and has been taking either tissues or briefs to cover items like unopened applesauce cups or spoons.
[2020-11-10 03:55] VITALS: BP 138/89; PULSE 82; RESP 20; TEMP 36.7; O2SAT 100
[2020-11-10 06:26] LABS: BUN Creatinine Ratio 24.4 (6-22); Blood Urea Nitrogen 11 mg/dL (9-20); Calcium 8.5 mg/dL (8.4-10.2); Carbon Dioxide 20 mmol/L (22-32); Chloride 101 mmol/L (98-107); Estimated Glomerular Filt Rate > 60.0 mL/min (>60); Glucose 187 mg/dL (80-110); HEMOLYSIS < 15 (0-50); Potassium 3.7 mmol/L (3.4-5.1); Sodium 130 mmol/L (137-145)
[2020-11-10 07:40] VITALS: BP 129/82; PULSE 82; RESP 18; TEMP 36.4; O2SAT 100
[2020-11-10] MEDS: ACETAMINOPHEN 325 MG TABLET 975 MG PO (07:47)
[2020-11-10] MEDS: METFORMIN HCL 500 MG TABLET PO (07:47)
[2020-11-10 08:14] VITALS: BP 126/82; BP 129/82; PULSE 82
[2020-11-10] MEDS: lisinopriL 10 MG TABLET PO (08:14)
[2020-11-10] MEDS: METOPROLOL ER 50 MG TABLET PO (08:14)
[2020-11-10] MEDS: QUETIAPINE 25 MG TABLET PO (08:15)
[2020-11-10] MEDS: ENOXAPARIN 40 MG/0.4 ML SYRINGE SUBCUT (08:15)
[2020-11-10] MEDS: MULTIVITAMIN 1 TABLET 1 TAB PO (08:15)
[2020-11-10] MEDS: FAMOTIDINE 20 MG TABLET PO (08:15)
[2020-11-10] MEDS: INSULIN LISPRO 100 UNIT/ML 3ML VIAL SUBCUT (08:15)
[2020-11-10] MEDS: THIAMINE 100 MG TABLET PO (08:15)
--- NOTE | 2020-11-10 08:40 | PC.NURSE ---
During patient's breakfast, he drank all of his allotted fluid amount of 350mL for day shift, even after I informed him to save some of his water for the rest of the day shift because of his fluid restriction. He was half way through eating his meal. His dietary protein intake was doubled and it is important for him to put on some weight. As a Safety Concern that I discussed with my RN, I added an additional 150mL of water so he could get his food down.
--- NOTE | 2020-11-10 09:30 | PT.IPTN ---
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 (10/26/20) Physical Therapy Treatment Note M2 PT-IP Current Condition Start: 10/30/20 08:56 Freq: NEEDED Status: Active Protocol: Document 11/09/20 13:15 AB (Rec: 11/09/20 17:01 AB [id number]) Physical Therapy Current Condition Current Condition Evaluation Date 11/09/20 Treatment Diagnosis metabolic encephalopathy; difficulty in walking Onset Date 10/26/20 Precautions Other Precautions falls M3 PT-IP Subjective Start: 10/30/20 08:56 Freq: NEEDED Status: Active Protocol: Document 11/10/20 09:18 SP (Rec: 11/10/20 12:11 SP [id number]) Subjective Physical Therapy Visit Type Type Treatment Note Visit Start Time 09:18 Visit Stop Time 09:30 Total Visit Minutes 12 Number of ENTERPRISE SALES EXECUTIVE Visits 1 Physical Therapy Visit Comments Patient Comments agreed to do PT Patient Goals I am ready for someone to come get me and go back home. I have a cane at my appartment , I can get a cane to use. Therapy Pain Assessment Pain Present Pain Present Denied Pain M4 PT-IP Mobility and Gait Start: 10/30/20 08:56 Freq: NEEDED Status: Active Protocol: Document 11/10/20 09:18 SP (Rec: 11/10/20 12:11 SP [id number]) PT-Bed Mobility Assessment Supine to Sit Supine to Sit Independent Sit to Supine Sit to Supine Independent Scooting Scooting to Edge of Bed Independent PT-Transfer Assessment Sit to and From Stand Sit to and from Stand Standby Assistance Equipment Transfer Assistive Device None,Gait Belt Orthotic/Prosthetic Devices or Brace: No Transfers Transfer Destination Bed Transfer Technique ambulated no AD, SPC Transfer Ability Level of Assist Standby Assistance,Use of Upper Extremities Comments Mobility Comments pt completes supine<> sitting and scoot to EOB from HOB flat I using BUE on bed with what needs. Sit<> stand SBA-Mod I, no devations or LOB using BUe as needed. Pt agreeable to donning PPE gown and gloves to allow safety gait into hallway, donned SBA in standing, stable. Ambulated 3 laps around nursing station with quick pace, cued occasionally for safety slower pacing with and without SPC for added safety balance as needed. Pt able to complete dynamic head turns vertical, quick stops no LOB but noted slight trunk sway but self recovery, CGA-SBA. Pt returned to room. Pt completed static dynamic standing balance NBOS head turns EO and 30 sec EC stable. Tandem stand unsteady but self recovery 10 sec then states I am am not ready for this and need to stop. Pt returned to seated at EOB mod I. Pt had call light in reach with tray in front seated at EOB. ENTERPRISE SALES EXECUTIVE communicated with COMPLEX CARE NURSE and was discussed to not arm bed, physician coming in room for further assessment. Pt is ok to return home when medically cleared with caregiver assist no AD, SPC for added stability as needed and gait belt donned for safety assist. Gait Assessment Gait Gait Assistance Required: Standby Assistance Distance (Feet) 636 Able to Maintain Weight Bearing Status Yes During Gait Assistive Devices Assistive Device None,Gait Belt,Straight Cane Orthotic/Prosthetic Devices or Brace: No Gait Deviations General Gait Pattern Antalgic Factors Limiting Gait Function Factors Limiting Gait Function Decreased Activity Tolerance, Decreased Strength,Difficulty Following Directions,Poor Balance,Poor Safety Awareness Comments Gait Comments Receiprocal Le patterning, impulsive very quick pace 3 laps around nursing station cues for slower pacing safety with minimal changes, used no AD and sPC as needed for safety. no LOB during cues for head turns and vertical to assess dynamic balance. PT-Balance Assessment Sitting Balance and Reactions Static Sitting Balance Ability Normal Dynamic Sitting Balance Ability Normal Standing Balance and Reactions Static Standing Balance Ability Good Dynamic Standing Balance Ability Fair Device Used without AD Comments Other Balance Tests/Deviations/Treatment see mobility comments : Functional Assessments Other Functional Tests Performed see mobility details. M5 PT-IP Objective Assessments Start: 10/30/20 08:56 Freq: NEEDED Status: Active Protocol: Document 11/09/20 13:15 AB (Rec: 11/09/20 17:01 AB [id number]) Orientation Orientation/Cognition Level of Alertness Confusional State Orientation Name,Place,Situation Language Function Ability Hard of Hearing Safety Awareness Decreased Safety Awareness Memory Description Short Term Impaired Gross Range of Motion Lower Extremity ROM Assessment Within Functional Limits Strength Lower Extremity Strength Hip 4-/5 Knee 4-/5 Muscle Tone Muscle Tone WNL Yes M6 PT-IP Treatment Start: 10/30/20 08:56 Freq: NEEDED Status: Active Protocol: Document 11/10/20 09:18 SP (Rec: 11/10/20 12:11 SP [id number]) Physical Therapy Treatment Education Education Provided Safety M7 PT-IP Assessment and Plan Start: 10/30/20 08:56 Freq: NEEDED Status: Active Protocol: Document 11/10/20 09:18 SP (Rec: 11/10/20 12:11 SP [id number]) PT Summary Assessment and Plan Potential Rehabilitation Potential Fair Status of Condition at Evaluation Stable Summary Impairments Pain,ROM,Strength,Balance, Coordination,Sensation,Tone, Cognition,Bed Mobility, Transfers,Gait,Activity Tolerance Progress Towards Goals Progressing Toward Goals Assessment Summary Pt requiring SBA for safety cuing slower safety pace gait without AD/SPC as needed for balance, pt has cognitive issues affecting safety awareness and mobility independence. pt is ok to go home with caregivers to assist him when medically cleared. Goals Bed Mobility Goal Independent Transfer Goal Independent Gait Goal Independent Gait Distance 200 Days to Meet Goals 5 Frequency of Treatment Frequency Of Treatment Once a Day Treatment Plan Physical Therapy Treatment Plan Bed Mobility Training,Transfer Training,Gait Training, Therapeutic Exercise,Balance Retraining,Discharge Planning, Hot or Cold Pack,Neuromuscular Re-ed,Coordination Retraining Other Recommendations and Next Treatment dynamic balance activities, Focus gait LRAD Precautions Other Precautions falls Recommendations To Nursing Amount of Assist Needed Standby Assistance Discharge Recommendations PT Discharge Recommendations Home with Assistance Other Discharge Recommendations pt may need SPC for assist with balance as needed, discussed with pt and thinks he can get, also reccommended with care mgt. Transportation Needs at Discharge Private Vehicle
[2020-11-10] MEDS: SODIUM CHLORIDE 1,000 MG TABLET 2000 MG PO ×2 (09:59→14:06)
--- NOTE | 2020-11-10 10:07 | P.CONS_ITS ---
History of Present Illness Consult details Date Patient Seen: 11/10/20 Time Patient Seen: 09:30 Chief complaint: Stroke - Unresponsive Reason for consult: Altered Mental Status, alcoholism Requesting provider: Truong Villanueva Narrative: REFERRAL INFORMATION This is the first apparent psychiatric evaluation for this 60-year-old male referred by Dr. Villanueva, hospitalist, for evaluation of altered mental status changes in the context of chronic alcoholism. RECORDS REVIEW The patient?s referral documents, medical records and intake questionnaire were reviewed as part of this evaluation. CHIEF COMPLAINT ?I think I am ready to leave.? HISTORY OF PRESENT ILLNESS The patient has a long history of alcoholism and is well known to the emergency department locally. He was living at a local hotel when he was found down for a pproximately 1 hour. Apparently video was reviewed and it appeared that he had been given a pill of some sort. He is known to drink about half a gal of vodka per day and reportedly quit 4 days prior to admission but was maintaining with drinking beers for the days prior to his admission. He also may be partially blind. The patient was brought to the emergency department on October 26 and ultimately admitted. When he presented to the emergency department he was unresponsive and in recent days had been in an out of the emergency room with various vague neurological complaints but no specific pathologic findings were uncovered. Each time he was sent home. Most recently, he remained unresponsive and was intubated in order to protect the airway. The patient apparently had been trying to cut down on his alcohol use and also had been complaining of depression to the local information technology audit manager where he stays. He apparently recently lost his father and has had a 50 lb weight loss apparently from not eating. Head CT and angiogram revealed left vertebral artery occlusion as chronic and diffuse volume loss but no acute abnormalities. He was subsequently admitted to Medicine and the ICU for further evaluation and management. As the patient was provided hydration and nutrition as an inpatient. He was initially hypotensive and hyponatremic. He was noted to have a possible seizure disorder and is currently being treated for a new diagnosis of diabetes mellitus, toxic and/or metabolic encephalopathy and possible seizure, septic shock, alcohol withdrawal, hypokalemia, hyponatremia, elevated troponins, acute respiratory failure. The patient was extubated on the 3rd day following his admission and appeared to be vacillating between agitation and lethargy. During the course of his admission, his physical condition has steadily improved, although he still maintains a relatively low sodium level, but he continues to demonstrate difficulty with confusion and confabulation. Although he has continued to improve with respect to his physical condition and mental alertness, he cont inues to demonstrate significant encephalopathy. We were asked to assist with assessing and managing his chronic encephalopathy. Today, the patient expresses a desire to return to the residential hotel where he was living. Is able to give vague answers regarding how he came to be here, but is not able to provide specifics. When asked questions about routine recent events such as breakfast and lunch he either provides vague answers or confabulates a story, for example telling me today that he has plans to barbecue steaks, and have corn on the cob in baked potatoes for dinner tonight with ex tended family members. He was anxious to leave because he needed to go and buy steak for the barbecue tonight. When asked specifically he denied experiencing depression, anxiety, hallucinations, delusions, ideas of reference, or feeling paranoid. PAST PSYCHIATRIC HISTORY - Diagnoses: Long history of alcohol dependence - Inpatient: Denies - Outpatient: Denies - Suicide Attempts: Denies PREVIOUS PSYCHIATRIC MEDICATION TRIALS Denies any prior history of psychotropic medication treatment CURRENT PSYCHOTROPIC MEDICATIONS Recently treated with sertraline as an inpatient as well as with as needed quetiapine. FAMILY HISTORY - Maternal: None known - Paternal: None known - Siblings: Brother has a history of alcohol abuse. SUBSTANCE USE HISTORY - Tobacco: Everyday smoker - Alcohol: As above, chronic history of alcoholism - Drugs: History of methamphetamine use DEVELOPMENTAL AND SOCIAL HISTORY - Family Constellation/Environment: The patient states that he was born and raised in [place] 1 of 3 children from an intact family. - Childhood Trauma: The patient denied any history of physical or sexual abuse, and has no history of witnessing violence as a child. - Developmental milestones: The patient reached normal developmental milestones. - Education: The patient was an adequate student in school and graduated from high school. - Employment: He has worked locally at the [email or web address] as well as for various [employer]. - Relationships: Reports being once for 6 months but then no children - Current Living: Lives in a hotel locally here in [place]. - Support: Unknown income source - Legal: No current legal difficulties. HISTORY - None. - Deployments: N/A - Combat Exposure: N/A - Blast Exposure: N/A SIGNIFICANT MEDICAL HISTORY PCP: Unknown - Allergies: NKDA - Medical Problems: History of seizures, aspiration pneumonia, acute respiratory failure with hypoxia, insult to bed and type 2 diabetes, polysubstance abuse, partial blindness, psoriasis - Current Medications: See list above. - Herbals/Supplements: None. REVIEW OF SYSTEMS - Review of Systems is unremarkable except for reporting being hungry and experience numbness and tingling in his feet. - Psych ROS per HPI. Meds Home Medications and Allergies Home Medications Medication Instructions Recorded Confirmed Type Unobtainable 11/05/20 11/05/20 History Allergies Allergy/AdvReac Type Severity Reaction Status Date / Time No Known Drug Allergies Allergy Verified 10/19/20 11:38 Exam Vital Signs (past 8 hours): - 11/10/20 03:55 11/10/20 07:40 11/10/20 08:14 Temperature 98.1 F 97.6 F Pulse Rate 82 82 82 Respiratory Rate 20 18 Blood Pressure 138/89 129/82 126/82 Pulse Oximetry 100 100 Fraction of Inspired Oxygen 35 Oxygen Delivery Method Room Air Oxygen Flow Rate 0 Narrative Exam Narrative: MENTAL STATUS EXAM * Appearance: Patient is a slender mildly cachectic male seen lying in his hospital bed dressed in hospital attire who appears younger than his stated age of 60. * Grooming: Dressed in hospital attire but adequately groomed. * Behavior: Calm and cooperative with the evaluation * Gait: Not evaluated * Speech: Normal rate, volume, and kiet * Mood: ?Pissed off because I Wanna go home.? * Affect: Generally cooperative, pleasant, but serious an mildly dysphoric. Congruent with content, normal range and reactivity * Thought Process: Generally linear logical and goal-directed, but frequently vague and mildly circumstantial. * Thought Content: Denies suicidal ideation, denies homicidal ideation, intent or plan; and thee was no evidence of a formal thought or perceptual disturbance. * Attention: Attentive to interview * Orientation: Oriented to person place and circumstance as well as month day and year but did not know the date. * Memory: Poor, scored 12/30 on MOCA however this may be partially due to difficulty with vision. * Insight: Poor * Judgment: Poor Objective Labs Result Diagrams: 11/08/20 06:55 11/10/20 05:34 Labs: Laboratory Results - last 24 hr 11/10/20 05:34 Sodium 130 L Potassium 3.7 Chloride 101 Carbon Dioxide 20 L BUN 11 Creatinine 0.45 L Estimated GFR > 60.0 BUN/Creatinine Ratio 24.4 H Glucose 187 H Calcium 8.5 PFSH Medical History Chicken pox (~1989) Partial blindness Psoriasis Family History Father Stroke Mother Cancer Brother Alcohol abuse Sister Murder Grandfather Stroke Grandmother Stroke Grandfather Stroke Grandmother Stroke Social History household members: none Tobacco & Substance Use Smoking Status: Current every day smoker Assessment & Plan Assessment and plan (1) Acute alteration in mental status: Status: Acute (2) Alcoholic encephalopathy: Status: Acute (3) Alcohol dependence: Status: Acute Assessment & Plan narrative: ASSESSMENT/MEDICAL DECISION MAKING Patient is a 60-year-old male with a long history of severe alcohol use disorder now in early remission in a controlled environment. He apparently had been attempting to cut back on his alcohol use for some reason and there is video evidence of him taking some other substance resulting in the events that led to his admission. He clearly has a severely impaired memory and also exhibits evidence of Wernicke-Korsakoff syndrome. He has already had significant benefit from his inpatient admission with appropriate treatment of his medical conditions, good nutrition, and thiamine replacement. He will likely continue to be a management challenge given his desire to leave and the possibility that he may return to using alcohol. RECOMMENDATIONS 1. Concur with discontinuing sertraline in order to remove 1 cause of SIADH. Recommend continuing to normalize sodium level. 2. Concur with thiamine supplementation. 3. Now that he is 2 weeks from last alcohol intake, alcohol withdrawal seizures are less likely. Therefore would recommend not using benzodiazepines to manage any behavioral issues. 4. Recommend Seroquel 25-50 mg p.o. t.i.d. as needed for any agitated behavior. 5. Recommend engaging with social work and family to find appropriate and more supportive placement in order to help the patient maintain alcohol abstinence and appropriate nutrition as well as consistent medical treatment for his new onset of diabetes. 6. Will continue to follow with you while inpatient as needed. Time Spent With Patient Critical Care time: I spent a total of 35 minutes of critical care time on this patient's care today; this time is exclusive of procedural time.
--- NOTE | 2020-11-10 10:52 | PC.NURSE ---
Patient has been seen by OT and PT back to back. Dr. Mendieta followed after. Patient has been today in another loop about going home, getting a hair cut, going to his father's house, going to the hotel, going to the store to get steaks for dinner. Also about the doctor coming in to discharge him. He has not had much rest or sleep.
[2020-11-10 11:25] VITALS: BP 149/86; PULSE 67; RESP 16; TEMP 36.4; O2SAT 98
--- NOTE | 2020-11-10 12:59 | PM.DS.1 ---
History of Present Illness History of Present Illness Chief complaint: Stroke - Unresponsive Narrative: Per Dr. Bobby: 59 year old male with PMH of psoriasis, ? substance use, ? 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 History is largely obtained from the patient's chart and ER report as he is unable to participate in subjective exam.? He presented to the emergency room unresponsive.? He was found down in a local hotel courtyard.? He has been in and out of the emergency room with vague neurological complaints but nothing had been found and he was sent home each time. In the emergency room today, the patient remained unresponsive and was intubated for airway protection.? The ER was able to to contact the employee relation manager and he has been trying to cut down on alcohol and he also has been suffering from a 50 lb weight loss due to depression due to the recent his father.? The ER provider spoke with the [facility] and recommended an MRI.? He had a head CT and CT angiogram which showed a left vertebral artery occlusion that is chronic and diffuse volume loss but was otherwise unremarkable.? There was no intracranial hemorrhage.? MRI was performed which also showed no acute abnormalities.? Patient was admitted to Medicine in the ICU for further evaluation and management. Unable to further review patient's history other than documented chart given mental status. Discharge Providers Provider Date of admission: 10/26/20 10:50 Discharge Date: 11/10/20 Consults: 10/27/20 10:15 Consult to Dietitian, Adult Routine Comment: Reason For Exam: tube feeding recommendations, [facility] 10/29/20 16:26 Consult to Occupational Therapy Evaluate & Treat Comment: Physician Instructions: Evaluate and treat Consult to Physical Therapy Evaluate & Treat Comment: Physician Instructions: Evaluate and Treat 10/30/20 08:49 Consult to Dietitian, Adult Routine Comment: new diabetic Reason For Exam: new diabetic Consult to Occupational Therapy Evaluate & Treat Comment: Physician Instructions: Evaluate and treat Consult to Physical Therapy Evaluate & Treat Comment: Physician Instructions: Evaluate and Treat Consult to Speech Therapy Evaluate & Treat Comment: Physician Instructions: Evaluate and treat 11/05/20 04:25 Consult to Dietitian, Adult Routine Comment: Nutrition knowledge deficit Reason For Exam: BMI 19.0 11/09/20 11:49 Consult to Occupational Therapy Evaluate & Treat Comment: Physician Instructions: Evaluate and treat Consult to Physical Therapy Evaluate & Treat Comment: Physician Instructions: Evaluate and Treat Discharge provider: Truong Villanueva MD Summary Hospital Course Discharge Diagnosis: 1. Acute hypoxemic respiratory failure 2. Aspiration pneumonia 3. Septic shock due to MRSA pneumonia 4. Alcohol withdrawal, with possible DTs, seizure 5. Type 2 Diabetes 6. Metabolic encephalopathy, possibly Wernicke-Korsakoff syndrome 7. SIADH 8. Cardiac demand ischemia 9. Severe protein calorie malnutrition, BMI 16.1 10. Anxiety 11. Hypertension Hospital Course: Mr. Shanks presented to the hospital unresponsive. He was intubated for airway protection, he does have a history of polysubstance abuse, and an especially significant history of alcohol abuse. His tox screen has detected benzos and methamphetamines. He was also found to have septic shock from aspiration pneumonia from MRSA. He was treated and this was resolved and he was able to extubated. After extubation he was quite agitated, he had concern for DTs and withdrawal seizure. He was on keppra, but this was stopped as it was thought seizure was related to alcohol withdrawal. In addition he was trialed on sertraline for his anxiety but he did develop hyponatremia. He was found to have high urine sodium consistent with SIADH. His sodium dropped as low as 120 but improved to 130 on discharge with increased solute intake and fluid restriction. He was found to have diabetes and started on metformin. For his alcohol abuse he received thiamine, MVI, folate. He did confabulate quite significantly this admission and it is thought he possibly had Wernicke-Korsakoff syndrome. He was able to be discharged back to the [facility]. SNF placement was attempted but unsuccessful, he did have caregiver assistance in place at home. He has been referred to a PCP. Unfortunately he is a high risk of returning to substance abuse, but social work did work extensively with arranging additional assistance. Discharge time: 38 minutes Exam Vital Signs (past 8 hours): Fraction of Inspired Oxygen 35 Oxygen Delivery Method Room Air Oxygen Flow Rate 0 Narrative Exam Narrative: GEN: Chronically ill-appearing thin male, no acute distress SKIN:? No rash LUNGS: Auscultation of the lungs revealed no wheezes, rhonchi, or rales. CARDIOVASCULAR: There was a regular rate and rhythm without any murmurs, gallops, rubs. Peripheral pulses were 2+ and symmetric. ABDOMEN: Soft, nontender, and nondistended MUSCULOSKELETAL: There was no tenderness or effusions noted. Muscle strength and tone were normal. EXTREMITIES: No cyanosis, clubbing or edema. PSYCH: pleasant, cooperative Objective Labs Result Diagrams: 11/08/20 06:55 11/10/20 05:34 [facility] Medical History Chicken pox (~1989) Partial blindness Psoriasis Family History Father Stroke Mother Cancer Brother Alcohol abuse Sister Murder Grandfather Stroke Grandmother Stroke Grandfather Stroke Grandmother Stroke Social History household members: none Smoking Status: Current every day smoker Discharge Plan Discharge Plan Patient Disposition: Home Provider Discharge Comment: Mr. Shanks came in to the hospital after collapsing. He had alcohol withdrawal. He also had a pneumonia. He a low electrolytes. He was given medication for this and improved. He was given resources to help with quitting drinking. He was encouraged to follow up closely with a PCP. He was discharged back with caregivers. Discharge orders & Medications Prescriptions: New quetiapine 25 mg Tablet 12.5 mg PO TID PRN (Reason: Agitation) Qty: 20 RF: 0 metformin 500 mg Tablet 500 mg PO 0800,1700 Qty: 60 RF: 0 thiamine HCl (vitamin B1) [Vitamin B-1] 100 mg Tablet 100 mg PO DAILY Qty: 30 RF: 0 lisinopril 10 mg Tablet 10 mg PO DAILY Qty: 30 RF: 0 sodium chloride 1,000 mg Tablet,Soluble 1,000 mg PO TID Qty: 60 RF: 0 multivitamin with folic acid [Tab-A-Stefan] 400 mcg Tablet 1 tab PO DAILY Qty: 30 RF: 0 metoprolol succinate 25 mg tablet extended release 24 hr 25 mg PO DAILY Qty: 30 RF: 0 Visit Report/Discharge Packet Instructions: DI for Hyponatremia, Drug and Alcohol Withdrawal Quality VTE Deep Vein Thrombosis/Pulmonary Embolism Present on Admission: No
--- NOTE | 2020-11-10 13:43 | CM.DPNOTE ---
DCP Note Patient seen by psychiatry today, Dr Villanueva now reviewing recommendations and preparing to discharge patient home to [facility] today. Met w/patient this morning; Patient eager to return home, cognition continues to wax and wane however patient able to care for himself in the room, is eating, and cleared now by therapies for return home. Patient states either Nuvia or Albert can pick him up today. Placed call to friend Nuvia P# [phone], she states no PCP appt confirmed yet. Nuvia asks if this REGIONAL DIRECTOR could help patient apply for disability benefits, and chk on status? Cannot accommodate this request, however, recommended Nuvia contact social security office to inquire on patient's behalf which Nuvia agreed to do. Nuvia concerned that patient's rent only paid through next Friday, Nuvia attempting to collect addtl. funds to assist patient in rent $. Suggested [facility]? Nuvia states these funds are typically for women and children. Nuvia expecting patient home this afternoon and will have his room ready, Nuvia able to check on patient as he transitions home. Placed call to Mar Russ, Intake Field Auditor at [facility] P#[phone], she explained that patient's case had been assigned to a hospital school social worker last night, now that he's discharging home, it will be routed to an in home cardiovascular technician, which will not be expedited. Placed call to Chidi Goode Forestry Scientist P# [phone]. had to LM outlining conversation w/friend Nuvia and suggested assist in securing outpatient PCP, assist w/disability benefits (?) and discussion about housing instability According to RN jorge Kaba will pick patient up to transport home. PT not recommending HH therapies at this time. Plan: DC expected this afternoon, home w/friends and family via private auto, continued efforts by stephanie Pedersen to secure outpatient resources that are available to patient JW
--- NOTE | 2020-11-10 14:35 | PC.NURSE ---
Patient is ready for d/c to home. Patient's nephew, Albert, at bedside for discharge instructions and to take the patient home. No IV or tele. Instructions given on new medications, follow up, recourses, staying sober from drugs and alcohol, diet, fluid intake, and s/s of a stroke. Pt and Zakier with no questions at this time. Pt taken down via WC by TONO.
--- NOTE | 2020-11-15 08:19 | CM.DPNOTE ---
Return call from [facility] following up on the referral made when pt was admitted and confirmed that pt was discharged to home at the local hotel via friend transport. [facility] plans to follow up with attempting to contact pt today to determine if he is agreeable to them moving forward with setting up services. ADAM Garibay
[2020-12-02 16:37] LABS: pH ABG 7.29 (7.35-7.45)
== END 2020-11-10 14:37 | disposition home or self-care (01) | DRG 720 ==
LOC: ED 10:50 → AC 10:50 → ICU 13:32 → AC 10-30 18:03
PROVIDERS: Emergency Medicine; Internal Medicine; Internal Medicine Critical Care Medicine; Nurse Practitioner Family; Admitting Provider Internal Medicine; Emergency Provider Emergency Medicine; Referring Provider Emergency Medicine; Visit Provider Internal Medicine
DX: A41.9 Sepsis, unspecified organism (principal); R65.21 Severe sepsis with septic shock; J96.01 Acute respiratory failure with hypoxia; J69.0 Pneumonitis due to inhalation of food and vomit; R57.1 Hypovolemic shock; G93.41 Metabolic encephalopathy; E87.6 Hypokalemia; E87.1 Hypo-osmolality and hyponatremia; E83.42 Hypomagnesemia; E43 Unspecified severe protein-calorie malnutrition; Z68.1 Body mass index [BMI] 19.9 or less, adult; F10.139 Alcohol abuse with withdrawal, unspecified; F15.10 Other stimulant abuse, uncomplicated; F13.10 Sedative, hypnotic or anxiolytic abuse, uncomplicated; E22.2 Syndrome of inappropriate secretion of antidiuretic hormone; F17.200 Nicotine dependence, unspecified, uncomplicated; B95.62 Methicillin resistant Staphylococcus aureus infection as the cause of diseases classified elsewhere; I10 Essential (primary) hypertension; F41.9 Anxiety disorder, unspecified; E11.65 Type 2 diabetes mellitus with hyperglycemia; I25.9 Chronic ischemic heart disease, unspecified; F04 Amnestic disorder due to known physiological condition; Z20.822 Contact with and (suspected) exposure to COVID-19
CPT/HCPCS: 31500; 36415; 36569; 36592; 36600; 51702; 70450; 70496; 70498; 70551; 71045; 74018; 80048; 80053; 80061; 80202; 80305; 80320; 81001; 81003; 82550; 82607; 82805; 82962; 83036; 83605; 83735; 83935; 84100; 84145; 84146; 84300; 84443; 84484; 85007; 85025; 85027; 87040; 87070; 87077; 87086; 87147; 87186; 87205; 87389; 87491; 87493; 87591; 87633; 87635; 87797; 90792; 92507; 92526; 92610; 93005; 93010; 94002; 94003; 94010; 94640; 94760; 94762; 94799; 96361; 96374; 96375; 97112; 97116; 97129; 97161; 97163; 97166; 97168; 97530; 97535; 99285; 99291; 99292; C9803; A9270; C9113; J0330; J1630; J1642; J1650; J1815; J1940; J1953; J2060; J2250; J2543; J3010; J3475; J3490; Q9967

== ENCOUNTER 2021-01-29 10:36 | Emergency (ER) | payer OTHER, MEDICAID, SELFPAY ==
[2020-10-26 11:00] VITALS: BMI 16.9
[2020-10-29 08:20] VITALS: PULSE 99
[2020-10-29 12:25] VITALS: RESP 18; O2SAT 99
[2021-01-29 10:54] VITALS: BP 87/58; PULSE 113; RESP 18; TEMP 36.8; O2SAT 100; BMI 22.3
[2021-01-29 13:14] LABS: COVID19 -Nasal RAPID Negative (Negative)
[2021-01-29 13:53] VITALS: BP 115/69; PULSE 101; RESP 16; O2SAT 97
--- NOTE | 2021-01-29 13:59 | ED_ITS ---
HPI - Recheck/Abnormal Lab/Rx <Martin Heredia PA-C - Last Filed: 01/29/21 19:52> General Chief Complaint: Recheck/Abnormal Lab/Rx Stated Complaint: Wants Covid test Time Seen by Provider: 01/29/21 13:13 Source: patient Mode of arrival: Ambulatory Limitations: no limitations History of Present Illness HPI narrative: Patient is a 60-year-old male presenting to the emergency department today for a COVID test. Patient states that he had a recent known contact with a COVID positive individual within the past 5 days. He presents to the emergency department today without complaints and is requesting a COVID test. Of note, patient reports experiencing ?40-50 lb weight loss since approximately early October. Additionally, he reports experiencing a stroke around early October as well, however he is unclear as to when all of this occurred and states that his timeline may be off. He denies fever, chills, chest pain, shortness of breath, cough, nausea, vomiting, diarrhea, abdominal pain, diaphoresis, changes in hearing or vision, numbness or tingling, confusion. No other concerns voiced at this time. Related Data Previous Rx's Medication Instructions Recorded lisinopril 10 mg tablet 10 mg PO DAILY #30 tab 11/10/20 metformin 500 mg tablet 500 mg PO 0800,1700 #60 tab 11/10/20 metoprolol succinate 25 mg 25 mg PO DAILY #30 tab 11/10/20 tablet,extended release 24 hr multivitamin with folic acid 400 1 tab PO DAILY #30 tab 11/10/20 mcg tablet (Tab-A-Stefan) quetiapine 25 mg tablet 12.5 mg PO TID PRN #20 tab 11/10/20 sodium chloride 1,000 mg soluble 1,000 mg PO TID #60 tab 11/10/20 tablet thiamine HCl (vitamin B1) 100 mg 100 mg PO DAILY #30 tab 11/10/20 tablet (Vitamin B-1) Allergies Allergy/AdvReac Type Severity Reaction Status Date / Time No Known Drug Allergies Allergy Verified 01/29/21 10:54 Review of Systems <Martin Heredia PA-C - Last Filed: 01/29/21 19:52> Constitutional Constitutional: Denies chills, Denies fatigue, Denies fever(s), Denies frequent falls, Denies lethargy, Denies weakness and Reports weight loss Eyes Eyes: Denies loss of vision ENT Ears, Nose, Mouth, and Throat: Denies change in voice, Denies dizziness, Denies neck pain, Denies sore throat and Denies throat swelling Cardiovascular Cardiovascular: Denies chest pain, Denies irregular heart rhythm, Denies lightheadedness, Denies palpitations, Denies dyspnea, Denies dyspnea on exertion and Denies orthopnea Respiratory Respiratory: Denies cough, Denies dyspnea, Denies dyspnea on exertion and Denies wheezing Gastrointestinal Gastrointestinal: Denies abdominal pain, Denies change in bowel habits, Denies diarrhea, Denies nausea and Denies vomiting Musculoskeletal Musculoskeletal: Denies neck pain, Denies numbness and Denies tingling Integumentary/Breasts Skin/Breast: Denies pruritus, Denies erythema, Denies rash and Denies wounds Neurologic Neurologic: Denies behavioral changes, Denies confusion, Denies dizziness, Denies frequent falls, Denies loss of vision, Denies numbness, Denies tingling and Denies weakness Psychiatric Psychiatric: Denies behavioral changes and Denies confusion Endocrine Endocrine: Denies fatigue and Denies palpitations Allergic/Immunologic Allergic/Immunologic: Denies throat swelling and Denies wheezing Patient History <Martin Heredia PA-C - Last Filed: 01/29/21 19:52> Medical History Chicken pox (~1989) Partial blindness Psoriasis Family History Father Stroke Mother Cancer Brother Alcohol abuse Sister Murder Grandfather Stroke Grandmother Stroke Grandfather Stroke Grandmother Stroke Social History household members: none Smoking Status: Current every day smoker Smoking Status: Current every day smoker alcohol intake frequency: 3 or more drinks per day Substance Use Type: does not use and methamphetamine Exam <Martin Heredia PA-C - Last Filed: 01/29/21 19:52> Narrative Exam Narrative: GENERAL: 60 year old patient appears stated age. In no acute distress. Skinny. HEAD: Atraumatic. Normocephalic. EYES: Pupils equal round and reactive. Extraocular motions intact. No scleral icterus. No injection or drainage. ENT: Nose without bleeding, purulent drainage. Throat without erythema, tonsillar hypertrophy or exudate. Airway patent. NECK: Trachea midline. Non tender CARDIOVASCULAR: Regular rate and rhythm without murmurs, gallops, or rubs. RESPIRATORY: Clear to auscultation. Breath sounds equal bilaterally. No wheezes, rales, or rhonchi. GASTROINTESTINAL: Abdomen soft, non-tender, nondistended. EXTREMITIES: No edema or joint tenderness. BACK: Nontender without deformity or crepitance. No flank tenderness. NEURO: AOx3. SKIN: No rash or erythema of visible areas Initial Vital Signs Initial Vital Signs: Vital Signs Temperature 98.2 F 01/29/21 10:54 Pulse Rate 113 H 01/29/21 10:54 Respiratory Rate 18 01/29/21 10:54 Blood Pressure 87/58 L 01/29/21 10:54 Pulse Oximetry 100 01/29/21 10:54 <Carlos Arce MD - Last Filed: 01/30/21 08:17> Initial Vital Signs Initial Vital Signs: Vital Signs Temperature 98.2 F 01/29/21 10:54 Pulse Rate 113 H 01/29/21 10:54 Respiratory Rate 18 01/29/21 10:54 Blood Pressure 87/58 L 01/29/21 10:54 Pulse Oximetry 100 01/29/21 10:54 Course <Martin Heredia PA-C - Last Filed: 01/29/21 19:52> Course Course Narrative: CBC, CMP, urine dipstick obtained. Orders Ordered: Discontinued Medications Sodium Chloride (Normal Saline 0.9%) 1,000 mls @ 1,000 mls/hr IV BOLUS ONE Stop: 01/29/21 15:35 Last Infusion: 01/29/21 16:31 Dose: 0 mls/hr Documented by: Admin: 01/29/21 15:28 Dose: 1,000 mls/hr Documented by: MILEY Vital Signs Vital signs: Vital Signs - 8 hr 01/29/21 13:53 01/29/21 15:30 01/29/21 17:39 Pulse Rate 101 H 79 92 H Respiratory Rate 16 18 18 Blood Pressure 115/69 117/80 131/82 Pulse Oximetry 97 97 98 <Carlos Arce MD - Last Filed: 01/30/21 08:17> Orders Ordered: Discontinued Medications Sodium Chloride (Normal Saline 0.9%) 1,000 mls @ 1,000 mls/hr IV BOLUS ONE Stop: 01/29/21 15:35 Last Infusion: 01/29/21 16:31 Dose: 0 mls/hr Documented by: Admin: 01/29/21 15:28 Dose: 1,000 mls/hr Documented by: MILEY Vital Signs Vital signs: Vital Signs - 8 hr 01/29/21 13:53 01/29/21 15:30 01/29/21 17:39 Pulse Rate 101 H 79 92 H Respiratory Rate 16 18 18 Blood Pressure 115/69 117/80 131/82 Pulse Oximetry 97 97 98 MDM - Recheck/Abnormal Lab/Rx <Martin Heredia PA-C - Last Filed: 01/29/21 19:52> Lab Data Result diagrams: 01/29/21 15:25 01/29/21 15:25 Labs: Lab Results 01/29/21 01/29/21 01/29/21 Range/Units 11:00 15:25 15:25 WBC 6.0 (4.5-11.0) X10^3/uL RBC 4.87 (4.5-5.9) X10^6/uL Hgb 15.3 (13.5-17.5) g/dL Hct 44.0 (41-53) % MCV 90.3 (80-100) fL MCH 31.4 (26-34) PG MCHC 34.7 (30-36) % RDW 11.8 (11.6-14.8) % Plt Count 289 (150-400) X10^3/uL Neut % (Auto) 59.0 (50-75) % Lymph % (Auto) 21.2 L (25-40) % [place] % (Auto) 17.1 H (3-14) % Eos % (Auto) 1.7 L (2-4) % Baso % (Auto) 1.0 (0-2) % Neut # (Auto) 3600 (8558-9912) /uL Lymph # (Auto) 1300 (4116-7819) /uL [place] # (Auto) 1000 H (0-900) /uL Eos # (Auto) 100 (0-450) /uL Baso # (Auto) 100 (0-100) /uL Sodium 132 L (137-145) mmol/L Potassium 4.9 (3.4-5.1) mmol/L Chloride 93 L (98-107) mmol/L Carbon Dioxide 29 (22-32) mmol/L BUN 13 (9-20) mg/dL Creatinine 0.67 (0.66-1.25) mg/dL Estimated GFR > 60.0 (>60) mL/min BUN/Creatinine Ratio 19.4 (6-22) Glucose 300 H (80-110) mg/dL Calcium 10.2 (8.4-10.2) mg/dL Total Bilirubin 0.6 (0.2-1.3) mg/dL AST 26 (17-59) IU/L ALT 23 (<50) IU/L Alkaline Phosphatase 80 (38-126) U/L Total Protein 8.0 (6.3-8.2) g/dL Albumin 4.6 (3.5-5.0) g/dL Globulin 3.4 (1.7-4.1) g/dL Albumin/Globulin Ratio 1.4 (1.0-2.8) SARS-CoV-2 (PCR) Negative (Negative) MDM Narrative Medical decision making narrative: Patient is a 60-year-old male presenting to the emergency department today for a COVID test. To consider COVID-19 versus sepsis versus dehydration. Overall physical examination and history are reassuring. Patient's vital signs normalized throughout stay in emergency department. Additionally, laboratory results are reassuring without signs acute infection. Further, patient states that he has a recent upcoming appointment with his primary care provider. At th is time he feels comfortable being discharged home. Risks discussed with patient prior to discharge. Strict return precautions discussed prior to discharge. <Carlos Arce MD - Last Filed: 01/30/21 08:17> Lab Data Labs: Lab Results 01/29/21 01/29/21 01/29/21 Range/Units 11:00 15:25 15:25 WBC 6.0 (4.5-11.0) X10^3/uL RBC 4.87 (4.5-5.9) X10^6/uL Hgb 15.3 (13.5-17.5) g/dL Hct 44.0 (41-53) % MCV 90.3 (80-100) fL MCH 31.4 (26-34) PG MCHC 34.7 (30-36) % RDW 11.8 (11.6-14.8) % Plt Count 289 (150-400) X10^3/uL Neut % (Auto) 59.0 (50-75) % Lymph % (Auto) 21.2 L (25-40) % [place] % (Auto) 17.1 H (3-14) % Eos % (Auto) 1.7 L (2-4) % Baso % (Auto) 1.0 (0-2) % Neut # (Auto) 3600 (3948-9551) /uL Lymph # (Auto) 1300 (7403-2986) /uL [place] # (Auto) 1000 H (0-900) /uL Eos # (Auto) 100 (0-450) /uL Baso # (Auto) 100 (0-100) /uL Sodium 132 L (137-145) mmol/L Potassium 4.9 (3.4-5.1) mmol/L Chloride 93 L (98-107) mmol/L Carbon Dioxide 29 (22-32) mmol/L BUN 13 (9-20) mg/dL Creatinine 0.67 (0.66-1.25) mg/dL Estimated GFR > 60.0 (>60) mL/min BUN/Creatinine Ratio 19.4 (6-22) Glucose 300 H (80-110) mg/dL Calcium 10.2 (8.4-10.2) mg/dL Total Bilirubin 0.6 (0.2-1.3) mg/dL AST 26 (17-59) IU/L ALT 23 (<50) IU/L Alkaline Phosphatase 80 (38-126) U/L Total Protein 8.0 (6.3-8.2) g/dL Albumin 4.6 (3.5-5.0) g/dL Globulin 3.4 (1.7-4.1) g/dL Albumin/Globulin Ratio 1.4 (1.0-2.8) SARS-CoV-2 (PCR) Negative (Negative) Discharge Plan Departure Patient Disposition: Home Clinical Impression: COVID-19 ruled out by laboratory testing Instructions: Can COVID-19 be prevented? Activity Restrictions/Additional Instructions: *You have been diagnosed with COVID ruled out *What to do: *Please continue to take your regular medications as directed. [ ] New medication prescriptions sent to your pharmacy: [ ] [ ] New medication written as a paper prescription [X] No new medications given *Please follow up with your primary care provider in 2-3 days, call for an appointment. Let them know you were seen in the Emergency Department and that we ask that you be seen in follow up. We will electronically transmit a record of today's note if your PCP is in our system *If you do not have a primary care provider please contact the [facility] Resource line at [phone]. They will ask some questions about your medical history and help get you set up with a doctor in the community. *Return to Emergency Department if you should have any new, worsening or concerning symptoms, such as fever greater than 101 F, shaking chills, worsening pain, persistent vomiting or other bothersome symptoms Prescriptions: No Action quetiapine 25 mg Tablet 12.5 mg PO TID PRN (Reason: Agitation) Qty: 20 0RF metformin 500 mg Tablet 500 mg PO 0800,1700 Qty: 60 0RF thiamine HCl (vitamin B1) [Vitamin B-1] 100 mg Tablet 100 mg PO DAILY Qty: 30 0RF lisinopril 10 mg Tablet 10 mg PO DAILY Qty: 30 0RF sodium chloride 1,000 mg Tablet,Soluble 1,000 mg PO TID Qty: 60 0RF multivitamin with folic acid [Tab-A-Stefan] 400 mcg Tablet 1 tab PO DAILY Qty: 30 0RF metoprolol succinate 25 mg tablet extended release 24 hr 25 mg PO DAILY Qty: 30 0RF <Carlos Arce MD - Last Filed: 01/30/21 08:17> Cosign ED Attending Cosignature Attestation: I was immediately available in the department for consultation. This documentation has been reviewed and I agree with assessment and plan. Supervised by Carlos Arce MD
[2021-01-29] MEDS: SODIUM CHLORIDE 0.9% 1,000 ML 1000 ML IV (15:28)
[2021-01-29 15:30] VITALS: BP 117/80; PULSE 79; RESP 18; O2SAT 97
[2021-01-29 15:40] LABS: Add Manual Diff / Slide Review NO; Basophils Absolute Auto 100 /uL (0-100); Eosinophils Absolute Auto 100 /uL (0-450); Eosinophils Percent Auto 1.7 % (2-4); Hemoglobin 15.3 g/dL (13.5-17.5); Lymphocytes Absolute Auto 1300 /uL (1100-4500); Lymphocytes Percent Auto 21.2 % (25-40); Mean Corpuscular HGB Conc 34.7 % (30-36); Mean Corpuscular Hemoglobin 31.4 PG (26-34); Mean Corpuscular Volume 90.3 fL (80-100); Monocytes Absolute Auto 1000 /uL (0-900); Monocytes Percent Auto 17.1 % (3-14); Neutrophils Absolute Auto 3600 /uL (1500-7000); Platelet Count 289 X10^3/uL (150-400); Red Blood Cell Count 4.87 X10^6/uL (4.5-5.9); Red Cell Distribution Width 11.8 % (11.6-14.8)
[2021-01-29 15:54] LABS: Alanine Aminotransferase 23 IU/L (<50); Albumin 4.6 g/dL (3.5-5.0); Albumin Globulin Ratio 1.4 (1.0-2.8); Alkaline Phosphatase 80 U/L (38-126); Aspartate Aminotransferase 26 IU/L (17-59); BUN Creatinine Ratio 19.4 (6-22); Bilirubin Total 0.6 mg/dL (0.2-1.3); Blood Urea Nitrogen 13 mg/dL (9-20); Calcium 10.2 mg/dL (8.4-10.2); Carbon Dioxide 29 mmol/L (22-32); Chloride 93 mmol/L (98-107); Estimated Glomerular Filt Rate > 60.0 mL/min (>60); Globulin 3.4 g/dL (1.7-4.1); Glucose 300 mg/dL (80-110); HEMOLYSIS < 15 (0-50); Potassium 4.9 mmol/L (3.4-5.1); Sodium 132 mmol/L (137-145)
--- NOTE | 2021-01-29 16:54 | CM.SWNOTE ---
Addendum entered by Noelle Thomas 02/01/21 14:19: REAL ESTATE BRANCH MANAGER calls friend/support Nuvia, manager eligibility of the [facility] patient is staying at. It is reported that patient has paid until 02/21/21 with support of her and some other friends of hers as patient has no income. It is reported that patient's caregiver Daily is an WATCHMAKER APPRENTICE but cannot work for free but has offered to drive patient to appts. Patient had [facility] assessment with Rabia Zuniga (Ph. # [phone]) for [facility] case management and fpc care on 01/30/21. Nuvia reports [facility] across the street has rooms and patient has reached out to them. Nuvia endorses that she has depleted all local and community resources for patient. REAL ESTATE BRANCH MANAGER suggests possibly creating a GoFundMe for patient if she finds it appropriate. REAL ESTATE BRANCH MANAGER calls Rabia and informs her of patient's communication with [facility], Rabia states she will look into it but she is uncertain if patient will qualify for this facility. REAL ESTATE BRANCH MANAGER ensures that Rabia is aware of patient's current dire situation and she indicates understanding. ADAM Lindsey Original Note: REAL ESTATE BRANCH MANAGER Assessment Note Patient is 60 y/o male who presents to the ED in need of a covid test. Patient endorses that he went to a [place] gathering and there is concern that some individuals at the gathering tested positive for COVID-19. Patient endorses that he had a stroke and has a hx of ETOH use and is at times confused. Patient presents A/Ox4. Patient states that he resides at [facility] but he does not have a current income and he will need to move out by 02/14/21 and [address] live on the [address] unless he finds a fpc living situation. Patient endorses that Nuvia his friend and the manager eligibility of the [facility] (Ph. # [phone]) assists patient and ensures that he gets the medical attention he needs. Patient endorses that he is still working with private pay caregiver Daily who is Nuvia's aunt, retired WATCHMAKER APPRENTICE (Ph. # [phone]). Patient endorses that he sees doctor at [facility] clinic and he currently has a hernia and will be getting hernia surgery soon. With patient's permission, REAL ESTATE BRANCH MANAGER calls Mel[facility] at [facility] and leaves requesting return call to confirm that patient has a [place] or [facility] rn case manager to assist patient in seeking director long term care care, as patient has Medicaid insurance. Patient states that he is also trying to get SSI disability. Patient endorses that he has no current income other than food stamps. Patient states he is supposed to have a phone assessment with an RN tomorrow. Patient states that he stopped drinking ETOH after his recent hospital stays several months ago and patient states that he attends AA meetings. 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 REAL ESTATE BRANCH MANAGER to await return call from [facility]) and to f/u with caregiver Daily and friend Nuvia with POC since patient is currently with out a phone. Plan: Patient to d/c to community when medically clear. REAL ESTATE BRANCH MANAGER to f/u with further assistance with service referrals. ADAM Lindsey
[2021-01-29 17:39] VITALS: BP 131/82; PULSE 92; RESP 18; O2SAT 98
== END 2021-01-29 17:47 | disposition home or self-care (01) ==
PROVIDERS: Emergency Medicine; Emergency Provider Physician Assistant
DX: Z20.822 Contact with and (suspected) exposure to COVID-19 (principal); R63.4 Abnormal weight loss; Z68.22 Body mass index [BMI] 22.0-22.9, adult
CPT/HCPCS: 36415; 80053; 85025; 87635; 99283; 99284; C9803

== ENCOUNTER 2021-05-11 12:26 | Emergency (ER) | payer OTHER, MEDICAID, SELFPAY ==
[2020-10-26 11:00] VITALS: BMI 16.9
[2020-10-29 08:20] VITALS: PULSE 99
[2020-10-29 12:25] VITALS: RESP 18; O2SAT 99
[2021-05-11 12:36] VITALS: BP 96/61; PULSE 111; RESP 18; TEMP 36.6; O2SAT 100; BMI 18.5
[2021-05-11 13:04] LABS: COVID19 -Nasal RAPID Negative (Negative)
--- NOTE | 2021-05-11 15:24 | ED.SOB ---
HPI - SOB/Dyspnea <John Soriano PA-C - Last Filed: 05/11/21 17:26> General Chief Complaint: Upper Respiratory Symptoms Stated Complaint: Not Feeling Well, COVID Exposure Time Seen by Provider: 05/11/21 14:48 Source: patient Mode of arrival: Ambulatory History of Present Illness HPI Narrative: This is a 60-year-old male presents to the emergency department complaining of mild fatigue and ?feeling unwell? for the last 2 days. Patient states that he would not like any lab work or further testing and only came to the emergency department as he would like to be tested for COVID as he states he has been exposed to COVID positive friends. Denies any chest pain, shortness of breath, nausea, vomiting, or any other concerning signs or symptoms. Patient states that he thinks that his symptoms were due to his low blood pressure as he believes he is taking too much of his blood pressure medication. He has already spoken to his primary care provider to discuss altering of the dosage Related Data Previous Rx's Medication Instructions Recorded lisinopril 10 mg tablet 10 mg PO DAILY #30 tab 11/10/20 metformin 500 mg tablet 500 mg PO 0800,1700 #60 tab 11/10/20 metoprolol succinate 25 mg 25 mg PO DAILY #30 tab 11/10/20 tablet,extended release 24 hr multivitamin with folic acid 400 1 tab PO DAILY #30 tab 11/10/20 mcg tablet (Tab-A-Stefan) quetiapine 25 mg tablet 12.5 mg PO TID PRN #20 tab 11/10/20 sodium chloride 1,000 mg soluble 1,000 mg PO TID #60 tab 11/10/20 tablet thiamine HCl (vitamin B1) 100 mg 100 mg PO DAILY #30 tab 11/10/20 tablet (Vitamin B-1) food supplemt, lactose-reduced 1 ea PO TID #1422 ml 04/09/21 (Ensure Original) Allergies Allergy/AdvReac Type Severity Reaction Status Date / Time No Known Drug Allergies Allergy Verified 05/11/21 12:39 Review of Systems <John Soriano PA-C - Last Filed: 05/11/21 17:26> Review of Systems Narrative: See HPI Patient History <John Soriano PA-C - Last Filed: 05/11/21 17:26> Medical History Chicken pox (~1989) Partial blindness Psoriasis Family History Father Stroke Mother Cancer Brother Alcohol abuse Sister Murder Grandfather Stroke Grandmother Stroke Grandfather Stroke Grandmother Stroke Social History household members: none Smoking Status: Current every day smoker Smoking Status: Current every day smoker alcohol intake frequency: 3 or more drinks per day Substance Use Type: does not use and methamphetamine Exam <John Soriano PA-C - Last Filed: 05/11/21 17:26> Initial Vital Signs Initial Vital Signs: Vital Signs Temperature 98 F 05/11/21 12:36 Pulse Rate 111 H 05/11/21 12:36 Respiratory Rate 18 05/11/21 12:36 Blood Pressure 96/61 05/11/21 12:36 Pulse Oximetry 100 05/11/21 12:36 Const General: cooperative and healthy appearing Eyes General: appearance normal, both eyes and all related structures Chest Chest: normal inspection of the chest Resp Effort & Inspection: normal respiratory effort Auscultation: clear to auscultation bilaterally Cardio Rate: regular rate Rhythm: regular rhythm Neuro General: patient alert, patient awake and patient oriented x3 Psych Appearance: grossly normal <Lisa Kendall DO - Last Filed: 05/14/21 09:15> Initial Vital Signs Initial Vital Signs: Vital Signs Temperature 98 F 05/11/21 12:36 Pulse Rate 111 H 05/11/21 12:36 Respiratory Rate 18 05/11/21 12:36 Blood Pressure 96/61 05/11/21 12:36 Pulse Oximetry 100 05/11/21 12:36 Course <John Soriano PA-C - Last Filed: 05/11/21 17:26> Orders Ordered: ED Orders 05/11/21 12:42 COVID19 -Nasal swab/Pre-Proc Stat Vital Signs Vital signs: Vital Signs - 8 hr 05/11/21 12:36 05/11/21 15:38 Temperature 98 F 97.7 F Pulse Rate 111 H 98 H Respiratory Rate 18 18 Blood Pressure 96/61 Pulse Oximetry 100 100 <Lisa Kendall DO - Last Filed: 05/14/21 09:15> Orders Ordered: ED Orders 05/11/21 12:42 COVID19 -Nasal swab/Pre-Proc Stat Vital Signs Vital signs: Vital Signs - 8 hr 05/11/21 12:36 05/11/21 15:38 Temperature 98 F 97.7 F Pulse Rate 111 H 98 H Respiratory Rate 18 18 Blood Pressure 96/61 Pulse Oximetry 100 100 MDM - SOB/Dyspnea <John Soriano PA-C - Last Filed: 05/11/21 17:26> Lab Data Labs: Lab Results 05/11/21 Range/Units 12:42 SARS-CoV-2 (PCR) Negative (Negative) MDM Narrative Medical decision making narrative: This is a 60-year-old male presents to the emergency department due to a general feeling of ?tired?. Patient strongly believes that his blood pressure medication dosages to high causing him to have slightly decreased blood pressure readings. Patient has already spoken to his primary care provider who agreed with this plan to avoid taking his blood pressure medication until he is able to be re-evaluated in the clinic outpatient. Patient does not describe any concerning physical symptoms concerning for ACS. Patient states that he just wants to get out of here? without any further imaging or testing. Patient will follow-up with primary care provider for possible reduction of his blood pressure medication. <Lisa Kendall DO - Last Filed: 05/14/21 09:15> Lab Data Labs: Lab Results 05/11/21 Range/Units 12:42 SARS-CoV-2 (PCR) Negative (Negative) Discharge Plan Departure Patient Disposition: Home Clinical Impression: Fatigue Activity Restrictions/Additional Instructions: Thank you for coming into the [facility] emergency department. As we discussed your COVID test was negative. It sounds like you are already speaking with your primary care provider to discuss possible altering of your blood pressure medication as this seems to be the likely cause of your low energy. Please return if you develop any chest pain loss of consciousness, or any other concerning signs or symptoms. Prescriptions: No Action Ensure Original Liquid 1 ea PO TID Qty: 1422 12RF quetiapine 25 mg Tablet 12.5 mg PO TID PRN (Reason: Agitation) Qty: 20 0RF metformin 500 mg Tablet 500 mg PO 0800,1700 Qty: 60 0RF thiamine HCl (vitamin B1) [Vitamin B-1] 100 mg Tablet 100 mg PO DAILY Qty: 30 0RF lisinopril 10 mg Tablet 10 mg PO DAILY Qty: 30 0RF sodium chloride 1,000 mg Tablet,Soluble 1,000 mg PO TID Qty: 60 0RF multivitamin with folic acid [Tab-A-Stefan] 400 mcg Tablet 1 tab PO DAILY Qty: 30 0RF metoprolol succinate 25 mg tablet extended release 24 hr 25 mg PO DAILY Qty: 30 0RF Referrals: Miscellaneous,Doctor, [Primary Care Provider] - <Lisa Kendall DO - Last Filed: 05/14/21 09:15> Cosign ED Attending Cosignature Attestation: I was immediately available in the department for consultation. Documentation has been reviewed. I agree with assessment and plan.
[2021-05-11 15:38] VITALS: PULSE 98; RESP 18; TEMP 36.5; O2SAT 100
== END 2021-05-11 15:40 | disposition home or self-care (01) ==
PROVIDERS: Emergency Medicine; Emergency Provider Physician Assistant Medical
DX: R53.83 Other fatigue (principal); Z20.822 Contact with and (suspected) exposure to COVID-19
CPT/HCPCS: 87635; 99281; 99282; C9803

== ENCOUNTER → 2023-04-16 12:53 | Outpatient (CLI) | payer OTHER, MEDICAID, SELFPAY ==
[2023-03-24 13:32] VITALS: PULSE 99; RESP 18; O2SAT 99; BMI 16.9
--- NOTE | 2023-04-16 12:55 | DI.RAD.S_ITS ---
PROCEDURE: XR KNEE RT 3V INDICATIONS: Right Knee pain TECHNIQUE: 3 views of the knee were acquired. COMPARISON: None. FINDINGS: Bones: No fractures or dislocations. No suspicious bony lesions. There is [id number] tricompartmental knee joint degeneration. There is periarticular bony erosion. Soft tissues: Suspect a large joint effusion. No suspicious soft tissue calcifications. IMPRESSION: 1. No acute bony abnormality. 2. Uwjf-yn-[id number] arthritic changes. 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 3. Suspect large effusion. Dictated by: Cecily Barcenas M.D. on 04/16/2023 at 16:54 Approved by: Cecily Barcenas M.D. on 04/16/2023 at 17:02
== END ==
PROVIDERS: PCP Family Medicine; Referring Provider Family Medicine; Visit Provider Family Medicine
DX: M25.561 Pain in right knee (principal); M25.461 Effusion, right knee
CPT/HCPCS: 73562

== ENCOUNTER → 2023-04-21 07:19 | Outpatient (CLI) | payer OTHER, MEDICAID, SELFPAY ==
[2023-03-24 13:32] VITALS: PULSE 99; RESP 18; O2SAT 99; BMI 16.9
[2023-04-21 08:13] LABS: Add Manual Diff / Slide Review NO; Basophils Absolute Auto 100 /uL (0-100); Basophils Percent Auto 1.3 % (0-2); Eosinophils Absolute Auto 300 /uL (0-450); Eosinophils Percent Auto 4.9 % (2-4); Hematocrit 42.4 % (41-53); Hemoglobin 14.8 g/dL (13.5-17.5); Lymphocytes Absolute Auto 900 /uL (1100-4500); Lymphocytes Percent Auto 14.5 % (25-40); Mean Corpuscular HGB Conc 34.9 % (30-36); Mean Corpuscular Hemoglobin 31.7 PG (26-34); Mean Corpuscular Volume 90.7 fL (80-100); Monocytes Absolute Auto 800 /uL (0-900); Neutrophils Absolute Auto 4300 /uL (1500-7000); Neutrophils Percent Auto 67.3 % (50-75); Platelet Count 260 X10^3/uL (150-400); Red Blood Cell Count 4.67 X10^6/uL (4.5-5.9); Red Cell Distribution Width 13.9 % (11.6-14.8); White Blood Cell Count 6.4 X10^3/uL (4.5-11.0)
[2023-04-21 08:17] LABS: Hemoglobin A1C% w Est Avg Glu 7.4 % (4.0-6.0)
[2023-04-21 08:20] LABS: Alanine Aminotransferase 17 IU/L (<50); Albumin 4.4 g/dL (3.5-5.0); Albumin Globulin Ratio 1.1 (1.0-2.8); Alkaline Phosphatase 111 U/L (38-126); Aspartate Aminotransferase 31 IU/L (17-59); BUN Creatinine Ratio 19.3 (6-22); Bilirubin Total 0.8 mg/dL (0.2-1.3); Blood Urea Nitrogen 11 mg/dL (9-20); C-Reactive Protein Quant 0.9 mg/dL (<1.0); Calcium 9.3 mg/dL (8.4-10.2); Carbon Dioxide 21 mmol/L (22-32); Chloride 105 mmol/L (98-107); Cholesterol 182 mg/dL (140-199); Estimated Glomerular Filt Rate > 60 mL/min (>60); Globulin 3.9 g/dL (1.7-4.1); Glucose 184 mg/dL (80-110); HDL Cholesterol 54 mg/dL (40-60); HEMOLYSIS 16 (0-50); LDL Cholesterol Calculated 93 mg/dL (<100); Potassium 4.4 mmol/L (3.4-5.1); Sodium 139 mmol/L (137-145); Total Protein 8.3 g/dL (6.3-8.2); Triglycerides 177 mg/dL (35-150)
[2023-04-21 17:10] LABS: HIV 1 & 2 Ab/Ag 4th Gen Combo NEGATIVE (NEGATIVE); Hep C Virus Ab w/Reflex Quant NEGATIVE s/c (NEGATIVE)
== END ==
PROVIDERS: PCP Family Medicine; Referring Provider Family Medicine; Visit Provider Family Medicine
DX: E11.9 Type 2 diabetes mellitus without complications (principal); Z11.3 Encounter for screening for infections with a predominantly sexual mode of transmission; Z11.59 Encounter for screening for other viral diseases; L40.9 Psoriasis, unspecified; M17.11 Unilateral primary osteoarthritis, right knee; Z13.220 Encounter for screening for lipoid disorders; Z11.4 Encounter for screening for human immunodeficiency virus [HIV]; F10.11 Alcohol abuse, in remission; M25.461 Effusion, right knee
CPT/HCPCS: 36415; 80053; 80061; 83036; 85025; 86140; 86803; 87389

== ENCOUNTER 2023-06-08 14:28 | Emergency (ER) | payer OTHER, MEDICAID, SELFPAY ==
[2023-03-24 13:32] VITALS: PULSE 99; RESP 18; O2SAT 99; BMI 16.9
[2023-06-08] VITALS (9 sets, daily range): BP systolic 132–167; BP diastolic 91–112; PULSE 97–111; RESP 17–27; TEMP 36.6; O2SAT 97–100
--- NOTE | 2023-06-08 14:49 | PC.NURSE ---
Patient reports he wasn't having a seizure in the waiting room despite bystanders stating it appeared patient was having some type of seizure (babbling and unresponsive to verbal stimuli), was not witness by medical staff. Patient states he just couldn't talk. Patient states he did have a seizure yesterday. Patient believes he was seen in this hospital recently and today for lab work and work up but no record of this visit, patient upset that there is no record of visit and labs. Perseverates on topics and situation, possibly seen by police and is convinced that he had a brain scan today and that it must not have been put in.
--- NOTE | 2023-06-08 14:59 | DI.CT.S_ITS ---
PROCEDURE: CT STROKE INDICATIONS: seizure vs stroke TECHNIQUE: Noncontrast 4.5 mm thick angled axial sections acquired from the foramen magnum to the vertex, with coronal reformats. For radiation dose reduction, the following was used: automated exposure control, adjustment of mA and/or kV according to patient size. COMPARISON: [facility], CT, CT STROKE, 10/26/2020, 6:31. FINDINGS: Image quality: Diagnostic. CSF spaces: Basal cisterns are patent. No extra-axial fluid collections. Ventricles are normal in size and shape. Brain: No midline shift. No intracranial masses or hemorrhage. Miranda-white matter interface is normal. Skull and face: Calvarium and visualized facial bones are intact, without suspicious lesions. Incidental unilateral left lens replacement Sinuses: Visualized sinuses and mastoids are clear. IMPRESSION: Atrophy and white matter chronic ischemic change without intracranial hemorrhage or mass effect. This study fulfills neurological imaging criteria for inclusion or exclusion of acute stroke therapies based on available published neurological imaging guidelines. Note: Critical results were discussed with Dr. Shaikh at 02:40 PM [place] time on 06/08/23 Approved by: Mingo Saenz M.D. on 06/08/2023 at 14:42
--- NOTE | 2023-06-08 14:59 | ED.NEUROSD ---
HPI - Neuro Symptoms/Deficit General Chief Complaint: Neuro Symptoms/Deficit Stated Complaint: seizures slurred speech Time Seen by Provider: 06/08/23 14:59 Source: patient and other Mode of arrival: Ambulatory History of Present Illness On Anticoagulants: No Related Data Home Medications Medication Instructions Recorded Confirmed dapagliflozin propanediol 10 mg 10 mg PO DAILY 04/15/23 04/23/23 tablet lisinopril 10 mg tablet 10 mg PO DAILY 04/15/23 04/23/23 metformin 500 mg tablet 500 mg PO BID 04/15/23 04/23/23 rosuvastatin 5 mg tablet 5 mg PO DAILY 04/15/23 04/23/23 Previous Rx's Medication Instructions Recorded multivitamin with folic acid 400 1 tab PO DAILY #30 tabs 11/10/20 mcg tablet (Tab-A-Stefan) food supplemt, lactose-reduced 1 ea PO TID #90 ea 04/18/23 (Ensure Original oral liquid) gabapentin 400 mg capsule 400 mg PO TID #90 caps 04/23/23 Allergies Allergy/AdvReac Type Severity Reaction Status Date / Time No Known Drug Allergies Allergy Verified 06/08/23 14:43 Review of Systems Hematologic/Lymphatic On Anticoagulants: No Patient History Medical History (Updated 04/23/23 @ 15:13 by Cody Sahni MD) Aspiration pneumonia Left lower lobe pneumonia Acute respiratory failure with hypoxia Alcoholic encephalopathy Seizure Chicken pox (~1989) Partial blindness Psoriasis Family History Father Stroke Mother Cancer Brother Alcohol abuse Sister Murder Grandfather Stroke Grandmother Stroke Grandfather Stroke Grandmother Stroke Social History household members: none Smoking Status: Current every day smoker Smoking Status: Current every day smoker alcohol intake frequency: 3 or more drinks per day Substance Use Type: does not use and methamphetamine Exam Initial Vital Signs Initial Vital Signs: Vital Signs Temperature 97.9 F 06/08/23 14:43 Pulse Rate 100 H 06/08/23 14:43 Respiratory Rate 17 06/08/23 14:43 Blood Pressure 132/91 H 06/08/23 14:43 Pulse Oximetry 99 06/08/23 14:43 Oxygen Delivery Method Room Air 06/08/23 14:43 Course Orders Ordered: ED Orders 06/08/23 14:49 Consult to [employer] - [employer] Stat Vital Signs Vital signs: Vital Signs - 8 hr 06/08/23 14:43 Temperature 97.9 F Pulse Rate 100 H Respiratory Rate 17 Blood Pressure 132/91 H Pulse Oximetry 99 Oxygen Delivery Method Room Air Discharge Plan Departure Prescriptions: No Action rosuvastatin 5 mg tablet 5 mg PO DAILY metformin 500 mg tablet 500 mg PO BID dapagliflozin propanediol 10 mg tablet 10 mg PO DAILY lisinopril 10 mg tablet 10 mg PO DAILY gabapentin 400 mg capsule 400 mg PO TID Qty: 90 2RF Ensure Original Liquid 1 ea PO TID Qty: 90 12RF Rx Instructions: Three drinks daily, everyday for one year multivitamin with folic acid [Tab-A-Stefan] 400 mcg Tablet 1 tab PO DAILY Qty: 30 0RF Referrals: Cody Sahni MD [Primary Care Provider] -
[2023-06-08 15:32] LABS: Add Manual Diff / Slide Review NO; Basophils Absolute Auto 0 /uL (0-100); Basophils Percent Auto 0.1 % (0-2); Eosinophils Absolute Auto 300 /uL (0-450); Hematocrit 40.3 % (41-53); Hemoglobin 13.9 g/dL (13.5-17.5); Lymphocytes Absolute Auto 1600 /uL (1100-4500); Lymphocytes Percent Auto 22.3 % (25-40); Mean Corpuscular HGB Conc 34.4 % (30-36); Mean Corpuscular Hemoglobin 31.6 PG (26-34); Mean Corpuscular Volume 91.9 fL (80-100); Monocytes Absolute Auto 1100 /uL (0-900); Neutrophils Absolute Auto 4300 /uL (1500-7000); Neutrophils Percent Auto 58.6 % (50-75); Platelet Count 250 X10^3/uL (150-400); Red Blood Cell Count 4.39 X10^6/uL (4.5-5.9); Red Cell Distribution Width 13.4 % (11.6-14.8); White Blood Cell Count 7.3 X10^3/uL (4.5-11.0)
[2023-06-08] MEDS: SODIUM CHLORIDE 0.9% 1,000 ML 1000 ML IV (15:40)
[2023-06-08 15:47] LABS: HEMOLYSIS < 15 (0-50)
[2023-06-08 15:48] LABS: INR 1.1 (0.9-1.3); Prothrombin Time 12.5 SECONDS (9.4-12.5)
[2023-06-08 15:50] LABS: PTT Partial Thromboplastin Tim 32 SECONDS (25.1-36.5)
[2023-06-08 15:53] LABS: Alanine Aminotransferase 14 IU/L (<50); Albumin 4.2 g/dL (3.5-5.0); Albumin Globulin Ratio 1.3 (1.0-2.8); Alkaline Phosphatase 85 U/L (38-126); Aspartate Aminotransferase 30 IU/L (17-59); BUN Creatinine Ratio 13.3 (6-22); Blood Urea Nitrogen 8 mg/dL (9-20); Calcium 9.4 mg/dL (8.4-10.2); Carbon Dioxide 25 mmol/L (22-32); Chloride 103 mmol/L (98-107); Creatine Kinase 245 U/L (55-170); Estimated Glomerular Filt Rate > 60 mL/min (>60); Ethanol (ETOH) < 10 mg/dL; Globulin 3.3 g/dL (1.7-4.1); Glucose 120 mg/dL (80-110); Potassium 3.8 mmol/L (3.4-5.1); Sodium 135 mmol/L (137-145); Total Protein 7.5 g/dL (6.3-8.2)
[2023-06-08 16:16] LABS: Troponin I < 0.012 ng/mL (0.01-0.034)
--- NOTE | 2023-06-08 16:25 | PC.NURSE ---
Pt admitted to RN that urine cup was filled with toliet water when asked for a urine sample. Pt states he walked into meth smoke because his friend was smoking meth yesterday and he use to do cocaine but not anymore so his urine should be clean.
--- NOTE | 2023-06-08 17:19 | PC.NURSE ---
pt refusing to provide urine sample and refusing catheterization
--- NOTE | 2023-06-08 17:39 | PC.NURSE ---
PT appears anxious and words perseverating and stuttering. Pt movement purposeful, attempting to express needs but having expressive aphasia. I assisted patient to stand and use the urinal. After urinating, pt calmed down and states I get anxious when I need to pee. Pt explained being in [place] where he was exposed to a cigarette, meth, drinking cloud smoke for an hour, explaining that we may find these in his urine sample. Assisted patient back into bed with monitoring attached.
[2023-06-08 17:48] LABS: Appearance Urine UA CLEAR; Bilirubin Urine UA NEGATIVE (NEGATIVE); Color Urine UA YELLOW; Glucose Urine UA 2+ g/dL (Negative); Ketones Urine UA TRACE (NEGATIVE); Leukocyte Esterase Urine UA NEGATIVE (NEGATIVE); Nitrite Urine UA NEGATIVE (Negative); Occult Blood Urine UA NEGATIVE (Negative); Protein Urine UA NEGATIVE (Negative); Urobilinogen Urine UA 0.2 E.U./dL (0.2); pH Urine UA 6.5 (4.5-8.0)
[2023-06-08 17:54] LABS: Ur Creatinine Normal (Normal); Ur Specific Gravity Normal (Normal); Urine pH Normal (Normal)
[2023-06-08 17:55] LABS: UR Morphine/Opiate cutoff 300 Negative (Negative); Urine Amphetamines Positive (Negative); Urine Barbiturates Negative (Negative); Urine Benzodiazepines Negative (Negative); Urine Cocaine Negative (Negative); Urine MDMA Negative (Negative); Urine Methadone Negative (Negative); Urine Methamphetamines Positive (Negative); Urine Oxycodone Negative (Negative); Urine Phencyclidine Negative (Negative); Urine Tetrahydrocannabinol Positive (Negative); Urine Tricyclic Antidepressant Negative (Negative)
[2023-06-08 18:06] LABS: Urine Volume 10mL (spun)
[2023-06-08 18:08] LABS: Bacteria Urine None Seen; Culture Indicated Urine Cult Not Indicated; RBC Urine None Seen (0-5/HPF); Squamous Epithelial Cell Urine None Seen (0-5/HPF); Uric Acid Crystals Urine Few; WBC Urine 0-1/HPF (0-5/HPF)
--- NOTE | 2023-06-08 18:30 | ED.NEUROSD ---
HPI - Neuro Symptoms/Deficit General Chief Complaint: Neuro Symptoms/Deficit Stated Complaint: seizures slurred speech Time Seen by Provider: 06/08/23 14:59 Source: patient and other Mode of arrival: Ambulatory History of Present Illness HPI Narrative: 62-year-old male with history of diabetes presents by private vehicle from home for reported speech difficulties last night. History is difficult to obtain as patient exhibits rather pressured speech and somewhat tangential thought process. Patient states that while staying at a friend's house he was exposed to amphetamines and may have walked through a cloud of smoke. He states that last night he was having speech difficulties that he ultimately describes as ?slurred? but also as that he was speaking his thoughts out loud, which is unusual for him. Last night 911 was called to assess the patient, he had no symptoms on their arrival and he declined transport to the emergency department. After speaking to his boss today his boss told him to come to the emergency department for evaluation. On Anticoagulants: No Related Data Home Medications Medication Instructions Recorded Confirmed dapagliflozin propanediol 10 mg 10 mg PO DAILY 04/15/23 04/23/23 tablet lisinopril 10 mg tablet 10 mg PO DAILY 04/15/23 04/23/23 metformin 500 mg tablet 500 mg PO BID 04/15/23 04/23/23 rosuvastatin 5 mg tablet 5 mg PO DAILY 04/15/23 04/23/23 Previous Rx's Medication Instructions Recorded multivitamin with folic acid 400 1 tab PO DAILY #30 tabs 11/10/20 mcg tablet (Tab-A-Stefan) food supplemt, lactose-reduced 1 ea PO TID #90 ea 04/18/23 (Ensure Original oral liquid) gabapentin 400 mg capsule 400 mg PO TID #90 caps 04/23/23 Allergies Allergy/AdvReac Type Severity Reaction Status Date / Time No Known Drug Allergies Allergy Verified 06/08/23 14:43 Review of Systems Review of Systems Narrative: Negative except as noted above Hematologic/Lymphatic On Anticoagulants: No Patient History Medical History Aspiration pneumonia Left lower lobe pneumonia Acute respiratory failure with hypoxia Alcoholic encephalopathy Seizure Chicken pox (~1989) Partial blindness Psoriasis Family History Father Stroke Mother Cancer Brother Alcohol abuse Sister Murder Grandfather Stroke Grandmother Stroke Grandfather Stroke Grandmother Stroke Social History household members: none Smoking Status: Current every day smoker Smoking Status: Current every day smoker alcohol intake frequency: 3 or more drinks per day Substance Use Type: methamphetamine Exam Initial Vital Signs Initial Vital Signs: Vital Signs Temperature 97.9 F 06/08/23 14:43 Pulse Rate 100 H 06/08/23 14:43 Respiratory Rate 17 06/08/23 14:43 Blood Pressure 132/91 H 06/08/23 14:43 Pulse Oximetry 99 06/08/23 14:43 Oxygen Delivery Method Room Air 06/08/23 14:43 Const: Awake, alert, no acute distress, appears older than stated age, chronically unwell Cardiac: regular rate, regular rhythm RESP: unlabored, clear bilaterally, no wheezing GI: Soft, nontender, nondistended, no rebound, no guarding MSK: Atraumatic, full range of motion, pulses equal Skin: Warm, Dry, intact, no rashes Neuro: AO x3, CN II-XII grossly intact, moves all extremities, no slurred speech, no ataxia Course Orders Ordered: ED Orders 06/08/23 17:28 Urinalysis and Microscopic Stat Urine Drug Screen, Rapid Stat Discontinued Medications Sodium Chloride (Normal Saline 0.9%) 1,000 mls @ 1,000 mls/hr IV BOLUS ONE Stop: 06/08/23 15:58 Last Infusion: 06/08/23 17:13 Dose: Infused Documented By: Admin: 06/08/23 15:40 Dose: 1,000 mls/hr Documented By: YESENIA Vital Signs Vital signs: Vital Signs - 8 hr 06/08/23 17:00 06/08/23 17:27 06/08/23 17:27 Temperature Pulse Rate 97 H 103 H Respiratory Rate 21 27 H Blood Pressure 166/91 H Pulse Oximetry 98 98 Oxygen Delivery Method Room Air Room Air 06/08/23 17:30 06/08/23 17:30 06/08/23 18:49 Temperature 97.9 F Pulse Rate 100 H 98 H Respiratory Rate 22 17 Blood Pressure 153/100 H 167/98 H Pulse Oximetry 98 97 Oxygen Delivery Method Room Air Room Air MDM - Neuro Symptoms/Deficit Differential Diagnosis Differential diagnosis: Likely convulsions, delirium and subarachnoid hemorrhage Lab Data 06/08/23 15:23 06/08/23 15:23 Labs: Lab Results 06/08/23 06/08/23 06/08/23 Range/Units 15:23 17:28 17:28 WBC 7.3 (4.5-11.0) X10^3/uL RBC 4.39 L (4.5-5.9) X10^6/uL Hgb 13.9 (13.5-17.5) g/dL Hct 40.3 L (41-53) % MCV 91.9 (80-100) fL MCH 31.6 (26-34) PG MCHC 34.4 (30-36) % RDW 13.4 (11.6-14.8) % Plt Count 250 (150-400) X10^3/uL Neut % (Auto) 58.6 (50-75) % Lymph % (Auto) 22.3 L (25-40) % Stark % (Auto) 15.0 H (3-14) % Eos % (Auto) 4.0 (2-4) % Baso % (Auto) 0.1 (0-2) % Neut # (Auto) 4300 (9736-2397) /uL Lymph # (Auto) 1600 (8759-1917) /uL Stark # (Auto) 1100 H (0-900) /uL Eos # (Auto) 300 (0-450) /uL Baso # (Auto) 0 (0-100) /uL PT 12.5 (9.4-12.5) SECONDS INR 1.1 (0.9-1.3) APTT 32 (25.1-36.5) SECONDS Sodium 135 L (137-145) mmol/L Potassium 3.8 (3.4-5.1) mmol/L Chloride 103 (98-107) mmol/L Carbon Dioxide 25 (22-32) mmol/L BUN 8 L (9-20) mg/dL Creatinine 0.60 L (0.66-1.25) mg/dL Estimated GFR > 60 (>60) mL/min BUN/Creatinine Ratio 13.3 (6-22) Glucose 120 H (80-110) mg/dL Calcium 9.4 (8.4-10.2) mg/dL Total Bilirubin 1.0 (0.2-1.3) mg/dL AST 30 (17-59) IU/L ALT 14 (<50) IU/L Alkaline Phosphatase 85 (38-126) U/L Total Creatine Kinase 245 H (55-170) U/L Troponin I < 0.012 (0.01-0.034) ng/mL Total Protein 7.5 (6.3-8.2) g/dL Albumin 4.2 (3.5-5.0) g/dL Globulin 3.3 (1.7-4.1) g/dL Albumin/Globulin Ratio 1.3 (1.0-2.8) Urine Color Yellow Urine Appearance Clear Urine pH 6.5 Normal (4.5-8.0) Ur Specific [place] 1.010 (1.000-1.035) Urine Protein Negative (Negative) Urine Glucose (UA) 2+ H (Negative) g/dL Urine Ketones Trace H (NEGATIVE) Urine Occult Blood Negative (Negative) Urine Nitrate Negative (Negative) Urine Bilirubin Negative (NEGATIVE) Urine Urobilinogen 0.2 (0.2) E.U./dL Ur Leukocyte Esterase Negative (NEGATIVE) Urine RBC None seen (0-5/HPF) Urine WBC 0-1/hpf (0-5/HPF) Ur Squamous Epith Cells None seen (0-5/HPF) Uric Acid Crystals Few H (None) Urine Bacteria None seen (None) Ur Culture Indicated? Cult not indicated Vol Urine Centrifuged 10ml (spun) U Opiates 300ng/mL cut Negative (Negative) Ur Oxycodone Screen Negative (Negative) Urine Methadone Screen Negative (Negative) Ur Barbiturates Screen Negative (Negative) U Tricyclic Antidepress Negative (Negative) Ur Phencyclidine Scrn Negative (Negative) Ur Amphetamines Screen Positive H (Negative) U Methamphetamines Scrn Positive H (Negative) Ur MDMA Scrn (Ecstasy) Negative (Negative) U Benzodiazepines Scrn Negative (Negative) Urine Cocaine Screen Negative (Negative) U Marijuana (THC) Screen Positive H (Negative) Urine Specific Cycl[place] Normal (Normal) Ethyl Alcohol < 10 ( - 10) mg/dL Ur Creatinine Normal (Normal) Point of Care Testing Glucose POC 126 Urine Dip Bedside Urine Glucose 100 mg/dl Bedside Urine Bilirubin - Negative Bedside Urine Ketone - Negative Urine Specific [place] 1.015 Bedside Urine Occult Blood - Negative Bedside Urine pH 6.0 Bedside Urine Protein - Negative Bedside Urine Urobilinogen - Negative Bedside Urine Nitrite - Negative Bedside Urine Leukocytes - Negative Esterase Imaging Data CT scan - head: Radiologist's Impression: PROCEDURE: CT STROKE INDICATIONS: seizure vs stroke TECHNIQUE: Noncontrast 4.5 mm thick angled axial sections acquired from the foramen magnum to the vertex, with coronal reformats. For radiation dose reduction, the following was used: automated exposure control, adjustment of mA and/or kV according to patient size. COMPARISON: [facility], CT, CT STROKE, 10/26/2020, 6:31. FINDINGS: Image quality: Diagnostic. CSF spaces: Basal cisterns are patent. No extra-axial fluid collections. Ventricles are normal in size and shape. Brain: No midline shift. No intracranial masses or hemorrhage. Miranda-white matter interface is normal. Skull and face: Calvarium and visualized facial bones are intact, without suspicious lesions. Incidental unilateral left lens replacement Sinuses: Visualized sinuses and mastoids are clear. IMPRESSION: Atrophy and white matter chronic ischemic change without intracranial hemorrhage or mass effect. This study fulfills neurological imaging criteria for inclusion or exclusion of acute stroke therapies based on available published neurological imaging guidelines. Note: Critical results were discussed with Dr. Shaikh at 02:40 PM [place] time on 06/08/23 Approved by: Mingo Saenz M.D. on 06/08/2023 at 14:42 MDM Narrative Medical decision making narrative: Nontoxic patient presenting for speech difficulties last night after being exposed to amphetamines. Patient has tangential speech process as well as very pressured speech. Urine drug screen positive for amphetamines, despite patient stating that he did not partake in the drugs, he was only around people who did it. Laboratory work is reviewed, no significant abnormalities identified. Electrolytes within normal limits, troponin undetectable, no leukocytosis or thrombocytopenia. CT of the head shows no acute process, since symptoms have been ongoing for nearly 24 hours I would expect him to show up on CT imaging at this time. Patient's description of his symptoms is more consistent with amphetamine intoxication rather than neurologic disease process such as stroke. His NIH is currently 0, he denies symptoms since last night. Patient advised against amphetamine use as this could lead to complications with his other chronic medical conditions. Discharge Plan Departure Patient Disposition: Home Clinical Impression: Difficulty with speech, Amphetamine abuse Instructions: DI for Substance Use Disorder Activity Restrictions/Additional Instructions: Your laboratory work and CT today were normal. I do not know the cause of your abnormal speech last night, however you did have amphetamines in your urine which can cause you to experience weird symptoms. Stay away from all amphetamines and if you need treatment use the resources provided to you Prescriptions: No Action rosuvastatin 5 mg tablet 5 mg PO DAILY metformin 500 mg tablet 500 mg PO BID dapagliflozin propanediol 10 mg tablet 10 mg PO DAILY lisinopril 10 mg tablet 10 mg PO DAILY gabapentin 400 mg capsule 400 mg PO TID Qty: 90 2RF Ensure Original Liquid 1 ea PO TID Qty: 90 12RF Rx Instructions: Three drinks daily, everyday for one year multivitamin with folic acid [Tab-A-Stefan] 400 mcg Tablet 1 tab PO DAILY Qty: 30 0RF Referrals: Cody Sahni MD [Primary Care Provider] - Stand Alone Forms: Patient Portal/API
== END 2023-06-08 18:50 | disposition home or self-care (01) ==
PROVIDERS: Emergency Medicine; Emergency Provider Emergency Medicine; PCP Family Medicine
DX: R47.1 Dysarthria and anarthria (principal); F15.10 Other stimulant abuse, uncomplicated
CPT/HCPCS: 36415; 70450; 80053; 80305; 80320; 81001; 81003; 82550; 82962; 84484; 85025; 85610; 85730; 99284; 99285

== ENCOUNTER 2023-06-09 16:17 | Emergency (ER) | payer OTHER, MEDICAID, SELFPAY ==
[2023-03-24 13:32] VITALS: PULSE 99; RESP 18; O2SAT 99; BMI 16.9
[2023-06-09] VITALS (7 sets, daily range): BP systolic 126–151; BP diastolic 77–93; PULSE 91–98; RESP 16–22; TEMP 36.7; O2SAT 96–100
--- NOTE | 2023-06-09 | DI.MRI.S_ITS ---
PROCEDURE: MR STROKE Pre- and post-contrast brain MRI, non-contrast brain MR angiogram, pre- and postcontrast neck MR angiogram INDICATIONS: DIFFICULTY SPEAKING TECHNIQUE: Brain: Noncontrast axial T1 spin echo, axial T2 fast spin echo, sagittal and axial FLAIR, coronal T2 fast spin echo, axial gradient echo, axial diffusion and ADC through the brain. After the administration of contrast, axial 3D VIBE of the cranial vasculature and brain. Brain MRA: Non-contrast 3-D time of flight MR angiogram, with multiple fpzkaqg-oftdxgtga-aacyucjwwk (MIP) reformats performed. Neck MRA: Axial and sagittal TruFISP through the neck. Coronal dynamic MR angiogram during administration of contrast in the arterial and venous phases, with 3-dimenstional owfcfbu-pddubbpzn-mopwieaqmg (MIP) reformats constructed from subtraction images. COMPARISON: [facility], MR, MR HEAD/BRAIN WO CON, 10/26/2020, 9:28. [facility], CT, CT STROKE, 06/08/2023, 15:27. FINDINGS: Image quality: Excellent. BRAIN: CSF spaces: Ventricles are normal in size and shape. Basal cisterns are patent. No extra-axial fluid collections. Brain: No intracranial bleeds or mass effects. There is cerebral volume loss. Mild periventricular white matter chronic small vessel ischemic changes are present. Miranda-white matter interface is normal. Diffusion weighted images show no acute infarct. Brainstem appears normal. Normal intravascular flow voids are present. No abnormal intracranial enhancement. Skull and face: Calvarial marrow signal is normal. Orbits appear normal. Sinuses: There is mucosal thickening frontal, ethmoidal, sphenoid and maxillary sinuses bilaterally. The mastoids are clear. BRAIN MR ANGIOGRAM: Anterior circulation: Intracranial internal carotid arteries are normal in size and enhancement. The flow within the paired anterior cerebral arteries is normal and symmetric. The flow within the middle cerebral arteries is normal and symmetric. The anterior communicating artery is seen. No stenoses, occlusions, or aneurysms. Posterior circulation: The right vertebral artery is dominant. The left vertebral artery is small, which could be secondary to congenital hyperplasia. The terminal left vertebral artery is not visualized, which may be a normal variant. The visualized portions of the right vertebral artery demonstrates normal caliber, and continues to form a normal appearing basilar artery. The flow within the posterior cerebral arteries is normal and symmetric. No stenoses, occlusions, or aneurysms. NECK MR ANGIOGRAM: Carotids: Great vessels demonstrate a conventional anatomy as they arise from the aortic arch. The origins of the common carotid arteries appear patent. The calibers and courses of both common carotid arteries are normal. The bifurcation regions appear normal bilaterally. The internal carotid arteries demonstrate normal course and caliber. Posterior circulation: The origins of the vertebral arteries appear patent. More superior portions of both vertebral arteries demonstrate normal course and caliber, and join to form a normal appearing basilar artery. Miscellaneous: Subclavian arteries appear patent. Pre-contrast images through the neck show no soft tissue abnormalities. IMPRESSION: BRAIN MRI: 1. No acute intracranial abnormalities. 2. Cerebral volume loss and chronic microvascular ischemic changes. 3. Bilateral paranasal sinus disease. BRAIN MR ANGIOGRAM: 1. No high-grade stenosis or occlusion in anterior or posterior circulations. 2. Dominant right vertebral artery. 3. The terminal left vertebral artery is not visualized, which could be an anatomic variant. NECK MR ANGIOGRAM: 1. No high-grade stenosis or occlusion in cervical carotid arteries. 2. Dominant right vertebral artery which is normal in caliber and continues to form the normal appearing basilar artery. 3. Small left vertebral artery, likely congenital. Dictated by: Cecily Barcenas M.D. on 06/09/2023 at 21:50 Approved by: Cecily Barcenas M.D. on 06/09/2023 at 22:00
[2023-06-09] MEDS: LORazepam 0.5 MG TABLET 1 MG PO (19:53)
[2023-06-09 20:12] LABS: Add Manual Diff / Slide Review NO; Basophils Absolute Auto 100 /uL (0-100); Basophils Percent Auto 1.4 % (0-2); Eosinophils Absolute Auto 200 /uL (0-450); Eosinophils Percent Auto 2.4 % (2-4); Hematocrit 38.5 % (41-53); Lymphocytes Absolute Auto 1800 /uL (1100-4500); Lymphocytes Percent Auto 21.3 % (25-40); Mean Corpuscular HGB Conc 33.6 % (30-36); Mean Corpuscular Volume 92.4 fL (80-100); Monocytes Absolute Auto 1100 /uL (0-900); Neutrophils Absolute Auto 5200 /uL (1500-7000); Neutrophils Percent Auto 61.9 % (50-75); Platelet Count 264 X10^3/uL (150-400); Red Blood Cell Count 4.17 X10^6/uL (4.5-5.9); Red Cell Distribution Width 13.5 % (11.6-14.8); White Blood Cell Count 8.4 X10^3/uL (4.5-11.0)
--- NOTE | 2023-06-09 20:12 | PC.NURSE ---
Pt is rambling. When you ask simple, yes or no questions, pt is able to answer but is not making sense or even words the rest of the time. Pt will have moments of answering questions appropriately but speech is still slightly slurred during this time. Pt most of the time is just stuttering and not making much sense otherwise. Pt is able to follow commands.
[2023-06-09 20:27] LABS: Alanine Aminotransferase 15 IU/L (<50); Albumin 4.3 g/dL (3.5-5.0); Albumin Globulin Ratio 1.4 (1.0-2.8); Alkaline Phosphatase 92 U/L (38-126); Aspartate Aminotransferase 35 IU/L (17-59); BUN Creatinine Ratio 18.8 (6-22); Bilirubin Total 1.1 mg/dL (0.2-1.3); Blood Urea Nitrogen 12 mg/dL (9-20); Calcium 9.4 mg/dL (8.4-10.2); Carbon Dioxide 21 mmol/L (22-32); Chloride 105 mmol/L (98-107); Estimated Glomerular Filt Rate > 60 mL/min (>60); Globulin 3.1 g/dL (1.7-4.1); Glucose 104 mg/dL (80-110); HEMOLYSIS < 15 (0-50); Lipase 30 U/L (23-300); Potassium 3.7 mmol/L (3.4-5.1); Sodium 138 mmol/L (137-145); Total Protein 7.4 g/dL (6.3-8.2)
[2023-06-09 20:28] LABS: Ethanol (ETOH) < 10 mg/dL
--- NOTE | 2023-06-09 20:28 | PC.NURSE ---
Pt rambling and talking out loud with no one around. Pt door to room is open.
[2023-06-09 20:32] LABS: Ammonia (NH3) < 9 umol/L (9-30)
--- NOTE | 2023-06-09 20:37 | PC.NURSE ---
emission technician at bedside.
[2023-06-09 21:03] LABS: Thyroid Stimulating Hormone 0.469 uIU/mL (0.47-4.68)
--- NOTE | 2023-06-09 21:47 | PC.NURSE ---
Pt able to talk much better. Pt is able to carry on conversation and is no longer have the stuttering as before. Pt is sitting in the bed comfortably. Pt is still unsure of year.
--- NOTE | 2023-06-09 22:27 | ED.NEUROSD ---
HPI - Neuro Symptoms/Deficit <Cachorro Ybarra DO - Last Filed: 06/10/23 17:51> General Chief Complaint: Neuro Symptoms/Deficit Stated Complaint: was here yesterday/studdering/confused(observation Time Seen by Provider: 06/09/23 17:40 Source: patient Mode of arrival: Ambulatory Limitations: altered mental status History of Present Illness HPI Narrative: Patient is a 62 old male. Very difficult to obtain any sort of HPI from the patient is he has very pressured speech, confusion, nonsensical words. Unsure as to how long the symptoms have been going on however he was seen here in the emergency department yesterday for very similar symptoms. He had a workup. Apparently potentially was ?exposed? to amphetamines. Was essentially discharged home. He did receive a head CT. He returns in the emergency department today for what appears to be similar symptoms although he did not necessarily express any? exposure? to amphetamines. He states he was living in his car. Again difficult to obtain any sort of HPI review of systems. Related Data Home Medications Medication Instructions Recorded Confirmed dapagliflozin propanediol 10 mg 10 mg PO DAILY 04/15/23 04/23/23 tablet lisinopril 10 mg tablet 10 mg PO DAILY 04/15/23 04/23/23 metformin 500 mg tablet 500 mg PO BID 04/15/23 04/23/23 rosuvastatin 5 mg tablet 5 mg PO DAILY 04/15/23 04/23/23 Previous Rx's Medication Instructions Recorded multivitamin with folic acid 400 1 tab PO DAILY #30 tabs 11/10/20 mcg tablet (Tab-A-Stefan) food supplemt, lactose-reduced 1 ea PO TID #90 ea 04/18/23 (Ensure Original oral liquid) gabapentin 400 mg capsule 400 mg PO TID #90 caps 04/23/23 Allergies Allergy/AdvReac Type Severity Reaction Status Date / Time No Known Drug Allergies Allergy Verified 06/08/23 14:43 Review of Systems <Cachorro Ybarra DO - Last Filed: 06/10/23 17:51> Review of Systems ROS Unobtainable: Unobtainable due to mental condition Patient History <Cachorro Ybarra DO - Last Filed: 06/10/23 17:51> Medical History Aspiration pneumonia Left lower lobe pneumonia Acute respiratory failure with hypoxia Alcoholic encephalopathy Seizure Chicken pox (~1989) Partial blindness Psoriasis Family History Father Stroke Mother Cancer Brother Alcohol abuse Sister Murder Grandfather Stroke Grandmother Stroke Grandfather Stroke Grandmother Stroke Social History household members: none Smoking Status: Current every day smoker Smoking Status: Current every day smoker alcohol intake frequency: 3 or more drinks per day Substance Use Type: methamphetamine Exam <Cachorro Ybarra DO - Last Filed: 06/10/23 17:51> Initial Vital Signs Initial Vital Signs: Vital Signs Temperature 98.1 F 06/09/23 16:41 Pulse Rate 98 H 06/09/23 16:41 Respiratory Rate 22 06/09/23 16:41 Blood Pressure 141/80 H 06/09/23 16:41 Pulse Oximetry 97 06/09/23 16:41 Oxygen Delivery Method Room Air 06/09/23 16:41 Const General: No acute distress HENMT Head: normal to inspection and normocephalic Resp Effort & Inspection: normal respiratory effort Auscultation: clear to auscultation bilaterally Cardio Rate: regular rate Rhythm: regular rhythm GI Inspection: non-distended Neuro Other: Moves all 4 extremities. Does follow commands. Has no specific lateralizing neurologic symptoms. Has pressured speech but the words that he does stay seem to be very clear. He knows that he is in the hospital. Unable to provide much more information. Extrem General: capillary refill normal Psych Other: Pressured speech, cooperative <Carlos Arce MD - Last Filed: 06/17/23 09:24> Narrative Exam Narrative: GENERAL: in no distress, not toxic not dyspneic HEAD: Normocephalic. EYES: Pupils equal round ENT: Mucous membranes moist. NECK: Trachea midline. CARDIOVASCULAR: Regular rate and rhythm RESPIRATORY: Clear to auscultation. Breath sounds equal bilaterally. No wheezes, rales, or rhonchi. GASTROINTESTINAL: Abdomen soft, non-tender EXTREMITIES: No gross deformities. BACK: No flank tenderness. NEURO: AOx4. Clear speech SKIN: Warm and dry PSYCH: Not anxious, is cooperative, no SI no HI no auditory visual hallucinations Exam was done June 10, 2023 at 9:00 a.m.. Patient is much more awake and alert and responsive/cooperative Initial Vital Signs Initial Vital Signs: Vital Signs Temperature 98.1 F 06/09/23 16:41 Pulse Rate 98 H 06/09/23 16:41 Respiratory Rate 22 06/09/23 16:41 Blood Pressure 141/80 H 06/09/23 16:41 Pulse Oximetry 97 06/09/23 16:41 Oxygen Delivery Method Room Air 06/09/23 16:41 Scores <Cachorro Ybarra DO - Last Filed: 06/10/23 17:51> GCS Perfecto coma scale eye opening: Spontaneous Perfecto coma scale verbal response: Confused Perfecto coma scale motor response: Obey commands [place] coma scale total score: 14 <Carlos Arce MD - Last Filed: 06/17/23 09:24> GCS [place] coma scale total score: 14 Course <Cachorro Ybarra DO - Last Filed: 06/10/23 17:51> Orders Ordered: Discontinued Medications Lorazepam (Lorazepam 0.5 Mg Tablet) 1 mg PO NOW ONE Stop: 06/09/23 19:46 Last Admin: 06/09/23 19:53 Dose: 1 mg Documented By: CELIA Vital Signs Vital signs: Vital Signs - 8 hr 06/10/23 01:00 06/10/23 02:00 06/10/23 04:00 Pulse Rate 91 H Respiratory Rate 16 Blood Pressure 123/71 137/92 H 151/98 H Pulse Oximetry 99 Oxygen Delivery Method 06/10/23 05:00 06/10/23 06:00 06/10/23 07:00 Pulse Rate Respiratory Rate Blood Pressure 125/75 138/80 145/88 H Pulse Oximetry Oxygen Delivery Method 06/10/23 08:01 06/10/23 08:18 06/10/23 08:18 Pulse Rate 79 Respiratory Rate Blood Pressure 132/105 H 139/84 Pulse Oximetry 99 Oxygen Delivery Method Room Air 06/10/23 08:30 Pulse Rate 77 Respiratory Rate Blood Pressure Pulse Oximetry 99 Oxygen Delivery Method Room Air <Carlos Arce MD - Last Filed: 06/17/23 09:24> Orders Ordered: Discontinued Medications Lorazepam (Lorazepam 0.5 Mg Tablet) 1 mg PO NOW ONE Stop: 06/09/23 19:46 Last Admin: 06/09/23 19:53 Dose: 1 mg Documented By: CELIA Vital Signs Vital signs: Vital Signs - 8 hr 06/10/23 01:00 06/10/23 02:00 06/10/23 04:00 Pulse Rate 91 H Respiratory Rate 16 Blood Pressure 123/71 137/92 H 151/98 H Pulse Oximetry 99 Oxygen Delivery Method 06/10/23 05:00 06/10/23 06:00 06/10/23 07:00 Pulse Rate Respiratory Rate Blood Pressure 125/75 138/80 145/88 H Pulse Oximetry Oxygen Delivery Method 06/10/23 08:01 06/10/23 08:18 06/10/23 08:18 Pulse Rate 79 Respiratory Rate Blood Pressure 132/105 H 139/84 Pulse Oximetry 99 Oxygen Delivery Method Room Air 06/10/23 08:30 Pulse Rate 77 Respiratory Rate Blood Pressure Pulse Oximetry 99 Oxygen Delivery Method Room Air MDM - Neuro Symptoms/Deficit <Cachorro Ybarra DO - Last Filed: 06/10/23 17:51> Medical Records Attestation: I reviewed the patient's medical records. Lab Data Attestation: I reviewed the patient's lab results. 06/09/23 20:02 06/09/23 20:02 Labs: Lab Results 06/09/23 06/09/23 06/10/23 Range/Units 20:02 20:15 08:20 WBC 8.4 (4.5-11.0) X10^3/uL RBC 4.17 L (4.5-5.9) X10^6/uL Hgb 13.0 L (13.5-17.5) g/dL Hct 38.5 L (41-53) % MCV 92.4 (80-100) fL MCH 31.0 (26-34) PG MCHC 33.6 (30-36) % RDW 13.5 (11.6-14.8) % Plt Count 264 (150-400) X10^3/uL Neut % (Auto) 61.9 (50-75) % Lymph % (Auto) 21.3 L (25-40) % Ralls % (Auto) 13.0 (3-14) % Eos % (Auto) 2.4 (2-4) % Baso % (Auto) 1.4 (0-2) % Neut # (Auto) 5200 (8323-4745) /uL Lymph # (Auto) 1800 (0989-7349) /uL Ralls # (Auto) 1100 H (0-900) /uL Eos # (Auto) 200 (0-450) /uL Baso # (Auto) 100 (0-100) /uL Sodium 138 (137-145) mmol/L Potassium 3.7 (3.4-5.1) mmol/L Chloride 105 (98-107) mmol/L Carbon Dioxide 21 L (22-32) mmol/L BUN 12 (9-20) mg/dL Creatinine 0.64 L (0.66-1.25) mg/dL Estimated GFR > 60 (>60) mL/min BUN/Creatinine Ratio 18.8 (6-22) Glucose 104 (80-110) mg/dL Calcium 9.4 (8.4-10.2) mg/dL Total Bilirubin 1.1 (0.2-1.3) mg/dL AST 35 (17-59) IU/L ALT 15 (<50) IU/L Alkaline Phosphatase 92 (38-126) U/L Ammonia < 9 L (9-30) umol/L Total Protein 7.4 (6.3-8.2) g/dL Albumin 4.3 (3.5-5.0) g/dL Globulin 3.1 (1.7-4.1) g/dL Albumin/Globulin Ratio 1.4 (1.0-2.8) Lipase 30 (23-300) U/L TSH 0.469 L (0.47-4.68) uIU/mL U Opiates 300ng/mL cut Negative (Negative) Ur Oxycodone Screen Negative (Negative) Urine Methadone Screen Negative (Negative) Ur Barbiturates Screen Negative (Negative) U Tricyclic Antidepress Negative (Negative) Ur Phencyclidine Scrn Negative (Negative) Ur Amphetamines Screen Positive H (Negative) U Methamphetamines Scrn Positive H (Negative) Ur MDMA Scrn (Ecstasy) Negative (Negative) U Benzodiazepines Scrn Positive H (Negative) Urine Cocaine Screen Negative (Negative) U Marijuana (THC) Screen Positive H (Negative) Urine pH Normal (Normal) Urine Specific [place] Normal (Normal) Ethyl Alcohol < 10 ( - 10) mg/dL Ur Creatinine Normal (Normal) Imaging Data Stroke MRI: Radiologist's Impression: Brain MRI No acute intracranial abnormalities Cerebral volume loss and chronic microvascular ischemic changes Bilateral paranasal sinus disease Brain MR angiogram No high-grade stenosis or occlusion in the anterior posterior circulations Dominant right vertebral artery The terminal left vertebral artery is not visualized, which could be an anatomic variant Neck MRA angiogram No high-grade stenosis or occlusion in the cervical carotid arteries Dominant right vertebral artery which is normal in caliber and continues to form the normal-appearing basilar artery Small left vertebral artery, likely congenital MDM Narrative Medical decision making narrative: After Ativan patient did seem to calm down quite a bit. However he was still very tangential and difficult to obtain HPI. Stroke MRI shows no acute pathology. Patient tolerated oral intake. Patient was able to sleep comfortably overnight. I suspect based on the note from yesterday in his presentation that this is drug related. Care turned over to day provider to re-evaluate when the patient wakes up and anticipate discharge <Carlos Arce MD - Last Filed: 06/17/23 09:24> Lab Data Labs: Lab Results 06/09/23 06/09/23 06/10/23 Range/Units 20:02 20:15 08:20 WBC 8.4 (4.5-11.0) X10^3/uL RBC 4.17 L (4.5-5.9) X10^6/uL Hgb 13.0 L (13.5-17.5) g/dL Hct 38.5 L (41-53) % MCV 92.4 (80-100) fL MCH 31.0 (26-34) PG MCHC 33.6 (30-36) % RDW 13.5 (11.6-14.8) % Plt Count 264 (150-400) X10^3/uL Neut % (Auto) 61.9 (50-75) % Lymph % (Auto) 21.3 L (25-40) % Ralls % (Auto) 13.0 (3-14) % Eos % (Auto) 2.4 (2-4) % Baso % (Auto) 1.4 (0-2) % Neut # (Auto) 5200 (1467-6642) /uL Lymph # (Auto) 1800 (5236-1542) /uL Ralls # (Auto) 1100 H (0-900) /uL Eos # (Auto) 200 (0-450) /uL Baso # (Auto) 100 (0-100) /uL Sodium 138 (137-145) mmol/L Potassium 3.7 (3.4-5.1) mmol/L Chloride 105 (98-107) mmol/L Carbon Dioxide 21 L (22-32) mmol/L BUN 12 (9-20) mg/dL Creatinine 0.64 L (0.66-1.25) mg/dL Estimated GFR > 60 (>60) mL/min BUN/Creatinine Ratio 18.8 (6-22) Glucose 104 (80-110) mg/dL Calcium 9.4 (8.4-10.2) mg/dL Total Bilirubin 1.1 (0.2-1.3) mg/dL AST 35 (17-59) IU/L ALT 15 (<50) IU/L Alkaline Phosphatase 92 (38-126) U/L Ammonia < 9 L (9-30) umol/L Total Protein 7.4 (6.3-8.2) g/dL Albumin 4.3 (3.5-5.0) g/dL Globulin 3.1 (1.7-4.1) g/dL Albumin/Globulin Ratio 1.4 (1.0-2.8) Lipase 30 (23-300) U/L TSH 0.469 L (0.47-4.68) uIU/mL U Opiates 300ng/mL cut Negative (Negative) Ur Oxycodone Screen Negative (Negative) Urine Methadone Screen Negative (Negative) Ur Barbiturates Screen Negative (Negative) U Tricyclic Antidepress Negative (Negative) Ur Phencyclidine Scrn Negative (Negative) Ur Amphetamines Screen Positive H (Negative) U Methamphetamines Scrn Positive H (Negative) Ur MDMA Scrn (Ecstasy) Negative (Negative) U Benzodiazepines Scrn Positive H (Negative) Urine Cocaine Screen Negative (Negative) U Marijuana (THC) Screen Positive H (Negative) Urine pH Normal (Normal) Urine Specific [place] Normal (Normal) Ethyl Alcohol < 10 ( - 10) mg/dL Ur Creatinine Normal (Normal) MDM Narrative Medical decision making narrative: After Ativan patient did seem to calm down quite a bit. However he was still very tangential and difficult to obtain HPI. Stroke MRI shows no acute pathology. Patient tolerated oral intake. Patient was able to sleep comfortably overnight. I suspect based on the note from yesterday in his presentation that this is drug related. Care turned over to day provider to re-evaluate when the patient wakes up and anticipate discharge June 10, 2023 7:[address] Arce: s/o from dr ybarra, patient has been calm and much more relaxed since Ativan given last night 9:00 p.m.. MRI of brain and CT imaging reassuring no stroke. Likely polysubstance induced/amphetamines causing his agitation. Patient will need reassessment when more appropriate for conversation. Drug screen from day prior positive for polysubstance/methamphetamine/amphetamine/marijuana. Negative alcohol. Patient denies alcohol use. Likely not alcohol withdrawal. 9:00 a.m.. Patient is awake alert oriented x4. He is cooperative. Denies SI or HI. He does not want to speak with social work. He does admit to amphetamine use. He was in rehab 6 months ago and has been doing well. He states he will go back to [place], [place], the facility that he likes for continued care. Return precautions reviewed. Not toxic at discharge. He desires discharge home. Appropriate for discharge home. He is awake alert oriented x4. No altered mental status. He does not want any further care or social work evaluation. He states he has his own resources he will pursue for rehabilitation. He states he has his own transportation. He is eating breakfast right now and desires discharge afterwards Discharge Plan Departure Patient Disposition: Home Clinical Impression: Amphetamine abuse, Polysubstance abuse Instructions: DI for Substance Use Disorder Activity Restrictions/Additional Instructions: Please do not do drugs. Please go to the rehabilitation facility as you have plan for continued care. Return if worse if questions or concerns. Prescriptions: No Action rosuvastatin 5 mg tablet 5 mg PO DAILY metformin 500 mg tablet 500 mg PO BID dapagliflozin propanediol 10 mg tablet 10 mg PO DAILY lisinopril 10 mg tablet 10 mg PO DAILY gabapentin 400 mg capsule 400 mg PO TID Qty: 90 2RF Ensure Original Liquid 1 ea PO TID Qty: 90 12RF Rx Instructions: Three drinks daily, everyday for one year multivitamin with folic acid [Tab-A-Stefan] 400 mcg Tablet 1 tab PO DAILY Qty: 30 0RF Referrals: Cody Sahni MD [Primary Care Provider] - Stand Alone Forms: Patient Portal/API
--- NOTE | 2023-06-09 22:30 | PC.NURSE ---
MD Ybarra just at bedside. Pt able to talk to him. Pt unsure of year still. Does ramble quite a bit. MD gave verbal order to give pt food and something to drink. Gave pt two half egg sandwiches and a diet sprite per request.
[2023-06-10] VITALS (10 sets, daily range): BP systolic 123–151; BP diastolic 71–105; PULSE 77–91; RESP 16; TEMP 36.6; O2SAT 99–100
--- NOTE | 2023-06-10 01:09 | PC.NURSE ---
Pt awoke and moved around in bed. Checked vital signs, all WNL. Pt still confused and not making much sense but speech is still clear at this time. Definitely an improvement from arrival. MD Ybarra aware. Pt denies any complaints or needs at this time.
[2023-06-10 08:36] LABS: Ur Creatinine Normal (Normal); Ur Specific Gravity Normal (Normal); Urine Tetrahydrocannabinol Positive (Negative); Urine pH Normal (Normal)
[2023-06-10 08:37] LABS: UR Morphine/Opiate cutoff 300 Negative (Negative); Urine Amphetamines Positive (Negative); Urine Barbiturates Negative (Negative); Urine Benzodiazepines Positive (Negative); Urine Cocaine Negative (Negative); Urine MDMA Negative (Negative); Urine Methadone Negative (Negative); Urine Methamphetamines Positive (Negative); Urine Oxycodone Negative (Negative); Urine Phencyclidine Negative (Negative); Urine Tricyclic Antidepressant Negative (Negative)
--- NOTE | 2023-06-10 08:54 | PC.NURSE ---
Pt admits to using meth; wishes to go to rehab. a&o x4. stable/steady gait.
== END 2023-06-10 09:06 | disposition home or self-care (01) ==
PROVIDERS: Emergency Medicine; Emergency Provider Emergency Medicine; PCP Family Medicine
DX: F15.10 Other stimulant abuse, uncomplicated (principal); F19.10 Other psychoactive substance abuse, uncomplicated; R47.9 Unspecified speech disturbances; Z79.899 Other long term (current) drug therapy
CPT/HCPCS: 36415; 70544; 70549; 70553; 80053; 80305; 80320; 82140; 83690; 84443; 85025; 99284